=== PATIENT | male | born 1940 | race Caucasian/White ===

== ENCOUNTER → 2019-07-23 10:49 | Outpatient (CLI) | payer MEDICARE, SELFPAY ==
[2019-07-23 09:32] VITALS: BMI 29.2
[2019-07-23 11:53] LABS: AST(SGOT) 28 U/L (15-37); Alanine Aminotransfer ALT/SGPT 40 U/L (16-61); Albumin, Serum 3.5 g/dL (3.2-5.0); Alkaline Phosphatase 70 U/L (45-117); Bilirubin, Direct 0.16 mg/dL (0.00-0.30); Protein, Total 7.5 g/dL (6.4-8.2)
[2019-07-25 03:38] LABS: SAR-COV-2 IGG ANTIBODY Negative (Negative); SAR-COV-2 IGM ANTIBODY Negative (Negative)
== END ==
PROVIDERS: Referring Provider Internal Medicine Cardiovascular Disease; Visit Provider Internal Medicine Cardiovascular Disease
DX: I25.119 Atherosclerotic heart disease of native coronary artery with unspecified angina pectoris (principal); Z95.1 Presence of aortocoronary bypass graft; E78.5 Hyperlipidemia, unspecified; I44.0 Atrioventricular block, first degree; R50.9 Fever, unspecified
CPT/HCPCS: 36415; 80076; 86769; G2023

== ENCOUNTER → 2019-08-19 | Outpatient (CLI) | payer MEDICARE, SELFPAY ==
[2019-07-23 09:32] VITALS: BMI 29.2
--- NOTE | 2019-08-19 06:38 | ECHOD_ITS ---
Reason For Study: CAD/ASHD Procedure This was a 2D Doppler, Color Flow transthoracic echocardiogram. The exam was of adequate technical quality. Exam performed in department. Left Ventricle Normal LV size. Segmental dysfunction with preserved ejection fraction (see wall motion). The estimated ejection fraction is 55 %. No evidence for diastolic dysfunction. Mid-inferoseptal : Hypokinetic. Mid-anteroseptal : Hypokinetic. Septal [place] : Hypokinetic. Right Ventricle Normal RV size. Normal systolic function. Atria Normal left atrium. Normal right atrium. No doppler evidence for ASD. Mitral Valve There is mild mitral annular calcification. Extension of the mitral annular calcification onto the base of the posterior mitral valve leaflet. Mild (1+) mitral valve insufficiency. Tricuspid Valve Normal tricuspid valve. Trivial tricuspid valve insufficiency. Aortic Valve Trisinus/trileaflet aortic valve. Moderate focal aortic valve calcification. Pulmonic Valve The pulmonic valve is not well visualized. Mild (1+) pulmonic valve insufficiency. Great Vessels Mild to moderately dilated aortic root. Pericardium/Pleural No pericardial effusion. MMode/2D Measurements & Calculations LVIDd: 4.1 cm IVSd: 1.8 cm LVOT diam: 2.1 cm LVIDs: 3.0 cm LVPWd: 1.2 cm LVOT area: 3.5 cm2 FS: 27.0 % Ao root diam: 4.3 cm LAV(MOD-bp): 61.6 ml LA A4 area: 19.1 cm2 LA dimension: 4.2 cm LAV(MOD-bp) Indexed: 28.3 ml/m2 LAV(MOD-sp2): 62.2 ml LAV(MOD-sp4): 58.6 ml RA A4 area: 11.3 cm2 Time Measurements MV dec time: 0.29 sec Doppler Measurements & Calculations MV E max phani: 70.9 cm/sec Lat Peak E' Phani: 9.2 cm/sec Med Peak E' Phani: 6.1 cm/sec MV A max phani: 78.7 cm/sec E/E' lat: 7.7 E/E' med: 11.6 MV E/A: 0.90 MV V2 max: 83.8 cm/sec MV P1/2t max phani: 79.0 cm/sec Ao V2 max: 120.4 cm/sec MV max P.8 mmHg MV P1/2t: 120.9 msec Ao max P.8 mmHg MV V2 mean: 51.7 cm/sec MV dec slope: 191.3 cm/sec2 Ao V2 mean: 78.8 cm/sec MV mean P.2 mmHg Ao mean P.8 mmHg MV V2 VTI: 28.0 cm MVA(P1/2t): 1.8 cm2 Ao V2 VTI: 25.2 cm MVA(VTI): 2.7 cm2 ANDRADE(I,D): 3.0 cm2 ANDRADE(V,D): 2.4 cm2 LV V1 max: 82.3 cm/sec SV(LVOT): 76.0 ml PA V2 max: 109.8 cm/sec LV V1 max P.7 mmHg LV V1 mean P.5 mmHg LV V1 mean: 58.3 cm/sec LV V1 VTI: 21.5 cm PI end-d phani: 93.4 cm/sec Interpretation Summary Segmental dysfunction with preserved ejection fraction (see wall motion). The estimated ejection fraction is 55 %. There is mild mitral annular calcification. Extension of the mitral annular calcification onto the base of the posterior mitral valve leaflet. Mild (1+) mitral valve insufficiency. Trivial tricuspid valve insufficiency. Moderate focal aortic valve calcification. Mild (1+) pulmonic valve insufficiency. Mild to moderately dilated aortic root. No evidence for diastolic dysfunction. Ordering Physician: Rick Hart Referring Physician: Rick Hart Performed By: Jorge López RCS
--- NOTE | 2019-08-19 08:30 | STRESSREP_ITS ---
Stress Test Report Date: 08-19-2019 Procedure: Exercise tolerance test/imaging study Indications: Chest pain; CAD; PCI; CABG Consent: Per the patient Procedure: The patient exercised on a Madan protocol for 7 minutes completing Stage II and 1 minute of Stage III achieving a peak heart rate of 134 bpm (93 % predicted maximal heart rate) with a peak blood pressure 162/72 mmHg and a peak MET capacity of 9 METs. The baseline ECG demonstrated normal sinus rhythm. The peak exercise ECG demonstrated no obvious ECG changes. There were no cardiac dysrhythmias pretest, during exercise, or recovery. The functional capacity was considered good. There was no complaint of chest discomfort during exercise or recovery. The examination was discontinued secondary to dyspnea and leg fatigue. Impression: 1. Technically adequate (percent predicted maximal heart rate greater than 85%) exercise tolerance test 2. Peak exercise ECG with no obvious ECG changes 3. There were no cardiac dysrhythmias pretest, during exercise, or recovery 4. Nuclear images pending Myocardial perfusion imaging study: Technique: The patient was injected with 12.0 mCi of technetium 99m Cardiolite and subsequently rest SPECT Cardiolite nuclear imaging was obtained in the horizontal long, vertical long, and short axis views. The patient exercised on a Madan protocol for 7 minutes completing Stage II and 1 minute of Stage III achieving a peak heart rate of 134 bpm (93 % predicted maximal heart rate) with a peak blood pressure 162/72 mmHg and a peak MET capacity of 9 METs. The patient was injected with 36.0 mCi of technetium 99m Cardiolite and subsequently stress SPECT Cardiolite nuclear imaging was obtained in the horizontal long, vertical long, and short axis views. A gated Cardiolite study at peak stress was obtained. Interpretation: Rest and stress SPECT Cardiolite nuclear imaging status post realignment, normalization, and attenuation correction, demonstrates the appearance of relative uniform tracer uptake and myocardial perfusion appearing within normal limits. There is end systolic thickening and brightening. The gated Cardiolite study demonstrates myocardial thickening and inward wall motion. The reported LVEF is 61 %. Impression: 1. Rest and stress SPECT Cardiolite nuclear imaging demonstrate relative uniform tracer uptake and myocardial perfusion appearing within normal limits. 2. The gated Cardiolite study reports an LVEF of 61 %. This note was generated with [employer] software. It may contain incorrect words, spelling, and punctuation that were not noted in checking the note before signing.
== END | disposition home or self-care (01) ==
LOC: CVS 06:38
PROVIDERS: Referring Provider Internal Medicine Cardiovascular Disease; Visit Provider Internal Medicine Cardiovascular Disease
DX: I25.119 Atherosclerotic heart disease of native coronary artery with unspecified angina pectoris (principal); I44.0 Atrioventricular block, first degree; E78.5 Hyperlipidemia, unspecified; Z95.1 Presence of aortocoronary bypass graft; Z95.5 Presence of coronary angioplasty implant and graft
CPT/HCPCS: 78452; 93017; 93306; A9500; A4216

== ENCOUNTER 2021-06-03 09:55 | Outpatient (CLI) | payer MEDICARE, SELFPAY ==
[2021-06-03 10:46] LABS: Absolute Lymphocyte Count 1.43 X10^3/uL (0.83-4.51); Absolute Neutrophil Count 2.7 X10^3/uL (2.0-7.7); Basophil# 0.05 X10^3/uL; Eosinophil# 0.19 X10^3/uL; Eosinophils% 3.8 % (0-5); Hematocrit 43.4 % (40-54); Hemoglobin 14.6 g/dL (13.0-16.5); Lymphocyte # 1.43 X10^3/ul (0.83-4.51); Lymphocyte % 28.4 % (19-41); Mean Corp Hgb Conc 33.6 g/dL (32-36); Mean Corpuscular Volume 98.2 fL (80-94); Monocyte# 0.65 X10^3/uL; Monocyte% 12.9 % (0-10); NRBC Flagged by Analyzer 0 % (0-5); Neutrophil # 2.68 X10^3/uL (2.7-7.7); Neutrophil % 53.3 % (47-70); Platelet Count 110 K/mm3 (150-450); RBC Distribution Width CV 13.2 % (11.6-14.6); RBC Distribution Width SD 48.2 fl (35.1-43.9); Red Blood Count 4.42 M/mm3 (4.6-6.2)
[2021-06-03 11:27] LABS: Anion Gap 4 (5-15); BUN 25 mg/dL (7-18); BUN/Creat Ratio 18.2 RATIO (10-20); Calcium,Total 8.8 mg/dL (8.5-10.1); Chloride 108 mmol/L (98-107); Creatinine, Serum 1.37 mg/dL (0.70-1.30); EST Glomerular Filtration Rate 53 mL/min (>60); Est Glom Filt Rate - Afr Amer 64 mL/min (>60); Glucose 110 mg/dL (74-106); Potassium 4.9 mmol/L (3.5-5.1); Sodium Level 137 mmol/L (136-145); T4 Free Direct 0.84 ng/dL (0.76-1.46); Thyroid Stim Hormone (TSH) 1.03 uIU/mL (0.358-3.74)
[2021-06-03 12:57] LABS: BNP,B-Type NATRIURETIC PEPTIDE 22.9 pg/mL (0-100)
== END 2021-06-03 23:59 | disposition home or self-care (01) ==
LOC: LAB 09:59
PROVIDERS: Visit Provider Nurse Practitioner Gerontology
DX: R06.00 Dyspnea, unspecified (principal); R53.83 Other fatigue
CPT/HCPCS: 36415; 80048; 83880; 84439; 84443; 85025

== ENCOUNTER 2021-06-22 06:17 | Outpatient (CLI) | payer MEDICARE, SELFPAY ==
--- NOTE | 2021-06-22 06:19 | ECHOD_ITS ---
Reason For Study: Dyspnea/SOB Procedure This was a 2D Doppler, Color Flow transthoracic echocardiogram. The exam was of adequate technical quality. Exam performed in department. Left Ventricle Normal LV size. Segmental dysfunction with preserved ejection fraction (see wall motion). The estimated ejection fraction is 55 %. Post operative septal motion. Diastolic function is indeterminate. Mid-inferoseptal : Hypokinetic. Mid-anteroseptal : Hypokinetic. Right Ventricle Normal RV size. Normal systolic function. Atria The left atrium is mildly enlarged. Normal right atrium. No doppler evidence for ASD. Bubble contrast study negative for right to left interatrial shunt. Mitral Valve There is mild mitral annular calcification. Extension of the mitral annular calcification onto the base of the posterior mitral valve leaflet. Mild (1+) mitral valve insufficiency. Tricuspid Valve Normal tricuspid valve. Trivial tricuspid valve insufficiency. Unable to estimate RV systolic pressure due to insufficient tricuspid regurgitant envelope. Aortic Valve Trisinus/trileaflet aortic valve. Mild diffuse aortic valve thickening. Moderate focal aortic valve calcification. Pulmonic Valve The pulmonic valve is not well visualized. Mild (1+) eccentric pulmonic valve insufficiency. Great Vessels Mild to moderately dilated aortic root. Calcified aortic root. Pericardium/Pleural No pericardial effusion. Medication 22 gauge I.V. with prn adaptor inserted into right arm. Performed a rapid injection of agitated mix of 9 cc saline and 1cc air to assess for atrial septal defect. MMode/2D Measurements & Calculations LVIDd: 4.1 cm IVSd: 1.2 cm LVOT diam: 2.1 cm LVIDs: 2.5 cm LVPWd: 1.1 cm FS: 39.3 % LVOT area: 3.6 cm2 Ao root diam: 4.4 cm LAV(MOD-bp): 49.9 ml LA A4 area: 16.0 cm2 LA dimension: 4.3 cm LAV(MOD-bp) Indexed: 23.6 ml/m2 LAV(MOD-sp2): 50.5 ml LAV(MOD-sp4): 45.0 ml RA A4 area: 12.1 cm2 Time Measurements MV dec time: 0.24 sec Doppler Measurements & Calculations MV E max phani: 59.2 cm/sec Lat Peak E' Phani: 8.6 cm/sec Med Peak E' Phani: 7.2 cm/sec MV A max phani: 78.3 cm/sec E/E' lat: 6.8 E/E' med: 8.2 MV E/A: 0.76 MV V2 max: 73.8 cm/sec MV P1/2t max phani: 63.4 cm/sec Ao V2 max: 90.2 cm/sec MV max P.2 mmHg MV P1/2t: 102.7 msec Ao max P.3 mmHg MV V2 mean: 42.5 cm/sec MV dec slope: 180.8 cm/sec2 ANDRADE(V,D): 2.7 cm2 MV mean P.84 mmHg MV V2 VTI: 22.8 cm MVA(P1/2t): 2.1 cm2 LV V1 max: 67.9 cm/sec PA V2 max: 124.2 cm/sec PI end-d phani: 86.7 cm/sec LV V1 max P.8 mmHg ECHO/Echo Complete Interpretation Summary Segmental dysfunction with preserved ejection fraction (see wall motion). The estimated ejection fraction is 55 %. Post operative septal motion. The left atrium is mildly enlarged. There is mild mitral annular calcification. Extension of the mitral annular calcification onto the base of the posterior mi tral valve leaflet. Mild (1+) mitral valve insufficiency. Trivial tricuspid valve insufficiency. Mild diffuse aortic valve thickening. Moderate focal aortic valve calcification. Mild (1+) eccentric pulmonic valve insufficiency. Mild to moderately dilated aortic root. Calcified aortic root. Unable to estimate RV systolic pressure due to insufficient tricuspid regurgita nt envelope. Diastolic function is indeterminate. Bubble contrast study negative for right to left interatrial shunt. Ordering Physician: Selam Mills Referring Physician: [facility] Performed By: Jorge López RCS
--- NOTE | 2021-06-22 13:05 | STRESSREP_ITS ---
Stress Test Report Date: 06-22-2021 Procedure: Exercise tolerance test/imaging study Indications: Chest pain; CAD; PCI; CABG Consent: Per the patient Procedure: The patient exercised on a Madan protocol for 7 minutes completing Stage II and 1 minute of Stage III achieving a peak heart rate of 137 bpm (97% predicted maximal heart rate) with a peak blood pressure 162/72 mmHg and a peak MET capacity of 9 METs. The baseline ECG demonstrated normal sinus rhythm; poor R wave progression. The peak exercise ECG demonstrated no obvious ECG changes. There was a rare PVC during exercise and recovery. The functional capacity was considered good. There was no complaint of chest discomfort during exercise or recovery. The examination was discontinued secondary to dyspnea. Impression: 1. Technically adequate (percent predicted maximal heart rate greater than 85%) exercise tolerance test 2. Peak exercise ECG with no obvious ECG changes 3. There was a rare PVC during exercise and recovery 4. Nuclear images pending Myocardial perfusion imaging study: Technique: The patient was injected with 14.1 mCi of technetium 99m Cardiolite and subsequently rest SPECT Cardiolite nuclear imaging was obtained in the horizontal long, vertical long, and short axis views. The patient exercised on a Madan protocol for 7 minutes completing Stage II and 1 minute of Stage III achieving a peak heart rate of 137 bpm (97% predicted maximal heart rate) with a peak blood pressure 162/72 mmHg and a peak MET capacity of 9 METs. The patient was injected with 43.8 mCi of technetium 99m Cardiolite and subsequently stress SPECT Cardiolite nuclear imaging was obtained in the horizontal long, vertical long, and short axis views. A gated Cardiolite study at peak stress was obtained. Interpretation: Rest and stress SPECT Cardiolite nuclear imaging status post realignment, normalization, and attenuation correction, demonstrates the appearance of relative uniform tracer uptake and myocardial perfusion appearing within normal limits. There is end systolic thickening and brightening. The gated Cardiolite study demonstrates myocardial thickening and inward wall motion. The reported LVEF is 55%. Impression: 1. Rest and stress SPECT Cardiolite nuclear imaging demonstrate relative uniform tracer uptake and myocardial perfusion appearing within normal limits. 2. The gated Cardiolite study reports an LVEF of 55%. This note was generated with [employer] software. It may contain incorrect words, spelling, and punctuation that were not noted in checking the note before signing.
== END 2021-06-22 23:59 | disposition home or self-care (01) ==
LOC: CVS 06:17
PROVIDERS: Visit Provider Nurse Practitioner Gerontology
DX: R06.02 Shortness of breath (principal)
CPT/HCPCS: 78452; 93017; 93306; A9500; A4216

== ENCOUNTER → 2023-07-06 | Outpatient (CLI) | payer MEDICARE, SELFPAY ==
[2023-07-06 11:23] LABS: Absolute Neutrophil Count 3.7 X10^3/uL (2.0-7.7); Basophil# 0.08 X10^3/uL; Basophil% 1.2 % (0-1); Eosinophil# 0.23 X10^3/uL; Eosinophils% 3.5 % (0-5); Hematocrit 43.6 % (40-54); Hemoglobin 14.4 g/dL (13.0-16.5); Lymphocyte % 30.3 % (19-41); Mean Corpuscular Hgb 32.8 pg (27.0-32.0); Mean Corpuscular Volume 99.3 fL (80-94); Mean Platelet Vol. 11.1 fl (6.2-12.0); Monocyte# 0.58 X10^3/uL; Monocyte% 8.8 % (0-10); NRBC Flagged by Analyzer 0 % (0-5); Neutrophil # 3.67 X10^3/uL (2.7-7.7); Neutrophil % 55.7 % (47-70); Platelet Count 126 K/mm3 (150-450); RBC Distribution Width CV 12.8 % (11.6-14.6); Red Blood Count 4.39 M/mm3 (4.6-6.2); White Blood Count 6.6 K/mm3 (4.4-11.0)
[2023-07-06 11:44] LABS: BNP,B-Type NATRIURETIC PEPTIDE 38.5 pg/mL (0-100)
[2023-07-06 11:59] LABS: Anion Gap 5 (5-15); BUN 26 mg/dL (7-18); BUN/Creat Ratio 17.4 RATIO (10-20); Calcium,Total 9.2 mg/dL (8.5-10.1); Chloride 109 mmol/L (98-107); Creatinine, Serum 1.49 mg/dL (0.70-1.30); EST Glomerular Filtration Rate 48 mL/min (>60); Est Glom Filt Rate - Afr Amer 58 mL/min (>60); Glucose 102 mg/dL (74-106); Potassium 4.5 mmol/L (3.5-5.1); Sodium Level 138 mmol/L (136-145); Thyroid Stim Hormone (TSH) 1.07 uIU/mL (0.358-3.74)
== END | disposition home or self-care (01) ==
LOC: LAB 10:59
PROVIDERS: Referring Provider Nurse Practitioner Gerontology; Visit Provider Nurse Practitioner Gerontology
DX: R53.83 Other fatigue (principal); R06.00 Dyspnea, unspecified
CPT/HCPCS: 36415; 80048; 83880; 84443; 85025

== ENCOUNTER → 2023-08-15 | Outpatient (CLI) | payer MEDICARE, SELFPAY ==
--- NOTE | 2023-08-15 08:45 | ECHOD_ITS ---
Version 2 Reason For Study: SOB Procedure This was a 2D Doppler, Color Flow transthoracic echocardiogram. Exam performed in department. Left Ventricle Normal LV size. Left ventricular systolic function is normal. The left ventricular ejection fraction is 60 %. No regional wall motion abnormalities noted. Right Ventricle Normal RV size. Normal systolic function. Atria Normal left atrium. Normal right atrium. Mitral Valve Normal mitral valve. Tricuspid Valve Normal tricuspid valve. Aortic Valve Trisinus/trileaflet aortic valve. Pulmonic Valve Normal pulmonic valve. Great Vessels Mild to moderately dilated aortic root. The pulmonary artery is normal size. Normal inferior vena cava. Pericardium/Pleural No pericardial effusion. MMode/2D Measurements & Calculations LVIDd: 4.2 cm IVSd: 1.6 cm Ao root diam: 4.6 cm LVIDs: 3.2 cm LVPWd: 1.00 cm RVDd: 3.7 cm FS: 23.7 % LAV(MOD-bp): 61.6 ml LVAd ap4: 29.9 cm2 SV(MOD-sp4): 56.3 ml LAV(MOD-bp) Indexed: 28.5 ml/m2 LVLd ap4: 7.9 cm LAV(MOD-sp2): 59.4 ml EDV(MOD-sp4): 95.2 ml LAV(MOD-sp4): 62.3 ml EDV(sp4-el): 96.2 ml LVAs ap4: 18.1 cm2 LVLs ap4: 7.1 cm ESV(MOD-sp4): 39.0 ml ESV(sp4-el): 39.2 ml EF(MOD-sp4): 59.1 % EF(sp4-el): 59.2 % SV(sp4-el): 56.9 ml LA A4 area: 20.3 cm2 LA dimension(2D): 4.5 cm RA A4 area: 14.2 cm2 TAPSE: 1.8 cm Time Measurements MV dec time: 0.20 sec Doppler Measurements & Calculations MV E max phani: 70.4 cm/sec Lat Peak E' Phani: 9.7 cm/sec Med Peak E' Phani: 7.3 cm/sec MV A max phani: 80.4 cm/sec E/E' lat: 7.3 E/E' med: 9.7 MV E/A: 0.88 MV V2 max: 83.0 cm/sec MV P1/2t max phani: 65.8 cm/sec Ao V2 max: 128.0 cm/sec MV max P.8 mmHg MV P1/2t: 87.1 msec Ao max P.6 mmHg MV V2 mean: 50.1 cm/sec Ao V2 mean: 85.8 cm/sec MV mean P.1 mmHg MV dec slope: 221.3 cm/sec2 Ao mean P.4 mmHg MV V2 VTI: 23.7 cm MVA(P1/2t): 2.5 cm2 Ao V2 VTI: 29.5 cm AV (velocity ratio): 0.74 LV V1 max: 90.4 cm/sec PA V2 max: 121.2 cm/sec LV V1 max P.3 mmHg PA V2 mean: 85.7 cm/sec LV V1 mean P.9 mmHg PA V2 VTI: 23.4 cm LV V1 mean: 66.0 cm/sec LV V1 VTI: 21.9 cm ECHO/Echo Complete Interpretation Summary Normal LV size. Left ventricular systolic function is normal. No regional wall motion abnormalities noted. The left ventricular ejection fraction is 60 %. Mild to moderately dilated aortic root. Structurally normal valves. Ordering Physician: Selam Mills Referring Physician: [facility] Performed By: Bethanie Asher, [place], RVT
== END | disposition home or self-care (01) ==
LOC: CVS 08:43
PROVIDERS: Referring Provider Nurse Practitioner Gerontology; Visit Provider Nurse Practitioner Gerontology
DX: R06.02 Shortness of breath (principal); I77.810 Thoracic aortic ectasia
CPT/HCPCS: 93306

== ENCOUNTER → 2024-01-09 | Outpatient (CLI) | payer MEDICARE, SELFPAY ==
[2024-01-09 10:45] LABS: Absolute Neutrophil Count 3.5 X10^3/uL (2.0-7.7); Basophil# 0.05 X10^3/uL; Basophil% 0.8 % (0-1); Eosinophil# 0.15 X10^3/uL; Eosinophils% 2.5 % (0-5); Hematocrit 41.7 % (40-54); Hemoglobin 13.4 g/dL (13.0-16.5); Lymphocyte % 29.8 % (19-41); Mean Corp Hgb Conc 32.1 g/dL (32-36); Mean Corpuscular Hgb 32.3 pg (27.0-32.0); Mean Corpuscular Volume 100.5 fL (80-94); Mean Platelet Vol. 10.9 fl (6.2-12.0); Monocyte# 0.56 X10^3/uL; Monocyte% 9.3 % (0-10); NRBC Flagged by Analyzer 0 % (0-5); Neutrophil # 3.46 X10^3/uL (2.7-7.7); Neutrophil % 57.1 % (47-70); Platelet Count 133 K/mm3 (150-450); RBC Distribution Width SD 48.2 fl (35.1-43.9); Red Blood Count 4.15 M/mm3 (4.6-6.2); White Blood Count 6.1 K/mm3 (4.4-11.0)
[2024-01-09 11:06] LABS: BNP,B-Type NATRIURETIC PEPTIDE 59.7 pg/mL (0-100)
[2024-01-09 11:17] LABS: Anion Gap 5 (5-15); BUN 24 mg/dL (7-18); BUN/Creat Ratio 16.8 RATIO (10-20); Chloride 108 mmol/L (98-107); Creatinine, Serum 1.43 mg/dL (0.70-1.30); EST Glomerular Filtration Rate 50 mL/min (>60); Est Glom Filt Rate - Afr Amer 61 mL/min (>60); Glucose 88 mg/dL (74-106); Potassium 4.3 mmol/L (3.5-5.1); Sodium Level 138 mmol/L (136-145)
== END | disposition home or self-care (01) ==
LOC: LAB 09:57
PROVIDERS: Referring Provider Nurse Practitioner Gerontology; Visit Provider Nurse Practitioner Gerontology
DX: R06.09 Other forms of dyspnea (principal); R53.83 Other fatigue
CPT/HCPCS: 36415; 80048; 83880; 84443; 85025

== ENCOUNTER → 2024-02-01 | Outpatient (CLI) | payer MEDICARE, SELFPAY ==
--- NOTE | 2024-02-01 12:13 | STRESSREP_ITS ---
Stress Test Report Date: 02/01/2024 Procedure: Pharmacologic stress nuclear imaging study Indications: Coronary artery disease Consent: Per the patient Procedure: The patient underwent pharmacologic (Regadenoson 0.4mg ) evaluation with a peak heart rate of 84 beats per minute (60%predicted maximal heart rate) and a peak blood pressure of 122/70 mmHg. The baseline ECG demonstrated sinus rhythm. The peak pharmacologic ECG demonstrated no ischemic changes. There were no cardiac dysrhythmias pretest, during pharmacologic infusion, or recovery. There was no complaint of chest discomfort during pharmacologic infusion or recovery. The patient was injected with 14.2 millicuries of technetium 99m Cardiolite and subsequently rest SPECT Cardiolite nuclear imaging was obtained in the horizontal long, vertical long, and short axis views. The patient underwent pharmacologic (Regadenoson) evaluation. The patient was injected with 44.6 millicuries of technetium 99m Cardiolite and subsequently stress SPECT Cardiolite nuclear imaging was obtained in the horizontal long, vertical long, and short axis views. A gated Cardiolite study at peak stress was obtained. The examination was stopped secondary to completion of protocol. Rest and stress SPECT Cardiolite nuclear imaging status post realignment, normalization, and attenuation correction demonstrate a very small reversible perfusion defect of the apex of mild intensity. There is end systolic thickening and brightening. The gated Cardiolite study demonstrates myocardial thickening and inward wall motion. The reported LVEF is 61%. Impression: 1. Pharmacologic (Regadenoson) evaluation 2. Peak pharmacologic ECG with no ischemic changes. 3. There were no cardiac dysrhythmias pretest, during pharmacologic infusion, or recovery. 5. Small apical reversible perfusion defect of mild intensity suggestive of mild ischemia. Overall low risk with less than 5% of the myocardium involved. 6. The gated Cardiolite study reports an LVEF of 61%. This note was generated with [email or web address] software. It may contain incorrect words, spelling, and punctuation that were not noted in checking the note before signing.
== END | disposition home or self-care (01) ==
PROVIDERS: Referring Provider Nurse Practitioner Gerontology; Visit Provider Nurse Practitioner Gerontology
DX: R07.9 Chest pain, unspecified (principal); R06.00 Dyspnea, unspecified; R53.83 Other fatigue; I25.10 Atherosclerotic heart disease of native coronary artery without angina pectoris
CPT/HCPCS: 78452; 93017; A9500; A4216; J2785

== ENCOUNTER → 2024-08-26 | Outpatient (CLI) | payer MEDICARE, SELFPAY ==
--- OUTSIDE RECORDS SUMMARY | 2024-08-26 07:10 | XMS RPT_ITS | CCD ---
Author Organization [facility] Team Providers Care Manager Air Name Role Phone Jordan Rivas Unavailable Unavailable Batsheva Mata Unavailable Unavailable Roly Medrano Unavailable Unavailable Lizzy Austin Unavailable Unavailable Selam Bourgeois Unavailable Unavailable Unknown, Referring Provider Unavailable Unav ailable Unavailable Unavailable Unavailable Roly Medrano Unavailable Unavailable Unavailable Unavailable [facility] Primary Care Provider [facility] Referring Provider Unavailable Gene PASTEURIZING MACHINE OPERATOR, PASTEURIZING MACHINE OPERATOR-C Selam Attending Provider Free, Text Entry Unavailable Unavailable Duy Cabrera Unavailable Gene PASTEURIZING MACHINE OPERATOR, PASTEURIZING MACHINE OPERATOR-C Selam Other Provider Dr. Rick Hart Attending Provider [phone] Tres Esquivel MD Primary Care Provider [phone] Tres Esquivel MD Primary Care Provider TRES ESQUIVEL Primary Care Unavailable SHAWNA COPE Admitting Unavailable EMMA MUNOZ Attending Unavailable Hermilo Gutierrez PA-C Unavailable Analilia Scott Unavailable Michael Lehman DO Unavailable Tres Esquivel MD Primary Care Provider Tres Esquivel [place] Referring Provider Unavailable Gene ANTUNEZ, PASTEURIZING MACHINE OPERATOR-C Selam Attending Provider TRES ESQUIVEL Primary Care Unavailable [facility] Primary Care Unavailable TRES ESQUIVEL Primary Care Unavailable MOOSE PACK Admitting Unavailable MOOSE PACK Attending Unavailable TRES ESQUIVEL [facility] [place] [facility] [place] Referring Provider Unavailable Tavo GAUTAM, Dr. Torrez Attending Provider [facility] Referring Unavailable [facility] Primary Care Unavailable Jase Vo Attending Unavailable Gene ANTUNEZ, Selam Attending Unavailable Selam Mills NP Referring Unavailable [facility] Primary Care Unavailable Gene ANTUNEZ, Selam Referring Unavailable Gene ANTUNEZ, Selam Attending [facility] Primary Care Unavailable [facility] Primary Care Unavailable Gene ANTUNEZ, Selam Referring Unavailable Gene ANTUNEZ, Selam Attending Unavailable Lopez Hubbard Attending Unavailable [facility] Primary Care Unavailable Gene ANTUNEZ, Selam Attending Unavailable [facility] Un[place] [facility] Primary Care Unavailable Gene ANTUNEZ, Selam Referring Unavailable Gene ANTUNEZ, Selam Consulting Unavailable Sadi Craven Attending Unavailable Gene ANTUNEZ, Selam Attending Unavailable [facility] Referring [facility] Primary Care Unavailable Allergies Allergy Classification Reported Allergen(s) Allergy Type Date of Onset Reaction(s) Facility (2 sources) Aluminum aspirin Drug Allergy 08-06-2022 [facility] Medications Current Medications Medication Drug Class(es) Dates Sig (Normalized) Sig (Original) Acetaminophen (20 sources) Start: 02-16-2023 take 1 tablet by mouth every four hours as needed acetaminophen (Tylenol) tablet 650 mg Start: 08-06-2022 End: 08-08-2022 acetaminophen (Tylenol) tabl et 650 mg Start: 08-02-2021 take 1 capsule by mo uth once as needed Acetaminophen 325 mg capsule Active 325 mg PO ONCE as needed August 02, 2021 12:00am Start: 01-18-2017 End: 08-02-2021 take 1 tablet by mouth once daily as needed Acetaminophen 500 mg tablet Discontinued 500 mg PO DAILY as needed July 23, 2019 9:36am August 02, 2021 10:44am take 2 capsules by m outh every six hours as needed acetaminophen 325 mg cap Take 650 mg by mouth every 6 hours as needed. 0 Active take 1 tablet by clemencia th every six hours as needed acetaminophen (TYLENOL) 500 mg tablet Take 500 mg by mouth every 6 hours as needed. 0 Active Comment on above: Take 650 mg by mouth every 6 hours as needed. Take 500 mg by mouth every 6 hours as needed. [id number] 200 actuat albuterol 0.09 mg/actuat metered dose inhaler (1 source) beta2-Adrenergic Agonist Start: 07-17-19 Albuterol Sulfate 90 mcg/actuation HFA aerosol inhaler Active 2 NMA INHALATION EVERY 4-6 HOURS as needed July 16, 2024 12:00am 24 hr alfuzosin hydrochloride 10 mg extended release oral tablet (11 sources) alpha-Adrenergic Trice Start: 04-12-19 take 1 tablet by mouth once daily at mealtime Alfuzosin 10 mg tablet extended release 24 hr Active 10 mg PO DAILY April 12, 2020 1:00am administer after the same meal each day Comment on above: Take 1 tablet by clemencia th every afternoon. Take 10 mg by mouth. aspirin 81 mg chewable tablet (15 sources) Platelet Aggregation Inhibitor, Nonsteroidal Anti-inflammatory Drug Start: 11-17-19 15 take 1 tablet by mouth once daily Aspirin 81 MG tablet,chewable Active 81 mg PO DAILY@0800 November 16, 2014 12:00am Start: 03-15-2005 ADULT ASPIRIN EC LOW STRENGTH 81 MG TAB Take one(1) tablet daily. 0 03/15/2005 Active Aspirin 81 TBEC Refills: 0 DO Active Aspirin 81 TBEC Refills: 0 Active Comment on above: Take one(1) tablet d aily. atenolol 25 mg oral tablet (20 sources) beta-Adrenergic Trice Start: 2014 Atenolol 25 MG Oral Tablet Quantity: 90 Refills: 0 Ordered: 09-Aug-2015 DO Start : 12-Oct-2014 Active Start: 03-15-2005 End: 05-27-2024 take 1 tablet by mouth once daily Atenolol 25 mg table t Active 25 mg PO DAILY May 27, 2024 3:05pm Comment on above: Take one(1) tablet d aily. benzocaine 15 mg / menthol 3.6 mg oral lozenge (1 source) Standardized Chemical Allergen Start: 3 1 lozenge, Mouth/Throat, Every 2 hour PRN, sore throat, Starting on Sun02/16/23 at 1839 24 hr buPROPion hydrochloride 150 mg extended release oral tablet (20 sources) Aminoketone Start: 3 take 300 mg by mouth once daily 300 mg, oral, Daily RT, First dose on 02/17/23 at 1030 Do not crush, chew, or split. Start: 05-11-2022 buPROPion XL ( WELLBUTRIN XL) 300 mg 24 hr tablet 300 mg. 0 05/11/2022 Active Start: 11-16-2014 End: 08-08-2022 take 1 tablet by mouth once daily Bupropion Hcl 300 MG tablet extended release 24 hr Active 300 mg PO DAILY November 16, 2014 12:00am take 1 tablet by clemencia th every twenty-four hours buPROPion HCl ER (XL) 300 MG Oral Tablet Extended Release 24 Hour Quantity: 0 Refills: 0 Ordered: 16-Dec-2015 DO Active Comment on above: 300 mg. clopidogrel 75 mg oral tablet (20 sources) P2Y12 Platelet Inhibitor Start: 12-25-2014 Clopidogrel Bisulfate 75 MG Oral Tablet Quantity: 90 Refills: 0 Ordered: 24-Sep-2015 DO Start : 25-Dec-2014 Active Start: 03-15-2005 End: 05-27-2024 take 1 tablet by mouth once daily Clopidogrel 75 mg tablet Active 75 mg PO DAILY May 27, 2024 3:24pm Comment on above: Take one(1) tablet d aily. clotrimazole 10 mg/ml topical cream (1 source) Azole Antifungal Start: 07-08-19 clotrimazole 1% topical cream ; Apply topically to affected area 2 times a day Quantity: 1 Refills: 0 Ordered: 07-Jul-2014 Tomi Smart Start: 07-Jul-2014 Status: Discontinued Generic Substitution Allowed Comments: For external use only. Comment on above: For external use onl y. doxycycline hyclate 100 mg oral tablet (2 sources) Tetracycline-class Drug Start: 11-20-19 Doxycycline hyclate 100 mg oral tablet 0.4 ml enoxaparin sodium 100 mg/ml prefilled syringe (1 source) Low Molecular Weight Heparin Start: 02-17-20 inject 40 mg by subcutaneous injection every twenty-four hours 40 mg, subcutaneous, Every 24 hours, First dose on Sun02/16/23 at 1840 Indications: venous thrombosis 1 ml evolocumab 140 mg/ml auto-injector (2 sources) PCSK9 Inhibitor Start: 01-09-20 End: 01-10-20 Evolocumab (Repatha Sureclick) 140 mg/mL pen injector Active 140 mg SC every 2 weeks January 10, 2024 10:28am 12 hr guaiFENesin 1200 mg extended release oral tablet (4 sources) Start: 02-19-20 End: 03-20-19 take 1 tablet by mouth twice daily guaiFENesin (Mucinex) 1,200 mg tablet extended release 12hr Indications: Chest congestion Take 1 tablet (1,200 mg) by mouth 2 times a day. Do not crush, chew, or split. 60 tablet 0 02/18/2023 03/20/2023 Active Start: 02-17-2023 guaiFENesin (M ucinex) 12 hr tablet 1,200 mg Start: 11-19-2022 GuaiFENesin 60 0 mg oral tablet, extended release ibuprofen 200 mg oral tablet (2 sources) Nonsteroidal Anti-inflammatory Drug Start: 07-06-2023 take 1 tablet by mouth every six hours as needed Ibuprofen 200 mg tablet Active 200 mg PO EVERY 6 HOURS as needed July 06, 2023 12:00am ketoconazole 20 mg/ml medicated shampoo (1 source) Azole Antifungal ketoconazole 2% topical shampoo ; Apply topically to affected area 3 times a week Quantity: 0 Refills: 0 Ordered: 18-Jun-2021 Corrie Gagnon Generic Substitution Allowed losartan potassium 25 mg oral tablet (20 sources) Angiotensin 2 Receptor Trice Start: 08-06-2022 End: 08-08-2022 losartan (Cozaar) tablet 25 mg Start: 06-15-2015 Losartan Potas sium 25 MG Oral Tablet Quantity: 90 Refills: 0 Ordered: 18-Oct-2015 DO Start : 15-Jun-2015 Active Start: 10-25-2011 End: 05-28-2024 take 1 tablet by mouth once daily Losartan 25 mg tablet Active 25 mg PO DAILY May 28, 2024 12:00pm Comment on above: Take 1 tablet by clemencia th once daily. Take 1 tablet by clemencia th every afternoon. melatonin 3 mg oral tablet (3 sources) Start: 02-16-2023 take 3 mg by mouth once daily 3 mg, oral, Daily, First dose on 02/16/23 at 1900 Start: 08-06-2022 End: 08-08-2022 take 3 mg by mouth once daily as needed for sleep 3 mg, Oral, Nightly PRN, sleep, Starting on 08/06/22 at 0742 methylPREDNISolone 4 mg oral tablet (2 sources) Corticosteroid Start: 11-19-2022 MethylPREDNISolone 4 mg oral tablet Multivitamin tablet (1 source) Start: 07-16-2024 Multivitamin tablet Active 1 {tbl} PO daily July 16, 2024 12:00am nitroglycerin 0.4 mg sublingual tablet (20 sources) Nitrate Vasodilator Start: 11-16-2014 End: 09-05-2023 Nitroglycerin 0.4 mg tablet, sublingual Active 0.4 mg SL Q5M as needed for Chest Pain September 05, 2023 12:54pm Nitrostat 0.3 MG Sublingual Tablet Sublingual Quantity: 0 Refills: 0 Ordered: 16-Dec-2015 DO Active Comment on above: Dissolve 0.4 mg unde r the tongue. polyethylene glycol 3350 01948 mg powder for oral solution (3 sources) Osmotic Laxative Start: 02-16-2023 17 g, oral, Daily, First dose on Sun02/16/23 at 1840 Bowel Regimen - for prevention of constipation. Start: 08-06-2022 End: 08-08-2022 take 17 g by mouth every twenty-four hours as needed for constipation 17 g, Oral, Daily PRN, constipation, Starting on 08/06/22 at 0742 1st line for treatment of constipation - give scheduled if no bowel movement in past 24 hours. rosuvastatin calcium 10 mg oral tablet (20 sources) HMG-CoA Reductase Inhibitor Start: 02-17-2023 take 20 mg by mouth once daily 20 mg, oral, Daily RT, First dose on 02/17/23 at 1030 Start: 11-01-2022 take 1 tablet by clemencia th once daily at bedtime rosuvastatin (CRESTOR) 40 mg tablet Take 1 tablet by mouth daily at bedtime. 0 11/01/2022 Active Start: 06-03-2021 Rosuvastatin 4 0 mg tablet Active 20 mg PO DAILY June 03, 2021 8:55am Start: 06-03-2021 take 20 mg by mouth once daily Rosuvastatin Active 20 MG PO DAILY June 03, 2021 8:55am Start: 04-12-2020 End: 06-03-2021 take 1 tablet by mouth once daily Rosuvastatin 40 mg tablet Discontinued 40 mg PO DAILY April 12, 2020 1:00am June 03, 2021 8:56am Start: 01-09-2019 End: 04-12-2020 take 1 tablet by mouth once daily Rosuvastatin 20 mg tablet Discontinued 20 mg PO DAILY January 09, 2019 3:05pm April 12, 2020 12:35pm Start: 06-28-2018 End: 01-09-2019 take 2 tablets by mouth once daily Rosuvastatin 20 mg tablet Discontinued 40 mg PO DAILY June 28, 2018 9:53am January 09, 2019 3:07pm Start: 06-28-2018 End: 01-09-2019 take 40 mg by mouth once daily Rosuvastatin Discontinu ed 40 MG PO DAILY June 28, 2018 9:53am January 09, 2019 3:07pm Start: 11-16-2014 End: 06-28-2018 take 1 tablet by mouth once daily Rosuvastatin 20 MG tablet Discontinued 20 mg PO DAILY November 16, 2014 12:00am June 28, 2018 9:55am Crestor 20 MG Or al Tablet Quantity: 0 Refills: 0 Ordered: 16-Dec-2015 DO Active Comment on above: Take 20 mg by mouth. Take 1 tablet by clemencia th daily at bedtime. sildenafil 100 mg oral tablet (13 sources) Phosphodiesterase 5 Inhibitor Start: 08-02-2021 Sildenafil 100 mg tablet Active 100 mg PO DAILY as needed August 02, 2021 12:00am administer 30 minutes to 4 hours before activity Start: 11-16-2014 End: 08-02-2021 take 1 tablet by mouth once daily as needed Sildenafil 50 mg tablet Discontinued 50 mg PO DAILY as needed for sexual activity July 23, 2019 9:36am August 02, 2021 10:44am take 1 tablet by clemencia th once daily as needed sildenafil 100 mg oral tablet ; 1 tab(s) orally once a day, As Needed prior to sexual activity Quantity: 0 Refills: 0 Ordered: 18-Jun-2021 Corrie Gagnon Generic Substitution Allowed Comment on above: 100 mg. tamsulosin hydrochloride 0.4 mg oral capsule (8 sources) alpha-Adrenergic Trice Start: 08-08-2022 End: 08-08-2023 tamsulosin (FLOMAX) 0.4 mg Take 0.4 mg by mouth. 0 08/08/2022 08/08/2023 Active Start: 01-09-2019 End: 04-12-2020 take 1 capsule by mouth once daily Tamsulosin 0.4 mg capsule Discontinued 0.4 mg PO DAILY January 09, 2019 1:00am April 12, 2020 12:36pm Comment on above: Take 0.4 mg by mouth . vancomycin (Vancocin) in % 5 dextrose 500 mL IV 1,750 mg (1 source) Start: 02-18-2023 vancomycin (Vancocin) in % 5 dextrose 500 mL IV 1,750 mg zolpidem tartrate 5 mg oral tablet (20 sources) gamma-Aminobutyric Acid-ergic Agonist Start: 02-17-2023 take 1 tablet by mouth every twenty-four hours as needed 5 mg, oral, Daily PRN, sleep, Starting on 02/17/23 at 1028 Start: 06-04-2017 take 1 tablet by clemencia th at bedtime as needed Ambien 5 MG Oral Tablet TAKE 1 TABLET AT BEDTIME NEEDED FOR INSOMNIA. Quantity: 0 Refills: 0 Ordered: 04-Jun-2017 Batsheva Tesfaye Start : 04-Jun-2017 Active Start: 11-16-2014 take 1 tablet by clemencia th once daily as needed for sleep Zolpidem 10 MG tablet Active 10 mg PO DAILY NEEDED as needed for Sleep November 16, 2014 12:00am Comment on above: Take 10 mg by mouth at bedtime as needed. Completed/Discontinued Medications Medication Drug Class(es) Dates Sig (Normalized) Sig (Original) amoxicillin 875 mg / clavulanate 125 mg oral tablet (1 source) Penicillin-class Antibacterial Start: 04-29-2013 End: 05-09-2013 take 1 tablet by mouth every twelve hours amoxicillin-clavul anate 875 mg-125 mg oral tablet ; 1 tab(s) orally every 12 hours Quantity: 20 Refills: 0 Ordered: 29-Apr-2013 Tomi Smart Start: 29-Apr-2013 End: 09-May-2013 Status: Discontinued Generic Substitution Allowed Aspirin 81 TBEC (7 sources) Aspirin 81 TBEC Quantity: 0 Refills: 0 Ordered: 16-Dec-2015 DO Active azithromycin 500 mg oral tablet (8 sources) Macrolide Antimicrobial Start: 01-16-2020 take 2 tablets by mouth once at mealtime Azithromycin 500 MG Oral Tablet TAKE 2 TABLET Once with food Quantity: 2 Refills: 0 Ordered: 16-Jan-2020 Selam Bourgeois PA-C Start : 16-Jan-2020 Active benzonatate 100 mg oral capsule (20 sources) Non-narcotic Antitussive Start: 02-17-2023 benzonatate (TESSALON PERLE) 100 mg capsule Take 100 mg by mouth. 0 02/18/2023 Active Start: 11-19-2022 Benzonatate 20 0 mg oral capsule Start: 07-23-2019 End: 04-12-2020 Benzonatate 200 mg capsule Discontinued 200 mg PO 2 to 3 times per day as needed July 23, 2019 12:00am April 12, 2020 12:36pm Start: 02-20-2019 take 1 capsule by mo ut three times daily as needed Benzonatate 200 MG Oral Capsule TAKE 1 CAPSULE 3 TIMES DAILY NEEDED. Quantity: 30 Refills: 0 Ordered: 20-Feb-2019 Jordan Rivas PA-C Start : 20-Feb-2019 Active Comment on above: TAKE 1 CAPSULE (100 MG) BY MOUTH 3 TIMES A DAY NEEDED FOR COUGH. DO NOT CRUSH OR CHEW. Take 100 mg by mouth . bisacodyl 5 mg delayed release oral tablet (2 sources) Stimulant Laxative Start: End: bisacodyl (Dulcolax) EC tablet 5 mg ceFAZolin 2000 mg injection (2 sources) Cephalosporin Antibacterial Start: End: take 2000 mg intravenously every eight hours 2,000 mg, IntraVENous, Administer over 30 Minutes, Every 8 hours, First dose on 08/06/22 at 2300, For 24 hours, Recovery & On Unit premix bag Suspected Indication (Select all that apply): Surgical Prophylaxis cefTRIAXone 250 mg injection (1 source) Cephalosporin Antibacterial Start: CefTRIAXone Sodium 250 MG Injection Solution Reconstituted 250 mg IM injection Refills: 0 Selam Borugeois PA-C Start : 16-Jan-2020 Admin Requested docusate sodium 100 mg oral capsule (2 sources) Start: End: docusate sodium (Colace) capsule 100 mg ezetimibe 10 mg / simvastatin 20 mg oral tablet (2 sources) HMG-CoA Reductase Inhibitor, Dietary Cholesterol Absorption Inhibitor Start: VYTORIN 10/20 10 MG-20 MG TAB Take one(1) tablet daily. 0 03/15/2005 Active Comment on above: Take one(1) tablet d satish. FLUoxetine 10 mg oral tablet (8 sources) Serotonin Reuptake Inhibitor Start: End: take 1 tablet by mouth once daily as needed Fluoxetine 10 mg tablet Discontinued 10 mg PO DAILY as needed July 23, 2019 9:35am April 12, 2020 12:36pm gabapentin 300 mg oral capsule (20 sources) Anti-epileptic Agent Start: End: take 3 capsules by mouth three times daily Gabapentin 300 mg capsule Discontinued 900 mg PO THREE TIMES A DAY July 23, 2019 12:00am April 12, 2020 12:36pm Start: 07-23-2019 End: 04-12-2020 take 900 mg by mouth three times daily Gabapentin Discontinued 900 MG PO THREE TIMES A DAY July 23, 2019 9:34am April 12, 2020 12:36pm Start: 07-15-2019 End: 12-14-2020 take 1 tablet by mouth three times daily Gabapentin 600 MG Oral Tablet TAKE 1 TABLET 3 TIMES DAILY. Quantity: 60 Refills: 7 Ordered: 15-Jul-2019 Roly Medrano MD Start : 15-Jul-2019 End : 14-Dec-2020 Complete Start: 03-20-2019 Gabapentin 300 MG Oral Capsule titrate from 300mg to 600 mg tid titration schedule faxed to pharm. Quantity: 180 Refills: 0 Ordered: 20-Mar-2019 Roly Medrano MD Start : 20-Mar-2019 Active Start: 12-16-2015 End: 12-14-2020 Gabapentin 300 MG Oral Capsu le Per titration Quantity: 180 Refills: 0 Ordered: 16-Dec-2015 Roly Medrano MD Start : 16-Dec-2015 End : 14-Dec-2020 Complete faxing titration Start: 12-16-2015 Gabapentin 300 MG Oral Capsule Per titration Quantity: 180 Refills: 0 Roly Medrano MD Start : 16-Dec-2015 Active gadobutrol (Gadavist) injection 9 mL (2 sources) Start: 08-05-2022 End: 08-06-2022 gadobutrol (Gadavist) injection 9 mL 1 ml hydrALAZINE hydrochloride 20 mg/ml injection (2 sources) Arteriolar Vasodilator Start: 08-06-2022 End: 08-08-2022 take 10 mg intravenously every four hours as needed for hypertension 10 mg, IntraVENous, Every 4 hours PRN, high blood pressure, Administer for SBP >170 and/or DBP >100, Starting on 08/06/22 at 0742 1 ml HYDROmorphone hydrochloride 1 mg/ml cartridge (4 sources) Opioid Agonist Start: 08-06-2022 End: 08-06-2022 take 0.5 mg intravenously every four hours as needed for pain and pain HYDROmorphone (Dilaudid) injection 0.5 mg Start: 08-05-2022 End: 08-05-2022 HYDROmorphone (Dilaudid) inj ection 1 mg HYDROmorphone (Dilaudid) injection 0.5 mg (2 sources) Start: 08-06-2022 End: 08-08-2022 take 0.5 mg intravenously every four hours as needed for pain HYDROmorphone (Dilaudid) injection 0.5 mg icosapent ethyl 1000 mg oral capsule (4 sources) Start: 07-03-2018 End: 01-09-2019 Icosapent Ethyl (Vascepa) 1 gram capsule Discontinued 2 g PO TWICE A DAY 120 July 03, 2018 12:00am January 09, 2019 3:07pm linseed oil 1000 mg oral capsule (2 sources) Start: 03-15-2005 FLAXSEED OIL 1,000 MG CAP Take one(1) tablet daily. 0 03/15/2005 Active Comment on above: Take one(1) tablet d aily. loratadine 10 mg oral tablet (6 sources) Start: 03-15-2005 End: 09-24-2017 take 1 tablet by mouth once daily Loratadine 10 MG tablet Discontinued 10 mg PO DAILY November 16, 2014 12:00am September 24, 2017 10:53am Comment on above: PRN 1 ml LORazepam 2 mg/ml injection (4 sources) Benzodiazepine Start: 08-06-2022 End: 08-06-2022 LORazepam (Ativan) injection 1 mg Start: 08-05-2022 End: 08-05-2022 LORazepam (Ativan) injection 2 mg 1 ml naloxone hydrochloride 0.4 mg/ml injection (2 sources) Opioid Antagonist Start: 08-06-2022 End: 08-08-2022 naloxone (Narcan) injection 0.4 mg 2 ml ondansetron 2 mg/ml injection (11 sources) Serotonin-3 Receptor Antagonist Start: 02-15-2023 End: 02-15-2023 ondansetron (Zofran) injection 4 mg Start: 08-05-2022 End: 08-05-2022 ondansetron (Zofran) injecti on 4 mg Start: 07-19-2019 Ondansetron HC l - 4 MG Oral Tablet 1 po prn nausea Quantity: 20 Refills: 1 Ordered: 19-Jul-2019 Lizzy Rivas DO Start : 19-Jul-2019 Active ondansetron ODT (Zofran-ODT) disintegrating tablet 4 mg (2 sources) Start: 08-06-2022 End: 08-08-2022 take 1 tablet by mouth every eight hours as needed for nausea and vomiting ondansetron ODT (Zofran-ODT) disintegrating tablet 4 mg oseltamivir 75 mg oral capsule (15 sources) Neuraminidase Inhibitor Start: 02-20-2019 End: 04-12-2020 take 1 capsule by mouth twice daily Oseltamivir 75 mg capsule Discontinued 75 mg PO TWICE A DAY July 23, 2019 12:00am April 12, 2020 12:36pm oxyCODONE (6 sources) Opioid Agonist Start: 08-06-2022 End: 08-08-2022 take 1 tablet by mouth every six hours as needed for pain oxyCODONE (Roxicodone) immediate release tablet 5 mg take 2 capsules by m outh every six hours as needed oxyCODONE ir (OXYIR) 5 mg capsule Take 1 0 mg by mouth every 6 hours as needed. 0 Active Comment on above: Take 10 mg by mouth every 6 hours as needed. pantoprazole 40 mg delayed release oral tablet (6 sources) Proton Pump Inhibitor Start: 2 End: 3 take 1 tablet by mouth once daily Pantoprazole 40 mg tablet,delayed release (DR/EC) Discontinued 40 mg PO DAILY August 02, 2021 12:00am September 28, 2022 9:31am Start: 04-12-2020 End: 06-03-2021 take 1 tablet by mouth once daily Pantoprazole 40 mg tablet,delayed release (DR/EC) Discontinued 40 mg PO DAILY April 12, 2020 1:00am June 03, 2021 8:55am piperacillin 3000 mg / tazobactam 375 mg injection (1 source) Penicillin-class Antibacterial, beta Lactamase Inhibitor Start: 02-16-2023 End: 02-16-2023 [id number] naomi (Zosyn) IV 3.375 g polymyxin b [id number] unt/ml / trimethoprim 1 mg/ml ophthalmic solution (8 sources) Dihydrofolate Reductase Inhibitor Antibacterial, Polymyxin-class Antibacterial Start: 05-21-2020 take 2 drop(s) into the eye(s) four times daily Polymyxin B-Trimethoprim 07220-0.1 UNIT/ML-% Ophthalmic Solution INSTILL 2 DROPS INTO AFFECTED EYE(S) 4 TIMES DAILY. Quantity: 1 Refills: 0 Ordered: 21-May-2020 Selam Bourgeois PA-C Start : 21-May-2020 Active Start: 05-03-2017 End: 05-09-2017 take 1 drop(s) into the eye(s) every three hours polymyxin B-trimethoprim 10,000 units-1 mg/mL ophthalmic solution ; 1 drop(s) in each affected eye every 3 hours Quantity: 1 Refills: 0 Ordered: 03-May-2017 NERISSA FARIA Start: 03-May-2017 End: 09-May-2017 Status: Discontinued Generic Substitution Allowed Comments: For the eye. Comment on above: For the eye. prednisoLONE acetate 10 mg/ml ophthalmic suspension (2 sources) Corticosteroid Start: 02-22-2023 prednisoLONE acetate (PRED FORTE) 1 % ophthalmic suspension INSTILL 1 DROP IN THE RIGHT EYE THREE TIMES DAILY 0 02/22/2023 Active Comment on above: INSTILL 1 DROP IN TH E RIGHT EYE THREE TIMES DAILY 1000 ml sodium chloride 9 mg/ml injection (3 sources) Start: 02-16-2023 End: 02-17-2023 sodium chloride 0.9% infusion Start: 08-05-2022 End: 08-05-2022 sodium chloride 0.9 % bolus 1,000 mL vancomycin (Vancocin) in dextrose 5 % water (D5W) 500 mL IV 1,500 mg (2 sources) Start: 02-17-2023 End: 02-18-2023 vancomycin (Vancocin) in dextrose 5 % water (D5W) 500 mL IV 1,500 mg Start: 02-16-2023 End: 02-16-2023 vancomycin (Vancocin) in dex trose 5 % water (D5W) 500 mL IV 1,500 mg vardenafil 20 mg oral tablet (2 sources) Phosphodiesterase 5 Inhibitor Start: 03-15-2005 LEVITRA 20 MG TAB prn 0 03/15/2005 Active Comment on above: prn NEGATED: Highlighted row has not occurred! (1 source) Start: 11-29-2022 End: 11-29-2022 Problems Active Problems Problem Classification Problem Date Documented Da te Episodic/Chronic Abdominal pain (9 sources) Abdominal pain; Translations: [Abdominal pain, unspecified site] Onset: 3 02-16-2023 Episodic Aortic; peripheral; and visceral artery aneurysms (3 sources) Aortic root dilatation; Translations: [Thoracic aortic ectasia] 08-02-2021 Chronic Cardiac dysrhythmias (3 sources) Irregular heart beat; Translations: [Cardiac arrhythmia, unspecified] Onset: 5 05-18-2023 Chronic Complications of surgical procedures or medical care (8 sources) Postoperative hematoma formation; Translations: [Postprocedural hematoma of a nervous system organ or structure following a nervous system procedure] Onset: 3 08-06-2022 Episodic Conduction disorders (16 sources) First degree atrioventricular block; Translations: [First degree atrioventricular block] Onset: 3 Chronic Coronary atherosclerosis and other heart disease (14 sources) Coronary atherosclerosis; Translations: [Atherosclerotic heart disease of platinum coronary artery without angina pectoris] Onset: 4 Chronic Comment on above: CABG x3- DAVIDSON to LAD , SVG to DX branch of anterior descending, DAVIDSON to RCA 01/23/06; PTCA/stent of the LAD 02/04; PTCA/baloon angionplasty in the mid OM1 and PTCA/MING to prox OM1 11/17/14 Coronary atherosclerosis and other heart disease (9 sources) Stented coronary artery; Translations: [Presence of coronary angioplasty implant and graft] Onset: 6 Episodic Comment on above: PTCA/stent of the LA D 02/04; PTCA/baloon angionplasty in the mid OM1 and PTCA/MING to prox OM1 11/17/14 Disorders of lipid metabolism (8 sources) Hyperlipidemia; Translations: [Hyperlipidemia, unspecified] Onset: 4 Chronic Genitourinary symptoms and ill-defined conditions (8 sources) Discharge from penis; Translations: [Urethral discharge] Episodic Headache; including migraine (7 sources) Headache; Translations: [Headache] Episodic Inflammation; infection of eye (except that caused by tuberculosis or sexually transmitteddisease) (8 sources) Conjunctivitis; Translations: [Conjunctivitis, unspecified] Onset: 3 02-16-2023 Episodic Influenza (12 sources) Influenza due to Influenza A virus; Translations: [Influenza with other respiratory manifestations] Onset: 3 02-16-2023 Episodic Mycoses (1 source) Pain in toe; Translations: [Tinea unguium] 05-09-2023 Episodic Nausea and vomiting (11 sources) Nausea and vomiting; Translations: [Nausea with vomiting] Onset: 3 02-16-2023 Episodic Nonspecific chest pain (5 sources) Chest pain; Translations: [Chest pain, unspecified] Onset: 4 06-18-2021 Episodic Other and ill-defined heart disease (9 sources) Heart disease; 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] Onset: 3 02-16-2023 Chronic Other circulatory disease (2 sources) Nasal discharge; Translations: [Other symptoms involving head and neck] Episodic Other circulatory disease (4 sources) Pulmonary congestion ; Translations: [Other symptoms involving respiratory system and chest] Onset: 3 02-18-2023 Episodic Other circulatory disease (2 sources) H/O: heart disorder; Translations: [Personal history of other diseases of circulatory system] Episodic Other gastrointestinal disorders (2 sources) Diarrhea, unspecified; Translations: [Diarrhea, unspecified] Onset: 4 Episodic Other lower respiratory disease (9 sources) Hypoxia; Translations: [Hypoxemia] Onset: 3 02-16-2023 Episodic Other lower respiratory disease (2 sources) Cough; Translations: [Cough] Episodic Other lower respiratory disease (5 sources) Dyspnea on exertion; Translations: [Dyspnea, unspecified] 04-01-2022 Episodic Other lower respiratory disease (4 sources) Dyspnea, unspecified; Translations: [Other respiratory abnormalities] Onset: 4 Episodic Other lower respiratory disease (2 sources) Other forms of dyspnea; Translations: [Other respiratory abnormalities] Onset: 5 07-06-2023 Episodic Other nervous system disorders (7 sources) Has difficulty with speech; Translations: [Other speech disturbance] Episodic Other nervous system disorders (6 sources) Postoperative pain ; Translations: [Other acute postprocedural pain] Onset: 3 08-05-2022 Episodic Other nervous system disorders (2 sources) Other acute postprocedural pain; Translations: [Other acute postprocedural pain] Onset: 3 Episodic Other nutritional; endocrine; and metabolic disorders (2 sources) Hypomagnesemia; Translations: [Hypomagnesemia] Onset: 4 Chronic Other screening for suspected conditions (not mental disorders or infectious disease) (2 sources) Encounter for screening for malignant neoplasm of prostate; Translations: [Encounter for screening for malignant neoplasm of prostate] Onset: 5 Episodic Other skin disorders (1 source) Nail deformity; Translations: [Other nail disorders] 05-09-2023 Episodic Other upper respiratory infections (2 sources) Acute upper respiratory infection, unspecified; Translations: [Acute upper respiratory infection, unspecified] Onset: 3 Episodic Residual codes; unclassified (11 sources) Influenza-like symptoms; Translations: [Other general symptoms] Episodic Residual codes; unclassified (2 sources) Viral syndrome; Translations: [Other general symptoms and signs] Onset: 3 02-16-2023 Episodic Spondylosis; intervertebral disc disorders; other back problems (20 sources) Radiculopathy, lumbar region; Translations: [Low back pain] Onset: 3 02-16-2023 Episodic Unclassified (2 sources) CHEST PAINS 06-18-2021 Comment on above: CHEST PAINS Unclassified (1 source) High Cholesterol Viral infection (3 sources) Viral disease; Translations: [Unspecified viral infection] 02-15-2023 Episodic Viral infection (2 sources) COVID-19; Translations: [COVID-19] Onset: 3 Past or Other Problems Problem Classification Problem Date Documented Da te Episodic/Chronic Bacterial infection; unspecified site (5 sources) Bacteremia; Translations: [Bacteremia] Onset: 02-16-2023 Resolved: 02-18-2023 02-16-2023 Episodic Malaise and fatigue (13 sources) Fatigue; Translations: [Other fatigue] Onset: 08-05-2022 Episodic Other circulatory disease (2 sources) Other specified symptoms and signs involving the circulatory and respiratory systems; Translations: [Other specified symptoms and signs involving the circulatory and respiratory systems] Onset: 02-16-2023 Episodic Other lower respiratory disease (1 source) Shortness of breath; Translations: [Shortness of breath] Onset: 08-24-2023 Episodic Syncope (3 sources) Near syncope; Translations: [Syncope and collapse] Onset: 02-15-2023 02-15-2023 Episodic NEGATED: Highlighted row has not occurred!Residual codes; unclassified (15 sources) Disease Episodic Results Test Name Value Interpretation Reference Range Facility 12 Lead EKG performed by [facility] on 07-16-2024 12 Lead EKG performed by [place] [id number] Lead EKG performed by [facility] 07/16/24 0758 MR#: [id number] Acct: [id number] Name: JACKSON HURT GENE Rep #: [id number] : 1940 83 From: Jase Vo MD Attending Dr: Dr. Jase Vo MD Status: DE P AMB Ordering Dr: Jase Vo MD Date: 07/16/24 [place] [facility] Sex: M C Admitted: [facility]/12 Lead EKG performed by [facility] ECG Report Interpretation -Sinus Rhythm -First degree A-V block -With rate variation [place] = 240 cv = 11.Otherwise NORMALElectronically signed on 07/16/2024 at 15:[address] Jase Andino Software Version [id number] 07/16/24 1522 Date Jase Vo MD CC: [place] Hospital Date Dictated: 07/16/24757 Date Transcribed: 07/16/24757 Manager Of Community Relations: Signed Normal [facility] Cardiology Visit Reporton Cardiology Visit Report [facility] [address] [place] [address] OFFICE VISIT Date of Service: 07/16/24 MR#: [id number] Acct: [id number] Name: JACKSON HURT GENE Rep #: [id number] : 1940 Provider: Dr. Jase franco MD Age/Sex: 83/M Location: [facility] Status: Signed HPI HPI History of Present Illness Details: Patient is a very pleasant 83-year-old white male that comes today for monitoring of his cardiac status and preop clearance. The patient is due to have a surveillance colonoscopy in early August. The patient carries a history of known coronary disease status post PCI in 2002 of the LAD the circumflex was angioplastied in 2014 and the patient suddenly underwent bypass graft surgery in 2015 receiving a DAVIDSON to the LAD a CHARLA to an unknown vessel and a vein graft to the right coronary artery. The patient does not remember having any symptoms prior to his original intervention. This was picked up on surveillance stress test. The patient's last stress test was January 2024 which was a pharmacologic nuclear stress test which showed no evidence of any LV dysfunction there was a small apical reversible perfusion defect of mild intensity suggesting mild ischemia overall low risk less than 5% of the myocardium. Patient's last echo August 2023 showed normal LV size and function EF 60% mild to moderately dilated aortic root and was otherwise structurally normal. The patient now reports that he can walk 2 flights of stairs. However he has recumbent wheezing when he lays down at night that started in the last 10 months. He originally thought it might be related to allergies but he just started taking antihistamines. He has not noted any difference. He denies any PND or definitive orthopnea he denies any lower extremity edema. His exercise tolerance is significantly limited by his chronic back pain related to back surgery that occurred in 2022 which he tolerated without cardiovascular incident. Since that point time his activities have been curtailed sharply. ECG done in the office today shows normal sinus rhythm with a first-degree AV block and a nondescript interventricular conduction delay. 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 Worker Required: No Accompanied by: Self Is patient in pain?: No Allergies No Known Allergies Allergy (Verified 07/16/24 12:58) Medications ???Medication ???Instructions ???Recorded ???Confirmed ???Type aspirin 81 mg chewable tablet 81 mg PO DAILY@0800 11/16/1407/16 History bupropion HCl 300 mg 24 hr tablet, 300 mg PO DAILY 11/16/14 5 History extended release zolpidem 10 mg tablet 10 mg PO DAILY PRN PRN Sleep 11/1607/16/24 History alfuzosin 10 mg tablet,extended 10 mg PO DAILY 04/12/20 07/16/24 H istory release 24 hr rosuvastatin 40 mg tablet 20 mg PO DAILY 06/03/21 07/16/24 H istory acetaminophen 325 mg capsule 325 mg PO ONCE PRN 08/02/21 History sildenafil 100 mg tablet 100 mg PO DAILY PRN 08/02/2107/16 History ibuprofen 200 mg tablet 200 mg PO Q6H PRN 07/06/23 5 History nitroglycerin 0.4 mg sublingual 0.4 mg sublingual Q5M PRN Chest 07/16/24 Rx tablet Pain #90 tabs evolocumab 140 mg/mL subcutaneous 140 mg subcut Q2W #6 mL 01/10/24 07/16/24 Rx pen injector (Chepe Cabrera) atenolol 25 mg tablet 25 mg PO DAILY #90 tabs 05/27/24 0 07/16/24 Rx clopidogrel 75 mg tablet 75 mg PO DAILY #90 tabs 05/27/24 0 07/16/24 Rx losartan 25 mg tablet 25 mg PO DAILY #90 tabs 05/28/24 0 07/16/24 Rx albuterol sulfate 90 mcg/actuation 2 puff inhalation Q4-6H PRN 07/0307/16/24 History aerosol inhaler multivitamin 1 tab PO QDAY 07/16/24 07/16/24 Hi story Ejection fraction %: 60 Have you fallen in the past year?: No PFSH Medical History First degree AV block Depression BPH (benign prostatic hyperplasia) Hyperlipidemia Atherosclerotic heart disease of platinum coronary artery without angina pectoris Angina pectoris Surgical History History of bilateral cataract extraction Presence of stent in coronary artery ( 11/17/14) History of laparoscopic cholecystectomy Postsurgical percutaneous transluminal coronary angioplasty (PTCA) status 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 Normal [facility] Prostate specific Agon 03-25 Prostate specific Ag [Mass/Vol] 0.99 ng/mL Normal <=4.00 [facility] Comment on above: Order Comment: The DA requires that the method used for PSA assay be reported to the physician. Values obtained with different assay methods must not be used interchangeably. This test was performed at [facility] using [employer] PSA method, which is a sandwich immunoassay using chemiluminescence for quantitation. The assay is approved for measurement of prostate-specific antigen (PSA) in serum and may be used in conjunction with a digital rectal examination in men 50 years and older as an aid in the detection of prostate cancer. 5 Alpha-reductase inhibitors (e.g., Proscar, Finasteride, Avodart, Dutasteride, and Anna) for the treatment of BPH have been shown to lower PSA levels by an average of 50% after 6 months of treatment. Performed By: #### 2 857-1 #### DESIRAE Terry ([id number]) [facility] ([facility]) [address] [place] [address] Stress Reporton 02-01-2024 Stress Report [facility] [address] [place] [address] MR#: [id number] Acct: [id number] Name: JACKSON HURT Rep #: [id number] : 1940 83 From: Sadi Craven MD Primary Care: [facility] Status: REG CLI Referring Dr: Selam Mills NP PASTEURIZING MACHINE OPERATOR-C Sex: M C Stress Test Report Date: 02/01/2024 Procedure: Pharmacologic stress nuclear imaging study Indications: Coronary artery disease Consent: Per the patient Procedure: The patient underwent pharmacologic (Regadenoson 0.4mg ) evaluation with a peak heart rate of 84 beats per minute (60%predicted maximal heart rate) and a peak blood pressure of 122/70 mmHg. The baseline ECG demonstrated sinus rhythm. The peak pharmacologic ECG demonstrated no ischemic changes. There were no cardiac dysrhythmias pretest, during pharmacologic infusion, or recovery. There was no complaint of chest discomfort during pharmacologic infusion or recovery. The patient was injected with 14.2 millicuries of technetium 99m Cardiolite and subsequently rest SPECT Cardiolite nuclear imaging was obtained in the horizontal long, vertical long, and short axis views. The patient underwent pharmacologic (Regadenoson) evaluation. The patient was injected with 44.6 millicuries of technetium 99m Cardiolite and subsequently stress SPECT Cardiolite nuclear imaging was obtained in the horizontal long, vertical long, and short axis views. A gated Cardiolite study at peak stress was obtained. The examination was stopped secondary to completion of protocol. Rest and stress SPECT Cardiolite nuclear imaging status post realignment, normalization, and attenuation correction demonstrate a very small reversible perfusion defect of the apex of mild intensity. There is end systolic thickening and brightening. The gated Cardiolite study demonstrates myocardial thickening and inward wall motion. The reported LVEF is 61%. Impression: 1. Pharmacologic (Regadenoson) evaluation 2. Peak pharmacologic ECG with no ischemic changes. 3. There were no cardiac dysrhythmias pretest, during pharmacologic infusion, or recovery. 5. Small apical reversible perfusion defect of mild intensity suggestive of mild ischemia. Overall low risk with less than 5% of the myocardium involved. 6. The gated Cardiolite study reports an LVEF of 61%. This note was generated with [employer] software. It may contain incorrect words, spelling, and punctuation that were not noted in checking the note before signing. 02/01/241214 Date Sadi Craven MD CC: DIYA Mills; [facility] Date Dictated: 02/01/241212 Date Transcribed: 02/01/241212 Manager Of Community Relations: CATRACHITO Signed Normal [facility] BNP,B-Type NATRIURETIC PEPTI Declan 01-09-2024 Natriuretic peptide B (Bld) [Mass/Vol] 59.7 pg/mL Normal 0-100 [facility] Comment on above: Performed By: #### L 503.6620, L501.9520, L100.0100, L500.2500 #### [facility] [address] [place], [address] Basic Metabolic Profile (BMP )on 01-09-2024 BUN/CRE 16.8 RATIO Normal 10-20 [facility] Comment on above: Performed By: #### L 503.6620, L501.9520, L100.0100, L500.2500 #### [facility] [address] [place], [address] CA,Total 9.0 mg/dL Normal 8.5-10.1 [facility] Comment on above: Performed By: #### L 503.6620, L501.9520, L100.0100, L500.2500 #### [facility] [address] [place], [address] Chloride [Moles/Vol] 108 mmol/L High 98-107 [facility] Comment on above: Performed By: #### L 503.6620, L501.9520, L100.0100, L500.2500 #### [facility] [address] [place], [address] CO2 [Moles/Vol] 24.0 mmol/L Normal 21.0-32.0 [facility] Comment on above: Performed By: #### L 503.6620, L501.9520, L100.0100, L500.2500 #### [facility] [address] [place], [address] Creatinine [Mass/Vol] 1.43 mg/dL High 0.70-1.30 [facility] Comment on above: Result Comment: The validity of the calculated GFR GFRAA in patients over 70 years has not been determined. Clinical correlation is essential. Performed By: #### L 503.6620, L501.9520, L100.0100, L500.2500 #### [facility] [address] [place], [address] EST GFR - AA 61 mL/min Normal >60 [facility] Comment on above: Result Comment: Afri can Colombian GFR Calc Performed By: #### L 503.6620, L501.9520, L100.0100, L500.2500 #### [facility] [address] [place], [address] GAP 5 Normal 5-15 [facility] Comment on above: Performed By: #### L 503.6620, L501.9520, L100.0100, L500.2500 #### [facility] [address] [place], [address] GFR/1.73 sq M.predicted among non-blacks MDRD (S/P/Bld) [Vol rate/Area] 50 mL/min/{1.73_m2} Low >60 [facility] Comment on above: Result Comment: Non- GFR Calc Performed By: #### L 503.6620, L501.9520, L100.0100, L500.2500 #### [facility] [address] [place], [address] Glucose [Mass/Vol] 88 mg/dL Normal 74-106 [facility] Comment on above: Performed By: #### L 503.6620, L501.9520, L100.0100, L500.2500 #### [facility] [address] [place], [address] Potassium [Moles/Vol] 4.3 mmol/L Normal 3.5-5.1 [facility] Comment on above: Performed By: #### L 503.6620, L501.9520, L100.0100, L500.2500 #### [facility] [address] [place], [address] Sodium [Moles/Vol] 138 mmol/L Normal 136-145 [facility] Comment on above: Performed By: #### L 503.6620, L501.9520, L100.0100, L500.2500 #### [facility] [address] [place], [address] Urea nitrogen [Mass/Vol] 24 mg/dL High 7-18 [facility] Comment on above: Performed By: #### L 503.6620, L501.9520, L100.0100, L500.2500 #### [facility] [address] [place], [address] CBC W/Diff, Automatedon 11-0 6-2023 Absolute Lymph 1.80 X10 3/uL Normal 0.83-4.51 [facility] Comment on above: Performed By: #### L 503.6620, L501.9520, L100.0100, L500.2500 #### [facility] [address] [place], [address] Absolute Neut 3.5 X10 3/uL Normal 2.0-7.7 [facility] Comment on above: Performed By: #### L 503.6620, L501.9520, L100.0100, L500.2500 #### [facility] [address] [place], [address] Basophils/100 WBC (Bld) 0.8 % Normal 0-1 [facility] Comment on above: Performed By: #### L 503.6620, L501.9520, L100.0100, L500.2500 #### [facility] [address] [place], [address] Eosinophils/100 WBC (Bld) 2.5 % Normal 0-5 [facility] Comment on above: Performed By: #### L 503.6620, L501.9520, L100.0100, L500.2500 #### [facility] [address] [place], [address] Erythrocyte distribution width (RBC) [Ratio] 13.0 % Normal 11.6-14.6 [facility] Comment on above: Performed By: #### L 503.6620, L501.9520, L100.0100, L500.2500 #### [facility] [address] [place], [address] Hematocrit (Bld) [Volume fraction] 41.7 % Normal 40-54 [facility] Comment on above: Performed By: #### L 503.6620, L501.9520, L100.0100, L500.2500 #### [facility] [address] [place], [address] Hemoglobin (Bld) [Mass/Vol] 13.4 g/dL Normal 13.0-16.5 [facility] Comment on above: Performed By: #### L 503.6620, L501.9520, L100.0100, L500.2500 #### [facility] [address] [place], [address] IG% 0.500 Normal 0.0-0.9 [facility] Comment on above: Result Comment: IG% - Immature Granulocytes (promyelocytes, myelocytes and metamyelocytes) > 1% indicates that a LEFT SHIFT is Present. Performed By: #### L 503.6620, L501.9520, L100.0100, L500.2500 #### [facility] [address] [place], [address] Lymphocytes/100 WBC (Bld) 29.8 % Normal 19-41 [facility] Comment on above: Performed By: #### L 503.6620, L501.9520, L100.0100, L500.2500 #### [facility] [address] [place], [address] MCH (RBC) [Entitic mass] 32.3 pg High 27.0-32.0 [facility] Comment on above: Performed By: #### L 503.6620, L501.9520, L100.0100, L500.2500 #### [facility] [address] [place], [address] MCHC (RBC) [Mass/Vol] 32.1 g/dL Normal 32-36 [facility] Comment on above: Performed By: #### L 503.6620, L501.9520, L100.0100, L500.2500 #### [facility] [address] [place], [address] MCV (RBC) [Entitic vol] 100.5 fL High 80-94 [facility] Comment on above: Performed By: #### L 503.6620, L501.9520, L100.0100, L500.2500 #### [facility] [address] [place], [address] Monocytes/100 WBC (Bld) 9.3 % Normal 0-10 [facility] Comment on above: Performed By: #### L 503.6620, L501.9520, L100.0100, L500.2500 #### [facility] [address] [place], [address] Neutrophils/100 WBC (Bld) 57.1 % Normal 47-70 [facility] Comment on above: Performed By: #### L 503.6620, L501.9520, L100.0100, L500.2500 #### [facility] [address] [place], [address] Nucleated RBC (Bld) [#/Vol] 0 10*3/uL Normal 0-5 [facility] Comment on above: Performed By: #### L 503.6620, L501.9520, L100.0100, L500.2500 #### [facility] [address] [place], [address] Platelet mean volume (Bld) [Entitic vol] 10.9 fL Normal 6.2-12.0 [facility] Comment on above: Performed By: #### L 503.6620, L501.9520, L100.0100, L500.2500 #### [facility] [address] [place], [address] Platelets (Bld) [#/Vol] 133 10*3/uL Low 150-450 [facility] Comment on above: Performed By: #### L 503.6620, L501.9520, L100.0100, L500.2500 #### [facility] [facility] [address] [place], [address] RBC (Bld) [#/Vol] 4.15 10*6/uL Low 4.6-6.2 [facility] Comment on above: Performed By: #### L 503.6620, L501.9520, L100.0100, L500.2500 #### [facility] [address] [place], [address] RDW SD 48.2 fl High 35.1-43.9 [facility] Comment on above: Performed By: #### L 503.6620, L501.9520, L100.0100, L500.2500 #### [facility] [address] [place], [address] WBC (Bld) [#/Vol] 6.1 10*3/uL Normal 4.4-11.0 [facility] Comment on above: Performed By: #### L 503.6620, L501.9520, L100.0100, L500.2500 #### [facility] [address] [place], [place], [address] Cardiology Visit Reporton Cardiology Visit Report [facility] [address] [place] [address] OFFICE VISIT Date of Service: 01/09/24 MR#: [id number] Acct: [id number] Name: JACKSON HURT GENE Rep #: [id number] 23 : 1940 Provider: DIYA ibarra Age/Sex: 83/M Location: [facility] Status: Signed HPI HPI History of Present Illness Details: This is a 83 year old male who presents to the office today for a cardiovascular visit. He has a history of underlying CAD, PCI (LAD-2002), PTCA/MING to OM1 (2014), status post CABG (DAVIDSON to the LAD, CHARLA to the no branch, and SVG to the RCA-2005), superimposed upon hyperlipidemia. He had been having some irregular heart beats, and underwent a 14 day event monitor which demonstrated sinus rhythm with frequent supraventricular ectopy. His average heart rate was 69 bpm. VE less than 1%, SVE 10%, 0 atrial fibrillation. From a cardiac standpoint, the patient is doing well. He denies any palpitations. He states that he did have one episode of chest pain about 2 months ago, he took 1 nitroglycerin and the pain went away. He has not had a recurrence of this. He does have occasional SOB with climbing stairs- he states this may be slightly worse. He denies Orthopnea, and PND. He does not have bleeding issues; no blood in urine, stool or nosebleeds. He does acknowledge a decrease in energy level. He denies myalgias, or claudication. He denies edema, or sudden weight gain. He does not have dizziness, lightheadedness, syncopal or near syncopal episodes, and headaches.He does acknowledge back pain-he states he recently had an epidural injection last week. 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: No Is patient in pain?: No Allergies No Known Allergies Allergy (Verified 01/09/24 09:31) Medications ???Medication ???Instructions ???Recorded ???Confirmed ???Type aspirin 81 mg chewable tablet 81 mg PO DAILY@0800 11/16/14 01/09/24 History bupropion HCl 300 mg 24 hr tablet, 300 mg PO DAILY 11/16/14 01/09/24 History extended release zolpidem 10 mg tablet 10 mg PO DAILY PRN PRN Sleep 11/16/14 01/09/24 History alfuzosin 10 mg tablet,extended 10 mg PO DAILY 04/12/20 01/09/24 History release 24 hr rosuvastatin 40 mg tablet 20 mg PO DAILY 06/03/21 01/09/24 History acetaminophen 325 mg capsule 325 mg PO ONCE PRN 08/02/21 01/09/24 History sildenafil 100 mg tablet 100 mg PO DAILY PRN 08/02/21 01/09/24 History losartan 25 mg tablet 25 mg PO DAILY #90 tabs 03/12/23 01/09/24 Rx clopidogrel 75 mg tablet 75 mg PO DAILY #90 tabs 04/16/23 01/09/24 Rx atenolol 25 mg tablet 25 mg PO DAILY #90 tabs 04/19/23 01/09/24 Rx ibuprofen 200 mg tablet 200 mg PO Q6H PRN 07/06/23 01/09/24 History nitroglycerin 0.4 mg sublingual 0.4 mg sublingual Q5M PRN Chest 09/05/23 01/09/24 Rx tablet Pain #90 tabs evolocumab 140 mg/mL subcutaneous 140 mg subcut Q2W #2 mL 01/09/24 01/09/24 Rx pen injector (Chepe Cabrera) Have you fallen in the past year?: Yes PFSH Medical History (Reviewed 01/09/24 @ 15:54 by Selam Mills PASTEURIZING MACHINE OPERATOR, PASTEURIZING MACHINE OPERATOR-C) First degree AV block Depression BPH (benign prostatic hyperplasia) Hyperlipidemia Atherosclerotic heart disease of platinum coronary artery without angina pectoris Angina pectoris Surgical History History of bilateral cataract extraction Presence of stent in coronary artery ( 11/17/14) History of laparoscopic cholecystectomy Postsurgical percutaneous transluminal coronary angioplasty (PTCA) status 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) Family History Mother CAD (coronary artery disease) Father Cancer Prostate Cancer Social History Smoking Status: Former smoker how long ago did patient quit smokin years ago alcohol intake: current alcohol intake frequency: a few times a week Alcohol type: wine substance use type: does not use caffeine: Yes Type: coffee Number of servings: 1 ROS Const Const: Positive for fatigue; Negative for weakness, fever(s), headache(s), chills, frequent falls, weight gain or weight loss Eyes Eyes: Negative for blind spots, loss of peripheral vision, transient loss of vision, blurry vision, change in vision, double vision, floaters or tunnel vision ENT ENT: Negative for headache(s), dizziness, Nosebleed/epistaxis, balance problems or neck pain Cardio Chest Pain: Yes Frequency: other Location: left chest Relieving: other (more content not included)... Normal [facility] Thyroid Stim Hormone (TSH)on 01-09-2024 TSH 1.230 uIU/mL Normal 0.358-3.740 [facility] Comment on above: Performed By: #### L 503.6620, L501.9520, L100.0100, L500.2500 #### [facility] [address] [place], [address] CBC W Auto Differential pane l (Bld)on 09-27-2023 Basophils (Bld) [#/Vol] 0.04 x10*3/uL Normal 0.00-0.10 [facility] Comment on above: Performed By: #### 5 7021-8 ####YOUSUF CALDERON ([id number])[facility] ([facility])[address] [place] [address] Basophils/100 WBC (Bld) 0.4 % Normal 0.0-2.0 [facility] Comment on above: Performed By: #### 5 7021-8 ####YOUSUF CALDERON ([id number])[facility] ([facility])[address] [place] [address] Eosinophils (Bld) [#/Vol] 0.06 x10*3/uL Normal 0.00-0.40 [facility] Comment on above: Performed By: #### 5 7021-8 ####YOUSUF CALDERON ([id number])[facility] ([facility])[address] [place] [address] Eosinophils/100 WBC (Bld) 0.6 % Normal 0.0-6.0 [facility] Comment on above: Performed By: #### 7021-8 ####YOUSUF CALDERON ([id number])[facility] ([facility])[address] [place] [address] Erythrocyte distribution width (RBC) [Ratio] 12.9 % Normal 11.5-14.5 [facility] Comment on above: Performed By: #### 5 7021-8 ####YOUSUF CALDERON ([id number])[facility] ([facility])[address] [place] [address] Hematocrit (Bld) [Volume fraction] 41.4 % Normal 41.0-52.0 [facility] Comment on above: Performed By: #### 5 7021-8 ####YOUSUF CALDERON ([id number])[facility] ([facility])[address] [place] [address] Hemoglobin (Bld) [Mass/Vol] 14.1 g/dL Normal 13.5-17.5 [facility] Comment on above: Performed By: #### 5 7021-8 ####YOUSUF CALDERON ([id number])[facility] ([facility])[address] [place] [address] Immature granulocytes (Bld) [#/Vol] 0.05 x10*3/uL Normal 0.00-0.50 [facility] Comment on above: Performed By: #### 5 7021-8 ####YOUSUF CALDERON ([id number])[facility] ([facility])[address] [place] [address] Immature granulocytes/100 WBC (Bld) 0.5 % Normal 0.0-0.9 [facility] Comment on above: Result Comment: María ture Granulocyte Count (IG) includes promyelocytes, myelocytes and metamyelocytes but does not include bands. Percent differential counts (%) should be interpreted in the context of the absolute cell counts (cells/UL). Performed By: #### 5 7021-8 ####YOUSUF CALDERON ([id number])[facility] ([facility])[address] [place] [address] Lymphocytes (Bld) [#/Vol] 0.47 x10*3/uL Low 0.80-3.00 [facility] Comment on above: Performed By: #### 5 7021-8 ####YOUSUF CALDERON ([id number])[facility] ([facility])[address] [place] [address] Lymphocytes/100 WBC (Bld) 4.8 % Normal 13.0-44.0 [facility] Comment on above: Performed By: #### 5 7021-8 ####YOUSUF CALDERON ([id number])[facility] ([facility])[address] [place] [address] MCH (RBC) [Entitic mass] 34.1 pg High 26.0-34.0 [facility] Comment on above: Performed By: #### 5 7021-8 ####YOUSUF CALDERON ([id number])[facility] ([facility])[address] [place] [address] MCHC (RBC) [Mass/Vol] 34.1 g/dL Normal 32.0-36.0 [facility] Comment on above: Performed By: #### 5 7021-8 ####YOUSUF CALDERON ([id number])[facility] ([facility])[address] [place] [address] MCV (RBC) [Entitic vol] 100 fL Normal 80-100 [facility] Comment on above: Performed By: #### 5 7021-8 ####YOUSUF CALDERON ([id number])[facility] ([facility])[address] [place] [address] Monocytes (Bld) [#/Vol] 0.57 x10*3/uL Normal 0.05-0.80 [facility] Comment on above: Performed By: #### 5 7021-8 ####YOUSUF CALDERON ([id number])[facility] ([facility])[address] [place] [address] Monocytes/100 WBC (Bld) 5.8 % Normal 2.0-10.0 [facility] Comment on above: Performed By: #### 5 7021-8 ####YOUSUF CALDERON ([id number])[facility] ([facility])[address] [place] [address] Neutrophils (Bld) [#/Vol] 8.67 x10*3/uL High 1.60-5.50 [facility] Comment on above: Result Comment: Perc ent differential counts (%) should be interpreted in the context of the absolute cell counts (cells/uL). Performed By: #### 5 7021-8 ####YOUSUF CALDERON ([id number])[facility] ([facility])[address] [place] [address] Neutrophils/100 WBC (Bld) 87.9 % Normal 40.0-80.0 [facility] Comment on above: Performed By: #### 5 7021-8 ####YOUSUF CALDERON ([id number])[facility] ([facility])[address] [place] [address] Nucleated RBC/100 WBC (Bld) [Ratio] 0.0 /100 WBCs Normal 0.0-0.0 [facility] Comment on above: Performed By: #### 5 7021-8 ####YOUSUF CALDERON ([id number])[facility] ([facility])[address] [place] [address] Platelets (Bld) [#/Vol] 105 x10*3/uL Low 150-450 [facility] Comment on above: Performed By: #### 5 7021-8 ####YOUSUF CALDERON ([id number])[facility] ([facility])[address] [place] [address] RBC (Bld) [#/Vol] 4.13 x10*6/uL Low 4.50-5.90 [facility] Comment on above: Performed By: #### 5 7021-8 ####YOUSUF CALDERON ([id number])[facility] ([facility])[address] [place] [address] WBC (Bld) [#/Vol] 9.9 x10*3/uL Normal 4.4-11.3 [facility] Comment on above: Performed By: #### 5 7021-8 ####YOUSUF CALDERON ([id number])[facility] ([facility])[address] [place] [address] Comprehensive metabolic 2000 panelon 09-27-2023 Albumin BCP dye [Mass/Vol] 4.1 g/dL Normal 3.4-5.0 [facility] Comment on above: Performed By: #### 2 4323-8 ####YOUSUF CALDERON ([id number])[facility] ([facility])[address] [place] [address] ALP [Catalytic activity/Vol] 53 U/L Normal 33-136 [facility] Comment on above: Performed By: #### 2 4323-8 ####YOUSUF CALDERON ([id number])[facility] ([facility])[address] [place] [address] ALT With P-5'-P [Catalytic activity/Vol] 22 U/L Normal 10-52 [facility] Comment on above: Result Comment: [place] ents treated with Sulfasalazine may generate falsely decreased results for ALT. Performed By: #### 2 4323-8 ####YOUSUF CALDERON ([id number])[facility] ([facility])[address] [place] [address] Anion gap [Moles/Vol] 15 mmol/L Normal 10-20 [facility] Comment on above: Performed By: #### 2 4323-8 ####YOUSUF CALDERON ([id number])[facility] ([facility])[address] [place] [address] AST With P-5'-P [Catalytic activity/Vol] 22 U/L Normal 9-39 [facility] Comment on above: Performed By: #### 2 432-8 ####YOUSUF CALDERON ([id number])[facility] ([facility])[address] [place] [address] Bilirubin [Mass/Vol] 0.4 mg/dL Normal 0.0-1.2 [facility] Comment on above: Performed By: #### 2 432-8 ####YOUSUF CALDERON ([id number])[facility] ([facility])[address] [place] [address] Calcium [Mass/Vol] 9.1 mg/dL Normal 8.6-10.3 [facility] Comment on above: Performed By: #### 2 4323-8 ####YOUSUF CALDERON ([id number])[facility] ([facility])[address] [place] [address] Chloride [Moles/Vol] 105 mmol/L Normal 98-107 [facility] Comment on above: Performed By: #### 2 4323-8 ####YOUSUF CALDERON ([id number])[facility] ([facility])[address] [place] [address] CO2 [Moles/Vol] 21 mmol/L Normal 21-32 [facility] Comment on above: Performed By: #### 2 4323-8 ####YOUSUF CALDERON ([id number])[facility] ([facility])[address] [place] [address] Creatinine [Mass/Vol] 1.39 mg/dL High 0.50-1.30 [facility] Comment on above: Performed By: #### 2 4323-8 ####YOUSUF CALDERON ([id number])[facility] ([facility])[address] [place] [address] Glomerular filtration rate/1.73 sq M.predicted 51 mL/min/1.73m*2 Low >60 [facility] Comment on above: Result Comment: Calc ulations of estimated GFR are performed using the 2020 CKD-EPI Study Refit equation without the race variable for the IDMS-Traceable creatinine methods. https://jasn.asnjournals.org/content/early/ASN.3949935 988 Performed By: #### 2 432-8 ####YOUSUF CALDERON ([id number])[facility])[address] [place] [address] Glucose [Mass/Vol] 113 mg/dL High 74-99 [facility] Comment on above: Performed By: #### 2 432-8 ####YOUSUF CALDERON ([id number])[facility] ([facility])[address] [place] [address] Potassium [Moles/Vol] 4.6 mmol/L Normal 3.5-5.3 [facility] Comment on above: Performed By: #### 2 4323-8 ####YOUSUF CALDERON ([id number])[facility] ([facility])[address] [place] [address] Protein [Mass/Vol] 7.0 g/dL Normal 6.4-8.2 [facility] Comment on above: Performed By: #### 2 4323-8 ####YOUSUF CALDERON ([id number])[facility])[address] [place] [address] Sodium [Moles/Vol] 136 mmol/L Normal 136-145 [facility] Comment on above: Performed By: #### 2 4323-8 ####YOUSUF CALDERON ([id number])[facility] ([facility])[address] [place] [address] Urea nitrogen [Mass/Vol] 26 mg/dL High 6-23 [facility] Comment on above: Performed By: #### 2 4323-8 ####YOUSUF CALDERON ([id number])[facility] ([facility])[address] [place] [address] ECG 12-LEADon 09-27-2023 ECG 12-LEAD Ventricular Rate 87 Atrial Rate 88 P-R Interval 234 QRS Duration 117 Q-T Interval 374 QTC Calculation(Bazett) 450 P [place] -13 R [place] -48 T [place] 83 QRS Count 14 Q Onset 251 T Offset 438 QTC Fredericia 423 Diagnosis Sinus rhythm Prolonged NC interval LAD, consider left anterior fascicular block See ED provider note for full interpretation and clinical correlation Confirmed by Sangeetha Garcia ([id number]) on 09/29/2023 6:19:24 PM Normal [facility] FLUAV and FLUBV RNA ARTHUR+prob e Nom (Unsp spec)on 09-27-2023 FLUAV RNA ARTHUR+probe Ql (Resp) Not detected Normal Not Detected [facility] Comment on above: Order Comment: This assay is an in vitro diagnostic multiplex nucleic acid amplification test for the detection and discrimination of Influenza A & B from nasopharyngeal specimens, and has been validated for use at [facility]. Negative results do not preclude Influenza A/B infections, and should not be used as the sole basis for diagnosis, treatment, or other management decisions. If Influenza A/B and RSV PCR results are negative, testing for Parainfluenza virus, Adenovirus and Metapneumovirus is routinely performed for [facility] pediatric oncology and intensive care inpatients, and is available on other patients by placing an add-on request. Performed By: #### 4 8509-4 ####YOUSUF CALDERON ([id number])[facility] ([facility])[address] [place] [address] FLUBV RNA ARTHUR+probe Ql (Resp) Not detected Normal Not Detected [facility] Comment on above: Order Comment: This assay is an in vitro diagnostic multiplex nucleic acid amplification test for the detection and discrimination of Influenza A & B from nasopharyngeal specimens, and has been validated for use at [facility]. Negative results do not preclude Influenza A/B infections, and should not be used as the sole basis for diagnosis, treatment, or other management decisions. If Influenza A/B and RSV PCR results are negative, testing for Parainfluenza virus, Adenovirus and Metapneumovirus is routinely performed for [facility] pediatric oncology and intensive care inpatients, and is available on other patients by placing an add-on request. Performed By: #### 4 8509-4 ####YOUSUF CALDERON ([id number])[facility] ([facility])[address] [place] [address] Magnesiumon 09-27-2023 Magnesium [Mass/Vol] 1.57 mg/dL Low 1.60-2.40 [facility] Comment on above: Performed By: #### 1 9123-9 ####YOUSUF CALDERON ([id number])[facility] ([facility])[address] [place] [address] SARS coronavirus 2 RNAon SARS-CoV-2 (COVID-19) RNA ARTHUR+probe Ql (Resp) Not detected Normal Not Detected [facility] Comment on above: Order Comment: This assay has received FDA Emergency Use Authorization (EUA) and is only authorized for the duration of time that circumstances exist to justify the authorization of the emergency use of in vitro diagnostic tests for the detection of SARS-CoV-2 virus and/or diagnosis of COVID-19 infection under section 564(b)(1) of the Act, 21 U.S.C. 360bbb-3(b)(1). This assay is an in vitro diagnostic nucleic acid amplification test for the qualitative detection of SARS-CoV-2 from nasopharyngeal specimens and has been validated for use at [facility]. Negative results do not preclude COVID-19 infections and should not be used as the sole basis for diagnosis, treatment, or other management decisions. Performed By: #### 9 4500-6 ####YOUSUF CALDERON ([id number])[facility] ([facility])[address] [place] [address] Troponin I.cardiac panelon 0 09-27-2023 Tropinin I.cardiac panel High sensitivity method 6 ng/L Normal 0-20 [facility] Comment on above: Order Comment: Less than 99th percentile of normal range cutoff-Female and children under 18 years old <14 ng/L; Male <21 ng/L: NegativeRepeat testing should be performed if clinically indicated.Female and children under 18 years old 14-50 ng/L; Male 21-50 ng/L:Consistent with possible cardiac damage and possible increased clinicalrisk. Serial measurements may help to assess extent of myocardial damage.>50 ng/L: Consistent with cardiac damage, increased clinical risk andmyocardial infarction. Serial measurements may help assess extent ofmyocardial damage.NOTE: Children less than 1 year old may have higher baseline troponinlevels and results should be interpreted in conjunction with the overallclinical context.NOTE: Troponin I testing is performed using a differenttesting methodology at [facility] than at [facility]. Direct result comparisons should onlybe made within the same method. Performed By: #### 8 9577-1 ####YOUSUF CALDERON ([id number])[facility] ([facility])[address] [place] [address] Urinalysis complete W Reflex Culture panel (U)on 09-27-2023 Appearance (U) Clear Normal Clear [facility] Comment on above: Performed By: #### 5 8077-9 ####YOUSUF CALDERON ([id number])[facility] ([facility])[address] [place] [address] Bilirubin (U) [Mass/Vol] Negative Normal NEGATIVE [facility] Comment on above: Performed By: #### 5 8077-9 ####YOUSUF CALDERON ([id number])[facility] ([facility])[address] [place] [address] Color (U) Light-Yellow Normal Light-Yellow, Yellow, Dark-Yellow [facility] Comment on above: Performed By: #### 5 8077-9 ####YOUSUF CALDERON ([id number])[facility] ([facility])[address] [place] [address] Glucose Auto test strip (U) [Mass/Vol] Normal Normal Normal [facility] Comment on above: Performed By: #### 5 8077-9 ####YOUSUF CALDERON ([id number])[facility] ([facility])[address] [place] [address] Ketones (U) [Mass/Vol] Negative Normal NEGATIVE [facility] Comment on above: Performed By: #### 5 8077-9 ####YOUSUF CALDERON ([id number])[facility] ([facility])[address] [place] [address] Leukocyte esterase Auto test strip Ql (U) Negative Normal NEGATIVE [facility] Comment on above: Performed By: #### 5 8077-9 ####YOUSUF CALDERON ([id number])[facility] ([facility])[address] [place] [address] Nitrite Auto test strip Ql (U) Negative Normal NEGATIVE [facility] Comment on above: Performed By: #### 5 8077-9 ####YOUSUF CALDERON ([id number])[facility] ([facility])[address] [place] [address] pH (U) 5.0 [pH] Normal 5.0, 5.5, 6.0, 6.5, 7.0, 7.5, 8.0 [facility] Comment on above: Performed By: #### 5 8077-9 ####YOUSUF CALDERON ([id number])[facility] ([facility])[address] [place] [address] Protein (U) [Mass/Vol] Negative Normal NEGATIVE, 10 (TRACE), 20 (TRACE) [facility] Comment on above: Performed By: #### 5 8077-9 ####YOUSUF CALDERON ([id number])[facility] ([facility])[address] [place] [address] RBC (U) [#/Vol] 0.03 (TRACE) Abnormal NEGATIVE [facility] Comment on above: Performed By: #### 5 8077-9 ####YOUSUF CALDERON ([id number])[facility] ([facility])[address] [place] [address] RBC Auto (Urine sed) [#/Area] NONE Normal NONE, 1-2, 3-5 [facility] Comment on above: Performed By: #### 5 8077-9 ####YOUSUF CALDERON ([id number])[facility] ([facility])[address] [facility] [place] [address] Specific gravity (U) [Rel density] 1.019 Normal 1.005-1.035 [facility] Comment on above: Performed By: #### 5 8077-9 ####YOUSUF CALDERON ([id number])[facility] ([facility])[address] [place] [address] Urobilinogen (U) [Mass/Vol] Normal Normal Normal [facility] Comment on above: Performed By: #### 5 8077-9 ####YOUSUF CALDERON ([id number])[facility] ([facility])[address] [facility] [place] [address] WBC Auto (Urine sed) [#/Area] NONE Normal 1-5, NONE [facility] Comment on above: Performed By: #### 5 8077-9 ####YOUSUF CALDERON ([id number])[facility] ([facility])[address] [place] [address] Echo Completeon 08-15-2023 Echo Complete [facility] [address] [place] [address] Echo Complete 08/15/23 0905 MR#: [id number] Acct: [id number] Name: JACKSON HURT GENE Rep #: [id number] : 1940 82 From: Lopez Hubbard MD Attending Dr: DIYA Gustafson Status: [facility] Ordering Dr: Selam Mills NP PASTEURIZING MACHINE OPERATOR-C Date: 08/15/23 Location: CVS Sex: M C Admitted: Version 2 Reason For Study: SOB Procedure This was a 2D Doppler, Color Flow transthoracic echocardiogram. Exam performed in department. Left Ventricle Normal LV size. Left ventricular systolic function is normal. The left ventricular ejection fraction is 60 %. No regional wall motion abnormalities noted. Right Ventricle Normal RV size. Normal systolic function. Atria Normal left atrium. Normal right atrium. Mitral Valve Normal mitral valve. Tricuspid Valve Normal tricuspid valve. Aortic Valve Trisinus/trileaflet aortic valve. Pulmonic Valve Normal pulmonic valve. Great Vessels Mild to moderately dilated aortic root. The pulmonary artery is normal size. Normal inferior vena cava. Pericardium/Pleural No pericardial effusion. MMode/2D Measurements Calculations LVIDd: 4.2 cm IVSd: 1.6 cm Ao root diam: 4.6 cm LVIDs: 3.2 cm LVPWd: 1.00 cm RVDd: 3.7 cm FS: 23.7 % LAV(MOD-bp): 61.6 ml LVAd ap4: 29.9 cm2 SV(MOD-sp4): 56.3 ml LAV(MOD-bp) Indexed: 28.5 ml/m2 LVLd ap4: 7.9 cm LAV(MOD-sp2): 59.4 ml EDV(MOD-sp4): 95.2 ml LAV(MOD-sp4): 62.3 ml EDV(sp4-el): 96.2 ml LVAs ap4: 18.1 cm2 LVLs ap4: 7.1 cm ESV(MOD-sp4): 39.0 ml ESV(sp4-el): 39.2 ml EF(MOD-sp4): 59.1 % EF(sp4-el): 59.2 % SV(sp4-el): 56.9 ml LA A4 area: 20.3 cm2 LA dimension(2D): 4.5 cm RA A4 area: 14.2 cm2 TAPSE: 1.8 cm Time Measurements MV dec time: 0.20 sec Doppler Measurements Calculations MV E max krzysztof: 70.4 cm/sec Lat Peak E' Krzysztof: 9.7 cm/sec Med Peak E' Krzysztof: 7.3 cm/sec MV A max krzysztof: 80.4 cm/sec E/E' lat: 7.3 E/E' med: 9.7 MV E/A: 0.88 MV V2 max: 83.0 cm/sec MV P1/2t max krzysztof: 65.8 cm/sec Ao V2 max: 128.0 cm/sec MV max P.8 mmHg MV P1/2t: 87.1 msec Ao max P.6 mmHg MV V2 mean: 50.1 cm/sec Ao V2 mean: 85.8 cm/sec MV mean P.1 mmHg MV dec slope: 221.3 cm/sec2 Ao mean P.4 mmHg MV V2 VTI: 23.7 cm MVA(P1/2t): 2.5 cm2 Ao V2 VTI: 29.5 cm AV (velocity ratio): 0.74 LV V1 max: 90.4 cm/sec PA V2 max: 121.2 cm/sec LV V1 max P.3 mmHg PA V2 mean: 85.7 cm/sec LV V1 mean P.9 mmHg PA V2 VTI: 23.4 cm LV V1 mean: 66.0 cm/sec LV V1 VTI: 21.9 cm ECHO/Echo Complete Interpretation Summary Normal LV size. Left ventricular systolic function is normal. No regional wall motion abnormalities noted. The left ventricular ejection fraction is 60 %. Mild to moderately dilated aortic root. Structurally normal valves. ___ Ordering Physician: Selam Mills Referring Physician: [facility] Performed By: Bethanie Asher, RDCS, RVT 08/15/23 1416 Date Lopez Hubbard MD CC: DIYA Mills; [facility] Date Dictated: 08/15/23904 Date Transcribed: 08/15/235 Manager Of Community Relations: Signed Normal [facility] Absolute lymphocyte countOrd ered By: Selam Mills on 07-06-2023 Lymphocytes Auto (Unsp spec) [#/Vol] 2.00 10*3/uL 0.83-4.51 [facility] Automated lymphocyte count a s percentage of total leukocytesOrdered By: Selam Mills on 07-06-2023 Lymphocytes/100 WBC Auto (Unsp spec) 30.3 % 19-41 [facility] Basophil percentageOrdered B y: Selam Mills on 07-06-2023 Basophils/100 WBC (Bld) 1.2 % 0-1 [facility] Chloride [Moles/Vol] 109 mmol/L 98-107 [facility] Eosinophils/100 WBC (Bld) 3.5 % 0-5 [facility] Glucose [Mass/Vol] 102 mg/dL 74-106 [facility] Comment on above: Fasting Glucose resu lt from 100 to 125 mg/dL suggests IMPAIRED HOMEOSTASIS per A.D.A. criteria. Hemoglobin (Bld) [Mass/Vol] 14.4 g/dL 13.0-16.5 [facility] Monocytes/100 WBC (Bld) 8.8 % 0-10 [facility] Neutrophils (Bld) [#/Vol] 3.7 10*3/uL 2.0-7.7 [facility] Neutrophils/100 WBC (Bld) 55.7 % 47-70 [facility] Potassium [Moles/Vol] 4.5 mmol/L 3.5-5.1 [facility] Sodium [Moles/Vol] 138 mmol/L 136-145 [facility] WBC (Bld) [#/Vol] 6.6 10*3/uL 4.4-11.0 [facility] Determination of erythrocyte mean corpuscular volume (MCV)Ordered By: Selam Mills on 07-06-2023 MCV (RBC) [Entitic vol] 99.3 fL 80-94 [facility] Erythrocyte distribution wid th ratioOrdered By: Selam Mills on 07-06-2023 Erythrocyte distribution width (RBC) [Ratio] 12.8 % 11.6-14.6 [facility] Erythrocyte distribution wid th standard deviationOrdered By: Selam Mills on 07-06-2023 Erythrocyte distribution width (RBC) [Entitic vol] 47.0 fL 35.1-43.9 [facility] Hematocrit Auto (Bld) [Volum e fraction]Ordered By: Selam Mills on 07-06-2023 Hematocrit (Bld) [Volume fraction] 43.6 % 40-54 [facility] Immature granulocytes/100 WB C Auto (Bld)Ordered By: Selam Mills on 07-06-2023 Immature granulocytes/100 WBC (Bld) 0.500 % 0.0-0.9 [facility] Comment on above: IG% - Immature Granu locytes (promyelocytes, myelocytes and metamyelocytes) > 1% indicates that a LEFT SHIFT is Present. Laboratory - Chemistry and C hemistry - challengeOrdered By: Selam Mills on 07-06-2023 CO2 [Moles/Vol] 24.0 mmol/L 21.0-32.0 [facility] Natriuretic peptide B (Bld) [Mass/Vol] 38.5 pg/mL 0-100 [facility] Urea nitrogen/Creatinine [Mass ratio] 17.4 mg/mg 10-20 [facility] Laboratory - Hematology and Cell countsOrdered By: Selam Mills on 07-06-2023 MCH (RBC) [Entitic mass] 32.8 pg 27.0-32.0 [facility] MCHC (RBC) [Mass/Vol] 33.0 g/dL 32-36 [facility] Nucleated RBC/100 WBC (Bld) [Ratio] 0 % 0-5 [facility] Platelet mean volume (Bld) [Entitic vol] 11.1 fL 6.2-12.0 [facility] Platelets (Bld) [#/Vol] 126 10*3/uL 150-450 [facility] No Panel InformationOrdered By: Selam Mills on 07-06-2023 Estimated GFR (MDRD) Amer 58 mL/min >60 [facility] Comment on above: GFR Calc Estimated GFR (MDRD) Non-Af Amer 48 mL/min >60 [facility] Comment on above: Non- GFR Calc RBC Auto (Bld) [#/Vol]Ordere d By: Selam Mills on 07-06-2023 RBC (Bld) [#/Vol] 4.39 10*6/uL 4.6-6.2 [facility] Serum or plasma calcium ness urement (mass/volume)Ordered By: Selam Mills on 07-06-2023 Calcium [Mass/Vol] 9.2 mg/dL 8.5-10.1 [facility] Serum or plasma creatinine m easurement (mass/volume)Ordered By: Selam Mills on 07-06-2023 Creatinine [Mass/Vol] 1.49 mg/dL 0.70-1.30 [facility] Comment on above: The validity of the calculated GFR & GFRAA in patients over 70 years has not been determined. Clinical correlation is essential. Serum or plasma thyroid stim ulating hormone (TSH) measurement (units/volume)Ordered By: Selam Mills on 07-06-2023 TSH Qn 1.07 uIU/mL 0.358-3.74 [facility] Serum or plasma urea nitroge n measurement (mass/volume)Ordered By: Selam Mills on 07-06-2023 Urea nitrogen [Mass/Vol] 26 mg/dL 7-18 [facility] Thin prep Papanicolaou smear with manual screeningOrdered By: Selam Mills on 05-03-2024 Thin prep Papanicolaou smear with manual screening 5 5-15 [facility] Basic metabolic 2000 panelon 02-18-2023 Anion gap [Moles/Vol] 8 mmol/L Low 10 - 20 mmol/L [facility] Calcium [Mass/Vol] 8.9 mg/dL 8.6 - 10. 3 mg/dL [facility] Chloride [Moles/Vol] 102 mmol/L 98 - 10 7 mmol/L [facility] CO2 [Moles/Vol] 30 mmol/L 21 - 32 mmol/L [facility] Creatinine [Mass/Vol] 1.23 mg/dL 0.50 - 1.30 mg/dL [facility] GFR/1.73 sq M.predicted MDRD (S/P/Bld) [Vol rate/Area] 59 mL/min/{1.73_m2} Low - PINF [facility] Comment on above: Calculations of richmond mated GFR are performed using the 2020 CKD-EPI Study Refit equation without the race variable for the IDMS-Traceable creatinine methods. https://jasn.asnjournals.org/content/early/ASN.6450639 988 Glucose [Mass/Vol] 104 mg/dL High 74 - 99 mg/dL [facility] Interpretation and review of laboratory results Abnormal [facility] Potassium [Moles/Vol] 4.3 mmol/L 3.5 - 5.3 mmol/L [facility] Sodium [Moles/Vol] 136 mmol/L 136 - 145 mmol/L [facility] Urea nitrogen [Mass/Vol] 21 mg/dL 6 - 23 mg/dL [facility] Anion gap [Moles/Vol] 8 mmol/L Low 10-20 [facility] Comment on above: Performed By: #### 2 4321-2 ####YOUSUF CALDERON ([id number])[facility] ([facility])[address] [place] [address] Calcium [Mass/Vol] 8.9 mg/dL Normal 8.6-10.3 [facility] Comment on above: Performed By: #### 2 4321-2 ####YOUSUF CALDERON ([id number])[facility] ([facility])[address] [place] [address] Chloride [Moles/Vol] 102 mmol/L Normal 98-107 [facility] Comment on above: Performed By: #### 2 4321-2 ####YOUSUF MUNOZFRI ([id number])[facility] ([facility])[address] [place] [address] CO2 [Moles/Vol] 30 mmol/L Normal 21-32 [facility] Comment on above: Performed By: #### 2 4321-2 ####YOUSUF MUNOZFRI ([id number])[facility] ([facility])[address] [place] [address] Creatinine [Mass/Vol] 1.23 mg/dL Normal 0.50-1.30 [facility] Comment on above: Performed By: #### 2 4320-2 ####YOUSUF MUNOZFRI ([id number])[facility] ([facility])[address] [place] [address] GFR/1.73 sq M.predicted MDRD (S/P/Bld) [Vol rate/Area] 59 mL/min/1.73m*2 Low >60 [facility] Comment on above: Result Comment: Calc ulations of estimated GFR are performed using the 2020 CKD-EPI Study Refit equation without the race variable for the IDMS-Traceable creatinine methods. https://jasn.asnjournals.org/content//ASN.4524743 988 Performed By: #### 2 4320-2 ####YOUSUF MUNOZFRI ([id number])[facility] ([facility])[address] [place] [address] Glucose [Mass/Vol] 104 mg/dL High 74-99 [facility] Comment on above: Performed By: #### 2 4320-2 ####YOUSUF MUNOZFRI ([id number])[facility] ([facility])[address] [place] [address] Potassium [Moles/Vol] 4.3 mmol/L Normal 3.5-5.3 [facility] Comment on above: Performed By: #### 2 4321-2 ####YOUSUF CALDERON ([id number])[facility] ([facility])[address] [place] [address] Sodium [Moles/Vol] 136 mmol/L Normal 136-145 [facility] Comment on above: Performed By: #### 2 4321-2 ####YOUSUF CALDERON ([id number])[facility] ([facility])[address] [place] [address] Urea nitrogen [Mass/Vol] 21 mg/dL Normal 6-23 [facility] Comment on above: Performed By: #### 2 4321-2 ####YOUSUF CALDERON ([id number])[facility] ([facility])[address] [place] [address] CBC panel Auto (Bld)on 02-18 Erythrocyte distribution width (RBC) [Ratio] 13.5 % 11.5 - 14.5 % [facility] Hematocrit (Bld) [Volume fraction] 40.7 % Low 41.0 - 52.0 % [facility] Hemoglobin (Bld) [Mass/Vol] 12.8 g/dL Low 13.5 - 17.5 g/dL [facility] Interpretation and review of laboratory results Abnormal [facility] MCH (RBC) [Entitic mass] 31.7 pg 26.0 - 34.0 pg [facility] MCHC (RBC) [Mass/Vol] 31.4 g/dL Low 32.0 - 36.0 g/dL [facility] MCV (RBC) [Entitic vol] 101 fL High 80 - 100 fL [facility] Nucleated RBC/100 WBC (Bld) [Ratio] 0.0 % [facility] Platelets (Bld) [#/Vol] 138 10*3/uL Low [facility] RBC (Bld) [#/Vol] 4.04 10*6/uL Low [facility] WBC (Bld) [#/Vol] 6.0 10*3/uL [facility] Erythrocyte distribution width (RBC) [Ratio] 13.5 % Normal 11.5-14.5 [facility] Comment on above: Performed By: #### 5 8410-2 ####YOUSUF CALDERON ([id number])[facility] ([facility])[address] [place] [address] Hematocrit (Bld) [Volume fraction] 40.7 % Low 41.0-52.0 [facility] Comment on above: Performed By: #### 5 8410-2 ####YOUSUF CALDERON ([id number])[facility] ([facility])[address] [place] [address] Hemoglobin (Bld) [Mass/Vol] 12.8 g/dL Low 13.5-17.5 [facility] Comment on above: Performed By: #### 5 8410-2 ####YOUSUF CALDERON ([id number])[facility] ([facility])[address] [place] [address] MCH (RBC) [Entitic mass] 31.7 pg Normal 26.0-34.0 [facility] Comment on above: Performed By: #### 5 8410-2 ####YOUSUF CALDERON ([id number])[facility] ([facility])[address] [place] [address] MCHC (RBC) [Mass/Vol] 31.4 g/dL Low 32.0-36.0 [facility] Comment on above: Performed By: #### 5 8410-2 ####YOUSUF CALDERON ([id number])[facility] ([facility])[address] [place] [address] MCV (RBC) [Entitic vol] 101 fL High 80-100 [facility] Comment on above: Performed By: #### 5 8410-2 ####YOUSUF CALDERON ([id number])[facility] ([facility])[address] [place] [address] Nucleated RBC/100 WBC (Bld) [Ratio] 0.0 /100 WBCs Normal 0.0-0.0 [facility] Comment on above: Performed By: #### 5 8410-2 ####YOUSUF CALDERON ([id number])[facility] ([facility])[address] [place] [address] Platelets (Bld) [#/Vol] 138 x10*3/uL Low 150-450 [facility] Comment on above: Performed By: #### 5 8410-2 ####YOUSUF CALDERON ([id number])[facility] ([facility])[address] [place] [address] RBC (Bld) [#/Vol] 4.04 x10*6/uL Low 4.50-5.90 [facility] Comment on above: Performed By: #### 5 8410-2 ####YOUSUF CALDERON ([id number])[facility] ([facility])[address] [place] [address] WBC (Bld) [#/Vol] 6.0 x10*3/uL Normal 4.4-11.3 [facility] Comment on above: Performed By: #### 5 8410-2 ####YOUSUF CALDERON ([id number])[facility] ([facility])[address] [place] [address] No Panel Informationon 02-18 [facility] Vancomycinon 02-18-2023 Vancomycin [Mass/Vol] 10.8 ug/mL 5.0 - 20.0 ug/mL [facility] Vancomycin [Mass/Vol] 10.8 ug/mL Normal 5.0-20.0 [facility] Comment on above: Order Comment: Vanco mycin levels can be monitored according to area under the curve (AUC) or concentration (ug/mL). The preferred monitoring strategy is determined by the patient's renal function and indication for therapy.For AUC monitoring, a random vancomycin level should be interpreted in the context of AUC rather than the concentration at a single point in time.For concentration monitoring, a trough concentration drawn immediately prior to the next dose is preferred.Therapeutic ranges using concentration-guided results:Peak (all ages): 30.0-40.0 ug/mLTrough (all ages): 10.0-20.0 ug/mL Performed By: #### 2 0578-1 ####YOUSUF CALDERON ([id number])[facility] ([facility])[address] [place] [address] Vancomycin [Mass/Vol]on 02-02 Interpretation and review of laboratory results Normal [facility] Vancomycin levels can be monitored according to area under the curve (AUC) or concentration (ug/mL). The preferred monitoring strategy is determined by the patient's renal function and indication for therapy. For AUC monitoring, a random vancomycin level should be interpreted in the context of AUC rather than the concentration at a single point in time. For concentration monitoring, a trough concentration drawn immediately prior to the next dose is preferred. Therapeutic ranges using concentration-guided results: Peak (all ages): 30.0-40.0 ug/mL Trough (all ages): 10.0-20.0 ug/mL [facility] Basic metabolic 2000 panelon 02-17-2023 Anion gap [Moles/Vol] 11 mmol/L 10 - 20 mmol/L [facility] Calcium [Mass/Vol] 8.7 mg/dL 8.6 - 10. 3 mg/dL [facility] Chloride [Moles/Vol] 104 mmol/L 98 - 10 7 mmol/L [facility] CO2 [Moles/Vol] 29 mmol/L 21 - 32 mmol/L [facility] Creatinine [Mass/Vol] 1.30 mg/dL 0.50 - 1.30 mg/dL [facility] GFR/1.73 sq M.predicted MDRD (S/P/Bld) [Vol rate/Area] 55 mL/min/{1.73_m2} Low - PINF [facility] Comment on above: Calculations of richmond mated GFR are performed using the 2020 CKD-EPI Study Refit equation without the race variable for the IDMS-Traceable creatinine methods. https://jasn.asnjournals.org/content//ASN.5665380 988 Glucose [Mass/Vol] 98 mg/dL 74 - 99 mg/dL [facility] Interpretation and review of laboratory results Abnormal [facility] Potassium [Moles/Vol] 4.5 mmol/L 3.5 - 5.3 mmol/L [facility] Sodium [Moles/Vol] 139 mmol/L 136 - 145 mmol/L [facility] Urea nitrogen [Mass/Vol] 23 mg/dL 6 - 23 mg/dL [facility] Anion gap [Moles/Vol] 11 mmol/L Normal 10-20 [facility] Comment on above: Performed By: #### 5 7021-8 #### YOUSUF CALDERON ([id number]) [facility] ([facility]) [address] [place] [address] Calcium [Mass/Vol] 8.7 mg/dL Normal 8.6-10.3 [facility] Comment on above: Performed By: #### 5 7021-8 #### YOUSUF CALDERON ([id number]) [facility] ([facility]) [address] [place] [address] Chloride [Moles/Vol] 104 mmol/L Normal 98-107 [facility] Comment on above: Performed By: #### 5 7021-8 #### YOUSUF CALDERON ([id number]) [facility] ([facility]) [address] [place] [address] CO2 [Moles/Vol] 29 mmol/L Normal 21-32 [facility] Comment on above: Performed By: #### 5 7021-8 #### YOUSUF CALDERON ([id number]) [facility] ([facility]) [address] [place] [address] Creatinine [Mass/Vol] 1.30 mg/dL Normal 0.50-1.30 [facility] Comment on above: Performed By: #### 5 7021-8 #### YOUSUF CALDERON ([id number]) [facility] ([facility]) [address] [place] [address] GFR/1.73 sq M.predicted MDRD (S/P/Bld) [Vol rate/Area] 55 mL/min/1.73m*2 Low >60 [facility] Comment on above: Result Comment: Calc ulations of estimated GFR are performed using the 2020 CKD-EPI Study Refit equation without the race variable for the IDMS-Traceable creatinine methods. https://jasn.asnjournals.org/content//ASN.8143293 988 Performed By: #### 5 7021-8 #### YOUSUF CALDERON ([id number]) [facility] ([facility]) [address] [place] [address] Glucose [Mass/Vol] 98 mg/dL Normal 74-99 [facility] Comment on above: Performed By: #### 5 7021-8 #### YOUSUF CALDERON ([id number]) [facility] ([facility]) [address] [place] [address] Potassium [Moles/Vol] 4.5 mmol/L Normal 3.5-5.3 [facility] Comment on above: Performed By: #### 5 7021-8 #### YOUSUF CALDERON ([id number]) [facility] ([facility]) [address] [place] [address] Sodium [Moles/Vol] 139 mmol/L Normal 136-145 [facility] Comment on above: Performed By: #### 5 7021-8 #### YOUSUF CALDERON ([id number]) [facility] ([facility]) [address] [place] [address] Urea nitrogen [Mass/Vol] 23 mg/dL Normal 6-23 [facility] Comment on above: Performed By: #### 5 7021-8 #### YOUSUF ACLDERON ([id number]) [facility] ([facility]) [address] [place] [address] CBC panel Auto (Bld)on 02-17 Erythrocyte distribution width (RBC) [Ratio] 13.5 % 11.5 - 14.5 % [facility] Hematocrit (Bld) [Volume fraction] 41.9 % 41.0 - 52.0 % [facility] Hemoglobin (Bld) [Mass/Vol] 13.3 g/dL Low 13.5 - 17.5 g/dL [facility] Interpretation and review of laboratory results Abnormal [facility] MCH (RBC) [Entitic mass] 32.1 pg 26.0 - 34.0 pg [facility] MCHC (RBC) [Mass/Vol] 31.7 g/dL Low 32.0 - 36.0 g/dL [facility] MCV (RBC) [Entitic vol] 101 fL High 80 - 100 fL [facility] Nucleated RBC/100 WBC (Bld) [Ratio] 0.0 % [facility] Platelets (Bld) [#/Vol] 137 10*3/uL Low [facility] RBC (Bld) [#/Vol] 4.14 10*6/uL Low [facility] WBC (Bld) [#/Vol] 5.4 10*3/uL [facility] Erythrocyte distribution width (RBC) [Ratio] 13.5 % Normal 11.5-14.5 [facility] Comment on above: Performed By: #### 5 7021-8 #### YOUSUF CALDERON ([id number]) [facility] ([facility]) [address] [place] [address] Hematocrit (Bld) [Volume fraction] 41.9 % Normal 41.0-52.0 [facility] Comment on above: Performed By: #### 5 7021-8 #### YOUSUF CALDERON ([id number]) [facility] ([facility]) [address] [place] [address] Hemoglobin (Bld) [Mass/Vol] 13.3 g/dL Low 13.5-17.5 [facility] Comment on above: Performed By: #### 5 7021-8 #### YOUSUF CALDERON ([id number]) [facility] ([facility]) [address] [place] [address] MCH (RBC) [Entitic mass] 32.1 pg Normal 26.0-34.0 [facility] Comment on above: Performed By: #### 5 7021-8 #### YOUSUF CALDERON ([id number]) [facility] ([facility]) [address] [place] [address] MCHC (RBC) [Mass/Vol] 31.7 g/dL Low 32.0-36.0 [facility] Comment on above: Performed By: #### 5 7021-8 #### YOUSUF CALDERON ([id number]) [facility] ([facility]) [address] [place] [address] MCV (RBC) [Entitic vol] 101 fL High 80-100 [facility] Comment on above: Performed By: #### 5 7021-8 #### YOUSUF CALDERON ([id number]) [facility] ([facility]) [address] [place] [address] Nucleated RBC/100 WBC (Bld) [Ratio] 0.0 /100 WBCs Normal 0.0-0.0 [facility] Comment on above: Performed By: #### 5 7021-8 #### YOUSUF CALDERON ([id number]) [facility] ([facility]) [address] [place] [address] Platelets (Bld) [#/Vol] 137 x10*3/uL Low 150-450 [facility] Comment on above: Performed By: #### 5 7021-8 #### YOUSUF CALDERON ([id number]) [facility] ([facility]) [address] [place] [address] RBC (Bld) [#/Vol] 4.14 x10*6/uL Low 4.50-5.90 [facility] Comment on above: Performed By: #### 5 7021-8 #### YOUSUF CALDERON ([id number]) [facility] ([facility]) [address] [place] [address] WBC (Bld) [#/Vol] 5.4 x10*3/uL Normal 4.4-11.3 [facility] Comment on above: Performed By: #### 5 7021-8 #### YOUSUF CALDERON ([id number]) [facility] ([facility]) [address] [place] [address] Bacteria identifiedon 2022 Bacteria identified Cx Nom (Bld) Test: Blood Culture Specimen Source: Peripheral Venipuncture Specimen Type: Blood culture Specimen Date: 02/16/2023 6:38 PM Result Date: 02/21/2023 3:01 AM Result Status: Final result Abnormal: No Resulting Lab: [facility] [address] [facility] [address] CULTURE No growth at 4 days - FINAL REPORT Normal [facility] Comment on above: Performed By: #### 5 7021-8 #### YOUSUF CALDERON ([id number]) [facility] ([facility]) [address] [place] [address] CBC W Auto Differential pane l (Bld)on 02-16-2023 Basophils (Bld) [#/Vol] 0.04 10*3/uL [facility] Basophils/100 WBC (Bld) 0.7 % 0.0 - 2.0 % [facility] Eosinophils (Bld) [#/Vol] 0.10 10*3/uL [facility] Eosinophils/100 WBC (Bld) 1.8 % 0.0 - 6.0 % [facility] Erythrocyte distribution width (RBC) [Ratio] 13.8 % 11.5 - 14.5 % [facility] Hematocrit (Bld) [Volume fraction] 43.7 % 41.0 - 52.0 % [facility] Hemoglobin (Bld) [Mass/Vol] 14.0 g/dL 13.5 - 17.5 g/dL [facility] Immature granulocytes (Bld) [#/Vol] 0.02 10*3/uL [facility] Immature granulocytes/100 WBC (Bld) 0.4 % 0.0 - 0.9 % [facility] Comment on above: Immature Granulocyte Count (IG) includes promyelocytes, myelocytes and metamyelocytes but does not include bands. Percent differential counts (%) should be interpreted in the context of the absolute cell counts (cells/UL). Interpretation and review of laboratory results Abnormal [facility] Lymphocytes (Bld) [#/Vol] 1.53 10*3/uL [facility] Lymphocytes/100 WBC (Bld) 27.4 % 13.0 - 44.0 % [facility] MCH (RBC) [Entitic mass] 32.6 pg 26.0 - 34.0 pg [facility] MCHC (RBC) [Mass/Vol] 32.0 g/dL 32.0 - 36.0 g/dL [facility] MCV (RBC) [Entitic vol] 102 fL High 80 - 100 fL [facility] Monocytes (Bld) [#/Vol] 0.51 10*3/uL [facility] Monocytes/100 WBC (Bld) 9.1 % 2.0 - 10.0 % [facility] Neutrophils (Bld) [#/Vol] 3.38 10*3/uL [facility] Comment on above: Percent differential counts (%) should be interpreted in the context of the absolute cell counts (cells/uL). Neutrophils/100 WBC (Bld) 60.6 % 40.0 - 80.0 % [facility] Nucleated RBC/100 WBC (Bld) [Ratio] 0.0 % [facility] Platelets (Bld) [#/Vol] 141 10*3/uL Low [facility] RBC (Bld) [#/Vol] 4.30 10*6/uL [facility] WBC (Bld) [#/Vol] 5.6 10*3/uL [facility] Basophils (Bld) [#/Vol] 0.04 x10*3/uL Normal 0.00-0.10 [facility] Comment on above: Performed By: #### 5 7021-8 #### YOUSUF CALDERON ([id number]) [facility] ([facility]) [address] [place] [address] Basophils/100 WBC (Bld) 0.7 % Normal 0.0-2.0 [facility] Comment on above: Performed By: #### 5 7021-8 #### YOUSUF CALDEORN ([id number]) [facility] ([facility]) [address] [place] [address] Eosinophils (Bld) [#/Vol] 0.10 x10*3/uL Normal 0.00-0.40 [facility] Comment on above: Performed By: #### 5 7021-8 #### YOUSUF CALDERON ([id number]) [facility] ([facility]) [address] [place] [address] Eosinophils/100 WBC (Bld) 1.8 % Normal 0.0-6.0 [facility] Comment on above: Performed By: #### 5 7021-8 #### YOUSUF CALDERON ([id number]) [facility] ([facility]) [address] [place] [address] Erythrocyte distribution width (RBC) [Ratio] 13.8 % Normal 11.5-14.5 [facility] Comment on above: Performed By: #### 5 7021-8 #### YOUSUF CALDERON ([id number]) [facility] ([facility]) [address] [place] [address] Hematocrit (Bld) [Volume fraction] 43.7 % Normal 41.0-52.0 [facility] Comment on above: Performed By: #### 5 7021-8 #### YOUSUF CALDERON ([id number]) [facility] ([facility]) [address] [place] [address] Hemoglobin (Bld) [Mass/Vol] 14.0 g/dL Normal 13.5-17.5 [facility] Comment on above: Performed By: #### 5 7021-8 #### YOUSUF CALDERON ([id number]) [facility] ([facility]) [address] [place] [address] Immature granulocytes (Bld) [#/Vol] 0.02 x10*3/uL Normal 0.00-0.50 [facility] Comment on above: Performed By: #### 5 7021-8 #### YOUSUF CALDERON ([id number]) [facility] ([facility]) [address] [place] [address] Immature granulocytes/100 WBC (Bld) 0.4 % Normal 0.0-0.9 [facility] Comment on above: Result Comment: María ture Granulocyte Count (IG) includes promyelocytes, myelocytes and metamyelocytes but does not include bands. Percent differential counts (%) should be interpreted in the context of the absolute cell counts (cells/UL). Performed By: #### 5 7021-8 #### YOUSUF CALDERON ([id number]) [facility] ([facility]) [address] [place] [address] Lymphocytes (Bld) [#/Vol] 1.53 x10*3/uL Normal 0.80-3.00 [facility] Comment on above: Performed By: #### 5 7021-8 #### YOUSUF CALDERON ([id number]) [facility] ([facility]) [address] [place] [address] Lymphocytes/100 WBC (Bld) 27.4 % Normal 13.0-44.0 [facility] Comment on above: Performed By: #### 5 7021-8 #### YOUSUF CALDERON ([id number]) [facility] ([facility]) [address] [place] [address] MCH (RBC) [Entitic mass] 32.6 pg Normal 26.0-34.0 [facility] Comment on above: Performed By: #### 5 7021-8 #### YOUSUF CALDERON ([id number]) [facility] ([facility]) [address] [place] [address] MCHC (RBC) [Mass/Vol] 32.0 g/dL Normal 32.0-36.0 [facility] Comment on above: Performed By: #### 5 7021-8 #### YOUSUF CALDERON ([id number]) [facility] ([facility]) [address] [place] [address] MCV (RBC) [Entitic vol] 102 fL High 80-100 [facility] Comment on above: Performed By: #### 5 7021-8 #### YOUSUF CALDERON ([id number]) [facility] ([facility]) [address] [place] [address] Monocytes (Bld) [#/Vol] 0.51 x10*3/uL Normal 0.05-0.80 [facility] Comment on above: Performed By: #### 5 7021-8 #### YOUSUF CALDERON ([id number]) [facility] ([facility]) [address] [place] [address] Monocytes/100 WBC (Bld) 9.1 % Normal 2.0-10.0 [facility] Comment on above: Performed By: #### 5 7021-8 #### YOUSUF CALDERON ([id number]) [facility] ([facility]) [address] [place] [address] Neutrophils (Bld) [#/Vol] 3.38 x10*3/uL Normal 1.60-5.50 [facility] Comment on above: Result Comment: Perc ent differential counts (%) should be interpreted in the context of the absolute cell counts (cells/uL). Performed By: #### 5 7021-8 #### YOUSUF CALDERON ([id number]) [facility] ([facility]) [address] [place] [address] Neutrophils/100 WBC (Bld) 60.6 % Normal 40.0-80.0 [facility] Comment on above: Performed By: #### 5 7021-8 #### YOUSUF CALDERON ([id number]) [facility] ([facility]) [address] [place] [address] Nucleated RBC/100 WBC (Bld) [Ratio] 0.0 /100 WBCs Normal 0.0-0.0 [facility] Comment on above: Performed By: #### 5 7021-8 #### YOUSUF CALDERON ([id number]) [facility] ([facility]) [address] [place] [address] Platelets (Bld) [#/Vol] 141 x10*3/uL Low 150-450 [facility] Comment on above: Performed By: #### 5 7021-8 #### YOUSUF CALDERON ([id number]) [facility] ([facility]) [address] [place] [address] RBC (Bld) [#/Vol] 4.30 x10*6/uL Low 4.50-5.90 [facility] Comment on above: Performed By: #### 5 7021-8 #### YOUSUF CALDERON ([id number]) [facility] ([facility]) [address] [place] [address] WBC (Bld) [#/Vol] 5.6 x10*3/uL Normal 4.4-11.3 [facility] Comment on above: Performed By: #### 5 7021-8 #### YOUSUF CALDERON ([id number]) [facility] ([facility]) [address] [place] [address] Comprehensive metabolic 2000 panelon 02-16-2023 Albumin BCP dye [Mass/Vol] 4.3 g/dL 3.4 - 5.0 g/dL [facility] ALP [Catalytic activity/Vol] 62 U/L 33 - 136 U/L [facility] ALT With P-5'-P [Catalytic activity/Vol] 24 U/L 10 - 52 U/L [facility] Comment on above: Patients treated wit h Sulfasalazine may generate falsely decreased results for ALT. Anion gap [Moles/Vol] 9 mmol/L Low 10 - 20 mmol/L [facility] AST With P-5'-P [Catalytic activity/Vol] 25 U/L 9 - 39 U/L [facility] Bilirubin [Mass/Vol] 0.6 mg/dL 0.0 - 1 .2 mg/dL [facility] Calcium [Mass/Vol] 9.3 mg/dL 8.6 - 10. 3 mg/dL [facility] Chloride [Moles/Vol] 102 mmol/L 98 - 10 7 mmol/L [facility] CO2 [Moles/Vol] 29 mmol/L 21 - 32 mmol/L [facility] Creatinine [Mass/Vol] 1.30 mg/dL 0.50 - 1.30 mg/dL [facility] GFR/1.73 sq M.predicted MDRD (S/P/Bld) [Vol rate/Area] 55 mL/min/{1.73_m2} Low - PINF [facility] Comment on above: Calculations of richmond mated GFR are performed using the 2020 CKD-EPI Study Refit equation without the race variable for the IDMS-Traceable creatinine methods. https://jasn.asnjournals.org/content//ASN.8684745 988 Glucose [Mass/Vol] 94 mg/dL 74 - 99 mg/dL [facility] Interpretation and review of laboratory results Abnormal [facility] Potassium [Moles/Vol] 4.3 mmol/L 3.5 - 5.3 mmol/L [facility] Protein [Mass/Vol] 7.8 g/dL 6.4 - 8.2 g/dL [facility] Sodium [Moles/Vol] 136 mmol/L 136 - 145 mmol/L [facility] Urea nitrogen [Mass/Vol] 23 mg/dL 6 - 23 mg/dL [facility] Albumin BCP dye [Mass/Vol] 4.3 g/dL Normal 3.4-5.0 [facility] Comment on above: Performed By: #### 5 7021-8 #### YOUSUF CALDERON ([id number]) [facility] ([facility]) [address] [place] [address] ALP [Catalytic activity/Vol] 62 U/L Normal 33-136 [facility] Comment on above: Performed By: #### 5 7021-8 #### YOUSUF CALDERON ([id number]) [facility] ([facility]) [address] [place] [address] ALT With P-5'-P [Catalytic activity/Vol] 24 U/L Normal 10-52 [facility] Comment on above: Result Comment: [place] ents treated with Sulfasalazine may generate falsely decreased results for ALT. Performed By: #### 5 7021-8 #### YOUSUF CALDERON ([id number]) [facility] ([facility]) [address] [place] [address] Anion gap [Moles/Vol] 9 mmol/L Low 10-20 [facility] Comment on above: Performed By: #### 5 7021-8 #### YOUSUF CALDERON ([id number]) [facility] ([facility]) [address] [place] [address] AST With P-5'-P [Catalytic activity/Vol] 25 U/L Normal 9-39 [facility] Comment on above: Performed By: #### 5 7021-8 #### YOUSUF CALDERON ([id number]) [facility] ([facility]) [address] [place] [address] Bilirubin [Mass/Vol] 0.6 mg/dL Normal 0.0-1.2 [facility] Comment on above: Performed By: #### 5 7021-8 #### YOUSUF CALDERON ([id number]) [facility] ([facility]) [address] [place] [address] Calcium [Mass/Vol] 9.3 mg/dL Normal 8.6-10.3 [facility] Comment on above: Performed By: #### 5 7021-8 #### YOUSUF CALDERON ([id number]) [facility] ([facility]) [address] [place] [address] Chloride [Moles/Vol] 102 mmol/L Normal 98-107 [facility] Comment on above: Performed By: #### 5 7021-8 #### YOUSUF CALDERON ([id number]) [facility] ([facility]) [address] [place] [address] CO2 [Moles/Vol] 29 mmol/L Normal 21-32 [facility] Comment on above: Performed By: #### 5 7021-8 #### YOUSUF CALDERON ([id number]) [facility] ([facility]) [address] [place] [address] Creatinine [Mass/Vol] 1.30 mg/dL Normal 0.50-1.30 [facility] Comment on above: Performed By: #### 5 7021-8 #### YOUSUF CALDERON ([id number]) [facility] ([facility]) [address] [place] [address] GFR/1.73 sq M.predicted MDRD (S/P/Bld) [Vol rate/Area] 55 mL/min/1.73m*2 Low >60 [facility] Comment on above: Result Comment: Calc ulations of estimated GFR are performed using the 2020 CKD-EPI Study Refit equation without the race variable for the IDMS-Traceable creatinine methods. https://jasn.asnjournals.org/content//ASN.6806400 988 Performed By: #### 5 7021-8 #### YOUSUF CALDERON ([id number]) [facility] ([facility]) [address] [place] [address] Glucose [Mass/Vol] 94 mg/dL Normal 74-99 [facility] Comment on above: Performed By: #### 5 7021-8 #### YOUSUF CALDERON ([id number]) [facility] ([facility]) [address] [place] [address] Potassium [Moles/Vol] 4.3 mmol/L Normal 3.5-5.3 [facility] Comment on above: Performed By: #### 5 7021-8 #### YOUSUF CALDERON ([id number]) [facility] ([facility]) [address] [place] [address] Protein [Mass/Vol] 7.8 g/dL Normal 6.4-8.2 [facility] Comment on above: Performed By: #### 5 7021-8 #### YOUSUF CALDERON ([id number]) [facility] ([facility]) [address] [place] [address] Sodium [Moles/Vol] 136 mmol/L Normal 136-145 [facility] Comment on above: Performed By: #### 5 7021-8 #### YOUSUF CALDERON ([id number]) [facility] ([facility]) [address] [place] [address] Urea nitrogen [Mass/Vol] 23 mg/dL Normal 6-23 [facility] Comment on above: Performed By: #### 5 7021-8 #### YOUSUF CALDERON ([id number]) [facility] ([facility]) [address] [place] [address] Magnesiumon 02-16-2023 Magnesium [Mass/Vol] 2.00 mg/dL 1.60 - 2.40 mg/dL [facility] Magnesium [Mass/Vol] 2.00 mg/dL Normal 1.60-2.40 [facility] Comment on above: Performed By: #### 5 7021-8 #### YOUSUF CALDERON ([id number]) [facility] ([facility]) [address] [place] [address] Magnesium [Mass/Vol]on 02-16 Interpretation and review of laboratory results Normal [facility] No Panel Informationon 02-16 [facility] PT and aPTT panel Coag (PPP) on 02-16-2023 aPTT Coag (PPP) [Time] 32 s [facility] INR Coag (PPP) [Relative time] 1.1 {INR} 0.9 - 1.1 [facility] Interpretation and review of laboratory results Normal [facility] PT Coag (PPP) [Time] 12.0 s [facility] The APTT is no longe r used for monitoring Unfractionated Heparin Therapy. For monitoring Heparin Therapy, use the Heparin Assay. [facility] aPTT Coag (PPP) [Time] 32 s Normal 27-38 [facility] Comment on above: Order Comment: The A PTT is no longer used for monitoring Unfractionated Heparin Therapy. For monitoring Heparin Therapy, use the Heparin Assay. Performed By: #### 5 7021-8 #### YOUSUF CALDERON ([id number]) [facility] ([facility]) [address] [place] [address] INR Coag (PPP) [Relative time] 1.1 Normal 0.9-1.1 [facility] Comment on above: Order Comment: The A PTT is no longer used for monitoring Unfractionated Heparin Therapy. For monitoring Heparin Therapy, use the Heparin Assay. Performed By: #### 5 7021-8 #### YOUSUF CALDERON ([id number]) [facility]) [address] [place] [address] PT Coag (PPP) [Time] 12.0 s Normal 9.8-12.8 [facility] Comment on above: Order Comment: The A PTT is no longer used for monitoring Unfractionated Heparin Therapy. For monitoring Heparin Therapy, use the Heparin Assay. Performed By: #### 5 7021-8 #### YOUSUF CALDERON ([id number]) [facility]) [address] [place] [address] XR CHEST 2 VIEWSon 3 XR CHEST 2 VIEWS Interpreted By: Himanshu Berman, STUDY: XR CHEST 2 VIEWS; ; 02/16/2023 3:15 pm INDICATION: Signs/Symptoms:cough. COMPARISON: 02/15/2023 ACCESSION NUMBER(S): [id number] ORDERING CLINICIAN: YAHIR CHATAL FINDINGS: Post sternotomy. Redemonstration of right perihilar calcified lymph nodes. Lungs are otherwise clear. No infiltrates or pleural effusion. No congestive heart failure. IMPRESSION: No radiographic evidence of acute process. MACRO: None Signed by: Himanshu Becerra 02/16/2023 3:26 PM Dictation workstation: [employer] [facility] XR Chest 2 Viewson 3 No radiographic evid ence of acute process. MACRO: None Signed by: Himanshu Becerra 02/16/2023 3:26 PM Dictation workstation: [employer] MMODAL Interpreted By: Himanshu Berman, STUDY: XR CHEST 2 VIEWS; ; 02/16/2023 3:15 pm INDICATION: Signs/Symptoms:cough. COMPARISON: 02/15/2023 ACCESSION NUMBER(S): [id number] ORDERING CLINICIAN: YAHIR CHATAL FINDINGS: Post sternotomy. Redemonstration of right perihilar calcified lymph nodes. Lungs are otherwise clear. No infiltrates or pleural effusion. No congestive heart failure. [facility] MMODAL Himanshu Becerra MD - 02/16/2023 Interpreted By: Himanshu Becerra, STUDY: XR CHEST 2 VIEWS; ; 02/16/2023 3:15 pm INDICATION: Signs/Symptoms:cough. COMPARISON: 02/15/2023 ACCESSION NUMBER(S): [id number] ORDERING CLINICIAN: YAHIR CHATAL FINDINGS: Post sternotomy. Redemonstration of right perihilar calcified lymph nodes. Lungs are otherwise clear. No infiltrates or pleural effusion. No congestive heart failure. IMPRESSION: No radiographic evidence of acute process. MACRO: None Signed by: Himanshu Becerra 02/16/2023 3:26 PM Dictation workstation: [employer] [facility] Work Phone: Radiology Study observation (narrative) [facility] Work Phone: XR Chest 2 ViewsOrdered By: Himanshu Becerra on 02-16-2023 [facility] Work Phone: Bacteria identifiedon 2022 Bacteria identified Cx Nom (Bld) Test: Blood Culture Specimen Source: Peripheral Venipuncture Specimen Type: Blood culture Specimen Date: 02/15/2023 8:08 AM Result Date: 02/19/2023 12:01 PM Result Status: Final result Abnormal: No Resulting Lab: [facility] [address] [place] [address] CULTURE No growth at 4 days - FINAL REPORT [facility] Comment on above: Performed By: #### 6 00-7 #### DESIRAE Terry ([id number]) [facility] ([facility]) [address] [place] [address] Bacteria identified Cx Nom (Bld) Test: Blood Culture Specimen Source: Peripheral Venipuncture Specimen Type: Blood culture Specimen Date: 02/15/2023 7:44 AM Result Date: 02/19/2023 3:36 PM Result Status: Final result Abnormal: Yes Resulting Lab: [facility] [address] [place] [address] CULTURE Allyssa wilburn ([facility]) BLOOD CULTURE BOTTLE - Positive Anaerobic Bottle STAIN Gram negative cocci Anaerobic Bottle Positive Corrected result: Previously reported as Gram positive cocci on 02/17/2023 at 1039 EST. SUSCEPTIBILITY Allyssa wilburn METHOD GRADIENT DIFFUSION AMPICILLIN -- Susceptible AMPICILLIN/SULBACTAM -- Susceptible CEFTRIAXONE -- Susceptible CLINDAMYCIN -- Susceptible MEROPENEM -- Susceptible PIPERACILLIN/TAZOBACTAM -- Susceptible Abnormal [facility] Comment on above: Performed By: #### 5 7021-8 #### YOUSUF CALDERON ([id number]) [facility] ([facility]) [address] [place] [address] CBC W Auto Differential pane l (Bld)on 02-15-2023 Basophils (Bld) [#/Vol] 0.03 10*3/uL [facility] Basophils/100 WBC (Bld) 0.4 % 0.0 - 2.0 % [facility] Eosinophils (Bld) [#/Vol] 0.06 10*3/uL [facility] Eosinophils/100 WBC (Bld) 0.9 % 0.0 - 6.0 % [facility] Erythrocyte distribution width (RBC) [Ratio] 13.7 % 11.5 - 14.5 % [facility] Hematocrit (Bld) [Volume fraction] 40.0 % Low 41.0 - 52.0 % [facility] Hemoglobin (Bld) [Mass/Vol] 13.0 g/dL Low 13.5 - 17.5 g/dL [facility] Immature granulocytes (Bld) [#/Vol] 0.03 10*3/uL [facility] Immature granulocytes/100 WBC (Bld) 0.4 % 0.0 - 0.9 % [facility] Comment on above: Immature Granulocyte Count (IG) includes promyelocytes, myelocytes and metamyelocytes but does not include bands. Percent differential counts (%) should be interpreted in the context of the absolute cell counts (cells/UL). Interpretation and review of laboratory results Abnormal [facility] Lymphocytes (Bld) [#/Vol] 1.69 10*3/uL [facility] Lymphocytes/100 WBC (Bld) 24.6 % 13.0 - 44.0 % [facility] MCH (RBC) [Entitic mass] 32.8 pg 26.0 - 34.0 pg [facility] MCHC (RBC) [Mass/Vol] 32.5 g/dL 32.0 - 36.0 g/dL [facility] MCV (RBC) [Entitic vol] 101 fL High 80 - 100 fL [facility] Monocytes (Bld) [#/Vol] 0.86 10*3/uL High [facility] Monocytes/100 WBC (Bld) 12.5 % 2.0 - 10.0 % [facility] Neutrophils (Bld) [#/Vol] 4.20 10*3/uL [facility] Comment on above: Percent differential counts (%) should be interpreted in the context of the absolute cell counts (cells/uL). Neutrophils/100 WBC (Bld) 61.2 % 40.0 - 80.0 % [facility] Nucleated RBC/100 WBC (Bld) [Ratio] 0.0 % [facility] Platelets (Bld) [#/Vol] 103 10*3/uL Low [facility] RBC (Bld) [#/Vol] 3.96 10*6/uL [facility] WBC (Bld) [#/Vol] 6.9 10*3/uL [facility] Basophils (Bld) [#/Vol] 0.03 x10*3/uL Normal 0.00-0.10 [facility] Comment on above: Performed By: #### 5 7021-8 #### YOUSUF CALDERON ([id number]) [facility] ([facility]) [address] [place] [address] Basophils/100 WBC (Bld) 0.4 % Normal 0.0-2.0 [facility] Comment on above: Performed By: #### 5 7021-8 #### YOUSUF CALDERON ([id number]) [facility] ([facility]) [address] [place] [address] Eosinophils (Bld) [#/Vol] 0.06 x10*3/uL Normal 0.00-0.40 [facility] Comment on above: Performed By: #### 5 7021-8 #### YOUSUF CALDERON ([id number]) [facility] ([facility]) [address] [place] [address] Eosinophils/100 WBC (Bld) 0.9 % Normal 0.0-6.0 [facility] Comment on above: Performed By: #### 5 7021-8 #### YOUSUF CALDERON ([id number]) [facility] ([facility]) [address] [place] [address] Erythrocyte distribution width (RBC) [Ratio] 13.7 % Normal 11.5-14.5 [facility] Comment on above: Performed By: #### 5 7021-8 #### YOUSUF CALDERON ([id number]) [facility] ([facility]) [address] [place] [address] Hematocrit (Bld) [Volume fraction] 40.0 % Low 41.0-52.0 [facility] Comment on above: Performed By: #### 5 7021-8 #### YOUSUF CALDERON ([id number]) [facility] ([facility]) [address] [place] [address] Hemoglobin (Bld) [Mass/Vol] 13.0 g/dL Low 13.5-17.5 [facility] Comment on above: Performed By: #### 5 7021-8 #### YOUSUF CALDERON ([id number]) [facility] ([facility]) [address] [place] [address] Immature granulocytes (Bld) [#/Vol] 0.03 x10*3/uL Normal 0.00-0.50 [facility] Comment on above: Performed By: #### 5 7021-8 #### YOUSUF CALDERON ([id number]) [facility] ([facility]) [address] [place] [address] Immature granulocytes/100 WBC (Bld) 0.4 % Normal 0.0-0.9 [facility] Comment on above: Result Comment: María ture Granulocyte Count (IG) includes promyelocytes, myelocytes and metamyelocytes but does not include bands. Percent differential counts (%) should be interpreted in the context of the absolute cell counts (cells/UL). Performed By: #### 5 7021-8 #### YOUSUF CALDERON ([id number]) [facility] ([facility]) [address] [place] [address] Lymphocytes (Bld) [#/Vol] 1.69 x10*3/uL Normal 0.80-3.00 [facility] Comment on above: Performed By: #### 5 7021-8 #### YOUSUF CALDERON ([id number]) [facility] ([facility]) [address] [place] [address] Lymphocytes/100 WBC (Bld) 24.6 % Normal 13.0-44.0 [facility] Comment on above: Performed By: #### 5 7021-8 #### YOUSUF CALDERON ([id number]) [facility] ([facility]) [address] [place] [address] MCH (RBC) [Entitic mass] 32.8 pg Normal 26.0-34.0 [facility] Comment on above: Performed By: #### 5 7021-8 #### YOUSUF CALDERON ([id number]) [facility] ([facility]) [address] [place] [address] MCHC (RBC) [Mass/Vol] 32.5 g/dL Normal 32.0-36.0 [facility] Comment on above: Performed By: #### 5 7021-8 #### YOUSUF CALDERON ([id number]) [facility] ([facility]) [address] [place] [address] MCV (RBC) [Entitic vol] 101 fL High 80-100 [facility] Comment on above: Performed By: #### 5 7021-8 #### YOUSUF CALDERON ([id number]) [facility] ([facility]) [address] [place] [address] Monocytes (Bld) [#/Vol] 0.86 x10*3/uL High 0.05-0.80 [facility] Comment on above: Performed By: #### 5 7021-8 #### YOUSUF CALDERON ([id number]) [facility] ([facility]) [address] [place] [address] Monocytes/100 WBC (Bld) 12.5 % Normal 2.0-10.0 [facility] Comment on above: Performed By: #### 5 7021-8 #### YOUSUF CALDERON ([id number]) [facility] ([facility]) [address] [place] [address] Neutrophils (Bld) [#/Vol] 4.20 x10*3/uL Normal 1.60-5.50 [facility] Comment on above: Result Comment: Perc ent differential counts (%) should be interpreted in the context of the absolute cell counts (cells/uL). Performed By: #### 5 7021-8 #### YOUSUF CALDERON ([id number]) [facility] ([facility]) [address] [place] [address] Neutrophils/100 WBC (Bld) 61.2 % Normal 40.0-80.0 [facility] Comment on above: Performed By: #### 5 7021-8 #### YOUSUF CALDERON ([id number]) [facility] ([facility]) [address] [place] [address] Nucleated RBC/100 WBC (Bld) [Ratio] 0.0 /100 WBCs Normal 0.0-0.0 [facility] Comment on above: Performed By: #### 5 7021-8 #### YOUSUF CALDERON ([id number]) [facility] ([facility]) [address] [place] [address] Platelets (Bld) [#/Vol] 103 x10*3/uL Low 150-450 [facility] Comment on above: Performed By: #### 5 7021-8 #### YOUSUF CALDERON ([id number]) [facility] ([facility]) [address] [place] [address] RBC (Bld) [#/Vol] 3.96 x10*6/uL Low 4.50-5.90 [facility] Comment on above: Performed By: #### 5 7021-8 #### YOUSUF CALDERON ([id number]) [facility] ([facility]) [address] [place] [address] WBC (Bld) [#/Vol] 6.9 x10*3/uL Normal 4.4-11.3 [facility] Comment on above: Performed By: #### 5 7021-8 #### YOUSUF YUMIKO ([id number]) [facility] ([facility]) [address] [place] [address] CT CERVICAL SPINE WO IV CONT Salvador 02-15-2023 CT CERVICAL SPINE WO IV CONTRAST Interpreted By: Jase Ramirez, STUDY: CT CERVICAL SPINE WO IV CONTRAST; 02/15/2023 7:28 am INDICATION: Signs/Symptoms:trauma. COMPARISON: None. ACCESSION NUMBER(S): [id number] ORDERING CLINICIAN: JUSTIN STEWART TECHNIQUE: Contiguous axial CT sections are performed from the skullbase to the upper thoracic spine and supplemented with coronal and sagittal reformatted images. FINDINGS: There is dextro convexity of the cervical spine and some straightening of the cervical lordosis. The facet joints align normally. There is moderate to severe multilevel cervical spondylosis from C4 through C7 with disc space narrowing and marginal osteophytes. There is mild cervical spondylosis at C7-T1 and minimal anterior subluxation of C7 measuring 1-2 mm. The cervical vertebral body heights are maintained. There is no CT evidence of acute fracture. There is no bone destruction or aggressive periosteal reaction. No lytic or blastic lesion is identified. The surrounding visualized osseous structures are also intact. 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 The C1-2 relationship is otherwise within normal limits. The C2-3 disc space level demonstrates minimal facet arthrosis on the left. There is no central canal or neural foraminal stenosis. The C3-4 disc space level demonstrates mild facet arthrosis on the left. There is no significant central canal or neural foraminal stenosis. There is minimal bulging disc and effacement of the ventral subarachnoid space. The C4-5 disc space level demonstrates mild bilateral facet arthrosis. There is moderate bulging disc and marginal osteophyte with mass effect upon the ventral subarachnoid space and anterior surface of spinal cord and moderate central canal narrowing. There is moderate to severe narrowing of the left neural foramen and mild to moderate narrowing of the right neural foramen. The C5-6 disc space level demonstrates mild to moderate bilateral facet arthrosis. There is moderate circumferential bulging disc and marginal osteophyte with bilateral uncovertebral arthrosis. There is moderate to severe bilateral neural foraminal narrowing and at least moderate narrowing of the central canal. The C6-7 disc space level demonstrates mild bilateral facet arthrosis. There is severe bulging disc and marginal osteophyte with uncovertebral arthrosis bilaterally. There is severe narrowing of the left neural foramen and moderate narrowing of the right neural foramen. There is moderate to severe central canal narrowing with suspected mass effect upon the spinal cord. The C7-T1 disc space level demonstrates moderate facet arthrosis on the right with at least mild narrowing of the right neural foramen. There is no central canal narrowing. There is no prevertebral soft tissue swelling or retropharyngeal air. The surrounding soft tissues are unremarkable. IMPRESSION: No sign of acute fracture or subluxation. Moderate to severe multilevel cervical spondylosis from C4 through C7. Multilevel bulging disc and marginal osteophyte with central canal narrowing from C4 through C7. Central canal narrowing is greatest at C6-7 with suspected mass effect upon the spinal cord. Multilevel bilateral neural foraminal narrowing as detailed above. Signed by: Jase Ramirez 02/15/2023 7:49 AM Dictation workstation: [id number] [facility] CT Cervical spine WO contras ton 02-15-2023 No sign of acute fra cture or subluxation. Moderate to severe multilevel cervical spondylosis from C4 through C7. Multilevel bulging disc and marginal osteophyte with central canal narrowing from C4 through C7. Central canal narrowing is greatest at C6-7 with suspected mass effect upon the spinal cord. Multilevel bilateral neural foraminal narrowing as detailed above. Signed by: Jase Ramirez 02/15/2023 7:49 AM Dictation workstation: [id number] [facility] Interpreted By: Jase Ramirez, STUDY: CT CERVICAL SPINE WO IV CONTRAST; 02/15/2023 7:28 am INDICATION: Signs/Symptoms:trauma. COMPARISON: None. ACCESSION NUMBER(S): [id number] ORDERING CLINICIAN: JUSTIN STEWART TECHNIQUE: Contiguous axial CT sections are performed from the skullbase to the upper thoracic spine and supplemented with coronal and sagittal reformatted images. FINDINGS: There is dextro convexity of the cervical spine and some straightening of the cervical lordosis. The facet joints align normally. There is moderate to severe multilevel cervical spondylosis from C4 through C7 with disc space narrowing and marginal osteophytes. There is mild cervical spondylosis at C7-T1 and minimal anterior subluxation of C7 measuring 1-2 mm. The cervical vertebral body heights are maintained. There is no CT evidence of acute fracture. There is no bone destruction or aggressive periosteal reaction. No lytic or blastic lesion is identified. The surrounding visualized osseous structures are also intact. 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 The C1-2 relationship is otherwise within normal limits. The C2-3 disc space level demonstrates minimal facet arthrosis on the left. There is no central canal or neural foraminal stenosis. The C3-4 disc space level demonstrates mild facet arthrosis on the left. There is no significant central canal or neural foraminal stenosis. There is minimal bulging disc and effacement of the ventral subarachnoid space. The C4-5 disc space level demonstrates mild bilateral facet arthrosis. There is moderate bulging disc and marginal osteophyte with mass effect upon the ventral subarachnoid space and anterior surface of spinal cord and moderate central canal narrowing. There is moderate to severe narrowing of the left neural foramen and mild to moderate narrowing of the right neural foramen. The C5-6 disc space level demonstrates mild to moderate bilateral facet arthrosis. There is moderate circumferential bulging disc and marginal osteophyte with bilateral uncovertebral arthrosis. There is moderate to severe bilateral neural foraminal narrowing and at least moderate narrowing of the central canal. The C6-7 disc space level demonstrates mild bilateral facet arthrosis. There is severe bulging disc and marginal osteophyte with uncovertebral arthrosis bilaterally. There is severe narrowing of the left neural foramen and moderate narrowing of the right neural foramen. There is moderate to severe central canal narrowing with suspected mass effect upon the spinal cord. The C7-T1 disc space level demonstrates moderate facet arthrosis on the right with at least mild narrowing of the right neural foramen. There is no central canal narrowing. There is no prevertebral soft tissue swelling or retropharyngeal air. The surrounding soft tissues are unremarkable. [facility] Ronny Ramirez MD - 02/15/2023 Interpreted By: Jase Ramirez, STUDY: CT CERVICAL SPINE WO IV CONTRAST; 02/15/2023 7:28 am INDICATION: Signs/Symptoms:trauma. COMPARISON: None. ACCESSION NUMBER(S): [id number] ORDERING CLINICIAN: CHRISTOPHER DUSSEL TECHNIQUE: Contiguous axial CT sections are performed from the skullbase to the upper thoracic spine and supplemented with coronal and sagittal reformatted images. FINDINGS: There is dextro convexity of the cervical spine and some straightening of the cervical lordosis. The facet joints align normally. There is moderate to severe multilevel cervical spondylosis from C4 through C7 with disc space narrowing and marginal osteophytes. There is mild cervical spondylosis at C7-T1 and minimal anterior subluxation of C7 measuring 1-2 mm. The cervical vertebral body heights are maintained. There is no CT evidence of acute fracture. There is no bone destruction or aggressive periosteal reaction. No lytic or blastic lesion is identified. The surrounding visualized osseous structures are also intact. 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 The C1-2 relationship is otherwise within normal limits. The C2-3 disc space level demonstrates minimal facet arthrosis on the left. There is no central canal or neural foraminal stenosis. The C3-4 disc space level demonstrates mild facet arthrosis on the left. There is no significant central canal or neural foraminal stenosis. There is minimal bulging disc and effacement of the ventral subarachnoid space. The C4-5 disc space level demonstrates mild bilateral facet arthrosis. There is moderate bulging disc and marginal osteophyte with mass effect upon the ventral subarachnoid space and anterior surface of spinal cord and moderate central canal narrowing. There is moderate to severe narrowing of the left neural foramen and mild to moderate narrowing of the right neural foramen. The C5-6 disc space level demonstrates mild to moderate bilateral facet arthrosis. There is moderate circumferential bulging disc and marginal osteophyte with bilateral uncovertebral arthrosis. There is moderate to severe bilateral neural foraminal narrowing and at least moderate narrowing of the central canal. The C6-7 disc space level demonstrates mild bilateral facet arthrosis. There is severe bulging disc and marginal osteophyte with uncovertebral arthrosis bilaterally. There is severe narrowing of the left neural foramen and moderate narrowing of the right neural foramen. There is moderate to severe central canal narrowing with suspected mass effect upon the spinal cord. The C7-T1 disc space level demonstrates moderate facet arthrosis on the right with at least mild narrowing of the right neural foramen. There is no central canal narrowing. There is no prevertebral soft tissue swelling or retropharyngeal air. The surrounding soft tissues are unremarkable. IMPRESSION: No sign of acute fracture or subluxation. Moderate to severe multilevel cervical spondylosis from C4 through C7. Multilevel bulging disc and marginal osteophyte with central canal narrowing from C4 through C7. Central canal narrowing is greatest at C6-7 with suspected mass effect upon the spinal cord. Multilevel bilateral neural foraminal narrowing as detailed above. Signed by: Jase Ramirez 02/15/2023 7:49 AM Dictation workstation: [id number] [facility] Work Phone: [facility] Work Phone: CT HEAD WO IV CONTRASTon CT HEAD WO IV CONTRAST Interpreted By: Jase Ramirez, STUDY: CT HEAD WO IV CONTRAST; 02/15/2023 7:28 am INDICATION: Signs/Symptoms:trauma. COMPARISON: None. ACCESSION NUMBER(S): [id number] ORDERING CLINICIAN: JUSTIN STEWART TECHNIQUE: Contiguous unenhanced axial CT sections are performed from the skull base to the vertex. FINDINGS: The osseous structures are grossly intact. There is moderate lobular mucoperiosteal thickening of the maxillary and ethmoid sinuses. A small fluid level is identified on the right maxillary sinus. There is mild mucoperiosteal thickening of the sphenoid and frontal sinuses. The mastoid air cells are clear and symmetrically aerated. There is moderate generalized parenchymal volume loss with symmetric enlargement of the cortical sulci and CSF spaces. There is mild hypodensity in the deep cerebral white matter bilaterally. There is no sign of parenchymal hematoma or dense extra-axial fluid collection. There is no mass effect or midline shift. The camacho matter/white-matter differentiation is preserved. 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 Mild age-related small-vessel ischemic changes of the cerebral white matter. No CT evidence of acute intracranial hemorrhage or mass effect. Paranasal sinusitis as described above. The visualized osseous structures are grossly intact. Signed by: Jase Ramirez 02/15/2023 7:45 AM Dictation workstation: [id number] [facility] CT Head WO contraston 2022 Moderate age-related parenchymal atrophy. Mild age-related small-vessel ischemic changes of the cerebral white matter. No CT evidence of acute intracranial hemorrhage or mass effect. Paranasal sinusitis as described above. The visualized osseous structures are grossly intact. Signed by: Jase Ramirez 02/15/2023 7:45 AM Dictation workstation: [id number] [facility] Interpreted By: Jase Ramirez, STUDY: CT HEAD WO IV CONTRAST; 02/15/2023 7:28 am INDICATION: Signs/Symptoms:trauma. COMPARISON: None. ACCESSION NUMBER(S): [id number] ORDERING CLINICIAN: JUSTIN STEWART TECHNIQUE: Contiguous unenhanced axial CT sections are performed from the skull base to the vertex. FINDINGS: The osseous structures are grossly intact. There is moderate lobular mucoperiosteal thickening of the maxillary and ethmoid sinuses. A small fluid level is identified on the right maxillary sinus. There is mild mucoperiosteal thickening of the sphenoid and frontal sinuses. The mastoid air cells are clear and symmetrically aerated. There is moderate generalized parenchymal volume loss with symmetric enlargement of the cortical sulci and CSF spaces. There is mild hypodensity in the deep cerebral white matter bilaterally. There is no sign of parenchymal hematoma or dense extra-axial fluid collection. There is no mass effect or midline shift. The camacho matter/white-matter differentiation is preserved. [facility] Ronny Ramirez MD - 02/15/2023 Interpreted By: Jase Ramirez, STUDY: CT HEAD WO IV CONTRAST; 02/15/2023 7:28 am INDICATION: Signs/Symptoms:trauma. COMPARISON: None. ACCESSION NUMBER(S): [id number] ORDERING CLINICIAN: JUSTIN STEWART TECHNIQUE: Contiguous unenhanced axial CT sections are performed from the skull base to the vertex. FINDINGS: The osseous structures are grossly intact. There is moderate lobular mucoperiosteal thickening of the maxillary and ethmoid sinuses. A small fluid level is identified on the right maxillary sinus. There is mild mucoperiosteal thickening of the sphenoid and frontal sinuses. The mastoid air cells are clear and symmetrically aerated. There is moderate generalized parenchymal volume loss with symmetric enlargement of the cortical sulci and CSF spaces. There is mild hypodensity in the deep cerebral white matter bilaterally. There is no sign of parenchymal hematoma or dense extra-axial fluid collection. There is no mass effect or midline shift. The camacho matter/white-matter differentiation is preserved. 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 Mild age-related small-vessel ischemic changes of the cerebral white matter. No CT evidence of acute intracranial hemorrhage or mass effect. Paranasal sinusitis as described above. The visualized osseous structures are grossly intact. Signed by: Jase Ramirez 02/15/2023 7:45 AM Dictation workstation: [id number] [facility] Work Phone: [facility] Work Phone: Comprehensive metabolic 2000 panelon 02-15-2023 Albumin BCP dye [Mass/Vol] 3.6 g/dL 3.4 - 5.0 g/dL [facility] ALP [Catalytic activity/Vol] 46 U/L 33 - 136 U/L [facility] ALT With P-5'-P [Catalytic activity/Vol] 18 U/L 10 - 52 U/L [facility] Comment on above: Patients treated wit h Sulfasalazine may generate falsely decreased results for ALT. Anion gap [Moles/Vol] 10 mmol/L 10 - 20 mmol/L [facility] AST With P-5'-P [Catalytic activity/Vol] 20 U/L 9 - 39 U/L [facility] Bilirubin [Mass/Vol] 0.6 mg/dL 0.0 - 1 .2 mg/dL [facility] Calcium [Mass/Vol] 8.1 mg/dL Low 8.6 - 10. 3 mg/dL [facility] Chloride [Moles/Vol] 104 mmol/L 98 - 10 7 mmol/L [facility] CO2 [Moles/Vol] 23 mmol/L 21 - 32 mmol/L [facility] Creatinine [Mass/Vol] 1.27 mg/dL 0.50 - 1.30 mg/dL [facility] GFR/1.73 sq M.predicted MDRD (S/P/Bld) [Vol rate/Area] 57 mL/min/{1.73_m2} Low - PINF [facility] Comment on above: Calculations of richmond mated GFR are performed using the 2020 CKD-EPI Study Refit equation without the race variable for the IDMS-Traceable creatinine methods. https://jasn.asnjournals.org/content//ASN.4185042 988 Glucose [Mass/Vol] 145 mg/dL High 74 - 99 mg/dL [facility] Interpretation and review of laboratory results Abnormal [facility] Potassium [Moles/Vol] 4.4 mmol/L 3.5 - 5.3 mmol/L [facility] Protein [Mass/Vol] 6.2 g/dL Low 6.4 - 8.2 g/dL [facility] Sodium [Moles/Vol] 133 mmol/L Low 136 - 145 mmol/L [facility] Urea nitrogen [Mass/Vol] 21 mg/dL 6 - 23 mg/dL [facility] Albumin BCP dye [Mass/Vol] 3.6 g/dL Normal 3.4-5.0 [facility] Comment on above: Performed By: #### 2 4323-8 #### YOUSUF CALDERON ([id number]) [facility] [address] [place] [address] ALP [Catalytic activity/Vol] 46 U/L Normal 33-136 [facility] Comment on above: Performed By: #### 2 4323-8 #### YOUSUF CALDERON ([id number]) [facility] [address] [place] [address] ALT With P-5'-P [Catalytic activity/Vol] 18 U/L Normal 10-52 [facility] Comment on above: Result Comment: [place] ents treated with Sulfasalazine may generate falsely decreased results for ALT. Performed By: #### 2 4323-8 #### YOUSUF CALDERON ([id number]) [facility] ([facility]) [address] [place] [address] Anion gap [Moles/Vol] 10 mmol/L Normal 10-20 [facility] Comment on above: Performed By: #### 2 4323-8 #### YOUSUF CALDERON ([id number]) [facility] ([facility]) [address] [place] [address] AST With P-5'-P [Catalytic activity/Vol] 20 U/L Normal 9-39 [facility] Comment on above: Performed By: #### 2 4323-8 #### YOUSUF CALDERON ([id number]) [facility] ([facility]) [address] [place] [address] Bilirubin [Mass/Vol] 0.6 mg/dL Normal 0.0-1.2 [facility] Comment on above: Performed By: #### 2 4323-8 #### YOUSUF CALDERON ([id number]) [facility] ([facility]) [address] [place] [address] Calcium [Mass/Vol] 8.1 mg/dL Low 8.6-10.3 [facility] Comment on above: Performed By: #### 2 4323-8 #### YOUSUF CALDERON ([id number]) [facility] ([facility]) [address] [place] [address] Chloride [Moles/Vol] 104 mmol/L Normal 98-107 [facility] Comment on above: Performed By: #### 2 4323-8 #### YOUSUF CALDERON ([id number]) [facility] ([facility]) [address] [place] [address] CO2 [Moles/Vol] 23 mmol/L Normal 21-32 [facility] Comment on above: Performed By: #### 2 4323-8 #### YOUSUF CALDERON ([id number]) [facility] ([facility]) [address] [place] [address] Creatinine [Mass/Vol] 1.27 mg/dL Normal 0.50-1.30 [facility] Comment on above: Performed By: #### 2 4323-8 #### YOUSUF CALDERON ([id number]) [facility] ([facility]) [address] [place] [address] GFR/1.73 sq M.predicted MDRD (S/P/Bld) [Vol rate/Area] 57 mL/min/1.73m*2 Low >60 [facility] Comment on above: Result Comment: Calc ulations of estimated GFR are performed using the 2020 CKD-EPI Study Refit equation without the race variable for the IDMS-Traceable creatinine methods. https://jasn.asnjournals.org/content//ASN.7626028 988 Performed By: #### 2 4323-8 #### YOUSUF CALDERON ([id number]) [facility] ([facility]) [address] [place] [address] Glucose [Mass/Vol] 145 mg/dL High 74-99 [facility] Comment on above: Performed By: #### 2 4323-8 #### YOUSUF CALDERON ([id number]) [facility] ([facility]) [address] [place] [address] Potassium [Moles/Vol] 4.4 mmol/L Normal 3.5-5.3 [facility] Comment on above: Performed By: #### 2 4323-8 #### YOUSUF CALDERON ([id number]) [facility] ([facility]) [address] [place] [address] Protein [Mass/Vol] 6.2 g/dL Low 6.4-8.2 [facility] Comment on above: Performed By: #### 2 4323-8 #### YOUSUF CALDERON ([id number]) [facility] ([facility]) [address] [place] [address] Sodium [Moles/Vol] 133 mmol/L Low 136-145 [facility] Comment on above: Performed By: #### 2 4323-8 #### YOUSUF CALDERON ([id number]) [facility] ([facility]) [address] [place] [address] Urea nitrogen [Mass/Vol] 21 mg/dL Normal 6-23 [facility] Comment on above: Performed By: #### 2 4323-8 #### YOUSUF CALDERON ([id number]) [facility] ([facility]) [address] [place] [address] ECG 12-LEADon 02-15-2023 ECG 12-LEAD Ventricular Rate 65 Atrial Rate 65 P-R Interval 232 QRS Duration 126 Q-T Interval 434 QTC Calculation(Bazett) 451 P [place] 43 R [place] -35 T [place] 53 QRS Count 10 Q Onset 203 T Offset 420 QTC Fredericia 445 Diagnosis Sinus rhythm with marked sinus arrhythmia with 1st degree AV block Left axis deviation Nonspecific intraventricular block Minimal voltage criteria for LVH, may be normal variant ( John product ) Abnormal ECG No previous ECGs available See ED provider note for full interpretation and clinical correlation Confirmed by David Nichols ([id number]) on 02/15/2023 2:20:34 PM Normal [facility] FLUAV and FLUBV RNA ARTHUR+prob e Nom (Unsp spec)on 02-15-2023 FLUAV RNA ARTHUR+probe Ql (Resp) Not detected Not Detected [facility] FLUBV RNA ARTHUR+probe Ql (Resp) Not detected Not Detected [facility] Interpretation and review of laboratory results Normal [facility] This assay is an in vitro diagnostic multiplex nucleic acid amplification test for the detection and discrimination of Influenza A & B from nasopharyngeal specimens, and has been validated for use at [facility]. Negative results do not preclude Influenza A/B infections, and should not be used as the sole basis for diagnosis, treatment, or other management decisions. If Influenza A/B and RSV PCR results are negative, testing for Parainfluenza virus, Adenovirus and Metapneumovirus is routinely performed for [facility] pediatric oncology and intensive care inpatients, and is available on other patients by placing an add-on request. [facility] FLUAV RNA ARTHUR+probe Ql (Resp) Not detected Normal Not Detected [facility] Comment on above: Order Comment: This assay is an in vitro diagnostic multiplex nucleic acid amplification test for the detection and discrimination of Influenza A & B from nasopharyngeal specimens, and has been validated for use at [facility]. Negative results do not preclude Influenza A/B infections, and should not be used as the sole basis for diagnosis, treatment, or other management decisions. If Influenza A/B and RSV PCR results are negative, testing for Parainfluenza virus, Adenovirus and Metapneumovirus is routinely performed for [facility] pediatric oncology and intensive care inpatients, and is available on other patients by placing an add-on request. Performed By: #### 4 8509-4 #### YOUSUF CALDERON ([id number]) [facility] ([facility]) [address] [place] [address] FLUBV RNA ARTHUR+probe Ql (Resp) Not detected Normal Not Detected [facility] Comment on above: Order Comment: This assay is an in vitro diagnostic multiplex nucleic acid amplification test for the detection and discrimination of Influenza A & B from nasopharyngeal specimens, and has been validated for use at [facility]. Negative results do not preclude Influenza A/B infections, and should not be used as the sole basis for diagnosis, treatment, or other management decisions. If Influenza A/B and RSV PCR results are negative, testing for Parainfluenza virus, Adenovirus and Metapneumovirus is routinely performed for [facility] pediatric oncology and intensive care inpatients, and is available on other patients by placing an add-on request. Performed By: #### 4 8509-4 #### YOUSUF CALDERON ([id number]) [facility] ([facility]) [address] [place] [address] Lactateon 02-15-2023 Lactate [Moles/Vol] 1.1 mmol/L 0.4 - 2. 0 mmol/L [facility] Lactate [Moles/Vol] 1.1 mmol/L Normal 0.4-2.0 [facility] Comment on above: Order Comment: Venip uncture immediately after or during the administration of Metamizole may lead to falsely low results. Testing should be performed immediately prior to Metamizole dosing. Performed By: #### 2 524-7 #### YUOSUF CALDERON ([id number]) [facility] ([facility]) [address] [place] [address] Lactate [Moles/Vol]on 2022 Interpretation and review of laboratory results Normal [facility] Venipuncture immedia tely after or during the administration of Metamizole may lead to falsely low results. Testing should be performed immediately prior to Metamizole dosing. [facility] No Panel Informationon 02-15 [facility] Radiology Study observation (narrative) [facility] Work Phone: SARS coronavirus 2 RNAon SARS-CoV-2 (COVID-19) RNA ARTHUR+probe Ql (Resp) Detected Abnormal Not Detected [facility] Comment on above: Order Comment: This assay has received FDA Emergency Use Authorization (EUA) and is only authorized for the duration of time that circumstances exist to justify the authorization of the emergency use of in vitro diagnostic tests for the detection of SARS-CoV-2 virus and/or diagnosis of COVID-19 infection under section 564(b)(1) of the Act, 21 U.S.C. 360bbb-3(b)(1). This assay is an in vitro diagnostic nucleic acid amplification test for the qualitative detection of SARS-CoV-2 from nasopharyngeal specimens and has been validated for use at [facility]. Negative results do not preclude COVID-19 infections and should not be used as the sole basis for diagnosis, treatment, or other management decisions. Performed By: #### 9 4500-6 #### YOUSUF CALDERON ([id number]) [facility] ([facility]) [address] [place] [address] SARS-CoV-2 (COVID-19) RNA NA A+probe Ql (Resp)Ordered By: Sandi Brannon on 02-15-2023 Interpretation and review of laboratory results Abnormal [facility] This assay has recei clive FDA Emergency Use Authorization (EUA) and is only authorized for the duration of time that circumstances exist to justify the authorization of the emergency use of in vitro diagnostic tests for the detection of SARS-CoV-2 virus and/or diagnosis of COVID-19 infection under section 564(b)(1) of the Act, 21 U.S.C. 360bbb-3(b)(1). This assay is an in vitro diagnostic nucleic acid amplification test for the qualitative detection of SARS-CoV-2 from nasopharyngeal specimens and has been validated for use at [facility]. Negative results do not preclude COVID-19 infections and should not be used as the sole basis for diagnosis, treatment, or other management decisions. [facility] Sars-CoV-2 PCR, SymptomaticO rdered By: Sandi Brannon on 02-15-2023 SARS-CoV-2 (COVID-19) RNA ARTHUR+probe Ql (Resp) Detected Abnormal Not Detected [facility] Tropinin I.cardiac panel Hig h sensitivity methodon 02-15-2023 Interpretation and review of laboratory results Normal [facility] Less than 99th perce ntile of normal range cutoff- Female and children under 18 years old <14 ng/L; Male <21 ng/L: Negative Repeat testing should be performed if clinically indicated. Female and children under 18 years old 14-50 ng/L; Male 21-50 ng/L: Consistent with possible cardiac damage and possible increased clinical risk. Serial measurements may help to assess extent of myocardial damage. >50 ng/L: Consistent with cardiac damage, increased clinical risk and myocardial infarction. Serial measurements may help assess extent of myocardial damage. NOTE: Children less than 1 year old may have higher baseline troponin levels and results should be interpreted in conjunction with the overall clinical context. NOTE: Troponin I testing is performed using a different testing methodology at [facility] than at [facility]. Direct result comparisons should only be made within the same method. [facility] Troponin I, High Sensitivity on 02-15-2023 Tropinin I.cardiac panel High sensitivity method 7 ng/L 0 - 20 ng/L [facility] Troponin I.cardiac panelon 1 04-18-2022 Tropinin I.cardiac panel High sensitivity method 7 ng/L Normal 0-20 [facility] Comment on above: Order Comment: Less than 99th percentile of normal range cutoff- Female and children under 18 years old <14 ng/L; Male <21 ng/L: Negative Repeat testing should be performed if clinically indicated. Female and children under 18 years old 14-50 ng/L; Male 21-50 ng/L: Consistent with possible cardiac damage and possible increased clinical risk. Serial measurements may help to assess extent of myocardial damage. >50 ng/L: Consistent with cardiac damage, increased clinical risk and myocardial infarction. Serial measurements may help assess extent of myocardial damage. NOTE: Children less than 1 year old may have higher baseline troponin levels and results should be interpreted in conjunction with the overall clinical context. NOTE: Troponin I testing is performed using a different testing methodology at [facility] than at [facility]. Direct result comparisons should only be made within the same method. Performed By: #### 8 9577-1 #### YOUSUF CALDERON ([id number]) [facility] ([facility]) [address] [place] [address] XR CHEST 1 VIEWon 02-15-2023 XR CHEST 1 VIEW Interpreted By: Jase Ramirez, STUDY: XR CHEST 1 VIEW; 02/15/2023 7:19 am INDICATION: Signs/Symptoms:cough. COMPARISON: 06/18/2021 ACCESSION NUMBER(S): [id number] ORDERING CLINICIAN: JUSTIN STEWART TECHNIQUE: A portable radiograph of the chest is performed. FINDINGS: Postop changes are identified with midline sternotomy wires and vascular clips. The heart is mildly enlarged. There are low lung volumes with some crowding of the bronchovascular markings in the lung bases. There is no airspace consolidation, pleural effusion, or pneumothorax. Calcified lymph nodes are identified in the right hilum and possibly left hilum. IMPRESSION: Cardiomegaly. Low lung volumes. No airspace consolidation. Suspect old granulomatous disease of the chest. Signed by: Jase Ramirez 02/15/2023 7:27 AM Dictation workstation: [id number] [facility] XR Chest Single viewon 02-15 Cardiomegaly. Low lung volumes. No airspace consolidation. Suspect old granulomatous disease of the chest. Signed by: Jase Ramirez 02/15/2023 7:27 AM Dictation workstation: [id number] MMODAL Interpreted By: Jase Ramirez, STUDY: XR CHEST 1 VIEW; 02/15/2023 7:19 am INDICATION: Signs/Symptoms:cough. COMPARISON: 06/18/2021 ACCESSION NUMBER(S): [id number] ORDERING CLINICIAN: JUSTIN STEWART TECHNIQUE: A portable radiograph of the chest is performed. FINDINGS: Postop changes are identified with midline sternotomy wires and vascular clips. The heart is mildly enlarged. There are low lung volumes with some crowding of the bronchovascular markings in the lung bases. There is no airspace consolidation, pleural effusion, or pneumothorax. Calcified lymph nodes are identified in the right hilum and possibly left hilum. MMODAL Ronny Ramirez MD - 02/15/2023 Interpreted By: Jase Ramirez, STUDY: XR CHEST 1 VIEW; 02/15/2023 7:19 am INDICATION: Signs/Symptoms:cough. COMPARISON: 06/18/2021 ACCESSION NUMBER(S): [id number] ORDERING CLINICIAN: JUSTIN STEWART TECHNIQUE: A portable radiograph of the chest is performed. FINDINGS: Postop changes are identified with midline sternotomy wires and vascular clips. The heart is mildly enlarged. There are low lung volumes with some crowding of the bronchovascular markings in the lung bases. There is no airspace consolidation, pleural effusion, or pneumothorax. Calcified lymph nodes are identified in the right hilum and possibly left hilum. IMPRESSION: Cardiomegaly. Low lung volumes. No airspace consolidation. Suspect old granulomatous disease of the chest. Signed by: Jase Ramirez 02/15/2023 7:27 AM Dictation workstation: [id number] [facility] Work Phone: Radiology Study observation (narrative) [facility] Work Phone: XR Chest Single viewOrdered By: Janelle Ramirez on 02-15-2023 [facility] Work Phone: CARECOORDon 08-10-2022 [facility]3][employer] Patient Choice Patient Name: JACKSON HURT Date of : 1940 Normal [facility] Basic metabolic 1998 panelon 08-08-2022 Anion gap [Moles/Vol] 6 mmol/L 3 - 13 mmol/L [facility] [employer] Calcium [Mass/Vol] 8.5 mg/dL 8.4 - 10. 4 mg/dL [facility] Chloride [Moles/Vol] 104 mmol/L 98 - 10 7 mmol/L [facility] CO2 [Moles/Vol] 25 mmol/L 22 - 30 mmol/L [facility] Creatinine [Mass/Vol] 1.26 mg/dL High 0.66 - 1.25 mg/dL [facility] GFR/1.73 sq M.predicted MDRD (S/P/Bld) [Vol rate/Area] 57.7 mL/min/{1.73_m2} Low - PINF [facility] Comment on above: Calculation based on the Chronic Kidney Disease Epidemiology Collaboration (CKD-EPI) equation refit without adjustment for race Glucose [Mass/Vol] 105 mg/dL High 70 - 100 mg/dL [facility] Interpretation and review of laboratory results Abnormal [facility] Potassium [Moles/Vol] 4.0 mmol/L 3.5 - 5.1 mmol/L [facility] Sodium [Moles/Vol] 135 mmol/L 135 - 145 mmol/L [facility] Urea nitrogen [Mass/Vol] 31 mg/dL High 9 - 20 mg/dL [facility] CAREPLNon 08-08-2022 CAREPLN Problem: Knowledge Deficit Goal: Patient/family/caregiver demonstrates understanding of disease process, treatment plan, medications, and discharge instructions 08/08/2022430 by Mamadou Downs RN Outcome: Progressing 08/08/2022430 by Mamadou Downs RN Outcome: Progressing Problem: Potential for Compromised Skin Integrity Goal: Skin Integrity is Maintained or Improved 08/08/2022430 by Mamadou Downs RN Outcome: Progressing 08/08/2022430 by Mamadou Dowsn RN Outcome: Progressing Goal: Nutritional status is improving 08/08/2022430 by Mamadou Downs RN Outcome: Progressing 08/08/2022430 by Mamadou Downs RN Outcome: Progressing Problem: Urinary Incontinence Goal: Perineal skin integrity is maintained or improved 08/08/2022430 by Mamadou Downs RN Outcome: Progressing 08/08/2022430 by Mamadou Downs RN Outcome: Progressing Problem: Pain - Adult Goal: Verbalizes/displays adequate comfort level or baseline comfort level 08/08/2022430 by Mamadou Downs RN Outcome: Progressing 08/08/2022430 by Mamadou Downs RN Outcome: Progressing Problem: Safety - Adult Goal: Free from fall injury 08/08/2022430 by Mamadou Downs RN Outcome: Progressing 08/08/2022430 by Mamadou Downs RN Outcome: Progressing Problem: Discharge Planning Goal: Discharge to home or other facility with appropriate resources 08/08/2022430 by Mamadou Downs RN Outcome: Progressing 08/08/2022430 by Mamadou Downs RN Outcome: Progressing Problem: Chronic Conditions and Co-morbidities Goal: Patient's chronic conditions and co-morbidity symptoms are monitored and maintained or improved 08/08/2022430 by Mamadou Downs RN Outcome: Progressing 08/08/2022430 by Mamadou Downs RN Outcome: Progressing The patient is The patient's goals for the shift include Pain Management The clinical goals for the shift include Patient will remain safe and free from injury Over the shift, the patient did not make progress toward the following goals. Barriers to progression include . Recommendations to address these barriers include . Normal [facility] CAREPLN The patient is The patient's goals for the shift include Pain Management The clinical goals for the shift include Patient will remain safe and free from injury Over the shift, the patient did not make progress toward the following goals. Barriers to progression include . Recommendations to address these barriers include . Normal [facility] CBC panel Auto (Bld)Ordered By: Aidee Ceballos on 08-08-2022 Erythrocyte distribution width (RBC) [Ratio] 13.6 % 11.5 - 14.5 % [facility] Hematocrit (Bld) [Volume fraction] 31.6 % Low 40.0 - 52.0 % [facility] Hemoglobin (Bld) [Mass/Vol] 10.7 g/dL Low 13.0 - 18.0 g/dL [facility] Interpretation and review of laboratory results Abnormal [facility] MCH (RBC) [Entitic mass] 33.3 pg 26.0 - 34.0 pg [facility] MCHC (RBC) [Mass/Vol] 33.9 % 32.0 - 36.0 % [facility] MCV (RBC) [Entitic vol] 98.1 fL High 80.0 - 98.0 fL [facility] Platelet mean volume (Bld) [Entitic vol] 8.4 fL 7.4 - 12.4 fL [facility] Platelets (Bld) [#/Vol] 183 10*3/uL 140 - 440 10*3/uL [facility] RBC (Bld) [#/Vol] 3.22 10*6/uL Low 4.40 - 5.9 0 10*6/uL [facility] WBC (Bld) [#/Vol] 8.9 10*3/uL 3.6 - 10.7 10*3/uL [facility] Progress Noteon 08-08-2022 Progress Note Occupational Therapy Facility/Department: Occupational Therapy Treatment NAME: Jackson Hurt : 1940 Date of Service: 08/08/2022 Discharge Recommendations: Home with Home health OT, Home with assist PRN Assessment Assessment: Fatigued today but progressing toward goals. Appears with good safety awareness. Per Secure Chat message, [facility] will order FWW for delivery to room. Suggest home with PRN assist and [facility] OT. Subjective Subjective Subjective: Pt in chair, awaiting discharge home today and eager for same. c/o incisional pain not too bad at this point. Patient Stated Goal: none stated Objective Grooming/Oral Hygiene Assistance Level: Supervision Skilled Clinical Factors: wash hands at sink LE Dressing Skilled Clinical Factors: don pants and slip on shoes with supv., pt declines donning socks, states likely will not wear at home and friend would be able to help with socks if needed, Toileting Assistance Level: Supervision Balance Standing Balance: Supervision (during dynamic tasks) Functional Mobility Functional Mobility Comments: Funct amb a few steps with CGA, no device. Then with FWW, CGA. To/from bathroom. Toilet Transfers Equipment Used: Grab bars Toilet Transfer: Supervision Shower Transfers Shower Transfers Comments: Reviewed shower transfer technique; pt has walk in shower with bench which he has never used. Suggest seated shower initially for purposes of energy conservation, as well as have someone present for initial shower transfers. Pt verbalizes understanding. Transfers Sit to stand: Modified independent (good technique and reports has been getting up on his own) Stand to sit: Supervision Plan Plan Comment: Cont OT per POC Safety Type of devices: Left in chair, Call light within reach AM-PAC Score AM-PAC Inpatient Daily Activity Raw Score: 23 ADL Inpatient [facility] G-Code Modifier: CI Goals Encounter Problems Encounter Problems (Active) Balance Patient will maintain dynamic standing balance for 5-10 minutes with modified independence in order to demonstrate decreased risk of falling. (Progressing) Start: 08/07/22 Expected End: 09/04/22 Bathing Patient will utilize adaptive techniques to bathe body NH. (Not Addressed) Start: 08/07/22 Expected End: 09/04/22 Dressing Upper Extremities Patient will complete upper body dressing NH. (Not Addressed) Start: 08/07/22 Expected End: 09/04/22 Dressings Lower Extremities Patient will dress lower body NH. (Progressing) Start: 08/07/22 Expected End: 09/04/22 Toileting Patient will complete toileting tasks at standard toilet with modified independence. (Progressing) Start: 08/07/22 Expected End: 09/04/22 Education Therapy Time Individual Co-treatment Time In 1315 Time Out 1340 Minutes 25 Timed Code Treatment Minutes: (Funct--1; Self--1) KATE Orourke Normal [facility] [facility] Basic metabolic 1998 panelon 08-07-2022 Anion gap [Moles/Vol] 3 mmol/L 3 - 13 mmol/L [facility] Calcium [Mass/Vol] 8.7 mg/dL 8.4 - 10. 4 mg/dL [facility] Chloride [Moles/Vol] 103 mmol/L 98 - 10 7 mmol/L [facility] CO2 [Moles/Vol] 29 mmol/L 22 - 30 mmol/L [facility] Creatinine [Mass/Vol] 1.18 mg/dL 0.66 - 1.25 mg/dL [facility] GFR/1.73 sq M.predicted MDRD (S/P/Bld) [Vol rate/Area] 62.4 mL/min/{1.73_m2} - PINF [facility] Comment on above: Calculation based on the Chronic Kidney Disease Epidemiology Collaboration (CKD-EPI) equation refit without adjustment for race Glucose [Mass/Vol] 152 mg/dL High 70 - 100 mg/dL [facility] Interpretation and review of laboratory results Abnormal [facility] Potassium [Moles/Vol] 4.7 mmol/L 3.5 - 5.1 mmol/L [facility] Sodium [Moles/Vol] 135 mmol/L 135 - 145 mmol/L [facility] Urea nitrogen [Mass/Vol] 24 mg/dL High 9 - 20 mg/dL [facility] CARECOORDon 08-07-2022 [facility] Managment Initi al Assessment Date: 08/07/2022 Patient Name: Jackson Hurt : 1940 Patient Information Source of Information: Patient Cognition/Language: WFL - Within Functional Limits Permission given to speak with patient patient admitting representative/caregiver as indicated: No Confirmation of Payer with patient/family: Yes Payer Name: [facility]/OR : Yes Confirmation of Primary Care Physician: Confirmed PCP Name: DR ESQUIVEL Seen in last 2 years?: Yes Primary Caregiver: Self If assistance needed, confirmed caregiver ready, willing and able to care for patient at discharge: Confirmed with: Living Arrangements Current Residence: [facility] Number of Floors 1 Number of Entry Steps: 4 Bed/Bath Levels: Facility: Facility Name: Plan to Return: Lives with: Friends Support Systems: Friends/neighbors Activities of Daily Living Ambulation: Independent Bathing/Dressing: Independent Elimination/Continence/To ileting: Independent Feeding: Independent Who Assists with Activities of Daily Living: Instrumental Activities of Daily Living Prescription Coverage: Yes Pharmacy Used: Medication Management: Independent Transportation/Shopping: Independent Transportation Mode: Car Needs Assistance with Transportation at Discharge: No Meal Preparation: Independent Laundry/Cleaning: Independent Finances/Bill Paying: Independent Communication: Independent Types of Care Services/Equipment Utilized Care Services: (NA) Dialysis Type: NA Durable Medical Equipment: (NA) Patient's Goal/Discharge Plan Patient expects to be discharged to: HOME Discharge Planning Actions: Continue to follow Patient's Choice Rights and [employer] and Collaborative Relationships Disclosed as Indicated for Post-Acute Care: Interdisciplinary Team Engagement: Social Work Referral for: Additional Information: SPOKE WITH PT, INTRODUCED SELF AND EXPLAINED ROLE. PT HERE WITH WEAKNESS, S/P BACK SURGERY LAST MONTH. CURRENTLY ON IV ANCEF Q 8 HR, HAS 2 DRAINS TO BULB SUCTION. PT/OT EVAL PENDING. ANTICIPATE DISCHARGE TO HOME. Greta Uriarte RN [facility] CAREPLNon 08-07-2022 CAREPLN Problem: Knowledge Deficit Goal: Patient/family/caregiver demonstrates understanding of disease process, treatment plan, medications, and discharge instructions Outcome: Progressing Problem: Potential for Compromised Skin Integrity Goal: Skin Integrity is Maintained or Improved Outcome: Progressing Goal: Nutritional status is improving Outcome: Progressing Problem: Urinary Incontinence Goal: Perineal skin integrity is maintained or improved Outcome: Progressing Problem: Pain - Adult Goal: Verbalizes/displays adequate comfort level or baseline comfort level Outcome: Progressing Problem: Safety - Adult Goal: Free from fall injury Outcome: Progressing Problem: Discharge Planning Goal: Discharge to home or other facility with appropriate resources Outcome: Progressing Problem: Chronic Conditions and Co-morbidities Goal: Patient's chronic conditions and co-morbidity symptoms are monitored and maintained or improved Outcome: Progressing The patient is The patient's goals for the shift include Pain control The clinical goals for the shift include Pain decrease Over the shift, the patient did not make progress toward the following goals. Barriers to progression include . Recommendations to address these barriers include . Normal [facility] CBC W Auto Differential pane l (Bld)Ordered By: Kenny Arndt on 08-07-2022 Basophils (Bld) [#/Vol] 0.0 10*3/uL 0.0 - 0.2 10*3/uL [facility] Basophils/100 WBC (Bld) 0.3 % 0.0 - 2.0 % [facility] Eosinophils (Bld) [#/Vol] 0.0 10*3/uL 0.0 - 0.5 10*3/uL [facility] Eosinophils/100 WBC (Bld) 0.2 % Low 1.0 - 6.0 % [facility] Erythrocyte distribution width (RBC) [Ratio] 13.5 % 11.5 - 14.5 % [facility] Hematocrit (Bld) [Volume fraction] 33.4 % Low 40.0 - 52.0 % [facility] Hemoglobin (Bld) [Mass/Vol] 11.2 g/dL Low 13.0 - 18.0 g/dL [facility] Interpretation and review of laboratory results Abnormal [facility] Lymphocytes (Bld) [#/Vol] 0.7 10*3/uL Low 1.0 - 4.3 10*3/uL [facility] Lymphocytes/100 WBC (Bld) 12.5 % Low 20.0 - 40.0 % [facility] MCH (RBC) [Entitic mass] 33.8 pg 26.0 - 34.0 pg [facility] MCHC (RBC) [Mass/Vol] 33.6 % 32.0 - 36.0 % [facility] MCV (RBC) [Entitic vol] 100.7 fL High 80.0 - 98.0 fL [facility] Monocytes (Bld) [#/Vol] 0.3 10*3/uL 0.0 - 0.8 10*3/uL [facility] Monocytes/100 WBC (Bld) 4.4 % 2.0 - 10.0 % [facility] Neutrophils (Bld) [#/Vol] 4.8 10*3/uL 1.8 - 7.0 10*3/uL [facility] Neutrophils/100 WBC (Bld) 82.6 % High 40.0 - 80.0 % [facility] Nucleated RBC/100 WBC (Bld) [Ratio] 0.0 % [facility] Platelet mean volume (Bld) [Entitic vol] 8.5 fL 7.4 - 12.[address] [facility] Platelets (Bld) [#/Vol] 191 10*3/uL 140 - 440 10*3/uL [facility] RBC (Bld) [#/Vol] 3.32 10*6/uL Low 4.40 - 5.9 0 10*6/uL [facility] WBC (Bld) [#/Vol] 5.7 10*3/uL 3.6 - 10.7 10*3/uL [facility] ECG 12-LEADon 08-07-2022 ECG 12-LEAD IMPRESSION: Sinus rhythm Prolonged NC interval Nonspecific IVCD with LAD Electronically Signed On 08-07-2022 11:11:38 EDT by Fausto Wellington [facility] No Panel InformationOrdered By: Fausto Wellington on 08-07-2022 P [place] 43 degrees [employer] Work Phone: NC Interval 234 ms [employer] Work Phone: QRS [place] -43 degrees [employer] Work Phone: QRSD Interval 122 ms [employer] Work Phone: QT Interval 386 ms [employer] Work Phone: QTC Interval 450 ms [employer] Work Phone: T Wave [place] 88 degrees [employer] Work Phone: [employer] Work Phone: No Panel Informationon 08-07 Sinus rhythm Prolonged NC interval Nonspecific IVCD with LAD Electronically Signed On 08-07-2022 11:11:38 EDT by Fausto Wellington CV Fausto Jones MD - 08/07/2022 IMPRESSION: Sinus rhythm Prolonged NC interval Nonspecific IVCD with LAD Electronically Signed On 08-07-2022 11:11:38 EDT by Fausto Wellington [facility] Nursing Noteon 08-07-2022 Nursing Note During rounds pt was found in bed in a high fowlers position with friend at bedside. Pt has clear speech and facial symmetry and denies pin 0/10. Pt has no other concerns at this time. Call light and essentials wnr of pt. Pt had on c/o ordering his dinner at 1800 and it had not came. [facility] Progress Noteon 08-07-2022 Progress Note Physical Therapy Facility/Department: Physical Therapy Initial Evaluation NAME: Jackson Hurt : 1940 Date of Service: 08/07/2022 Discharge Recommendations: Home with assist PRN, Outpatient PT PT Equipment Recommendations Equipment Needed: Yes Mobility Devices: Walker Walker: Rolling Assessment Requires PT Follow-Up: Yes Assessment: PT eval completed and the pt presents with generalized weakness and limited endurance. POD #1 L4-L5 laminectomy revision. SBA with bed mobility, transfers, and ambulation using FWW. Overall good mobility and likely close to functional baseline. Anticipated home with outpt therapy upon disch Performance Deficits/Impairments: Decreased functional mobility , Decreased body mechanics, Decreased strength, Decreased endurance, Decreased balance, Increased pain Decision Making: Medium Complexity Activity Tolerance Activity Tolerance: Patient limited by fatigue, Patient limited by endurance Patient Diagnosis(es): The primary encounter diagnosis was Post-op pain. Diagnoses of Debility and Postoperative hematoma involving nervous system following nervous system procedure were also pertinent to this visit. has a past medical history of CAD (coronary artery disease) and Heart disease. has a past surgical history that includes Cardiac surgery; Coronary artery bypass graft; Appendectomy; Coronary angioplasty with stent; Cholecystectomy; and Tonsillectomy. Restrictions Restrictions/Precautions Restrictions/Precautions: Weight Bearing, Up as Tolerated (general diet) Required Braces or Orthoses?: Yes (LS corset when OOB) Lower Extremity Weight Bearing Restrictions Right Lower Extremity Weight Bearing: Weight Bearing As Tolerated Left Lower Extremity Weight Bearing: Weight Bearing As Tolerated Required Braces or Orthoses Spinal: Lumbar Corset Position Activity Restriction Other position/activity restrictions: per notes, no spine precautions. Vision/Hearing Vision: Impaired Vision Exceptions: Wears glasses for reading Hearing: Functional/adequate for paticipation in therapy Cognition/Orientation Overall Orientation Status: Within Normal Limits Subjective General Chart Reviewed: Yes Patient Assessed for Rehabilitation Services: Yes Family / Caregiver Present: No Diagnosis: debility, pain, s/p L4-L5 laminectomy 07/21 at [facility]. POD #1 revison sx due to excessive bleeding. Follows Commands: Within Functional Limits Subjective Subjective: Pt lying upright in bed. Pleasant and agreeable to therapy. Stated he feels his SWATHI drains were pulled too soon after first surgery, causing high level of bleeding at home Patient Stated Goal: go home Pain Assessment Pain Assessment: (mild LBP with mobility. No number provided) Social/Functional History Social/Functional History Lives With: Other (comment) (partner) Type of Home: House Home Layout: One level, Able to Live on Main level with bedroom/bathroom Home Access: Stairs to enter with rails Entrance Stairs - Number of Steps: 4 Entrance Stairs - Rails: Right Bathroom Accessibility: Accessible Home Equipment: (standard walker, shower seat) Receives Help From: Family ADL Assistance: Independent Homemaking Assistance: Independent Homemaking Responsibilities: Yes Ambulation Assistance: Independent Transfer Assistance: Independent Active Design Draftsman: Yes Mode of Transportation: Car Occupation: Retired Additional Comments: per pt, still mostly independent with ADLs. Has standard walker at home, but typically does not use. Recent spine surgery with persistent bleeding post op, causing revison /. Did fall in ER due to high level of pain medication and attempting to get up to bathroom alone. Objective Observation/Palpation Posture: Fair Observation: 1L O2 via NC, well healing surgical incision sight, +SWATHI drains x2, +IV, +telesitter AROM RLE (degrees) RLE AROM: WFL AROM LLE (degrees) LLE AROM : WFL Strength RLE Strength RLE: (grossly 4-/5 throughout) Strength LLE Strength LLE: (grossly 4-/5 throughout) Sensation Overall Sensation Status: Intact Bed mobility Supine to Sit: Stand by assistance Scooting: Stand by assistance Comment: use of bedrail to help scoot to EOB. Transfers Sit to Stand: Stand by assistance Stand to sit: Stand by assistance Comment: x2 trials. Once from EOB, second off toilet in bathroom. Ambulation Ambulation: Yes Ambulation 1 Surface 1: Level tile Device 1: Rolling walker Assistance 1: Close supervision Quality of Gait 1: step to pattern, slow sandor Distance (ft) 1: 65' Comments 1: able to walk and hold conversation without issues. Brief cues for FWW use vs previous standard walker use Balance Posture: Fair Sitting - Static: Good Sitting - Dynamic: Good Standing - Static: Fair, + Standing - Dynamic: Fair Comments: static standing to wash hands at sink with no LOB noted. RN also re-adj (more content not included)... Normal [facility] Progress Note Nutrition rescreen completed. Chart reviewed. Patient to be monitored and followed by the diet restorative care technician. Normal [facility] Progress Note Occupational Therapy Facility/Department: Occupational Therapy Initial Evaluation NAME: Jackson Hurt : 1940 Date of Service: 08/07/2022 Discharge Recommendations: Home with Home health OT, Home with assist PRN OT Equipment Recommendations Equipment Needed: No Assessment REQUIRES OT FOLLOW-UP: Yes Performance deficits / Impairments: Decreased functional mobility , Decreased safe awareness, Decreased balance, Decreased posture, Decreased ADL status, Decreased endurance, Decreased strength Assessment: Patient is an 81-year-old s/p L4-5 lami/PSF on 07/21 with I&D and revision lami on 08/06. Patient is functionally independent at baseline with self-care tasks and functional mobility. Patient is limited by the above noted deficits. Patient is SBA for UB ADLs, min A for LB ADLs and CGA for toileting. Patient is SBA for ambulation. Recommending home with assist PRN and [facility] OT. Prognosis: Good Decision Making: Medium Complexity Activity Tolerance Activity Tolerance: Patient Tolerated treatment well Patient Diagnosis(es): The primary encounter diagnosis was Post-op pain. Diagnoses of Debility and Postoperative hematoma involving nervous system following nervous system procedure were also pertinent to this visit. has a past medical history of CAD (coronary artery disease) and Heart disease. has a past surgical history that includes Cardiac surgery; Coronary artery bypass graft; Appendectomy; Coronary angioplasty with stent; Cholecystectomy; and Tonsillectomy. Restrictions Restrictions/Precautions Restrictions/Precautions: Weight Bearing, Up as Tolerated, Fall Risk, General Precautions Required Braces or Orthoses?: Yes Lower Extremity Weight Bearing Restrictions Right Lower Extremity Weight Bearing: Weight Bearing As Tolerated Left Lower Extremity Weight Bearing: Weight Bearing As Tolerated Required Braces or Orthoses Spinal: Lumbar Corset Position Activity Restriction Other position/activity restrictions: PIV, SWATHI drains x 2, no spinal precautions per chart Vision/Hearing Vision: Impaired Vision Exceptions: Wears glasses for reading Hearing: Functional/adequate for paticipation in therapy Cognition/Orientation Overall Cognitive Status: WFL Overall Orientation Status: Within Functional Limits Subjective General Chart Reviewed: Yes Patient Assessed for Rehabilitation Services: Yes Family / Caregiver Present: No Diagnosis: post-op pain Subjective Subjective: Patient is supine in bed; patient agreeable to therapy evaluation. RN ok'd for participation. Patient Stated Goal: to get stronger Social/Functional History Social/Functional History Lives With: (partner) Type of Home: House Home Layout: One level, Able to Live on Main level with bedroom/bathroom Home Access: Stairs to enter with rails Entrance Stairs - Number of Steps: 4 Entrance Stairs - Rails: Right Bathroom Accessibility: Accessible Home Equipment: (standard walker, shower seat) Receives Help From: Family ADL Assistance: Independent Homemaking Assistance: Independent Homemaking Responsibilities: Yes Ambulation Assistance: Independent Transfer Assistance: Independent Active Design Draftsman: Yes Mode of Transportation: Car Occupation: Retired Additional Comments: Patient is independent with ADLs mostly s/p recent spine surgery. Has a felting machine operator helper at home. Patient also has a standard walker that he doesn't regularly use. Objective Gross Assessment: Yes AROM: Within functional limits Strength: Generally decreased, functional (BUE strength: 3+/5) Coordination: Within functional limits Tone: Normal Sensation: Intact Observation/Palpation Posture: Fair Balance Sitting Balance: Supervision Standing Balance: Stand by assistance Functional Mobility Functional - Mobility Device: Rolling Walker Activity: To/from bathroom Assist Level: Stand by assistance Toilet Transfers Toilet - Technique: Ambulating Toilet Transfer: Stand by assistance ADL Feeding: Independent Grooming: Supervision (washing hands standing at sink) UE Bathing: Stand by assistance LE Bathing: Minimal assistance UE Dressing: Stand by assistance LE Dressing: Minimal assistance Toileting: Contact guard assistance Tone RUE RUE Tone: Normotonic Tone LUE LUE Tone: Normotonic Coordination Movements Are Fluid And Coordinated: Yes Bed mobility Supine to Sit: Stand by assistance Scooting: Stand by assistance Comment: HOB elevated; use of bed rail. Increased time for completion. Patient with FAIR+ sitting balance. Transfers Sit to stand: Stand by assistance Stand to sit: Stand by assistance Transfer Comments: Patient is SBA for transfers from EOB with FWW; cueing for safety at times. Patient with FAIR standing balance. Perception Overall Perceptual Status: WFL Sensation Overall Sensation Status: Intact LUE AROM (degrees) LUE AROM : WFL LUE General RJ (more content not included)... Normal [facility] Vital signsOrdered By: Fausto Wellington on 08-07-2022 Heart rate 82 /min bpm [facility] Work Phone: Blood type and Crossmatch pa shannon (Bld)on 08-06-2022 ABO group Nom (Bld) O [facility] Blood group antibody screen GEL Ql Negative [facility] D Ag Ql (RBC) Positive [facility] CAREPLNon 08-06-2022 CAREPLN Problem: Pain - Adul t Goal: Verbalizes/displays adequate comfort level or baseline comfort level Outcome: Progressing Flowsheets (Taken 08/06/2022 1054) Verbalizes/displays adequate comfort level or baseline comfort level: Encourage patient to monitor pain and request assistance Assess pain using appropriate pain scale Administer analgesics based on type and severity of pain and evaluate response Implement non-pharmacological measures as appropriate and evaluate response Problem: Safety - Adult Goal: Free from fall injury Outcome: Progressing Flowsheets (Taken 08/06/2022 1054) Free from fall injury: Instruct family/caregiver on patient safety Note: Side rails upx2, bed low, brakes on, call light in reach. The patient is Moderately Unstable - Medium risk of patient condition declining or worsening The patient's goals for the shift include pain control The clinical goals for the shift include pain control Normal [facility] CT HEAD WO IV CONTRASTon CT HEAD WO IV CONTRAST [facility] 1940 [id number] Exam Date/Time: 08/06/2022 03:24 Procedure: CT HEAD WO IV CONTRAST Ordering Provider: COPE THOMAS Reason For Exam: S/P mech fall w/ headstrike on floor. (+) Plavix CT HEAD WITHOUT CONTRAST: CLINICAL INDICATION: Fall. Struck head on floor. COMPARISON: 07/30/2015 TECHNIQUE: [address] images through the brain. Sagittal and coronal reformatted images provided. Dose reduction was employed with automated exposure control. FINDINGS: Ventricles and extra-axial spaces: Mild prominence of cerebral ventricles, cisterns and sulci for age, compatible with mild cerebral atrophy. No extra-axial fluid collection. Cerebral and cerebellar parenchyma: No abnormal areas of decreased or increased parenchymal density. No mass, mass effect or acute cortical infarct. Hemorrhage: None. Brainstem: Normal. Visualized paranasal sinuses: Normal. Mastoid air cells: Normal. Visualized orbits: Normal. Calvarium and skull base: Congenital unfused posterior ring of C1 is noted.. Other: None. IMPRESSION: No acute intracranial process. Mild global cerebral atrophy. Report Dictated on Electronically Signed By: Ernie Hurley Electronically Signed Date/Time: 08/06/2022 4:26 AM EDT [facility] CT Head WO contraston 2022 No acute intracranial process. Mild global cerebral atrophy. Report Dictated on Electronically Signed By: Ernie Hurley Electronically Signed Date/Time: 08/06/2022 4:26 AM EDT [facility] [employer] Patient Name[facility]ACKSON [facility]ASQUEZ [facility] 1940 [id number] Exam Date/Time: 08/06/2022 03:24 Procedure: CT HEAD WO IV CONTRAST Ordering Provider: COPE THOMAS Reason For Exam: S/P mech fall w/ headstrike on floor. (+) Plavix CT HEAD WITHOUT CONTRAST: CLINICAL INDICATION: Fall. Struck head on floor. COMPARISON: 07/30/2015 TECHNIQUE: [address] images through the brain. Sagittal and coronal reformatted images provided. Dose reduction was employed with automated exposure control. FINDINGS: Ventricles and extra-axial spaces: Mild prominence of cerebral ventricles, cisterns and sulci for age, compatible with mild cerebral atrophy. No extra-axial fluid collection. Cerebral and cerebellar parenchyma: No abnormal areas of decreased or increased parenchymal density. No mass, mass effect or acute cortical infarct. Hemorrhage: None. Brainstem: Normal. Visualized paranasal sinuses: Normal. Mastoid air cells: Normal. Visualized orbits: Normal. Calvarium and skull base: Congenital unfused posterior ring of C1 is noted.. Other: None. [facility] [employer] Ernie Hurley DO - 08/06/2022 Patient Name: JACKSON HURT : 1940 Exam Date/Time: 08/06/2022 03:24 Procedure: CT HEAD WO IV CONTRAST Ordering Provider: COPE THOMAS Reason For Exam: S/P mech fall w/ headstrike on floor. (+) Plavix CT HEAD WITHOUT CONTRAST: CLINICAL INDICATION: Fall. Struck head on floor. COMPARISON: 07/30/2015 TECHNIQUE: [address] images through the brain. Sagittal and coronal reformatted images provided. Dose reduction was employed with automated exposure control. FINDINGS: Ventricles and extra-axial spaces: Mild prominence of cerebral ventricles, cisterns and sulci for age, compatible with mild cerebral atrophy. No extra-axial fluid collection. Cerebral and cerebellar parenchyma: No abnormal areas of decreased or increased parenchymal density. No mass, mass effect or acute cortical infarct. Hemorrhage: None. Brainstem: Normal. Visualized paranasal sinuses: Normal. Mastoid air cells: Normal. Visualized orbits: Normal. Calvarium and skull base: Congenital unfused posterior ring of C1 is noted.. Other: None. IMPRESSION: No acute intracranial process. Mild global cerebral atrophy. Report Dictated on Electronically Signed By: Ernie Hurley Electronically Signed Date/Time: 08/06/2022 4:26 AM EDT [facility] Radiology Study observation (narrative) [facility] CT Head WO contrastOrdered B y: Ernie Hurley on 08-06-2022 [facility] Work Phone: Consulton 08-06-2022 Consult Ortho Spine Consult Patient: Jackson Hurt Date of : 1940 Acct: [id number] PCP: Tres Esquivel MD Date of Admission: 08/05/2022 Date of Service: Pt seen/examined on 08/05/2022 Chief Complaint: B/L Lumbar radicular pain s/p L3-S1 decompression and L4-5 PSF History Of Present Illness: 81 y.o. male who presents with B/L lumbar radicular pain s/p L4-5 PSF + L3-S1 decompression on 07/[address] Angus Garcia at [facility]. States he has had progressive pain since surgery that has really prevented him from walking and taking care of himself. Pain in his posterior thighs and buttock got so severe that he presented to [facility] for eval. Denies any specific inciting falls/trauma, but does remember twisting his back approximately 1 week after surgery. Denies Saddle anesthesia, endorses some constipation but otherwise no episodes of incontinence of bowel or bladder. Spoke with his son over the phone who states Jackson was walking fine before surgery and had different radicular pain before surgery on the anterior thigh, but now Jackson' pain seems to be posterior leg. Patient former smoker, occasional drinking, denies illicit drugs. Hx from chart and/or Pt. Patient ambulation status: mild difficulty. Antiplatelets/Anticoagula tion includes: Plavix. Past Medical History: Past Medical History: Diagnosis Date CAD (coronary artery disease) Heart disease Past Surgical History: Recent Surgeries in Orthopedic Surgery No cases to display Home Medications: Prior to Admission medications Not on File Current Hospital Medications: Current Facility-Administered Medications: gadobutrol (Gadavist) injection 9 mL, 9 mL, IntraVENous, Once PRN, Gretchen Ling PA-C No current outpatient medications on file. Allergies: Patient has no known allergies. Social History: Social History Socioeconomic History Marital status: Spouse name: Not on file Number of children: Not on file Years of education: Not on file Highest education level: Not on file Occupational History Not on file Tobacco Use Smoking status: Former Smokeless tobacco: Not on file Substance and Sexual Activity Alcohol use: Yes Alcohol/week: 1.0 standard drink Drug use: No Sexual activity: Not on file Other Topics Concern Not on file Social History Narrative Not on file Social Determinants of Health Financial Resource Strain: Not on file Food Insecurity: Not on file Transportation Needs: Not on file Physical Activity: Not on file Stress: Not on file Social Connections: Not on file Intimate Partner Violence: Not on file Housing Stability: Not on file Family History: No family history on file. Further Family History is noncontributory to this injury. REVIEW OF SYSTEMS: Review of Systems - General ROS: negative for - chills, fatigue, fever, malaise or night sweats Psychological ROS: negative Ophthalmic ROS: negative ENT ROS: negative for - headaches or sore throat Hematological and Lymphatic ROS: negative for - bleeding problems or blood clots Respiratory ROS: no cough, shortness of breath, or wheezing Cardiovascular ROS: no chest pain or dyspnea on exertion Gastrointestinal ROS: negative Musculoskeletal ROS: See HPI Neurological ROS: See HPI All other systems reviewed and are negative PHYSICAL EXAM: BP 117/69 Pulse 73 Temp 36.8 ?C (98.2 ?F) (Temporal) Resp 16 Ht 1.803 m (5' 11) Wt 93 kg (205 lb) SpO2 97% BMI 28.59 kg/m? GENERAL APPEARANCE: Awake and oriented x3. No acute distress, except appropriate to injury. MOOD AND AFFECT: Appropriate to situation GAIT AND STATION: Patient is in bed and unable to ambulate secondary to known injury. COORDINATION and BALANCE: Patient is grossly coordinated unable to ambulate secondary to known injury. Spine Exam: * Exam was limited due to pain: No Direct Spine Inspection: TTP was present in the area of the incision/dressing. The incision/dressing appeared c/d/I without signs of infection SA EF WE EE WF GS HI RUE 5 5 5 5 5 5 5 Sensation: Intact C3-T1 with normal sensation in all distributions Radial pulse: Palpable TTP in the following areas: nontender throughout extremity. Nontender throughout remainder of extremity SA EF WE EE WF GS HI LUE 5 5 5 5 5 5 5 Sensation: Intact C3-T1 with normal sensation in all distributions Radial pulse: Palpable TTP in the following areas: nontender throughout extremity. Nontender throughout remainder of extremity HF KE DF EHL PF RLE 5 5 4+ 5 5 Sensation: Intact L2-S1 with normal sensation Pulses: DP Palpable TTP in the following areas: Nontender throughout remainder of extremity Pain w Straight leg raise: No HF KE DF EHL PF LLE 5 5 4+ 5 5 Sensation: Intact L2-S1 with normal sensation Pulses: DP Palpable TTP in the following areas: Nontender throughout extremity Pain w Straight leg raise: No Deep Tendon Reflexes: Right Bicep: 2+ Left Bic (more content not included)... Normal [facility] ED Nursing Noteon 08-06-2022 ED Nursing Note Pt to floor with transport at this time. Belongings with patient. Pt clean and dry, respirations even and unlabored. Jacklyn Smith RN 08/06/22 0450 Normal [facility] ED Nursing Note Pt back from CT, res ting in bed. Bed alarm on, safety measures maintained. Jacklyn Smith RN 08/06/22 0356 [facility] ED Nursing Note Pt to CT Jacklyn Smith RN 08/06/22 0315 [facility] ED Nursing Note Called to check on c t again , other patient still on the table. Stated about 5-10 more min Anita Baltazar RN 08/06/22 0254 [facility] ED Nursing Note I call to notify ct that patient had a fall on thinners and needs his scan venu. They currently have another urgent patient on the table and said he will go next. Patient still alert and oriented X3 Anita Baltazar RN 08/06/22 0230 Anita Baltazar RN 08/06/22 0231 [facility] ED Nursing Note Bed alarm in place Anita Baltazar RN 08/06/22 0158 [facility] ED Nursing Note Dr. Cope at bedside Anita Baltazar RN 08/06/22 0158 [facility] ED Nursing Note Patient remains aler t and oriented, back in bed resting with curtains open and call light in reach. I spoke with dr. Cope on the phone about the incident and he will be down to see the patient Anita Baltazar RN 08/06/22 0142 [facility] ED Nursing Note Patient woke up conf used and climbed out of bed, he fell hitting his lower lip and right cheek. He is on blood thinner. I am notifying dr. Cope. Anita Baltazar RN 08/06/22 0132 [facility] ED Nursing Note Patient is sleeping in bed resting comfortably, respirations even and unlabored. No sx of distress noted. Call light within reach and safety measures maintained. Lilly Saravia RN 08/05/22 8966 [facility] ED Nursing Note Dr. Menjivar at bedside. Lilly Saravia RN 08/05/22 3962 [facility] ED Nursing Note The patients son Juan Diego Dominguez, , left his phone number for any updates. Lilly Saravia RN 08/05/22 3053 [facility] Laboratory - Coagulationon 0 - aPTT Coag (PPP) [Time] 27.8 s 20.0 - 30.5 s [facility] INR Coag (PPP) [Relative time] 1.1 {INR} 0.9 - 1.1 [facility] Comment on above: Recommended Anticoag ulant Therapy: SEE BELOW ----- INR of 2.0 - 3.0 : - Prophylaxis of Venous Thrombosis (high-risk surgery) - Treatment of Venous Thrombosis - Treatment of Pulmonary Embolism (Includes tissue heart valves, Acute Myocardial Infarction to prevent systemic embolism, Valvular Heart Disease, and Atrial Fibrillation) ----- INR of 2.5 - 3.5 : - Mechanical Prosthetic Valves (high risk) - If oral anticoagulant therapy is used to prevent Myocardial Infarction PT Coag (Bld) [Time] 11.2 s 9.0 - 12.0 s [facility] MR Lumbar spine WO and W con trast Elen 08-06-2022 Impression: 1. Recent postsurgical changes, posterior decompression and posterior hardware fusion L4-L5. There is a fluid collection posterior to the thecal sac in the region of surgery with intracanalicular extension on the right at the L3-L4 level and causing significant mass effect on the spinal canal when combined with facet hypertrophy and disc bulge. A small left-sided lateral recess herniated disc fragment may also be present on the left at this level. Finding cause a moderate to severe L3-L4 spinal canal stenosis. Moderate to severe neuroforaminal narrowing at this level. The fluid collection likely represents postoperative hematoma or seroma. Dural leak is felt a less likely consideration. Additional nonspecific fluid collection superficial to the thoracolumbar fascia. The sterility of these collections cannot be confirmed by MRI however there is no significant surrounding osseous or soft tissue inflammation to suggest abscess. If there is concern for abscess, recommend aspiration and culture or I&D. No MRI evidence of discitis osteomyelitis or gross evidence of pedicle screw infection. 2. Mild discogenic and mild to moderate facet degenerative changes, spondylosis with multilevel disc bulge. Moderate spinal canal stenosis also at L2-L3, L4-L5. Significant moderate to severe neuroforaminal narrowing also on the left at L4-L5. Other moderate [id number] foraminal stenoses as above level by level. Report Dictated on Electronically Signed By: Hermilo Muñoz Electronically Signed Date/Time: 08/06/2022 12:38 PM [facility] [employer] [facility] Patient Name: JACKSON VELASQUEZ : 1940 [facility]#: [id number] Exam Date/Time: 08/06/2022 12:08 Procedure: MR LUMBAR SPINE W AND WO CONTRAST Ordering Provider: COPE THOMAS Reason For Exam: low back pain worsening and radiating down the bilateral legs , hx of surgery 2 weeks ago sent in by [id number] [facility] for MRI Examination: MRI lumbar spine Clinical Indication: low back pain worsening and radiating down the bilateral legs , hx of surgery 2 weeks ago sent in by [id number] [facility] for MRI Comparison: X-ray 08/05/2022 Findings: Multiplanar multisequence high field MRI images were obtained through the lumbar spine prior to and after 9 mL Gadavist intravenous gadolinium contrast. Five lumbar type vertebra are assumed for purposes of numbering on this examination. Transpedical screws and posterior fusion rods L4-L5 with laminectomy/laminotomy defect. There is some paraspinal muscular edema related to recent surgery. There is a small right-sided intracanalicular fluid collection at the L3-L4 level. This measures 1.2 cm anterior to posterior, 0.6 cm medial lateral and up to 1.7 cm cranial caudal. Finding could represent postoperative seroma or hematoma. A larger fluid collection is seen posterior to the thecal sac and measures up to 1.9 cm medial lateral, 4.0 cm anterior to posterior and 4.8 cm cranial caudal and is best seen on the postcontrast images series 18 image 10. This does cause some mass effect on the posterior thecal sac L4-L5. A third fluid collection seen superficial to the thoracolumbar fascia measures 4.0 cm cranial caudal, 1.0 cm anterior to posterior and 1.4 cm medial lateral. The sterility of these collections cannot be confirmed by MRI although there are no osseous changes to suggest this represents infection. The thoracolumbar spine demonstrates minimal scoliosis apex leftward at T12-L1. The lumbar spine demonstrates otherwise grossly normal signal intensity. No paraspinal inflammation at the vertebral bodies or evidence of discitis osteomyelitis. No inflammation seen along the transpedical screws. The conus terminates at a normal L1 level. Cord demonstrates no abnormal signal intensity. T12-L1: Tiny right paracentral disc bulge. Minimal facet degenerative hypertrophy. Minimal right-sided spinal canal stenosis. No significant foraminal narrowing. Minimal amount of annular gadolinium contrast enhancement. L1-L2: Small broad-based posterior disc bulge with endplate osteophytes. Mild spinal canal stenosis. Moderate bilateral neuroforaminal narrowing. Minimal amount of annular gadolinium contrast enhancement. L2-L3: Small broad-based posterior disc bulge with endplate osteophytes. Moderate facet and ligamentum flavum hypertrophy. Moderate spinal canal stenosis with lateral recess narrowing. Moderate neuroforaminal narrowing on the right, [id number] on the left. L3-L4: Moderate-sized broad-based posterior disc bulge. Minimal amount of annular gadolinium contrast enhancement. There is moderate to severe spinal canal stenosis with some hypertrophic facet and some prominent soft tissue at the left lateral recess and the small fluid collection on the right causing displacement of nerve roots leftward. A small 0.3 cm herniated disc fragment, nonenhancing at the left lateral recess is also suspected series 17 image 31. There is moderate to severe bilateral neuroforaminal narrowing from foraminal disc osteophytes. L4-L5: Small broad-based posterior disc bulge. Posterior osseous decompression however the fluid collection causes mass effect on the thecal sac and there is moderate spinal canal narrowing with some lateral recess narrowing appreciated. There is moderate right and moderate to severe left neuroforaminal narrowing with foraminal disc osteophytes. L5-S1: Small broad-based posterior disc bulge. Mild facet degenerative hypertrophy. Minimal spinal canal stenosis, trace lateral recess narrowing. Moderate neuroforaminal narrowing. [facility] Hermilo Muñoz MD - 08/06/2022 [facility] Name: [facility] 1940 [id number] Exam Date/Time: 08/06/2022 12:08 Procedure: MR LUMBAR SPINE W AND WO CONTRAST Ordering Provider: COPE THOMAS Reason For Exam: low back pain worsening and radiating down the bilateral legs , hx of surgery 2 weeks ago sent in by [id number] [facility] for MRI Examination: MRI lumbar spine Clinical Indication: low back pain worsening and radiating down the bilateral legs , hx of surgery 2 weeks ago sent in by [id number] [facility] for MRI Comparison: X-ray 08/05/2022 Findings: Multiplanar multisequence high field MRI images were obtained through the lumbar spine prior to and after 9 mL Gadavist intravenous gadolinium contrast. Five lumbar type vertebra are assumed for purposes of numbering on this examination. Transpedical screws and posterior fusion rods L4-L5 with laminectomy/laminotomy defect. There is some paraspinal muscular edema related to recent surgery. There is a small right-sided intracanalicular fluid collection at the L3-L4 level. This measures 1.2 cm anterior to posterior, 0.6 cm medial lateral and up to 1.7 cm cranial caudal. Finding could represent postoperative seroma or hematoma. A larger fluid collection is seen posterior to the thecal sac and measures up to 1.9 cm medial lateral, 4.0 cm anterior to posterior and 4.8 cm cranial caudal and is best seen on the postcontrast images series 18 image 10. This does cause some mass effect on the posterior thecal sac L4-L5. A third fluid collection seen superficial to the thoracolumbar fascia measures 4.0 cm cranial caudal, 1.0 cm anterior to posterior and 1.4 cm medial lateral. The sterility of these collections cannot be confirmed by MRI although there are no osseous changes to suggest this represents infection. The thoracolumbar spine demonstrates minimal scoliosis apex leftward at T12-L1. The lumbar spine demonstrates otherwise grossly normal signal intensity. No paraspinal inflammation at the vertebral bodies or evidence of discitis osteomyelitis. No inflammation seen along the transpedical screws. The conus terminates at a normal L1 level. Cord demonstrates no abnormal signal intensity. T12-L1: Tiny right paracentral disc bulge. Minimal facet degenerative hypertrophy. Minimal right-sided spinal canal stenosis. No significant foraminal narrowing. Minimal amount of annular gadolinium contrast enhancement. L1-L2: Small broad-based posterior disc bulge with endplate osteophytes. Mild spinal canal stenosis. Moderate bilateral neuroforaminal narrowing. Minimal amount of annular gadolinium contrast enhancement. L2-L3: Small broad-based posterior disc bulge with endplate osteophytes. Moderate facet and ligamentum flavum hypertrophy. Moderate spinal canal stenosis with lateral recess narrowing. Moderate neuroforaminal narrowing on the right, [id number] on the left. L3-L4: Moderate-sized broad-based posterior disc bulge. Minimal amount of annular gadolinium contrast enhancement. There is moderate to severe spinal canal stenosis with some hypertrophic facet and some prominent soft tissue at the left lateral recess and the small fluid collection on the right causing displacement of nerve roots leftward. A small 0.3 cm herniated disc fragment, nonenhancing at the left lateral recess is also suspected series 17 image 31. There is moderate to severe bilateral neuroforaminal narrowing from foraminal disc osteophytes. L4-L5: Small broad-based posterior disc bulge. Posterior osseous decompression however the fluid collection causes mass effect on the thecal sac and there is moderate spinal canal narrowing with some lateral recess narrowing appreciated. There is moderate right and moderate to severe left neuroforaminal narrowing with foraminal disc osteophytes. L5-S1: Small broad-based posterior disc bulge. Mild facet degenerative hypertrophy. Minimal spinal canal stenosis, trace lateral recess narrowing. Moderate neuroforaminal narrowing. IMPRESSION: Impression: 1. Recent postsurgical changes, posterior decompression and posterior hardware fusion L4-L5. There is a fluid collection posterior to the thecal sac in the region of surgery with intracanalicular extension on the right at the L3-L4 level and causing significant mass effect on the spinal canal when combined with facet hypertrophy and disc bulge. A small left-sided lateral recess herniated disc fragment may also be present on the left at this level. Finding cause a moderate to severe L3-L4 spinal canal stenosis. Moderate to severe neuroforaminal narrowing at this level. The fluid collection likely represents postoperative hematoma or seroma. Dural leak is felt a less likely consideration. Additional nonspecific fluid collection superficial to the thoracolumbar fascia. The sterility of these collections cannot be confirmed by MRI however t (more content not included)... [facility] Radiology Study observation (narrative) [facility] MR Lumbar spine WO and W con trast IVOrdered By: Hermilo Muñoz on 08-06-2022 [facility] Work Phone: No Panel Informationon 08-06 Interpretation and review of laboratory results Normal [facility] Nursing Noteon 08-06-2022 Nursing Note Placed watch back on wrist from OR. Normal [facility] Nursing Note Pt restful in pacu, wakes up and answers questions appropriately, pain tolerable, VSS, no apparent distress. Report called and in for transport. Normal [facility] Nursing Note Pt refuses straight cath at this time. Pt is voiding. Bladder scan and PVR normal. . [facility] Op Noteon 08-06-2022 Op Note OPERATIVE NOTE Patient Name: Jackson Hurt : 1940 DATE OF PROCEDURE: 08-06-22 SURGEON: Lee Garcia DO PREOPERATIVE DIAGNOSES: status post lumbar decompression L3-5, fusion with instrumentation L4-5 07-21-22. Postoperative seroma vs hematoma with neural compression. POSTOPERATIVE DIAGNOSES: same PROCEDURE: exploration lumbar fusion, revision laminectomies L3, L4, L5, removal epidural hematoma and seroma, itrrigation and debridement lumbar spine wound, lumbar medium hemovac drain placement x2. INDICATION FOR PROCEDURE: postoperative pain, weakness, MRI positive epidural hematoma. DESCRIPTION OF PROCEDURE:: see detailed op note. This patient is an 81-year-old gentleman seen and evaluated at [facility] by the ER physicians and orthopedic resident staff. This patient describes postoperative relief of symptoms from surgical treatment for stenosis and spondylolisthesis 07/21/2022. However, over the last 48 hours she noted progressive pain and lower extremity sciatica with weakness of both lower extremities below the knees. His symptoms were progressive. MRI scanning demonstrated postoperative seroma versus hematoma with neural compression primarily L3-4 L4-5 at the levels of decompression. Operative plans were then undertaken based on symptoms and findings. Patient was informed of his condition as well as options for treatment. Surgical treatment was urged at this time. The patient's MRI scan was completed approximately 12:30 PM 08/06/2022. The patient was prepared for surgical treatment 2:30 PM 08/06/2022. Risk benefits alternatives potential complications of both operative and nonoperative treatment were discussed. The patient wishes to proceed accordingly. The patient was taken the operating room room 19 in [facility]. A satisfactory general anesthesia was established and oral endotracheal tube was placed by the anesthesia team. Bilateral lower extremity meta compression stockings were applied. A Hilliard catheter was inserted. The patient was then carefully turned into the prone position on standard Steve frame making sure to pad and protect the upper and lower extremities abdomen face cervical spine and axilla bilaterally. The patient was satisfactorily positioned and IV antibiotics were instituted. The patient then had his nava removed. The wound was completely healed approximated without any signs of infection irritation and inflammation or swelling. The lumbar wound was then prepped and draped in the normal sterile fashion utilizing Betadine prep. Verbal timeout was performed per [facility] protocol and all of which was agreed upon. The lumbar wound was then incised and the sutures removed. Subcutaneous and deeper fascial seroma was noted and evacuated. There is no sign of infection. Congealed hematoma was noted over the exposed lumbar epidural spaces and removed. The remaining lamina of L4 was completely excised with revision laminectomy. Revision laminectomies of L3 and L5 were subsequently performed therefore L3-L4-L5 revision laminectomies were performed. Revision partial facetectomy and direct nerve decompression L3-L4-L5 bilaterally were performed. The common dural sac and nerve roots were expanded and, dural sac was pulsatile. Minimal bleeding was noted. We then irrigated and debridement of the lumbar wound from subcutaneous tissue to deeper fascial layers muscular muscle and down to bone. The lumbar wound and fusion was then explored. The instrumentation at L4-5 was totally intact. Bone graft was noted laterally and intact. No sign of loosening hardware issues or inflammation was noted. The wound was then copiously irrigated with 6000 cc of antibiotic solution delivered through the pulse lavage. The wound was again inspected complete hemostasis was achieved. We placed a light covering of Surgiflo around the margins of the decompression. The wound was then inspected thoroughly. Valsalva maneuver was performed and there was no evidence of CSF drainage or leakage. The wound was then closed over a medium epidural Hemovac drain placed in the epidural space. Deeper Vicryl sutures #1 Vicryl were utilized to reapproximate the fascial tissues. A second medium Hemovac drain was placed in the subcutaneous region above the fascia. Oh and then 2-0 Vicryl sutures were utilized to reapproximate the more superficial tissues over 1 g of vancomycin powder placed into the wound in this region. Anchorage were then placed in the skin for closure following reapproximation with 2-0 Vicryl in the subcutaneous region. Xeroform and sterile dressings were then applied followed by Tegaderm dressing. 1 small suture was placed to anchor the drains in place. The patient was then returned back into the supine position having tolerated procedure well. Final diagnosis was epidural seroma versus hematoma. No complications were noted. The final needle sponge and (more content not included)... [facility] Op Note Date: 08/06/2022 Locat ion: [facility] OR Name: Jackson Hurt, : 1940, Diagnosis Pre-op Diagnosis * Postoperative hematoma involving nervous system following nervous system procedure [G97.61] Post-op Diagnosis * Postoperative hematoma involving nervous system following nervous system procedure [G97.61] Procedures INCISION AND DRAINAGE DEEP ABSCESS POSTERIOR SPINE LUMBAR, SACRAL, OR LUMBOSACRAL [id number] - NC I&D DEEP ABSCESS PST SPINE LUMBAR SAC/LUMBOSAC Surgeons * Lee Garcia - Primary Procedure Summary Anesthesia: General ASA: III Estimated Blood Loss: 50 mL Drains: Closed/Suction Drain Inferior;Midline Back 10 Fr. (Active) Closed/Suction Drain Inferior;Right Back 10 Fr. (Active) Staff: Operations Systems Specialist: Susie Dale RN; Ernie Joyce RN Scrub Person: Melinda Alonzo Findings: hematoma in the deep epidural space, no evidence of infection. Complications: None; patient tolerated the procedure well. Specimens Collected: No specimens collected during this procedure. Wound Class: Class I: Clean Blood Products: None Prophylactic Antibiotics: Procedure appropriate prophylactic antibiotic(s) given within 1 hour of surgical incision (two hours if receiving Vancomycin or flouroquinolone) Postop plan: -No plan for return to OR at this time -Deep and superficial Hemovac drains. Pull when each less than 10 cc per shift -Hold Plavix and any other anticoagulant until drains out -Weight-bear as tolerated, no spine precautions -PT/OT -Ancef x24 hours -Pain control, medical management per primary -Okay for regular diet from orthopedic standpoint -Follow-up with Dr. Garcia in 2 weeks -Ortho to follow [facility] XR CHEST 1 VIEWon 08-06-2022 XR CHEST 1 VIEW [facility]ACK[facility] 1940 [id number] Exam Date/Time: 08/06/2022 13:56 Procedure: XR CHEST 1 VIEW Ordering Provider: MILLER STEVEN Reason For Exam: preprocedure Clinical History: preprocedure Comparison: None Technique: Single AP radiograph of the chest. Findings: Cardiomediastinal silhouette and pulmonary vasculature are within normal limits given limited inspiration. Calcified right mediastinal and hilar lymph nodes seen. Mild patchy opacity in the left costophrenic angle. The lungs and pleural spaces are otherwise clear. No sizable pneumothorax. IMPRESSION: Impression: Left basilar atelectasis or possible mild infiltrates. Report Dictated on Electronically Signed By: Philip Carvalho Electronically Signed Date/Time: 08/06/2022 1:44 PM EDT [facility] XR Chest Single viewon 08-06 Impression: Left basilar atelectasis or possible mild infiltrates. Report Dictated on Electronically Signed By: Philip Carvalho Electronically Signed Date/Time: 08/06/2022 1:44 PM EDT [facility] Patient Name: JACKSON VELASQUEZ : 1940 Exam Date/Time: 08/06/2022 13:56 Procedure: XR CHEST 1 VIEW Ordering Provider: MILLER STEVEN Reason For Exam: preprocedure Clinical History: preprocedure Comparison: None Technique: Single AP radiograph of the chest. Findings: Cardiomediastinal silhouette and pulmonary vasculature are within normal limits given limited inspiration. Calcified right mediastinal and hilar lymph nodes seen. Mild patchy opacity in the left costophrenic angle. The lungs and pleural spaces are otherwise clear. No sizable pneumothorax. [facility] Philip Carvalho MD - 08/06/2022 Patient Name: JACKSON HURT : 1940 Exam Date/Time: 08/06/2022 13:56 Procedure: XR CHEST 1 VIEW Ordering Provider: MILLER STEVEN Reason For Exam: preprocedure Clinical History: preprocedure Comparison: None Technique: Single AP radiograph of the chest. Findings: Cardiomediastinal silhouette and pulmonary vasculature are within normal limits given limited inspiration. Calcified right mediastinal and hilar lymph nodes seen. Mild patchy opacity in the left costophrenic angle. The lungs and pleural spaces are otherwise clear. No sizable pneumothorax. IMPRESSION: Impression: Left basilar atelectasis or possible mild infiltrates. Report Dictated on Electronically Signed By: Philip Carvalho Electronically Signed Date/Time: 08/06/2022 1:44 PM EDT [facility] Radiology Study observation (narrative) [employer] [facility] XR Chest Single viewOrdered By: Philip Carvalho on 08-06-2022 [employer] Work Phone: [phone] 08-05-2022 36 S-Pt c/o severe back pain and had back surgery at [facility] B-See Previous Encounter A-states he cannot get out of bed and wants to know if he could go to [facility]. R-Advised to call senior information security analyst surgeon for [facility] for instructions, but if pain is that bad needs to go to ED. [place] [id number] Reason for Dispositi on ? [1] SEVERE post-op pain (e.g., excruciating, pain scale 8-10) AND [2] not controlled with pain medications Answer Assessment - Initial Assessment Questions . Protocols used: Post-Op Symptoms and [facility] CARECOORDon 08-05-2022 CARECOPRICEDALE Next Site of Care Admission Date: 08/05/2022 05:58 PM Patient Name: JACKSON HURT Location: [address]/[facility] [id number] Date of : 1940 ----- Placement Information ----- Referral Type:Home Health Care Services - New Referral ID:[id number] Provider Name:[employer] [facility] Address 1:[facility] Address 2: City:[place] Selection Factors:Patient/Family Choice State:[place] [facility] CBC W Auto Differential pane l (Bld)Ordered By: Paula Daily on 08-05-2022 Basophils (Bld) [#/Vol] 0.1 10*3/uL 0.0 - 0.2 10*3/uL [employer] [facility] Basophils/100 WBC (Bld) 1.1 % 0.0 - 2.0 % [employer] [facility] [facility] Eosinophils (Bld) [#/Vol] 0.1 10*3/uL 0.0 - 0.5 10*3/uL [employer] [facility] Eosinophils/100 WBC (Bld) 1.7 % 1.0 - 6.0 % [employer] [facility] [facility] Erythrocyte distribution width (RBC) [Ratio] 13.6 % 11.5 - 14.5 % [employer] [facility] Hematocrit (Bld) [Volume fraction] 39.1 % Low 40.0 - 52.0 % [employer] [facility] [facility] Hemoglobin (Bld) [Mass/Vol] 12.9 g/dL Low 13.0 - 18.0 g/dL [employer] [facility] [facility] Interpretation and review of laboratory results Abnormal [employer] [facility] [facility] Lymphocytes (Bld) [#/Vol] 1.6 10*3/uL 1.0 - 4.3 10*3/uL [employer] [facility] [facility] Lymphocytes/100 WBC (Bld) 22.3 % 20.0 - 40.0 % [employer] [facility] [facility] MCH (RBC) [Entitic mass] 33.0 pg 26.0 - 34.0 pg [facility] MCHC (RBC) [Mass/Vol] 32.8 % 32.0 - 36.0 % [facility] MCV (RBC) [Entitic vol] 100.6 fL High 80.0 - 98.0 fL [facility] Monocytes (Bld) [#/Vol] 0.4 10*3/uL 0.0 - 0.8 10*3/uL [facility] Monocytes/100 WBC (Bld) 6.4 % 2.0 - 10.0 % [facility] Neutrophils (Bld) [#/Vol] 4.8 10*3/uL 1.8 - 7.0 10*3/uL [facility] Neutrophils/100 WBC (Bld) 68.5 % 40.0 - 80.0 % [facility] Nucleated RBC/100 WBC (Bld) [Ratio] 0.0 % [facility] Platelet mean volume (Bld) [Entitic vol] 8.1 fL 7.4 - 12.4 fL [facility] Platelets (Bld) [#/Vol] 204 10*3/uL 140 - 440 10*3/uL [facility] RBC (Bld) [#/Vol] 3.89 10*6/uL Low 4.40 - 5.9 0 10*6/uL [facility] WBC (Bld) [#/Vol] 7.0 10*3/uL 3.6 - 10.7 10*3/uL [facility] CRP [Mass/Vol]on 08-05-2022 Interpretation and review of laboratory results Normal [facility] Comprehensive metabolic 1998 panelon 08-05-2022 Albumin [Mass/Vol] 4.4 g/dL 3.5 - 5.0 g/dL [facility] ALP [Catalytic activity/Vol] 118 U/L 38 - 126 U/L [facility] ALT [Catalytic activity/Vol] 119 U/L High 0 - 49 U/L [facility] Anion gap [Moles/Vol] 5 mmol/L 3 - 13 mmol/L [facility] AST [Catalytic activity/Vol] 111 U/L High 15 - 46 U/L [facility] Bilirubin [Mass/Vol] 0.7 mg/dL 0.2 - 1 .3 mg/dL [facility] Calcium [Mass/Vol] 9.3 mg/dL 8.4 - 10. 4 mg/dL [facility] Chloride [Moles/Vol] 103 mmol/L 98 - 10 7 mmol/L [facility] CO2 [Moles/Vol] 29 mmol/L 22 - 30 mmol/L [facility] Creatinine [Mass/Vol] 1.05 mg/dL 0.66 - 1.25 mg/dL [facility] GFR/1.73 sq M.predicted MDRD (S/P/Bld) [Vol rate/Area] 71.8 mL/min/{1.73_m2} - PINF [facility] Comment on above: Calculation based on the Chronic Kidney Disease Epidemiology Collaboration (CKD-EPI) equation refit without adjustment for race Glucose [Mass/Vol] 93 mg/dL 70 - 100 mg/dL [facility] Interpretation and review of laboratory results Abnormal [facility] Potassium [Moles/Vol] 4.8 mmol/L 3.5 - 5.1 mmol/L [facility] Protein [Mass/Vol] 8.0 g/dL 6.3 - 8.2 g/dL [facility] Sodium [Moles/Vol] 137 mmol/L 135 - 145 mmol/L [facility] Urea nitrogen [Mass/Vol] 25 mg/dL High 9 - 20 mg/dL [facility] Slightly Hemolyzed. Interpret with caution for the following analytes: Potassium, Alkaline Phosphatase, and AST [facility] ED Nursing Noteon 08-05-2022 ED Nursing Note Ortho at bedside. Lilly Saravia RN 08/05/222099 Normal [facility] ED Nursing Note Patient is sleeping in bed resting comfortably, respirations even and unlabored. No sx of distress noted. Call light within reach and safety measures maintained. Lilly Saravia RN 08/05/222039 Normal [facility] ED Nursing Note Patient asleep in be d, respirations easy and non-labored, call light within reach, will continue to monitor. Benito Rincon RN 08/05/221958 Normal [facility] ED Nursing Note Pt came back from MR I and was NOT able to tolerate MRI. Dr. Menjivar aware. No further orders given. Pt is drowsy, but a/o x 3 upon verbal stimuli. Pt assisted back into bed and seems comfortable. Report given to Hair Oliver. Tin Jaimes RN 08/05/221924 [facility] ED Nursing Note MRI called and state d that pt cannot tolerate laying flat due to pain. Dr. Menjivar aware and new orders placed. This Rn and Ihsan Trauma RN at MRI and pt is medicated. See EMAR. [place] given to pt's visitor for when pt gets back to room. Tin Jaimes RN 08/05/22 1858 [facility] ED Nursing Note Pt to MRI in MRI saf e wheelchair. Tin Jaimes RN 08/05/22 1832 [facility] ED Nursing Note Dr. Menjivar at bedside. Tin Jaimes RN 08/05/22 1821 [facility] ED Nursing Note Dr. Menjivar aware that pt cannot lay flat due to pain and will place new orders. Tin Jaimes RN 08/05/22 1817 [facility] ED Nursing Note MRI screening comple te and MRI aware and sending for pt now. Tin Jaimes RN 08/05/22 1815 [facility] ED Nursing Note Call light answered upon pt entering room 23. Pt unable to lay in bed due to pain and wants to sit in wheelchair. Pt assisted back into wheelchair by this RN and Hair Oliver. Rounding completed. Pt is updated on plan of care. All comfort needs attended to at this time. Call light within reach. Safety maintained. Will continue to monitor. Tin Jaimes RN 08/05/22 1813 [facility] ED Nursing Note Assumed care of pt a t this time. Tin Jaimes RN 08/05/22 1759 [facility] ED Provider Noteon ED Provider Note EMERGENCY DEPARTMENT ENCOUNTER Pt Name: Jackson Hurt Birthdate 1940 Date of evaluation: 08/05/2022 ED Provider: Sophie Menjivar MD CHIEF COMPLAINT Chief Complaint Patient presents with Leg Pain Patient c/o bilateral leg pain that radiates with movement. States pain starts in upper legs and radiates down lower legs. States had back operation 2 weeks ago and has had pain since then. States he does not have pain in the incision site. Was seen at [facility] and was told to come to the ED for evaluation. HISTORY OF PRESENT ILLNESS (Location/Symptom, Timing/Onset, Context/Setting, Quality, Duration, Modifying Factors, Severity) Note limiting factors. I wore appropriate PPE for the entirety of this encounter. HPI Jackson Hurt is a 81 y.o. male with a past medical history significant for coronary artery disease s/p stents and bypass surgery who presents to the emergency department for evaluation for back pain. Patient states has been having back pain for the last few days. He states he had lumbar spine surgery 2 weeks ago at the [facility]. He states since then his symptoms are progressively gotten worse. He states that he is having pain in the backs of his legs bilaterally. He states he cannot lay flat due to pain. Patient notes that he is also having weak urinary stream and has not had a bowel movement in 3 days. He notes that he is unable to ambulate because of pain but not due to weakness. He denies numbness and tingling to his groin area. He also denies any bowel or bladder incontinence. Patient denies fevers, chills Nursing Notes were reviewed. Limitations to history: None Outside historians: None REVIEW OF SYSTEMS Review of Systems Constitutional: Negative for chills and fever. HENT: Negative for ear pain and sore throat. Eyes: Negative for pain and visual disturbance. Respiratory: Negative for cough and shortness of breath. Cardiovascular: Negative for chest pain and palpitations. Gastrointestinal: Negative for abdominal pain and vomiting. Genitourinary: Negative for dysuria and hematuria. Musculoskeletal: Positive for arthralgias (Bilateral lower extremities) and back pain. Skin: Positive for wound. Negative for color change and rash. Neurological: Negative for seizures and syncope. All other systems reviewed and are negative. PAST MEDICAL HISTORY Past Medical History: Diagnosis Date CAD (coronary artery disease) Heart disease SURGICAL HISTORY Past Surgical History: Procedure Laterality Date APPENDECTOMY CARDIAC SURGERY CHOLECYSTECTOMY CORONARY ANGIOPLASTY WITH STENT PLACEMENT CORONARY ARTERY BYPASS GRAFT TONSILLECTOMY (HISTORICAL) CURRENT MEDICATIONS Previous Medications No medications on file ALLERGIES Patient has no known allergies. FAMILY HISTORY No family history on file. SOCIAL HISTORY Social History Socioeconomic History Marital status: Tobacco Use Smoking status: Former Substance and Sexual Activity Alcohol use: Yes Alcohol/week: 1.0 standard drink Drug use: No SCREENINGS Ildefonso Coma Scale Best Eye Response: Spontaneous Best Verbal Response: Oriented Best Motor Response: Follows commands [place] Coma Scale Score: 15 PHYSICAL EXAM ED Triage Vitals [08/05/22 1406] Temp Heart Rate Resp BP 36.8 ?C (98.2 ?F) 67 16 (!) 143/80 SpO2 Temp Source Heart Rate Source Patient Position 94 % Temporal -- -- BP Location FiO2 (%) -- -- Physical Exam Vitals and nursing note reviewed. Constitutional: General: He is not in acute distress. Appearance: He is well-developed. HENT: Head: Normocephalic and atraumatic. Nose: No congestion or rhinorrhea. Mouth/Throat: Pharynx: No oropharyngeal exudate or posterior oropharyngeal erythema. Eyes: Conjunctiva/sclera: Conjunctivae normal. Cardiovascular: Rate and Rhythm: Normal rate and regular rhythm. Heart sounds: No murmur heard. Pulmonary: Effort: Pulmonary effort is normal. No respiratory distress. Breath sounds: Normal breath sounds. Abdominal: Palpations: Abdomen is soft. Tenderness: There is no abdominal tenderness. Musculoskeletal: General: Tenderness (Tenderness palpation along the incision line. Incision line in the lower back with nava in place. Redness appreciated bilaterally besides the intake that warmth to touch at the incision site. Sensation intact. Strength present.) present. No swelling. Cervical back: Neck supple. Skin: General: Skin is warm and dry. Capillary Refill: Capillary refill takes less than 2 seconds. Neurological: Mental Status: He is alert. Psychiatric: Mood and Affect: Mood normal. DIAGNOSTIC RESULTS RADIOLOGY (Per Emergency Physician): Interpretation per the Radiologist below, if available at the time of this note: XR lumbar spine 2 or 3 views Final Result 1. Postoperative changes of recent L4-L5 posterolateral fusion. Report Dictated on Workstation: (more content not included)... Normal [facility] ED Provider Note Emergency Department Encounter [facility] EMERGENCY DEPT Patient: Jackson Hurt : 1940 Date of Evaluation: 08/05/2022 ED Provider: Gretchen Ling PA-C I saw the patient as the Clinician in Triage and performed a brief history and physical exam, established acuity, and ordered appropriate tests to develop basic plan of care. I wore appropriate PPE for the entirety of this encounter. Brief HPI: In brief, Jackson Hurt is a 81 y.o. male that presents for for evaluation of lumbar back pain with pain radiating down the posterior aspect of the bilateral legs. Patient states that he has no pain over the incision site, but over the past 1 week he has been having ambulation is radiating all the way down into the calves. He states that they had to increase his oxycodone dose secondary to this pain increasing and it still not controlling his pain. Rates the pain a 9 out of 10. No fevers no body aches no chills no significant swelling or redness overlying the incision site at this time. He states that he had surgery with Dr. Garcia over at the [facility] 2 weeks ago. States that he went to the urgent care today, they told him he needed to come in for further evaluation. Called [facility] with a blue slip, recommending MRI and possible admissions and patient states that he is not able to ambulate. Denies any saddle anesthesias. There is no significant bowel or bladder incontinence. DVTscans negative today per triage note. Focused Physical exam: Uncomfortable appearing 81-year-old male. He is able to fully extend at the knee, can plantarflex, dorsiflex the ankle, can wiggle of his toes. Extremities feel warm, no significant skin discoloration. DP pulses are intact. Difficult to truly assess strength secondary to patient being in wheelchair here in triage, this will be further assessed in the back by provider and orthopedics. No saddle anesthesias. He states that when I touch the posterior aspect of his legs it feels different than when we touch the anterior aspect. The incision site does not appear to be acutely infected, no fluctuance around it, no redness or warmth. GENERAL: The patient appears well developed and well nourished, in no apparent distress. Vital signs as documented. EYES: PERRLA. EOMI. Conjunctiva clear bilaterally. No scleral icterus noted. HEENT: Head exam is unremarkable. Mucous membranes moist. Tolerates saliva. Neck supple and with normal range of motion. LUNGS: Lungs are clear to auscultation, without any respiratory distress. No hypoxia. No wheezing, rales or rhonchi. Non labored breathing. CARDIAC: Regular rate and rhythm. No obvious perfusion deficits. Radial pulses 2+ and symmetric bilaterally. ABDOMEN: Soft, non distended, nontender with no obvious masses, and no peritoneal signs. No CVA tenderness bilaterally. No surgical abdomen. EXTREMITIES: Non edematous, with no obvious deformities. Moves all 4 extremities without difficulty. There is no tenderness to popliteal or calf in bilateral LE. There is no pitting edema in bilateral LE. SKIN: Good color, with no significant rashes. No pallor. NEURO: Alert and oriented x 3. No obvious neurological deficits, normal sensation and strength bilaterally. Patient able to ambulate with steady gait. PSYCH: Normal mood and behavior. Plan/MDM: Patient is afebrile, has no saddle anesthesias, or no bowel or bladder incontinence. We will evaluate with MRI, CBC CMP sed rate C-reactive protein we will consult orthopedics for further evaluation as needed. If patient is unable to ambulate may require admission. We will treat patient's pain. Please see subsequent provider note for further details and disposition (Comment: Please note this report has been produced using speech recognition software and may contain errors related to that system including errors in grammar, punctuation, and spelling as well as words and phrases that may be inappropriate. If there are any questions or concerns please feel free to contact the dictating provider for clarification) Gretchen Ling PA-C [employer] Gretchen Ling PA-C 08/05/22 1426 Normal [facility] ESR (Bld) [Velocity]on 08-05 Interpretation and review of laboratory results Abnormal [facility] Laboratory - Chemistry and C hemistry - challengeon 08-05-2022 CRP [Mass/Vol] 7.3 mg/L NINF - 10.0 mg/L [facility] Laboratory - Hematology and Cell countson 08-05-2022 ESR (Bld) [Velocity] 72 mm/h High [facility] No Panel Informationon 08-05 [facility] Progress Noteon 08-05-2022 Progress Note Please screen this patient for MRI ty Normal [facility] XR Lumbar spine 2 or 3 Views on 08-05-2022 1. Postoperative changes of recent L4-L5 posterolateral fusion. Report Dictated on Electronically Signed By: Rajesh Torres Electronically Signed Date/Time: 08/05/2022 9:39 PM [facility] [employer] Patient Name: JACKSON VELASQUEZ : 1940 Exam Date/Time: 08/05/2022 21:41 Procedure: XR LUMBAR SPINE 2-3 VIEWS Ordering Provider: MENJIVAR PRISCA Reason For Exam: eval for post op changes LUMBAR SPINE 3 VIEWS CLINICAL INDICATION: eval for post op changes TECHNIQUE: Three views of the lumbar spine. COMPARISON: None FINDINGS: Posterolateral fusion L4-L5. Right upper quadrant surgical clips noted. Posterior skin clips from recent lumbar surgery. Mild degenerative changes involving the SI joints. Mild disc space narrowing no three four. No acute fracture seen. [facility] Rajesh Torres MD - 08/05/2022 [facility] Name[facility] 1940 [id number] Exam Date/Time: 08/05/2022 21:41 Procedure: XR LUMBAR SPINE 2-3 VIEWS Ordering Provider: MENJIVAR PRISCA Reason For Exam: eval for post op changes LUMBAR SPINE 3 VIEWS CLINICAL INDICATION: eval for post op changes TECHNIQUE: Three views of the lumbar spine. COMPARISON: None FINDINGS: Posterolateral fusion L4-L5. Right upper quadrant surgical clips noted. Posterior skin clips from recent lumbar surgery. Mild degenerative changes involving the SI joints. Mild disc space narrowing no three four. No acute fracture seen. IMPRESSION: 1. Postoperative changes of recent L4-L5 posterolateral fusion. Report Dictated on Electronically Signed By: Rajesh Torres Electronically Signed Date/Time: 08/05/2022 9:39 PM [address] [facility] Radiology Study observation (narrative) [employer] [facility] XR Lumbar spine 2 or 3 Views Ordered By: Rajesh Torres on 08-05-2022 [employer] Work Phone: [phone] 08-04-2022 36 Reason for Dispositi on [1] SEVERE post-op pain (e.g., excruciating, pain scale 8-10) AND [2] not controlled with pain medications Answer Assessment - Initial Assessment Questions . Protocols used: Post-Op Symptoms and [id number] S: Patient spoke with [facility] nurse regarding he had back surgery 2 weeks ago at [facility] and is having horrible back pain, just took Oxycodone B: Onset of symptoms/concern yesterday A: states he doesn't know if he should go to ED or where he should go. R: Advised that he needs to call his surgeon who should have answering service with [facility]. States he will do so.Patient understands care advice. No further needs at this time. Patient instructed to call back with new or worsening symptoms. Normal [facility] TROPONIN Ion 06-19-2021 TROPONIN I Canceled Normal [facility] Comment on above: Order Comment: TEST TROPONIN I WAS CANCELLED, 06/18/2021 22:21 PATIENT DISCHARGED. Result Comment: LESS THAN 0.04 NG/ML: NEGATIVE REPEAT TESTING IN THREE TO SIX HOURS IF CLINICALLY INDICATED. 0.04 - 0.5 NG/ML: CONSISTENT WITH POSSIBLE CARDIAC DAMAGE AND POSSIBLE INCREASED CLINICAL RISK. SERIAL MEASUREMENTS MAY HELP ASSESS EXTENT OF MYOCARDIAL DAMAGE. >0.5 NG/ML: CONSISTENT WITH CARDIAC DAMAGE, INCREASED CLINICAL RISK AND MYOCARDIAL INFARCTION. SERIAL MEASUREMENTS MAY HELP ASSESS EXTENT OF MYOCARDIAL DAMAGE. . Note: Troponin I testing is performed using different testing methodology at [facility] than at [facility]. Direct result comparisons should only be made within the same method. Performed By: #### T ROP2 #### [address] [address] Order Comment: TEST TROPONIN I WAS CANCELLED, 06/18/2021 22:20 PATIENT DISCHARGED. BASIC METABOLIC PANELon 06-03 Anion gap [Moles/Vol] 11 mmol/L Normal 10 - 20 [facility] Comment on above: Performed By: #### B MP #### [address] [address] Calcium [Mass/Vol] 8.8 mg/dL Normal 8.6 - 10.3 [facility] Comment on above: Performed By: #### B MP #### [address] [address] Chloride [Moles/Vol] 104 mmol/L Normal 98 - 107 [facility] Comment on above: Performed By: #### B MP #### [address] [address] Creatinine [Mass/Vol] 1.26 mg/dL Normal 0.50 - 1.30 [facility] Comment on above: Performed By: #### B MP #### [address] [address] GFR/1.73 sq M.predicted among non-blacks MDRD (S/P/Bld) [Vol rate/Area] 58 mL/min/{1.73_m2} Abnormal >90 [facility] Comment on above: Result Comment: CALC ULATIONS OF ESTIMATED GFR ARE PERFORMED USING THE 2020 CKD-EPI STUDY REFIT EQUATION WITHOUT THE RACE VARIABLE FOR THE IDMS-TRACEABLE CREATININE METHODS. https://jasn.asnjournals.org/content//ASN.1053883 988 Performed By: #### B MP #### [address] [address] Glucose [Mass/Vol] 100 mg/dL High 74 - 99 [facility] Comment on above: Performed By: #### B MP #### [address] [address] HCO3 (Bld) [Moles/Vol] 25 mmol/L Normal 21 - 32 [facility] Comment on above: Performed By: #### B MP #### [address] [address] Potassium [Moles/Vol] 4.4 mmol/L Normal 3.5 - 5.3 [facility] Comment on above: Performed By: #### B MP #### [address] [address] Sodium [Moles/Vol] 136 mmol/L Normal 136 - 145 [facility] Comment on above: Performed By: #### B MP #### [address] [address] Urea nitrogen [Mass/Vol] 23 mg/dL Normal 6 - 23 [facility] Comment on above: Performed By: #### B MP #### [address] [address] CBC AND DIFFERENTIALon 06-18 % AUTOMATED IMMATURE GRAN 0.4 % Normal 0.0 - 0.9 [facility] Comment on above: Result Comment: María ture Granulocyte Count (IG) includes promyelocytes, myelocytes and metamyelocytes but does not include bands. Percent differential counts (%) should be interpreted in the context of the absolute cell counts (cells/L). Performed By: #### C BCDF #### [address] [address] Basophils (Bld) [#/Vol] 0.05 10*3/uL Normal 0.00 - 0.10 [facility] Comment on above: Performed By: #### C BCDF #### [address] [address] Basophils/100 WBC (Bld) 0.7 % Normal 0.0 - 2.0 [facility] Comment on above: Performed By: #### C BCDF #### [address] [address] Eosinophils (Bld) [#/Vol] 0.21 10*3/uL Normal 0.00 - 0.40 [facility] Comment on above: Performed By: #### C BCDF #### [address] [address] Eosinophils/100 WBC (Bld) 3.1 % Normal 0.0 - 6.0 [facility] Comment on above: Performed By: #### C BCDF #### [address] [address] Erythrocyte distribution width (RBC) [Ratio] 13.2 % Normal 11.5 - 14.5 [facility] Comment on above: Performed By: #### C BCDF #### [address] [address] Hematocrit (Bld) [Volume fraction] 43.6 % Normal 41.0 - 52.0 [facility] Comment on above: Performed By: #### C BCDF #### [address] [address] Hemoglobin (Bld) [Mass/Vol] 14.2 g/dL Normal 13.5 - 17.5 [facility] Comment on above: Performed By: #### C BCDF #### [address] [address] Lymphocytes (Bld) [#/Vol] 1.59 10*3/uL Normal 0.80 - 3.00 [facility] Comment on above: Performed By: #### C BCDF #### [address] [address] Lymphocytes/100 WBC (Bld) 23.5 % Normal 13.0 - 44.0 [facility] Comment on above: Performed By: #### C BCDF #### [address] [address] MCHC (RBC) [Mass/Vol] 32.6 g/dL Normal 32.0 - 36.0 [facility] Comment on above: Performed By: #### C BCDF #### [address] [address] MCV (RBC) [Entitic vol] 102 fL High 80 - 100 [facility] Comment on above: Performed By: #### C BCDF #### [address] [address] Monocytes (Bld) [#/Vol] 0.49 10*3/uL Normal 0.05 - 0.80 [facility] Comment on above: Performed By: #### C BCDF #### [address] [address] Monocytes/100 WBC (Bld) 7.2 % Normal 2.0 - 10.0 [facility] Comment on above: Performed By: #### C BCDF #### [address] [address] Neutrophils (Bld) [#/Vol] 4.40 10*3/uL Normal 1.60 - 5.50 [facility] Comment on above: Performed By: #### C BCDF #### [address] [address] Neutrophils/100 WBC (Bld) 65.1 % Normal 40.0 - 80.0 [facility] Comment on above: Performed By: #### C BCDF #### [address] [address] NUCLEATED RBC 0.0 /100 WBC Normal 0.0 - 0.0 [facility] Comment on above: Performed By: #### C BCDF #### [facility] [address] [place] [address] Platelets (Bld) [#/Vol] 124 10*3/uL Low 150 - 450 [facility] Comment on above: Performed By: #### C BCDF #### [facility] [address] [place] [address] RBC 4.26 x10E12/L Low 4.50 - 5.90 [facility] Comment on above: Performed By: #### C BCDF #### [facility] [address] [place] [address] WBC (Bld) [#/Vol] 6.8 10*3/uL Normal 4.4 - 11.3 [facility] Comment on above: Performed By: #### C BCDF #### [facility] [address] [place] [address] Clinical Intervention - Coco quintanilla 06-18-2021 Clinical Intervention - Pharmacy Pharmacist's Clinical Intervention: Is this intervention medication reconciliation related: yes, HISTORY Time Required: 10-30 minutes Electronic Signatures: Corrie Gagnon ([place]) (Signed 18-Jun-2021 14:24) Authored: Pharmacist's Clinical Intervention Last Updated: 18-Jun-2021 14:24 by Corrie Gagnon ([place]quel[place]) [facility] Provider Note - ED v3on - Provider Note - ED v3 Provider Note: Chart Review: ED NOTES ED NOTES: HPI: 80-year-old male past medical history of hypertension, coronary disease status post CABG who presents emergency department for chest pain. Currently patient has no chest pain however reports earlier today he awoke from sleep and had centralized chest pressure took a nitroglycerin and subsequently felt lightheaded so he laid down on the ground. He is him sure if he passed out after he was on the ground however he is sure that he had no head trauma as he was already laying on the ground with his head rested. He denies any headache, chest pain, shortness of breath, nausea, vomiting, fever, chills, palpitations at the moment. He has had no nausea or vomiting. When he had the chest pain he had no shortness of breath or palpitations. 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 Patient currently is asymptomatic PMHx: Medical hx: Reviewed Surgical hx: Reviewed Allergies: Reviewed Social Drugs: Denies any substance abuse Alcohol: Denies use of alcohol Tobacco: Denies use of tobacco Family hx: Denies any pertinent family history ROS: Constitutional: Denies fever/chills. Eyes: Denies vision changes, eye redness. ENT/Mouth: Denies nasal congestion, sore throat, difficulty with swallowing Cardiovascular: Denies chest pain, palpitations Respiratory: Denies shortness of breath, cough Gastrointestinal: Denies abdominal pain, nausea/vomiting, bowel habit changes, dark/bloody stools Genitourinary: Denies dysuria, urinary frequency Musculoskeletal: Denies joint pain/swelling Skin: Denies new rash/lesions Neurological: Denies numbness, weakness, paresthesias Psych: Denies suicidal/homicidal ideations. Denies auditory or visual hallucinations. Exam: Gen: Awake, alert, and cooperative. Appears to be in no acute distress Head: Normocephalic, Atraumatic Eyes: Pupils are equal round, no scleral icterus. Extraocular movements grossly intact. ENT: No drainage from ears, no drainage from nose, moist mucous membranes Neck: Trachea midline Respiratory: No respiratory distress, unlabored breathing. Lungs are clear to auscultation, breath sounds equal. Cardiovascular: Regular rate and rhythm, S1/S2 with no murmurs appreciated. No lower extremity peripheral pitting edema. 2+ peripheral pulses. GI: Abdomen is soft, nondistended, nontender to palpation Neuro: Normal speech, no obvious facial droop. Moves all extremities equally without apparent difficulty. Musculoskeletal: No obvious significant deformity or joint abnormality. Skin: No visibly exposed rash, exposed skin is intact MDM: 80-year-old past medical history of hypertension, coronary artery disease status post CABG, hyperlipidemia presented to the emergency department for chest pain. On examination patient is afebrile nontachycardic hemodynamically stable. Normal cardiopulmonary, abdominal, neuro examination. EKG showed first-degree heart block with ventricular rate 54, NC 1-30, QRS 120, QTc [address] elevation depressions or significant axis deviations. Patient will have cardiac work-up performed however due to the elevated heart score patient will likely get admitted to the hospital. 2:17 PM Vital signs are stable. Chest x-ray shows no acute cardiopulmonary process initial troponin is negative BMP shows no acute pathology and CBC shows no remarkable pathology. Patient's had no recurrence of pain. He will be admitted at this time. Elevated heart score. 3:46 PM Vital signs are stable. Patient was initially admitted however then reconsidered and states that he wants to leave AGAINST MEDICAL ADVICE. Educated on the risks and benefits of admission and the potential risks of leaving AGAINST MEDICAL ADVICE. He stated clearly understood and verbalized the risk back to me. He does have capacity make this decision. I educated him to return to the emergency department as soon as possible so he can be admitted for definitive treatment/diagnostic testing. Patient will be leaving AGAINST MEDICAL ADVICE at this time. He has no suicidal or homicidal ideations. Patient denies any auditory visual loose Nations. Disposition:AMA HISTORY OF PRESENTING ILLNESS JACKSON is a 80 year old Male and was seen by me at 18-Jun-2021 13:12 for a chief complaint of chest pain (STARTED AT 1130 TODAY, NOT HAVING ANY NOW, HAS HAD BYPASS SURGERY, NO SOB, TOOK 1 NITRO AND GOT LIGHTHEADED AFTER, DOES KNOW IF HE PAST OUT BUT HE ENDED UP ON THE FOR AND WAS SWEAT AND PALE)(1). Triage Information: Most recent Vital Sign Value Date Temp (F): 96.8 06-18-2021 12:43 Temp (C): 36 06-18-2021 12:43 Heart Rate (beats/min): 56 06-18-2021 12:43 Respirations (breaths/min): 18 06-18-2021 12:43 SpO2 (%): 97 06-18-2021 12:43 BP Systolic (mm Hg): 122 06-18-2021 12:43 BP Diastolic (mm Hg): 68 06-18-2021 12:43 PAST M (more content not included)... Normal [facility] TROPONIN Ion 06-18-2021 Troponin I.cardiac [Mass/Vol] ng/mL Normal 0.00 - 0.03 [facility] Comment on above: Result Comment: LESS THAN 0.04 NG/ML: NEGATIVE REPEAT TESTING IN THREE TO SIX HOURS IF CLINICALLY INDICATED. 0.04 - 0.5 NG/ML: CONSISTENT WITH POSSIBLE CARDIAC DAMAGE AND POSSIBLE INCREASED CLINICAL RISK. SERIAL MEASUREMENTS MAY HELP ASSESS EXTENT OF MYOCARDIAL DAMAGE. >0.5 NG/ML: CONSISTENT WITH CARDIAC DAMAGE, INCREASED CLINICAL RISK AND MYOCARDIAL INFARCTION. SERIAL MEASUREMENTS MAY HELP ASSESS EXTENT OF MYOCARDIAL DAMAGE. . Note: Troponin I testing is performed using different testing methodology at [facility] than at other [facility]. Direct result comparisons should only be made within the same method. Performed By: #### T ROP2 #### [facility] [address] [place] [address] Triage - EDon 06-18-2021 Triage - ED Chart Review: ARRIVAL INFORMATION Mode of Arrival: private vehicle CHIEF COMPLAINT JACKSON HURT is a Male patient with a chief complaint of chest pain (STARTED AT 1130 TODAY, NOT HAVING ANY NOW, HAS HAD BYPASS SURGERY, NO SOB, TOOK 1 NITRO AND GOT LIGHTHEADED AFTER, DOES KNOW IF HE PAST OUT BUT HE ENDED UP ON THE FOR AND WAS SWEAT AND PALE). Triage Date/Time: 18-Jun-2021 12:43 ALL: 2 Pain Rating (0-10): 0 = None Vital Signs: Temperature: 96.8F ( 36.0C) Blood Pressure: 122/68 Mean: Heart Rate: 56 Respiratory Rate: 18 Pulse Oximetry: 97% on room air, no respiratory support. Height: 5 feet 11.00 inches. 180.3 CM Weight: 198.4 pounds. Calculated 90.0 kg. (stated) Calculated BMI (kg/m2): 27.685 Calculated BSA (m2) 2.12 [place] Coma Scale: Best Eye Response: (E4) spontaneous Best Motor Response: (M6) obeys commands Best Verbal Response: (V5) oriented Ildefonso Score: 15 Cough lasting greater than 3 weeks: yes Allergies: no Patient has homicidal thoughts: no Risk Screens Suicide Risk Screen In the Past Month: Have you wished you were or wished you could go to sleep and not wake up no In the Past Month: Have you had any actual thoughts of killing yourself no In Your Lifetime: Have you ever done anything, started to do anything, or prepared to do anything to end your life no Ling Fall Scale Screening Has the patient fallen before (or is the patient in the ED as a result of a fall) has not had a fall Does the patient have an impaired gait does not have impaired gait Is the patient cognitively impaired not cognitively impaired Interventions: Ling Fall Interventions: LOW INTERVENTIONS: *patient oriented to surroundings and call system, * patient/family falls education completed and documented, *patients fall status communicated during bedside handoff, *whiteboard updated, *mode of toileting discussed with patient, *bed in low position with brakes locked, *call light in reach, * non-skid footwear TRAVEL HISTORY Travel History Coronavirus Screening: no exposure or symptoms Travel Exposure History: NO travel to International locations in the past 30 days PAIN Pain Scale Used: GORDO Pain Rating (0-10): 0 = None Past Medical History: Past Medical History Reviewedyes Electronic Signatures: Sravani Ku (RN) (Signed 18-Jun-2021 14:42) Authored: Quick Triage, Chart Review Sanjuana Brandt (EMT) (Signed 18-Jun-2021 12:46) Authored: Quick Triage, Risk Screens, Pain, Travel History, Chart Review, Scores, Past Medical History Last Updated: 18-Jun-2021 14:42 by Sravani Ku (RN) Normal [facility] Absolute lymphocyte counton 06-03-2021 Lymphocytes Auto (Unsp spec) [#/Vol] 1.43 10*3/uL 0.83-4.51 [facility] Work Phone: Basophil percentageon 2021 Basophils/100 WBC (Bld) 1.0 % 0-1 [facility] Work Phone: Chloride [Moles/Vol] 108 mmol/L 98-107 [facility] Work Phone: Eosinophils/100 WBC (Bld) 3.8 % 0-5 [facility] Work Phone: Glucose [Mass/Vol] 110 mg/dL 74-106 [facility] Work Phone: Comment on above: Fasting Glucose resu lt from 100 to 125 mg/dL suggests IMPAIRED HOMEOSTASIS per A.D.A. criteria. Neutrophils (Bld) [#/Vol] 2.7 10*3/uL 2.0-7.7 [facility] Work Phone: Neutrophils/100 WBC (Bld) 53.3 % 47-70 [facility] Work Phone: Potassium [Moles/Vol] 4.9 mmol/L 3.5-5.1 [facility] Work Phone: Sodium [Moles/Vol] 137 mmol/L 136-145 [facility] Work Phone: WBC (Bld) [#/Vol] 5.0 10*3/uL 4.4-11.0 [facility] Work Phone: Blood erythrocytes count (nu mber/volume)on 06-03-2021 RBC (Bld) [#/Vol] 4.42 10*6/uL 4.6-6.2 [facility] Work Phone: Blood hemoglobin measurement (mass/volume)on 06-03-2021 Hemoglobin (Bld) [Mass/Vol] 14.6 g/dL 13.0-16.5 [facility] Work Phone: Blood lymphocytes/100 leukoc yteson 06-03-2021 Lymphocytes/100 WBC (Bld) 28.4 % 19-41 [facility] Work Phone: Blood monocytes/100 leukocyt eson 06-03-2021 Monocytes/100 WBC (Bld) 12.9 % 0-10 [facility] Work Phone: Blood platelet mean volumeon 06-03-2021 Platelet mean volume (Bld) [Entitic vol] 11.0 fL 6.2-12.0 [facility] Work Phone: Determination of erythrocyte mean corpuscular volume (MCV)on 06-03-2021 MCV (RBC) [Entitic vol] 98.2 fL 80-94 [facility] Work Phone: Hematocrit Auto (Bld) [Volum e fraction]on 06-03-2021 Hematocrit (Bld) [Volume fraction] 43.4 % 40-54 [facility] Work Phone: Laboratory - Chemistry and C hemistry - challengeon 06-03-2021 CO2 [Moles/Vol] 25.0 mmol/L 21.0-32.0 [facility] Work Phone: Free T4 [Mass/Vol] 0.84 ng/dL 0.76-1.46 [facility] Work Phone: Natriuretic peptide B (Bld) [Mass/Vol] 22.9 pg/mL 0-100 [facility] Work Phone: Urea nitrogen/Creatinine [Mass ratio] 18.2 mg/mg 10-20 [facility] Work Phone: Laboratory - Hematology and Cell countson 06-03-2021 Erythrocyte distribution width (RBC) [Entitic vol] 48.2 fL 35.1-43.9 [facility] Work Phone: Erythrocyte distribution width (RBC) [Ratio] 13.2 % 11.6-14.6 [facility] Work Phone: Immature granulocytes/100 WBC (Bld) 0.600 % 0.0-0.9 [facility] Work Phone: Comment on above: IG% - Immature Granu locytes (promyelocytes, myelocytes and metamyelocytes) > 1% indicates that a LEFT SHIFT is Present. MCH (RBC) [Entitic mass] 33.0 pg 27.0-32.0 [facility] Work Phone: Nucleated RBC/100 WBC (Bld) [Ratio] 0 % 0-5 [facility] Work Phone: MCHC Auto (RBC) [Mass/Vol]on 06-03-2021 MCHC (RBC) [Mass/Vol] 33.6 g/dL 32-36 [facility] Work Phone: No Panel Informationon 06-03 Estimated GFR (MDRD) Amer 64 mL/min >60 [facility] Work Phone: Comment on above: GFR Calc Estimated GFR (MDRD) Non-Af Amer 53 mL/min >60 [facility] Work Phone: Comment on above: Non- GFR Calc Thyroid Stimulating Hormone (TSH) 1.03 uIU/mL 0.358-3.74 [facility] Work Phone: Platelets bldon 06-03-2021 Platelets (Bld) [#/Vol] 110 10*3/uL 150-450 [facility] Work Phone: Serum or plasma calcium ness urement (mass/volume)on 06-03-2021 Calcium [Mass/Vol] 8.8 mg/dL 8.5-10.1 [facility] Work Phone: Serum or plasma creatinine m easurement (mass/volume)on 06-03-2021 Creatinine [Mass/Vol] 1.37 mg/dL 0.70-1.30 [facility] Work Phone: Comment on above: The validity of the calculated GFR & GFRAA in patients over 70 years has not been determined. Clinical correlation is essential. Serum or plasma urea nitroge n measurement (mass/volume)on 06-03-2021 Urea nitrogen [Mass/Vol] 25 mg/dL 7-18 [facility] Work Phone: Thin prep Papanicolaou smear with manual screeningon 06-03-2021 Thin prep Papanicolaou smear with manual screening 4 5-15 [facility] Work Phone: INFLUENZA A/B, COVID 2019 PC R,SYMPTOMATICon 05-05-2021 Date and time of symptom onset [id number] [facility] Work Phone: INFLUENZA A/B, COVID 2019 PCR,SYMPTOMATIC Not detected See Below [facility] Work Phone: Comment on above: Reference Range: Not Detected.This assay is designed to detect the N, ORF1ab and/or S genes of SARS-CoV-2 via nucleic acid amplification. A Negative (NOT DETECTED) result does not preclude 2019-nCoV infection since the adequacy of sample collection and/or low viral burden may result in presence of viral nucleic acids below the clinical sensitivity of this test method. Negative (NOT DETECTED) result should not be used as the sole basis for treatment or other patient management decisions. Rather negative results should be combined with clinical observations, patient history, and epidemiological information to make patient management decisions.Fact sheet for providers: https://www.fda.gov/media/306714/downloadFact sheet for patients: https://www.fda.gov/media/620082/downloadThis test has received FDA Emergency Use Authorization (EUA) and has been verified by [facility] ([facility]). This test is only authorized for the duration of time that circumstances exist to justify the authorization of the emergency use of in vitro diagnostic tests for the detection of SARS-CoV-2 virus and/or diagnosis of COVID-19 infection under section 564(b)(1) of the Act, 21 U.S.C. 360bbb-3(b)(1), unless the authorization is terminated or revoked sooner. [facility] is certified under CLIA-88 as qualified to perform high complexity testing. Testing is performed in the [facility] laboratories located at [address] [place] [address]. Reference Range: Not Detected Respiratory virus testing is performed routinely by PCR for Influenza A/B and RSV. If Influenza and RSV PCR are negative, testing for parainfluenza 1,2,3 viruses and adenovirus is routinely performed for oncology inpatients and intensive care unit patients at [facility] and is available on request on other patients by calling Laboratory Client Services at [phone] Not Detected results do not preclude Influenza A/B or RSV infections since the adequacy of sample collection or low viral burden may impact the clinical sensitivity of this test method..The TaqManTM SARS-CoV-2, Flu A, Flu B Multiplex Assay is a multiplex, real-time RT-PCR assay for the detection of RNA from the SARS-CoV-2, Influenza A, and Influenza B viruses. A negative result does not preclude the possibility of SARS-CoV-2, Influenza A, or Influenza B infections, and should not be used as the sole basis for patient management decision as a negative result may be caused by very low levels of infection, collection errors, or testing errors. .This test was developed and its performance characteristics were determined by the Microbiology Laboratory, Department of Pathology, [place], [place]. It has not been cleared or approved by the US Food and Drug Administration; however, FDA clearance or approval is not currently required for clinical use. This test should not be regarded as investigational or for research purposes. SOURCE: Nasal, Nasop haryngealReference Range: Not Detected Respiratory virus testing is performed routinely by PCR for Influenza A/B and RSV. If Influenza and RSV PCR are negative, testing for parainfluenza 1,2,3 viruses and adenovirus is routinely performed for oncology inpatients and intensive care unit patients at [facility] and is available on request on other patients by calling Laboratory Client Services at [phone]. Not Detected results do not preclude Influenza A/B or RSV infections since the adequacy of sample collection or low viral burden may impact the clinical sensitivity of this test method. Office Visit (Urgent Care)on 05-05-2021 Follow-up visit Diagnoses/Problems Assessed Cough in adult (786.2) (R05.9) Runny nose (784.99) (R09.89) Chest congestion (786.9) (R09.89) Viral illness (079.99) (B34.9) Orders Chest congestion, Cough in adult Xray Chest 2 View PA + Lateral; Status:Complete; Done: 05May2021 09:29AM Performed:[facility] [place]; Due:04Sep2021;Ordered; Stat; For:Chest congestion, Cough in adult; Ordered By:Philip Scott; Radiologist to Determine Optimal Study : Y What are the patient's signs and symptoms? : Persistent cough Chest congestion, Cough in adult, Runny nose INFLUENZA A/B, COVID 2019 PCR,SYMPTOMATIC; Status:In Progress - Specimen/Data Collected; Done: 05May2021 Perform:Lab Services - Lab To Draw (Non-Blood Test); Due:03Aug2021;Ordered; For:Chest congestion, Cough in adult, Runny nose; Ordered By:Philip Scott; RESIDENT IN CONGREGATE CARE SETTING? : No ICU? : No HOSPITALIZED (OR PLANNED TO BE ADMITTED)? : No EMPLOYED IN HEALTHCARE? : No FIRST COVID NASAL SWAB TEST? : Unknown Symptom 2 : Runny nose/Congestion Symptom 1 : Cough DATE OF SYMPTOM ONSET? : 03May2021 IS THE PATIENT SYMPTOMATIC DEFINED BY THE CDC (FEVER>100, NEW WORSENING COUGH OR SHORTNESS OF BREATH, NEW LOSS OF TASTE OR SMELL, SORE THROAT, DIARRHEA, BODY ACHES/MALAISE, HEADACHE, NAUSEA/VOMITING, OR RUNNY NOSE/CONGESTION)? : Yes Patient Discussion/Summary Thank you for choosing [facility] Please make sure we can reach you by phone, if needed. *To view your results and health information online* Visit [email or web address] to login or sign up. Visit [employer] [facility] to log and or sign up. For assistance, call , Sunday-Sunday, 8 AM to 8 PM or email [email or web address] Chest x-ray: Pending I will notify you with the results. You or your loved one is suspected to have COVID-19 or the risk factors for nathaniel COVID-19. WHAT IS COVID-19? COVID-19 is caused by a virus called a coronavirus, SARS-CoV-2. People can get COVID-19 through contact with another person who has the virus. COVID-19 illnesses have ranged from very mild (including some with no reported symptoms) to severe, including illness resulting in . While information so far suggests that most COVID-19 illness is mild, serious illness can happen and may cause some of your other medical conditions to become worse. People of all ages with severe, long-lasting (chronic) medical conditions like heart disease, lung disease, and diabetes, for example, and other conditions including obesity, seem to be at higher risk of being hospitalized for COVID-19. Older age, with or without other conditions, also places people at higher risk of being hospitalized for COVID-19. WHAT ARE THE SYMPTOMS OF COVID-19? The symptoms of COVID-19 include fever, cough, and shortness of breath, which may appear 2 to 14 days after exposure. Serious illness including breathing problems can occur and may cause your other medical conditions to become worse. PLAN: -If you or your loved one has been tested, treated, or suspected of nathaniel COVID-19 they should remain in self-isolation and quarantine until results are verified negative or for 5 days from symptom onset. These recommendations are consistently changing and being updated. For the most up-to-date and current guidelines visit: https://www.cdc.gov/ -If you have any additional concerns about COVID-19 please refer to [facility] or the CDC web-site. -For general questions you can also call the Public Health Hotline at If you received a test today: -You will be notified ONLY if your test results are POSITIVE for COVID-19. -If tested you can expect RESULTSwithin 24 to 72 hours -If prescribed medication take as directed -The main treatment for respiratory/flulike/illne ss is to rest adequately, drink plenty of fluids, and avoid exertion. -If not contraindicated; you may treat fever and aches with acetaminophen or ibuprofen.. -Because of the risk of Cecilio syndrome, children and adolescents (aged 18 years and under) should NOT be given aspirin. Acetaminophen and ibuprofen can be used in children if needed. -For children with viral illness you can alternate children's acetaminophen (Tylenol) and children's ibuprofen (Motrin) every three hours. -For example; if you take Tylenol at noon, you can take Motrin at 3 p.m. and then Tylenol again at 6 p.m. and Motrin again at 9 p.m. -Children under the age of 6 months old should not be given ibuprofen unless directed by a healthcare professional. Tylenol is okay. -If not contraindicated you can take nasal decongestants/Sudafed/Muc inex and steam inhalation for symptomatic relief. Use as directed. -Be careful when using different types and classes of medications together. Always check with a pharmacist or healthcare professional if you have any questions. -Be sure to stay well-hydrated and drink plenty of liquids. -If you have questions regarding monoclonal antibody therapy or other treatment opti (more content not included)... [facility]-2021 XR Chest 2 Views FINAL REPORT Interpreted by: YAZMIN CORCORAN MCMAHON, MD 05/05/21 09:38 Patient Name: JACKSON HURT STUDY: TH CHEST 2 VIEW PA AND LAT; 05/05/2021 9:29 am INDICATION: Persistent cough R05.9: Cough in adult R09.89: Chest congestion. CO Normal [facility] Phone: Established Visit (Pain Medi cine)on 12-14-2020 Established Visit (Pain Medicine) Diagnoses/Problems Spinal stenosis of lumbar region with neurogenic claudication (724.03) (M48.062) Provider Impressions 80-year-old male who we have followed since 2015. He has known spinal stenosis. He had a transforaminal injection bilaterally at L4 which took away his leg pain but he has persistent back pain. He has symptoms consistent with spinal stenosis. I advised him to attend physical therapy and work on core strengthening. I also gave information about the mild procedure and possible Vertiflex. Alternatively, the patient could be referred for surgical evaluation with a spine surgeon. Patient will think about the options and let us know. Chief Complaint low back and leg pain History of Present Illness 80 year old male presents with low back pain and leg pain rated 7/10 Mr. Hurt is a 80-year-old male with a history of low back and leg symptoms. The patient says that the transforaminal injection we did took away his leg pain. He specifically underwent a bilateral L4 transforaminal on November 22, 2020. The patient says that the pain is typically worse with standing, swimming can make it worse, walking to get the mail can aggravate the pain. He says that the pain is also worse in the morning and sometimes he cannot sleep at night due to the pain. He will get up in the night to take Tylenol and he also takes Ambien. He has done physical therapy prior to the shot but he only went to 1 session. Review of Systems All 13 systems were reviewed and are within normal levels except as noted below or per HPI. Positive and pertinent negative responses are noted below or in the HPI. Musculoskeletal: back pain and limb pain. 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 Aspirin 81 TBEC Atenolol 25 MG Oral Tablet Azithromycin 500 MG Oral TabletTAKE 2 TABLET Once with food Benzonatate 200 MG Oral CapsuleTAKE 1 CAPSULE 3 TIMES DAILY NEEDED. buPROPion HCl ER (XL) 300 MG Oral Tablet Extended Release 24 Hour CefTRIAXone Sodium 250 MG Injection Solution Ntoncqliaxske325 mg IM injection Clopidogrel Bisulfate 75 MG Oral Tablet Crestor 20 MG Oral Tablet Gabapentin 300 MG Oral Capsuletitrate from 300mg to 600 mg tid titration schedule faxed to pharm. Losartan Potassium 25 MG Oral Tablet Nitrostat 0.3 MG Sublingual Tablet Sublingual Ondansetron HCl - 4 MG Oral Tablet1 po prn nausea Oseltamivir Phosphate 75 MG Oral CapsuleTAKE 1 CAPSULE TWICE DAILY WITH MEALS. Polymyxin B-Trimethoprim 10337-6.1 UNIT/ML-% Ophthalmic SolutionINSTILL 2 DROPS INTO AFFECTED EYE(S) 4 TIMES DAILY. Vitals Vital Signs Recorded: 14Dec2020 02:04PM Tobacco Useb) No Fall Screeninga) No falls within the last year Pain Scale7 Results/Data Radiology were obtained and reviewed. Pertinent positive and negative findings were considered in medical decision making. MRI L Spine without [id number] 09:13AMRoly Medrano [Mar 20, 2019 1:35PM Roly Medrano] Reason: Unspecified for MRI L Spine without Contrast Test NameResultFlagReference MRI L Spine without Contrast(Report) Interpreted by: JASE TAYLOR 04/01/19 10:26 Patient Name: JACKSON HURT STUDY: MRI L-SPINE WO; 04/01/2019 9:13 am INDICATION: BACK PAIN. COMPARISON: None. ACCESSION NUMBER(S): [id number] ORDERING CLINICIAN: ROLY MEDRANO TECHNIQUE: Sagittal T2, sagittal STIR, sagittal T1, axial T2, axial T1 weighted MRI images of the lumbar spine were obtained without intravenous contrast administration. FINDINGS: The coronal punch machine operator images demonstrate a levocurvature of the lumbar spine. There is 3 mm of anterolisthesis of L4 on L5. There are mild degenerative signal changes noted along the endplates within the lumbar region. There is a Schmorl's node noted along the inferior endplate of L2. The visualized spinal cord demonstrates no signal abnormality within it. The conus me (more content not included)... 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 Self Care Skills: Independent with HEP, by week 2 Frequency and duration:. Patient to follow up in 2 weeks after injection. Potential to achieve rehab goals is excellent Plan of care was developed with input and agreement by the patient. Assessment Patient presents with signs consistent with left sided lumbar radiculitis, scheduled for injection on 11/22, will benefit from exercises to address deficits and improve function. Clinical Presentation: Stable and/or uncomplicated characteristics. Level of Complexity: low Reason For Visit Initial Evaluation . Left sided lumbar radiculopathy. Referred by: Dr. Medrano Adult Risk Screening There are no spiritual/cultural practices/values/needs that are important to know Initial Fall Risk Screening: JACKSON has not fallen in the last 6 months. His fall did not result in injury. JACKSON does not have a fear of falling. He does not need assistance with sitting, standing or walking. Does not need assistance walking in his home. He does not need assistance in an unfamiliar setting. The patient is not using an assistive device. Please identify location of pain: -10/12 left sided low back and anterior thigh/groin. Pain Quality: aching. The pain makes it hard for the patient to do these things: walking, exercise, sleep and house work. Domestic Violence Screen: Does not feel threatened or abused physically, emotionally or sexually. Do you feel UNSAFE? The patient feels safe in the home. Depression/Suicide Screening: During the past 2 weeks, the patient has not felt down, depressed or hopeless. During the past 2 weeks, the patient has not felt little interest or pleasure in doing things. Insurance Insurance reviewed Visit number: 1 Approved number of visits: [place] Certification Period: Beginnin2020 Endin2020 Subjective Current Episode of Functional Impairment and/or Pain Date of onset: 10/28/20 Mechanism of Injury:. Patient with long history of LBP and LE symptoms, has been getting yearly injections which have helped control symptoms, recent episode started earlier in the year and presents as intermittent pain in left sided low back that radiates into the groin and anterior thigh. MRI from 2019 showed central canal and foraminal stenosis, patient's goal is to learn exercises for home to help with symptom management. Pain Exacerbating Factors: time of day: AM, lifting, standing and walking. Pain Relieving Factors: over the counter medication and sitting. Medical Screening: Reviewed medical history form with patient and medical screening assessed. Current Medical Management: diagnostic tests: MRI, medications for current condition: and planned procedures: injection on 11/22/20. Precautions: none. Functional Assessment Prior level of function: Independent with all activities. Functional limitations: standing , walking , lifting and sleep . Patient stated goal(s) for treatment include: relieving pain , increasing strength , reducing symptoms and improved posture . Work Status: retired. Current Status: unchanged. Patient Awareness: Patient is aware of his diagnosis and prognosis. Living Environment: reviewed and no concern. Personal Factors That May Impact Care: language Iraqi. Objective Ortho Observation Palpation: - tenderness to low back or hip. Observed Posture Impairment: decreased lumbar lordosis ROM / Joint Mobility (Range of Motion in degrees) Lumbar: (Mae = P! Denotes Pain with Movement) Extension: Active to neutral. Flexion: Active WNL. Hip: (Mae = P! Denotes Pain with Movement) Hip motion within normal limits passive on the left. Flexibility Right: hip flexors tight, quadriceps tight, hamstrings tight. Left: hip flexors tight, quadriceps tight, hamstrings tight. Gait / Mobility Gait: Normal. Strength Hip: (Mae: P! Denotes Pain with Movement) Extension: 4/5 on right and 4/5 on left. Flexion: 5/5 on right and 4/5 on left. Abduction: 4+/5 on right and 4/5 on left. Knee: (Mae: P! Denotes Pain with Movement) Knee extension was 4+/5 on left. Knee flexion was 5/5 on left. Foot and Ankle: (Mae: P! Denotes Pain with Movement) Foot and ankle strength was normal on the left side. Neurological Left Dermatomal Testing: L2 anterior to medial thigh impaired , L3 medial kneeimpaired Balance and Coordination Static Standing Balance: right single leg stance: 5-10 seconds with eyes open and left single leg stance: 5-10 seconds with eyes open. Treatment Time in clinic started at 9:15 Time in clinic ended at 10:00 Total time in clinic is 45 minutes. Total timed code time is 10 minutes. Treatment Performed Today:. Initial evaluation performed followed by discussion of findings and instruc (more content not included)... 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 Hurt is a 80-year-old male with a history of coronary disease on Plavix who was last seen for an L4 transforaminal on the left side August 2019 with 7 months of relief. Presents today with similar though geographically different pain in his anterior lateral thigh and groin on the left. MRI from March 2019 did note left-sided foraminal stenosis at L4 and 5 as well as severe central stenosis of L3 and 4 with approximately 5 mm ligamentum flavum hypertrophy on the left and some epidural lipomatosis. Plan: -We will schedule for a left-sided transforaminal epidural steroid injection at L3 and 4. Risks, benefits, and general procedure were explained to the patient in detail. -Patient is on Plavix and will need to hold prior to the procedure, he states this has not been an issue in the past and we will need permission from prescribing provider to hold -We will prescribe physical therapy that will focus on back and core strengthening. Patient counseled on the importance of continued therapy to help increase the strength the surrounding structures of his back. Chief Complaint leg pain History of Present IllnessMr. Hurt is a 80-year-old male with a known history of coronary disease status post CABG maintained on clopidogrel who is known to our clinic and last received a left L4 transforaminal epidural injection in August 2019 for a left lower leg calf and lateral leg pain. He states that he received nearly 7 months of complete pain relief. Today he presents with pain that he reports is being in a slightly different position in his left groin anterior and lateral thigh with occasional radiation into his calf. He describes it as a dull burning with intermittent shooting pains. It has occurred off and on since the spring and he has good days and bad days. He feels that it is worse with walking though some days he can go long distances while others he cannot. He feels relief once he sits down, and also thinks that it might feel better when he leans on something. He does not seem to notice a significant difference when he lies down. Current pain level is 6/10. He has had 4 prior caudal injections and transition to the transforaminal when those were working less effectively. He takes Tylenol and NSAIDs occasionally and reports relief. He has not had formal physical therapy, acupuncture, chiropractic adjustments. He denies any falls, tripping, loss of balance, bowel or bladder dysfunction. Review of Systems All 13 systems were reviewed and are within normal levels except as noted below or per HPI. Positive and pertinent negative responses are noted below or in the HPI. Musculoskeletal: limb pain. 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) Abdominal pain, unspecified abdominal location (789.00) (R10.9) Cardiac abnormality (746.9) (Q24.9) Conjunctivitis (372.30) (H10.9) Difficulty with speech (784.59) (R47.9) Flu-like symptoms (780.99) (R68.89) Head pain cephalgia (784.0) (R51.9) Hypoxia (799.02) (R09.02) Influenza A (487.1) (J10.1) Low back pain (724.2) (M54.5) Lumbar radiculitis (724.4) (M54.16) Non-intractable vomiting with nausea (787.01) (R11.2) Penile discharge (788.7) (R36.9) Family History Family history of cardiac disorder (V17.49) (Z82.49) Family history of dementia (V17.2) (Z81.8) Family history of malignant neoplasm of prostate (V16.42) (Z80.42) Family history of malignant neoplasm of prostate (V16.42) (Z80.42) Social History Non-smoker (V49.89) (Z78.9) Allergies No Known Allergies Recorded By: Teresa Garcia; 12/16/2015 12:04:03 PM Current Meds Medication NameInstruction Ambien 5 MG Oral TabletTAKE 1 TABLET AT BEDTIME NEEDED FOR INSOMNIA. Aspirin 81 TBEC Atenolol 25 MG Oral Tablet Azithromycin 500 MG Oral TabletTAKE 2 TABLET Once with food Benzonatate 200 MG Oral CapsuleTAKE 1 CAPSULE 3 TIMES DAILY NEEDED. buPROPion HCl ER (XL) 300 MG Oral Tablet Extended Release 24 Hour CefTRIAXone Sodium 250 MG Injection Solution Dfrzbvikoyejb149 mg IM injection Clopidogrel Bisulfate 75 MG Oral Tablet Crestor 20 MG Oral Tablet Gabapentin 300 MG Oral CapsulePer titration Gabapentin 300 MG Oral Capsuletitrate from 300mg to 600 mg tid titration schedule faxed to pharm. Gabapentin 600 MG Oral TabletTAKE 1 TABLET 3 TIMES DAILY. Losartan Potassium 25 MG Oral Tablet Nitrostat 0.3 MG Sublingual Tablet Sublingual Ondansetron HCl - 4 MG Oral Tablet1 po prn nausea Oseltamivir Phosphate 75 MG Oral CapsuleTAKE 1 CAPSULE TWICE DAILY WITH MEALS. Polymyxin B-Trimethoprim 83980-5.1 UNIT/ML-% Ophthalmic SolutionINSTILL 2 DROPS INTO AFFE (more content not included)... Normal [employer] Office Visit (Urgent Care)on 05-21-2020 Follow-up visit Diagnoses/Problems Assessed Conjunctivitis (372.30) (H10.9) Difficulty with speech (784.59) (R47.9) Head pain cephalgia (784.0) (R51.9) Orders Conjunctivitis Start: Polymyxin B-Trimethoprim 20915-4.1 UNIT/ML-% Ophthalmic Solution; INSTILL 2 DROPS INTO AFFECTED EYE(S) 4 TIMES DAILY Rx By: Selam Bourgeois; Dispense: 0 Days ; #:1 X 10 ML Bottle; Refill: 0;For: Conjunctivitis; ANA = N; Verified Transmission to [facility] [address]; Last Updated By: Ian [employer]; 05/21/2020 9:54:37 AM Difficulty with speech Neurology - General Referral Evaluation and Treatment Evaluate AND Treat Status: Active Requested for: 30Jun2020 Ordered;For: Difficulty with speech; Ordered By: Selam Bourgeois Performed: Due: 19Aug2020; Last Updated By: Thiago GAY; 05/21/2020 10:10:35 AM AMA Intake Activity Log Entry by [facility] on 2020-05-21 10:06 Status Change : Confirmed - [facility] Module AMA Intake updated by [facility] on 2020-05-21 10:06 New Recipient: Jose R Posada New Appointment Date: 2020-06-30 09:45 Patient Discussion/Summary Home Care: 1. Gently clean eye with warm compress. 2. Everyone in the house should frequently wash their hands often with soap and water or hand checkroom attendant and avoid sharing towels. 3. Do not use contact lenses unless the eye doctor has approved this. 4. Apply antibiotic eyedrops as instructed. 5. Follow-up with Neurology regarding speech difficulties and right posterior head pain, your appointment was scheduled while you were in the office today. Call your doctor or go to the emergency department if worse or: 1. Eye pain is not better or getting worse. 2. Vision is blurry or if you have changes in vision. 3. Infection is not improved in 2 days. 4. Eyelid or face becomes red or swollen. 5. Fever occurs. Anticipatory guidance given. Patient/caregiver demonstrates understanding. Provider Impressions Patient is a 79-year-old male with multiple complaints, right sided head pain only present w physical pressure, at night or when rubbing the area. Pt has no head pain at this time, no recent head injuries, hx of bleeds, strokes, migraines, falls, physical exam negative for any acute neuro deficits. No noticeable speech difficulties, or difficulty with comprehension during office visit. Pt was scheduled with neurology follow-up, for further evaluation of speech changes, cognition, balance and posterior head pain. patient drove himself to the urgent care, lives alone but stays with a friend often. Declines vision check [place] Coma Scale Adult Eye opening Spontaneous 4 Verbal response Oriented 5 Motor response Obeys commands 6 SCORE 15 Chief Complaint head pain History of Present IllnessJACKSON HURT is a 79 year old M who presents to the urgent care for 1-2 week history of right sided posterior head pain and right eye itching. Patient states for 1 month prior his entire head itched when he went to bed. Patient states the itching stopped, but now he has pain on the right side of his posterior head when he lays down at night on a pillow. Patient states the pain is only present with physical pressure denies any pain today. Patient states he woke up at 2 AM and took Tylenol. Pt states he gets the pain during the day only if he rubs the area on his head. Patient states he now has pain in his eye w occasional blurry vision, denies discharge, eye injuries or foreign bodies. History of cataracts, removed b/l. Patient reports talking difficulties that have been going on for awhile or maybe I'm just noticing it more. Patient states he has difficulty thinking of words and he has been mixing up words. Pt reports almost losing his balance while walking at home a few times in the last few months. Pt states he was able to catch himself on the wall, denies any falls. Denies changes in medication. Past medical history GERD, hypertension, hyperlipidemia, BPH, cataracts, GI ulcer. Pt is retired, lives alone but stays w a friend often. No allergies to medications, daily medications atenolol, aspirin, clopidogrel, losartan, Pantoprazole, alfuzosin. Patient received both doses of the Covid vaccine. Patient denies head injury, hx of migraines, current muscle/extremity weakness, difficulty understanding language, numbness or tingling, paralysis of face, or extremities including toes, or feet, confusion, photophobia, nausea, vomiting, clear sinus drainage, sore throat, fever, rash, dizziness, shortness of breath, increased urinary frequency, chills, peripheral edema, abdominal pain, chest pain and myalgias. Review of Systems Constitutional: as noted in HPI. ENT: as noted in HPI. Cardiovascular: as noted in HPI. Respiratory: as noted in HPI. Gastrointestinal: as noted in HPI. Genitourinary: as noted in HPI. Musculoskeletal: as noted in HPI. Integumentary: as noted in HPI. Neurological: as noted in HPI. 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 Normal [employer]works IO Rapid Influenzaon 019 IO Rapid Influenza Positive Abnormal [facility] Work Phone: IO Rapid Influenza Negative [facility] Work Phone: Complete Blood Count + Diffe rentialon 02-12-2019 Basophils (Bld) [#/Vol] 0.06 {x10E9/L} See Below -[facility] Work Phone: Comment on above: Reference Range: 0.0 0 - 0.10 Ordering Provider: Eriberto HART 11223 Basophils/100 WBC (Bld) 1.1 % 0.0 - 2.0 -[facility] Work Phone: Comment on above: Ordering Provider: Eriberto HART 67328 Eosinophils (Bld) [#/Vol] 0.25 {x10E9/L} See Below [facility] Work Phone: Comment on above: Reference Range: 0.0 0 - 0.40 Ordering Provider: Eriberto Davis Eosinophils/100 WBC (Bld) 4.5 % 0.0 - 6.0 [facility] Work Phone: Comment on above: Ordering Provider: Eriberto Davis Erythrocyte distribution width (RBC) [Ratio] 12.9 % See Below [facility] Work Phone: Comment on above: Reference Range: 11. 5 - 14.5 Ordering Provider: Eriberto Davis Hematocrit (Bld) [Volume fraction] 45.3 % See Below [facility] Work Phone: Comment on above: Reference Range: 41. 0 - 52.0 Ordering Provider: Eriberto Davis Hemoglobin (Bld) [Mass/Vol] 14.8 g/dL See Below [facility] Work Phone: Comment on above: Reference Range: 13. 5 - 17.5 Ordering Provider: Eriberto Davis Lymphocytes (Bld) [#/Vol] 1.97 {x10E9/L} See Below [facility] Work Phone: Comment on above: Reference Range: 0.8 0 - 3.00 Ordering Provider: Eriberto Davis Lymphocytes/100 WBC (Bld) 35.2 % See Below [facility] Work Phone: Comment on above: Reference Range: 13. 0 - 44.0 Ordering Provider: Eriberto Davis MCHC (RBC) [Mass/Vol] 32.7 g/dL See Below [facility] Work Phone: Comment on above: Reference Range: 32. 0 - 36.0 Ordering Provider: Eriberto Davis MCV (RBC) [Entitic vol] 102 fL above high threshold 80 - 100 [facility] Work Phone: Comment on above: Ordering Provider: Eriberto HART 87071 Monocytes (Bld) [#/Vol] 0.52 {x10E9/L} See Below [facility] Work Phone: Comment on above: Reference Range: 0.0 5 - 0.80 Ordering Provider: Eriberto HART 51357 Monocytes/100 WBC (Bld) 9.3 % 2.0 - 10.0 -[facility] Work Phone: Comment on above: Ordering Provider: Eriberto HART 72069 Neutrophils (Bld) [#/Vol] 2.78 {x10E9/L} See Below [facility] Work Phone: Comment on above: Reference Range: 1.6 0 - 5.50 Ordering Provider: Eriberto HART 58463 Neutrophils/100 WBC (Bld) 49.7 % See Below [facility] Work Phone: Comment on above: Reference Range: 40. 0 - 80.0 Ordering Provider: Eriberto HART 12154 Platelets (Bld) [#/Vol] 134 {x10E9/L} below low threshold 150 - 450 [facility] Work Phone: Comment on above: Ordering Provider: Eriberto HART 18035 RBC (Bld) [#/Vol] 4.44 {x10E12/L} below low threshold See Below [facility] Work Phone: Comment on above: Reference Range: 4.5 0 - 5.90 Ordering Provider: Eriberto TAYLORPADiallo 84277 WBC (Bld) [#/Vol] 0.0 {/100_WBC} 0.0-0.0 [facility] Work Phone: Comment on above: Ordering Provider: Eriberto HART 55629 WBC (Bld) [#/Vol] 5.6 {x10E9/L} 4.4 - 11.3 [facility] Work Phone: Comment on above: Ordering Provider: Eriberto HART 61582 Complete Blood Count + Differential 0.2 % 0.0 - 0.9 -[facility] Work Phone: Comment on above: Percent differential counts (%) should be interpreted in the context of the absolute cell counts (cells/L). Ordering Provider: Eriberto Davis Magnesium, Serumon 9 Magnesium [Mass/Vol] 2.03 mg/dL See Below -[facility] Work Phone: Comment on above: Reference Range: 1.6 0 - 2.40 Ordering Provider: Eriberto Davis Metabolic Panelon 02-12-2019 Anion gap [Moles/Vol] 14 mmol/L 10 - 20 [facility] Work Phone: Comment on above: Ordering Provider: Eriberto HART 30902 Calcium [Mass/Vol] 9.6 mg/dL 8.6 - 10.6 [facility] Work Phone: Comment on above: Ordering Provider: Eriberto HART 44216 Chloride [Moles/Vol] 106 mmol/L 98 - 107 [facility] Work Phone: Comment on above: Ordering Provider: Eriberto HART 00105 CO2 [Moles/Vol] 24 mmol/L 21 - 32 -[facility] Work Phone: Comment on above: Ordering Provider: Eriberto HART 99242 Creatinine [Mass/Vol] 1.25 mg/dL See Below -[facility] Work Phone: Comment on above: Reference Range: 0.5 0 - 1.30 Ordering Provider: Eriberto HART 78280 Glucose [Mass/Vol] 105 mg/dL above high threshold 74 - 99 [facility] Work Phone: Comment on above: Ordering Provider: Eriberto MARGOTHarrison CLAUDIACONSUELO 83189 Potassium [Moles/Vol] 4.6 mmol/L 3.5 - 5.3 [facility] Work Phone: Comment on above: Ordering Provider: Eriberto MARGOTHarrison CLAUDIACONSUELO 60378 Sodium [Moles/Vol] 139 mmol/L 136 - 145 [facility] Work Phone: Comment on above: Ordering Provider: Eriberto MARGOTHarrison CLAUDIACONSUELO 49618 Urea nitrogen [Mass/Vol] 21 mg/dL 6 - 23 [facility] Work Phone: Comment on above: Ordering Provider: Eriberto HART 50436 Otheron 02-12-2019 56 {mL/min/1.73m2} Abnormal >60 [facility] Work Phone: Comment on above: Ordering Provider: Eriberto TAYLORCONSUELO 60549 68 {mL/min/1.73m2} >60 [facility] Work Phone: Comment on above: CALCULATIONS OF R[place] MATED GFR ARE PERFORMED USING THE MDRD STUDY EQUATION FOR THE IDMS-TRACEABLE CREATININE METHODS. CLIN CHEM 2007;53:766-72 Ordering Provider: Eriberto HART 82302 TSH - Thyroid Stimulating Ho Rajan joneson 02-12-2019 TSH Qn 1.00 {mIU/L} See Below -[facility] Work Phone: Comment on above: Reference Range: 0.4 4 - 3.98 TSH testing is performed using different testing methodology at [facility] than at other [facility] hospitals. Direct result comparisons should only be made within the same method.. Patients receiving more than 5 mg/day of biotin may have interference in test results. A sample should be taken no sooner than eight hours after previous dose. Contact [phone] for additional information. Ordering Provider: Eriberto MARGOTHarrison CLAUDIACONSUELO 91226 Thyroxine, Serum (T4)on 02-02 T4 [Mass/Vol] 6.0 ug/dL 4.5 - 11.1 -[facility] Work Phone: Comment on above: Ordering Provider: Eriberto HART 06436 RPR Quant Titeron 07-26-2017 RPR Quant Titer D4 Normal [facility] Comment on above: Performed By: #### R PRQNT ####[facility] [address] [place], [place] [phone] RPRon 07-19-2017 Reagin antibody presence REAC Abnormal Non Reactive [facility] Comment on above: Performed By: #### R NC ####[facility] [place], [place] [phone] Syphilis IgG with Confon Reagin antibody presence NOTI Abnormal Non Reactive [facility] Comment on above: Performed By: #### S YPHGX ####[facility] [address], [place] [phone] RPR Quant Titer NOTI Normal [facility] Comment on above: Performed By: #### S YPHGX ####[facility] [address] [place], [place] [phone] Syphilis IgG 0.5 AI Normal [facility] Comment on above: Performed By: #### S YPHGX ####[facility] [address] [place], [place] [phone] Syphilis IgG, Qual Nonreactive Normal Nonreactive [facility] Comment on above: Performed By: #### S YPHGX ####[facility] [address] [place], [place] [phone] Syphilis Interpretation NOTI Normal [facility] Comment on above: Performed By: #### S YPHGX ####[facility] [address] [place], [place] [phone] T. pallidum IgG Qual NOTI Abnormal Negative [facility] Comment on above: Performed By: #### S YPHGX ####[facility] [address] [place], [place] [phone] T. pallidum, IgG NOTI Normal [facility] Comment on above: Performed By: #### S YPHGX ####[facility] LaboratoriesA[facility] Hospital[facility] [address] [place], [place] [phone] Vital Signs Date Time Vital Sign Value Performing Clinician Facility 07-16-2024 12:57-0400 Body height 180.34 cm [facility] 07-16-2024 12:57-0400 Body mass index (BMI) [Ratio] 30.1 kg/m2 [facility] 07-16-2024 12:57-0400 Body weight 97.97 kg [facility] 07-16-2024 12:57-0400 Diastolic blood pressure 74 mm[Hg] [facility] 07-16-2024 12:57-0400 Heart rate 63 /min [facility] 07-16-2024 12:57-0400 Respiratory rate 18 /min [facility] 07-16-2024 12:57-0400 SaO2% (BldA) [Mass fraction] 95 % [facility] 07-16-2024 12:57-0400 Systolic blood pressure 138 mm[Hg] [facility] 07-06-2023 10:23-0400 Body height 180.34 cm [facility] 07-06-2023 10:23-0400 Body mass index (BMI) [Ratio] 29.4 kg/m2 [facility] 07-06-2023 10:23-0400 Body weight 95.7 kg [facility] 07-06-2023 10:23-0400 Diastolic blood pressure 75 mm[Hg] [facility] 05-03-2024 10:23-0400 Heart rate 61 /min [facility] 07-06-2023 10:23-0400 Respiratory rate 16 /min [facility] 07-06-2023 10:23-0400 SaO2% (BldA) [Mass fraction] 92 % [facility] 07-06-2023 10:23-0400 Systolic blood pressure 125 mm[Hg] [facility] 02-18-2023 05:16-0500 Body temperature 98.1 [degF] Kim Lashaun DO Work Phone: [facility] 02-18-2023 05:16-0500 Diastolic blood pressure 68 mm[Hg] Kim Lashaun DO Work Phone: [facility] 02-18-2023 05:16-0500 Heart rate 62 /min Kim Lashaun DO Work Phone: [facility] 02-18-2023 05:16-0500 Respiratory rate 20 /min Kim Lashaun DO Work Phone: [facility] 02-18-2023 05:16-0500 SaO2% (BldA) [Mass fraction] 93 % Kim Lashaun DO Work Phone: [facility] 02-18-2023 05:16-0500 Systolic blood pressure 135 mm[Hg] Kim Lashaun DO Work Phone: [facility] 02-16-2023 12:54-0500 Body height 180.3 cm Kim Lashaun DO Work Phone: [facility] 02-16-2023 12:54-0500 Body mass index (BMI) [Ratio] 28.59 kg/m2 Kim Lashaun DO Work Phone: [facility] 02-16-2023 12:54-0500 Body weight 92.99 kg Kim Lashaun DO Work Phone: [facility] 02-15-2023 11:00-0500 Diastolic blood pressure 71 mm[Hg] Justin Stewart MD Work Phone: [facility] 02-15-2023 11:00-0500 Heart rate 66 /min Justin Stewart MD Work Phone: [facility] 02-15-2023 11:00-0500 Respiratory rate 19 /min Justin Stewart MD Work Phone: [facility] 02-15-2023 11:00-0500 SaO2% (BldA) [Mass fraction] 94 % Justin Stewart MD Work Phone: [facility] 02-15-2023 11:00-0500 Systolic blood pressure 125 mm[Hg] Justin Stewart MD Work Phone: [facility] 02-15-2023 07:03-0500 Body height 182 cm Justin Stewart MD Work Phone: [facility] 02-15-2023 07:03-0500 Body mass index (BMI) [Ratio] 27.77 kg/m2 Justin Stewart MD Work Phone: [facility] 02-15-2023 07:03-0500 Body temperature 96.8 [degF] Justin Stewart MD Work Phone: [facility] 02-15-2023 07:03-0500 Body weight 92 kg Justin Stewart MD Work Phone: [facility] 11-19-2022 09:27-0400 Body height 180 cm Hermilo Gutierrez PA-C [facility] 11-19-2022 09:27-0400 Body mass index (BMI) [Ratio] 28.6 kg/m2 Hermilo Gutierrez PA-C [facility] 11-19-2022 09:27-0400 Body temperature 97.52 [degF] Hermilo Foxetro PA-C [facility] 11-19-2022 09:27-0400 Body weight 93 kg Hermilo Braxtonetro PA-C [facility] 11-19-2022 09:27-0400 Diastolic blood pressure 77 mm[Hg] Hermilo Braxtonetro PA-C [facility] 11-19-2022 09:27-0400 Heart rate 58 /min Hermilo DeMetro PA-C [facility] 11-19-2022 09:27-0400 Respiratory rate 16 /min Hermilo DeMetro PA-C [facility] 11-19-2022 09:27-0400 SaO2% (BldA) [Mass fraction] 94 % Hermilo DeMetro PA-C [facility] 11-19-2022 09:27-0400 Systolic blood pressure 125 mm[Hg] Hermilo Braxtonetro PA-C [facility] 08-08-2022 05:24-0400 Body temperature 98.8 [degF] Sophie Menjivar MD Work Phone: [facility] 08-08-2022 05:24-0400 Diastolic blood pressure 66 mm[Hg] Sophie Menjivar MD Work Phone: [facility] 08-08-2022 05:24-0400 Heart rate 67 /min Sophie Menjivar MD Work Phone: [facility] 08-08-2022 05:24-0400 Respiratory rate 18 /min Sophie Menjivar MD Work Phone: [facility] 08-08-2022 05:24-0400 SaO2% (BldA) [Mass fraction] 96 % Sophie Menjivar MD Work Phone: [facility] 08-08-2022 05:24-0400 Systolic blood pressure 125 mm[Hg] Sophie Menjivar MD Work Phone: [facility] 08-06-2022 05:56-0400 Body height 180.3 cm Sophie Menjivar MD Work Phone: [facility] 08-06-2022 05:56-0400 Body mass index (BMI) [Ratio] 28.61 kg/m2 Sophie Menjivar MD Work Phone: [facility] 08-06-2022 05:56-0400 Body weight 93 kg Sophie Menjivar MD Work Phone: [facility] 06-18-2021 14:43-0400 Body height 180.3 cm Text Entry Free [facility] Other Phone (unformatted): [phone] 06-18-2021 14:43-0400 Body temperature 96.8 [degF] Text Entry Free [facility] Other Phone (unformatted): [phone] 06-18-2021 14:43-0400 Body weight 90 kg Text Entry Free [facility] Other Phone (unformatted): 06-18-2021 14:43-0400 Diastolic blood pressure 68 mm[Hg] Text Entry Free [facility] Other Phone (unformatted): 06-18-2021 14:43-0400 Heart rate 56 /min Text Entry Free [facility] Other Phone (unformatted): 06-18-2021 14:43-0400 Respiratory rate 18 /min Text Entry Free [facility] Other Phone (unformatted): 06-18-2021 14:43-0400 SaO2% (BldA) [Mass fraction] 97 % Text Entry Free [facility] Other Phone (unformatted): [phone] 06-18-2021 14:43-0400 Systolic blood pressure 122 mm[Hg] Text Entry Free [facility] Other Phone (unformatted): [phone] 06-03-2021 08:51-0400 Body height 180.34 cm [facility] Work Phone: 06-03-2021 08:51-0400 Body mass index (BMI) [Ratio] 29.1 kg/m2 [facility] Work Phone: 06-03-2021 08:51-0400 Body weight 94.8 kg [facility] Work Phone: 06-03-2021 08:51-0400 Diastolic blood pressure 83 mm[Hg] [facility] Work Phone: 06-03-2021 08:51-0400 Heart rate 60 /min [facility] Work Phone: 06-03-2021 08:51-0400 Respiratory rate 18 /min [facility] Work Phone: 06-03-2021 08:51-0400 SaO2% (BldA) [Mass fraction] 95 % [facility] Work Phone: 06-03-2021 08:51-0400 Systolic blood pressure 120 mm[Hg] [facility] Work Phone: 05-05-2021 09:05-0500 Body temperature 98 [degF] Philip Scott PA-C Work Phone: [employer] Work Phone: 05-05-2021 09:05-0500 Diastolic blood pressure 77 mm[Hg] Philip Scott PA-C Work Phone: [facility] Work Phone: 05-05-2021 09:05-0500 Heart rate 87 /min Philip Scott PA-C Work Phone: [facility] Work Phone: 05-05-2021 09:05-0500 Respiratory rate 18 /min Philip MENENDEZ-Oleksandr Work Phone: -[facility] Work Phone: 05-05-2021 09:05-0500 SaO2% (BldA) [Mass fraction] 96 % Philip MENENDEZ-Oleksandr Work Phone: -[facility] Work Phone: 05-05-2021 09:05-0500 Systolic blood pressure 163 mm[Hg] Philip MENENDEZ-C Work Phone: [facility] Work Phone: 12-14-2020 14:04-0400 7 1 Roly Medrano MD Work Phone: [facility] [address] Work Phone: Comment on above: [employer] 10-28-2020 12:41-0400 Diastolic blood pressure 75 mm[Hg] Roly Medrano MD Work Phone: [facility] [address] Work Phone: 10-28-2020 12:41-0400 Heart rate 80 /min Roly Medrano MD Work Phone: [facility] [address] Work Phone: 10-28-2020 12:41-0400 Respiratory rate 16 /min Roly Medrano MD Work Phone: [facility] [address] Work Phone: 10-28-2020 12:41-0400 Systolic blood pressure 126 mm[Hg] Roly Medrano MD Work Phone: [facility] [address] Work Phone: 01-16-2020 11:17-0500 Body Temperature 97.2 [degF] Jordan Monroean [facility] Work Phone: Comment on above: Method: Temporal 01-16-2020 11:17-0500 BP Diastolic 74 mm[Hg] Jordan Rivas [facility] Work Phone: Comment on above: Position: Sitting 01-16-2020 11:17-0500 BP Systolic 152 mm[Hg] Jordan Rivas [facility] Work Phone: Comment on above: Position: Sitting 01-16-2020 11:17-0500 Pulse (Heart Rate) 66 /min Jordan Monroean [facility] Work Phone: 01-16-2020 11:17-0500 Respiratory Rate 20 /min Jordan Rivas [facility] Work Phone: 01-16-2020 11:17-0500 0 1 Jordan Monroean [facility] Work Phone: Comment on above: Pain Scale 03-20-2019 13:27-0500 BMI (Body Mass Index) 29.15 kg/m2 Ortega Rivas [facility] [address] Work Phone: 03-20-2019 13:27-0500 Body weight 94.8 kg Ortega Rivas [facility] [address] Work Phone: 03-20-2019 13:27-0500 BP Diastolic 88 mm[Hg] Orteag Rivas [facility] [address] Work Phone: 03-20-2019 13:27-0500 BP Systolic 143 mm[Hg] Ortega Rivas [facility] [address] Work Phone: 03-20-2019 13:27-0500 BSA (Body Surface Area) 2.15 m2 Ortega Rivas [facility] [address] Work Phone: 03-20-2019 13:27-0500 Height 180.34 cm Jordan Rivas [facility] [address] Work Phone: 03-20-2019 13:27-0500 Pulse (Heart Rate) 62 /min Jordan Rivas [facility] [address] Work Phone: 03-20-2019 13:27-0500 2 1 Jordan Rivas [facility] [address] Work Phone: Comment on above: Pain Scale 02-20-2019 13:40-0500 Body Temperature 98.8 [degF] Jordan Rivas [facility] Work Phone: Comment on above: Method: Oral 02-20-2019 13:40-0500 BP Diastolic 86 mm[Hg] Jordan Rivas [facility] Work Phone: 02-20-2019 13:40-0500 BP Systolic 137 mm[Hg] Jordan Rivas [facility] Work Phone: 02-20-2019 13:40-0500 Pulse (Heart Rate) 95 /min Jordan Rivas [facility] Work Phone: 02-20-2019 13:40-0500 Pulse Oximetry 93 % Jordan Rivas [facility] Work Phone: 02-20-2019 13:40-0500 Respiratory Rate 18 /min Jordan Rivas [facility] Work Phone: Encounters Encounter Date Encounter Type Care Provider Facility Start: 07-16-2024 End: 07-16-[address] 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 Facility:[facility] Start: 09-27-2023 End: 09-27-2023 Emergency department patient visit TRES [facility] Start: 08-15-2023 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 Facili ty:[facility] Start: 08-15-2023 ambulatory Lopez Stevie Facility:[facility] Start: 08-15-2023 End: 08-15-2023 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 Facility:[facility] Start: 07-06-2023 End: 07-06-2023 ambulatory [facility] Work Phone: Start: 07-06-2023 End: 07-06-2023 Patient encounter procedure [facility] Work Phone: Start: 05-26-2023 Registered Referred [facility] Work Phone: Start: 05-22-2023 Telephone encounter Asa Shirley DPM Work Phone: Blake Chin DPM, JAQUELIN Comment on above: Results Start: 05-09-2023 End: 05-09-2023 Office outpatient new 30 minutes Asa Shirley DPM Work Phone: [facility] Comment on above: 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); Toenail deformity Start: 02-16-2023 End: 02-18-2023 Evaluation and management of inpatient Kim Wilks DO Work Phone: [facility] 6 Comment on above: Bacteremia (Primary Dx); Chest congestion Start: 02-15-2023 End: 02-15-2023 Emergency department patient visit Justin Stewart MD Work Phone: [facility] Comment on above: Near syncope (Primar y Dx); COVID Start: 11-19-2022 Hermilo de la vega PA-C [facility] Start: 08-05-2022 End: 08-08-2022 Evaluation and management of inpatient [facility] Start: 08-05-2022 End: 08-08-2022 Evaluation and management of inpatient Sophie Menjivar MD Work Phone: [facility] Comment on above: Post-op pain (Primar y Dx); Debility; Postoperative hematoma involving nervous system following nervous system procedure Start: 08-05-2022 ambulatory Viky Conklin RN [facility] Start: 08-05-2022 Patient encounter procedure Viky Conklin RN [facility] Start: 08-04-2022 ambulatory Viky Conklin RN [facility] Start: 08-04-2022 Patient encounter procedure Viky Conklin RN [facility] Start: 06-22-2021 Non-patient / Non-visit [facility] Start: 06-22-2021 End: 06-22-2021 Patient encounter procedure [facility] Start: 06-18-2021 End: 06-18-2021 Emergency department patient visit Duy Cabrera [facility] Other Phone (unformatted): [phone] Start: 06-03-2021 End: 06-03-2021 Patient encounter procedure [facility] Start: 06-03-2021 End: 06-03-2021 Patient encounter procedure [facility] Start: 05-06-2021 Chart Update Selam zamorano PA-C Work Phone: [facility] Work Phone: Start: 05-05-2021 Office outpatient vi sit 15 minutes Philip Scott PA-C Work Phone: [facility] Work Phone: Start: 01-21-2021 Other Brayanroxanne Mari Villar PT, MS Work Phone: [facility] Work Phone: Start: 12-14-2020 Patient encounter procedure Roly Medrano MD Work Phone: [facility] [id number] Work Phone: Start: 11-16-2020 Patient encounter procedure Justin Hamm PT, MS Work Phone[facility] Work Phone: Start: 10-28-2020 Office outpatient vi sit 15 minutes Roly Medrano MD Work Phone: [facility] [place] [facility] Work Phone: Start: 10-28-2020 Patient encounter procedure Roly Medrano MD Work Phone: [facility] [id number] Work Phone: Start: 01-16-2020 Patient encounter procedure Ortegajayme Rivas [facility] Work Phone: Start: 07-19-2019 Patient encounter procedure Ortegajayme Rivas [facility] Work Phone: Start: 03-20-2019 Patient encounter procedure Jordan Rivas [facility] [id number] Work Phone: Start: 02-20-2019 Patient encounter procedure Ortegajayme Rivas [facility] Work Phone: Start: 11-05-2018 Patient encounter procedure Ortegajayme Rivas [facility] Work Phone: Start: 06-01-2017 Patient encounter procedure Jordan Rivas [facility] Work Phone: Procedures Date Procedure Procedure Detail Performing Clinician Start: 12-17-2023 DISCHARGE PATIENT TRES ESQUIVEL Start: 02-18-2023 Basic metabolic 2000 panel - Serum or Plasma TRES SIERRA Start: 02-18-2023 VANCOMYCIN TRES CALV IN Start: 02-18-2023 CBC panel - Blood by Automated count TRES SIERRA Start: 02-18-2023 End: 02-18-2023 Basic metabolic panel calcium total Moose Pack MD Work Phone: Start: 02-18-2023 Drug screen quantitative vancomycin Moose Pack MD Work Phone: Start: 02-17-2023 Basic metabolic 2000 panel - Serum or Plasma TRES SIERRA Start: 02-17-2023 CBC panel - Blood by Automated count TRES SIERRA Start: 02-17-2023 Basic metabolic pane l calcium total Moose Pack MD Work Phone: Start: 02-17-2023 INITIATE DROPLET PLU S ISOLATION TRES SIERRA Start: 02-16-2023 FULL CODE TRES CALV IN Start: 02-16-2023 Bacteria identified in Blood by Culture TRES SIERRA Start: 02-16-2023 ADMIT TO INPATIENT BRYC E SIERRA Start: 02-16-2023 ED TO FLOOR BED REQUEST TRES SIERRA Start: 02-16-2023 Culture bacterial bl ood aerobic w/id isolates Kim Wilks DO Work Phone: Start: 02-16-2023 XR CHEST 2 VIEWS TRES SIERRA Start: 02-16-2023 CBC W Auto Different ial panel - Blood TRES SIERRA Start: 02-16-2023 COAGULATION SCREEN BRYC E SIERRA Start: 02-16-2023 Comprehensive metabo lic 2000 panel - Serum or Plasma TRES SIERRA Start: 02-16-2023 Magnesium [Mass/volu me] in Serum or Plasma TRES SIERRA Start: 02-16-2023 Radiologic exam ches t 2 views Yahir Milian [employer] Work Phone: Start: 02-16-2023 Comprehensive metabo lic panel Yahir Milian [employer] Work Phone: Start: 02-15-2023 ECG 12-LEAD TRES CALV IN Start: 02-15-2023 Bacteria identified in Blood by Culture TRES ESQUIVEL Start: 02-15-2023 CT CERVICAL SPINE WO IV CONTRAST TRES AHNIN Start: 02-15-2023 CT HEAD WO IV CONTRAST TRES AHNIN Start: 02-15-2023 INFLUENZA A AND B PCR B ROSE MARY ESQUIVEL Start: 02-15-2023 SARS-COV-2 PCR, SYMPTOMATIC TRES ESQUIVEL Start: 02-15-2023 XR CHEST 1 VIEW TRES SMITH Start: 02-15-2023 CBC W Auto Different ial panel - Blood TRES ESQUIVEL Start: 02-15-2023 Comprehensive metabo lic 2000 panel - Serum or Plasma TRES ESQUIVEL Start: 02-15-2023 Lactate [Moles/volum e] in Serum or Plasma TRES AHNIN Start: 02-15-2023 TROPONIN I, HIGH SENSITIVITY TRES ESQUIVEL Start: 02-15-2023 Bacteria identified in Urine by Culture TRES ESQUIVEL Start: 02-15-2023 Ct cervical spine w/ o contrast material Justin Stewart MD Work Phone: Start: 02-15-2023 Ct head/brain w/o contrast material Justin Stewart MD Work Phone: Start: 02-15-2023 Influenza virus A an d B RNA [Identifier] in Unspecified specimen by ARTHUR with probe detection Justin Stewart MD Work Phone: Start: 02-15-2023 SARS-CoV-2 (COVID-19 ) RNA [Presence] in Respiratory specimen by ARTHUR with probe detection Justin Stewart MD Work Phone: Start: 02-15-2023 Radiologic exam ches t single view Justin Stewart MD Work Phone: Start: 02-15-2023 Comprehensive metabo lic panel Jutsin Stewart MD Work Phone: Start: 08-08-2022 Basic metabolic pane l calcium total Emma Munoz DO Work Phone: Start: 08-07-2022 Basic metabolic pane l calcium total Jase Stanley MD Work Phone: Start: 08-06-2022 End: 08-06-2022 I&d deep abscess pst spine lumbar sac/lumbosac Scot D Garcia DO Work Phone: Start: 08-06-2022 Radiologic exam ches t single view Aimee Botello MD Work Phone: Start: 08-06-2022 Blood typing serolog ic abo Aimee Botello MD Work Phone: Start: 08-06-2022 Prothrombin time Aimee Botello MD Work Phone: Start: 08-06-2022 Ecg routine ecg w/le ast 12 lds i&r only Aimee Botello MD Work Phone: Start: 08-06-2022 Mri spinal canal lum bar w/o & w/contr matrl Shawna Cope MD Work Phone: Start: 08-06-2022 Ct head/brain w/o contrast material Shawna Cope MD Work Phone: Start: 08-05-2022 Radex spine lumbosac ral 2/3 views Dusty Waite MD Work Phone: Start: 08-05-2022 C-reactive protein Suyapa Ling PA-C Work Phone: Start: 08-05-2022 Comprehensive metabo lic panel Gretchen Ling PA-C Work Phone: Start: 06-22-2021 Radionuclide imaging of perfusion of myocardium under exercise stress [facility] Start: 01-16-2020 Iadna chlamydia trachomatis amplified probe tq Jordan Rivas Start: 01-16-2020 Trichomonas vaginali s [Presence] in Cervix by Wet preparation Jordan Rivas Start: 07-30-2019 Lipid 1996 panel - Serum or Plasma Justin Stewart MD Work Phone: Start: 03-20-2019 MRI L Spine without Contrast Jordan Rivas Start: 11-03-2014 History of coronary artery bypass grafting History of coronary artery bypass surgery Sophie Menjivar MD Work Phone: Start: 01-03-2006 History of coronary artery bypass grafting Aortocoronary bypass status Dr. Jase Vo MD Comment on above: CABG x3- DAVIDSON to LAD , SVG to DX branch of anterior descending, DAVIDSON to RCA 01/23/06 History of coronary artery bypass grafting History of coronary artery bypass surgery Sophie Menjivar MD Work Phone: Plan of Treatment Date Care Activity Detail Author Start: 04-12-2032 Urine microalbumin profile DTaP,Tdap,Td Vaccine (3 - Td or Tdap) [facility] Start: 12-13-2027 DTaP/Tdap/Td Vaccine s (3 - Td or Tdap) DTaP/Tdap/Td Vaccines (3 - Td or Tdap) [facility] Start: 02-18-2026 Diabetes Screening Diabetes Screenin g [facility] Start: 07-29-2024 Lipid panel Lipid Panel [facility] Start: 07-16-2024 Evaluation of diagnostic study results 12 Lead EKG performed by [facility] Start: 03-05-2023 Advance Directive Discussion Advance Directive Discussion [facility] Start: 03-05-2023 Depression Assessment Depression Ass essment [facility] Start: 02-14-2023 COVID-19 Vaccine (2 - Pfizer series) COVID-19 Vaccine (2 - Pfizer series) [facility] Start: 11-03-2022 Influenza vaccination Influenz a Vaccine (Season Ended) [employer] [facility] Start: 08-15-2022 End: 08-09-2023 Basic metabolic 1998 panel - Serum or Plasma Basic metabolic panel Lab Routine Postoperative hematoma involving nervous system following nervous system procedure Expected: 08/15/2022 (Approximate), Expires: 08/09/2023 [facility] Work Phone: Comment on above: Expected: 08/15/2022 (Approximate), Expires: 08/09/2023 Start: 08-15-2022 End: 08-09-2023 CBC panel - Blood by Automated count CBC Lab Routine Postoperative hematoma involving nervous system following nervous system procedure Expected: 08/15/2022 (Approximate), Expires: 08/09/2023 [facility] Comment on above: Expected: 08/15/2022 (Approximate), Expires: 08/09/2023 Start: 06-18-2021 End: 06-19-2022 Sodium Chloride 0.9% Injectable Flush Peripheral Line ; via Peripheral LineVolume = 1.5 mL IntraVenous Flush Every 8 Hours and as Needed Start: 18-Jun-2021 End: 18-Jun-2022 Ordered: 18-Jun-2021 Darron Garland [facility] Other Phone (unformatted): [phone] Start: 11-22-2020 [facility], Provider: Roly Medrano, Status: Pen, Time: 10:00 AM [facility], Provider: Roly Medrano, Status: Pen, Time: 10:00 AM [facility] [place] [id number] Work Phone: Start: 11-16-2020 [id number], Provider : Justin Hamm, Status: Pen, Time: 9:15 AM [id number], Provider: Justin Hamm, Status: Pen, Time: 9:15 AM [facility] [id number] Work Phone: Start: 01-16-2020 Iadna chlamydia trachomatis amplified probe tq GC + Chlamydia By Amplified Detection [facility] Work Phone: Start: 01-16-2020 T. vaginalis Wet pre p Ql (Cvx) Trichomonas Vaginalis, Amplified [facility] Work Phone: Start: 01-09-2018 DTaP/Tdap/Td Vaccine s (2 - Td or Tdap) DTaP/Tdap/Td Vaccines (2 - Td or Tdap) [facility] Start: 2006 Pneumococcal Vaccine : 65+ Years (1 - PCV) Pneumococcal Vaccine: 65+ Years (1 - PCV) [facility] Start: 10-13-1991 Zoster Vaccines (1 o f 2) Zoster Vaccines (1 of 2) [facility] Start: 1960 DTaP/Tdap/Td Vaccine s (1 - Tdap) DTaP/Tdap/Td Vaccines (1 - Tdap) [facility] Start: 1953 Depression Screening Depression Scre ening [facility] Start: 04-14-1942 COVID-19 Vaccine (#1) COVID-19 Vacci ne (#1) [facility] Start: 1941 Hepatitis B Vaccines (1 of 3 - 3-dose series) Hepatitis B Vaccines (1 of 3 - 3-dose series) [facility] Start: 1941 Lipid panel Lipid Panel [facility] Start: 1941 Medicare Annual Wellness Visit Medicare Annual Wellness Visit (AWV) [facility] End: 02-15-2023 Bacteria identified in Blood by Culture [facility] Work Phone: Comment on above: STAT (Lab) for 1 Occ urrences starting 02/15/2023 until 02/15/2023, 1 completed Bacteria identified in Blood by Culture Blood Culture Microbiology STAT 02/16/2023 6:38 PM EST [facility] Work Phone: End: 02-15-2023 Bacteria identified in Urine by Culture Urine Culture Microbiology STAT Once (Lab) for 1 Occurrences starting 02/15/2023 until 02/15/2023 [facility] Work Phone: Comment on above: Once (Lab) for 1 Occ urrences starting 02/15/2023 until 02/15/2023 End: 02-23-2023 Basic metabolic 2000 panel - Serum or Plasma Basic metabolic panel Lab Routine Morning draw (Lab) for 7 Days starting 02/17/2023 until 02/23/2023, 2 completed [facility] Work Phone: Comment on above: Morning draw (Lab) f or 7 Days starting 02/17/2023 until 02/23/2023, 2 completed End: 02-23-2023 CBC panel - Blood by Automated count CBC Lab Routine Morning draw (Lab) for 7 Days starting 02/17/2023 until 02/23/2023, 2 completed [facility] Work Phone: Comment on above: Morning draw (Lab) f or 7 Days starting 02/17/2023 until 02/23/2023, 2 completed End: 02-15-2023 ECG 12 Lead [facility] Work Phone: Comment on above: Once for 1 Occurrenc es starting 02/15/2023 until 02/15/2023 Electrocardiogram, 12-lead PRN ACS symptoms Electrocardiogram, 12-lead PRN ACS symptoms ECG Routine As needed until discontinued starting 02/16/2023 [facility] Work Phone: Comment on above: As needed until disc ontinued starting 02/16/2023 Hepatic function panel [facility] Lipid 1996 panel - Serum or Plasma [facility] [place] Heart Views W stress and W radionuclide IV [facility] End: 02-15-2023 Urinalysis complete panel - Urine Urinalysis with Reflex Microscopic Lab STAT Once (Lab) for 1 Occurrences starting 02/15/2023 until 02/15/2023 [facility] Service Area Work Phone: Comment on above: Once (Lab) for 1 Occ urrences starting 02/15/2023 until 02/15/2023 [facility] End: 02-20-2023 Vancomycin [Mass/volume] in Serum or Plasma Vancomycin Lab Routine Morning draw (Lab) for 1 Occurrences starting 02/20/2023 until 02/20/2023 [facility] Work Phone: Comment on above: Morning draw (Lab) f or 1 Occurrences starting 02/20/2023 until 02/20/2023 CefTRIAXone Sodi um 250 MG Injection Solution Reconstituted Ordered: 16-Jan-2020 Held [facility] Work Phone: NEGATED: Highlighted row has been ruled out! Planned Goals not documented [facility] Work Phone: Payers Date Payer Category Payer Self-pay [id number] 2022 Medicare [id number] 2020 Unknown 2016 Medicare [id number] 1941 Unknown [id number] 2.16.84 [id number] 1941 Unknown [id number] 2.16.8 [id number] 1941 Unknown [id number] 2.16.8 [id number] 1941 Unknown [id number] 2.16. [id number] Unknown [id number] 2.16.8 [id number] Unknown [id number] 2.16.8 [id number] Unknown [id number] 2.16.8 [id number] Unknown [id number] 2.16.8 [id number] Unknown [id number] 2.16.8 [id number] Unknown [id number] 2.16.8 [id number] Unknown [id number] 2.16.8 [id number] Unknown [id number] 2.16.8 [id number] Social History Date Type Detail Facility Assertion Tobacco smoking consumption unknown (finding) [facility] Work Phone: Start: 02-21-2022 End: 05-09-2023 Non-smoker Non-smoker [facility] Start: 06-03-2021 End: 09-28-2022 Tobacco smoking status HIIS Unknown if ever smoked [facility] Start: 1940 Sex Assigned At Male [facility] Start: 09-28-2022 End: 05-09-2023 Tobacco smoking status NHIS Ex-smoker [facility] End: 02-21-2004 History of tobacco use Current smoker [facility] Start: 02-21-2022 End: 05-09-2023 Alcohol intake Current drinker of alcohol (finding) [facility] Start: 1940 Sex Assigned At Not on file [facility] Start: 08-05-2022 History SDOH Alcohol Frequency 1 [facility] Start: 08-05-2022 History SDOH Alcohol Std Drinks 0 [facility] Start: 08-06-2022 End: 05-09-2023 Humiliation, Afraid, Rape, and Kick questionnaire [HARK] [facility] Within the last year , have you been afraid of your partner or ex-partner? No [facility] How often to you hav e a drink containing alcohol? Never [facility] How many standard drinks containing alcohol do you have on a typical day? Patient does not drink [facility] Start: 07-26-2022 End: 02-17-2023 Exposure to SARS-CoV-2 (event) Not sure [facility] Start: 02-15-2023 Gender identity Identifies as male gender (finding) [facility] Work Phone: Start: 02-17-2023 Tobacco smoking stat us NHIS Never smoked tobacco [facility] Start: 02-17-2023 End: 05-09-2023 Tobacco use and exposure Smokeless tobacco non-user [facility] Work Phone: Start: 02-17-2023 Alcohol intake Lifetime non-d fabiola (finding) [facility] Work Phone: End: 02-21-2004 History of tobacco use Cigarette Smoker [facility] Start: 05-09-2023 Tobacco Comment Occ cigar [facility] NEGATED: Highlighted rowStart: NINF History of tobacco use Passive smoker [facility] Work Phone: Functional Status Date Assessment Result Facility NEGATED: Highlighted row Functional performance Functional status health issues are not documented [facility] Work Phone: Mental Status Date Assessment Result Facility NEGATED: Highlighted row Cognitive function [Interpretation] Cognitive status health issues are not documented [facility] Work Phone: Clinical Notes 01-03-2006 to 05-22-2023 Telephone Encounter - Asa Shirley DPM - 05/22/2023 8:47 AM EDJacquelyn Arambula MA - 05/09/2023 1:58 PM ESTCrAsa solorzano DPM - 05/09/2023 1:53 PM ESTDischarge Instructions Note Date & Type Note Facility 05-22-2023 Miscellaneous Notes Please call patient to let him know the toenail biopsy was negative for fungus but positive for microtrauma. Recommend patient purchase clear nail with urea at the office or urea nail gel on Docker and use in combination with emery board to help thin the affected toenail. The pathology report also noted bacterial colonization (not infection) under the nail. Recommend soaking in dilute vinegar solution versus Epson salt solution. If the nail becomes significantly loosened or painful, patient may schedule for nail removal at the office. documented in this encounter [facility] 05-09-2023 Nurse Note Patient presents with: New Patient: Pcp: Tres Esquivel Lv: 04/30/23 Ref:[employer] Ins :FAST FELTlaurence Ss: 11 Nail Fungus: Nirav hallux nails Dur: couple years Pl: 0 Tx: none Jacquelyn Amaral MA documented in this encounter [facility] 05-09-2023 History of Present illness Narrative Images from the original note were not included. Podiatric Medicine & Surgery Note Jackson Hurt is a 82 year old male who presents with complaint of increased thickness and discoloration to the toenails on both feet. Noticed issue several years ago. Denies history of injury. Denies new shoes or activities. Denies history of psoriasis. Reports toenail pain during ambulation and close shoes. Denies self treatment. Denies previous history of foot or ankle surgery. Primary care physician: Tres Esquivel Last visit: 2/26/24 Social History Tobacco Use Smoking status: Former Packs/day: 1.00 Years: 20.00 Additional pack years: 0.00 Total pack years: 20.00 Types: Cigarettes Quit date: 02/21/2004 Years since quittin.2 Smokeless tobacco: Never Tobacco comments: Occ cigar Substance Use Topics Alcohol use: Yes Comment: once or twice per month Drug use: Never PAST MEDICAL HISTORY Diagnosis Date Anxiety state Other and unspecified hyperlipidemia PAST SURGICAL HISTORY Procedure Laterality Date ANESTH,ANGIOPLASTY 02/2003 stent Current Outpatient Medications Medication Sig acetaminophen 325 mg cap Take 650 mg by mouth every 6 hours as needed. acetaminophen (TYLENOL) 500 mg tablet Take 500 mg by mouth every 6 hours as needed. alfuzosin SR (UROXATRAL) 10 mg 24 hr tablet Take 1 tablet by mouth every afternoon. alfuzosin SR (UROXATRAL) 10 mg 24 hr tablet Take 10 mg by mouth. benzonatate (TESSALON PERLE) 100 mg capsule TAKE 1 CAPSULE (100 MG) BY MOUTH 3 TIMES A DAY NEEDED FOR COUGH. DO NOT CRUSH OR CHEW. benzonatate (TESSALON PERLE) 100 mg capsule Take 100 mg by mouth. buPROPion XL (WELLBUTRIN XL) 300 mg 24 hr tablet 300 mg. losartan (COZAAR) 25 mg tablet Take 1 tablet by mouth once daily. losartan (COZAAR) 25 mg tablet Take 1 tablet by mouth every afternoon. nitroglycerin sublingual (NITROQUICK) 0.4 mg SL tablet Dissolve 0.4 mg under the tongue. oxyCODONE ir (OXYIR) 5 mg capsule Take 10 mg by mouth every 6 hours as needed. prednisoLONE acetate (PRED FORTE) 1 % ophthalmic suspension INSTILL 1 DROP IN THE RIGHT EYE THREE TIMES DAILY rosuvastatin (CRESTOR) 20 mg tablet Take 20 mg by mouth. rosuvastatin (CRESTOR) 40 mg tablet Take 1 tablet by mouth daily at bedtime. sildenafil (VIAGRA) 100 mg tablet 100 mg. tamsulosin (FLOMAX) 0.4 mg Take 0.4 mg by mouth. zolpidem (AMBIEN) 10 mg Take 10 mg by mouth at bedtime as needed. PLAVIX 75 MG TAB Take one(1) tablet daily. ATENOLOL 25 MG TAB Take one(1) tablet daily. ADULT ASPIRIN EC LOW STRENGTH 81 MG TAB Take one(1) tablet daily. CLARITIN 10 MG TAB PRN LEVITRA 20 MG TAB prn FLAXSEED OIL 1,000 MG CAP Take one(1) tablet daily. VYTORIN 10/20 10 MG-20 MG TAB Take one(1) tablet daily. No current facility-administered medications for this visit. Allergies: ALLERGIES No Known Allergies Review of Systems: All systems reviewed, pertinent positives noted in the history of present illness. Patient is alert and oriented x3 and in no acute distress. Vascular Pedal Pulse DP: R: +2/4, L: +2/4 PT: R: +1/4, L: +2/4 SPVFT: R: 3 seconds, L: 3 seconds Pallor: R: Negative, L: Negative Rubor: R: Negative, L: Negative Edema: R: none, L: none Varicosities: R: Yes, L: Yes Distal Hair Growth: R: Negative, L: Negative Temperature: R: Normal, L: Normal Neurological Sharp/dull discrimination intact, bilateral. Proprioception intact to 1st MPJ, bilateral. Vibratory sensorium was grossly intact at MPTJ level, b/l. No Tinel's sign, bilateral. Dermatological Skin appearance: Atrophied. Webspaces 1-4 b/l are clean, dry, and intact. No open lesions to foot and ankle b/l. Nails: 1st b/l are thickened, incurvated, and discolored with subungual debris. Slight loosening noted to distal margin on bilateral hallux.No erythema, malodor, drainage, fluctuance, calor, or crepitus. Musculoskeletal Gait Analysis: Bilateral: Ambulating without Aid Adequate muscle strength with dorsiflexion, plantarflexion, inversion and eversion. Adequate ROM pedal and ankle joints. Assessment: (B35.1, M79.675, M79.674) Pain due to onychomycosis of toenails of both feet (primary encounter diagnosis) (L60.8) Toenail deformity Treatment: Total Time Spent on Encounter: Evaluation and management code 10754 was selected for this encounter. A total of 30-44 minutes of [id number] and vab-kula-hq-face time was personally spent by me on the day of this encounter. This may include: preparations to see the patient, obtaining history, performing an examination, counseling and educating, ordering medications, tests, or procedures, referring and communicating with other health professionals, documenting in the health record, and care coordination. Treatment today consisted of complete patient examination and evaluation Discussed findings and treatment plan with patient Discussed treatment options for onychomycosis. Based on patient's goals and medical history recommend topical antifungal. Patient not ideal candidate for oral antifungal as he takes Plavix long-term. Ordered PAS of right first nail. If positive for fungus, will prescribe topical antifungal. If negative for fungus, recommend using combination of emery board and topical urea gel to help thin the nail. Patient declined complete nail matrixectomy. Educated patient on proper daily foot care and hygiene. Cleanse shoes with disinfectant as needed. Change socks more frequently if there is excessive moisture. Contact office for any questions or concerns. Will contact patient to follow-up on PAS results. Electronically signed Asa Shirley DPM Physician and Surgeon of the Foot & Ankle This note was generated with voice recognition software and may contain errors, including spelling, grammar, syntax and misrecognition of what was dictated, that are not fully corrected. documented in this encounter [facility] 02-18-2023 Hospital course Narrative Discharge Diagnosis Bacteremia Issues Requiring Follow-Up Follow up with PCP. Follow up remaining blood cultures to confirm contaminant. Discharge Meds Your medication list START taking these medications Instructions Last Dose Given Next Dose Due benzonatate 100 mg capsule Commonly known as: Tessalon Take 1 capsule (100 mg) by mouth 3 times a day as needed for cough. Do not crush or chew. guaiFENesin 1,200 mg tablet extended release 12hr Commonly known as: Mucinex Take 1 tablet (1,200 mg) by mouth 2 times a day. Do not crush, chew, or split. CONTINUE taking these medications Instructions Last Dose Given Next Dose Due acetaminophen 500 mg tablet Commonly known as: Tylenol alfuzosin 10 mg 24 hr tablet Commonly known as: Uroxatral aspirin 81 mg EC tablet atenolol 25 mg tablet Commonly known as: Tenormin buPROPion XL 300 mg 24 hr tablet Commonly known as: Wellbutrin XL clopidogrel 75 mg tablet Commonly known as: Plavix losartan 25 mg tablet Commonly known as: Cozaar rosuvastatin 20 mg tablet Commonly known as: Crestor zolpidem 10 mg tablet Commonly known as: Ambien Where to Get Your Medications These medications were sent to [facility]/pharmacy #[id number] - [place], [place] - [address] [facility] [address] [facility], [place] [id number] benzonatate 100 mg capsule guaiFENesin 1,200 mg tablet extended release 12hr Test Results Pending At Discharge Pending Labs Order Current Status Blood Culture Preliminary result Blood Culture Preliminary result Hospital Course Patient admitted to [facility] for bacteremia. Patient initially presented to ED the day prior with covid, but was stable and discharged home. Blood culture results were positive and he was brought in for admission. However, only 1 of 2 cultures were positive, and repeat cultures drawn before antibiotics were started were also negative. Therefore only 1/4 cultures were positive, and felt to be contaminant. Antibiotics were stopped and patient discharged with supportive care for covid. Patient and partner updated on plan and agree with dc. Pertinent Physical Exam At Time of Discharge Physical Exam Vitals reviewed. Constitutional: Appearance: Normal appearance. HENT: Head: Normocephalic and atraumatic. Mouth/Throat: Mouth: Mucous membranes are moist. Eyes: Conjunctiva/sclera: Conjunctivae normal. Cardiovascular: Rate and Rhythm: Normal rate. Pulses: Normal pulses. Pulmonary: Effort: Pulmonary effort is normal. Breath sounds: Normal breath sounds. No wheezing. Abdominal: General: Abdomen is flat. There is no distension. Palpations: Abdomen is soft. Tenderness: There is no guarding. Musculoskeletal: General: No swelling. Normal range of motion. Skin: General: Skin is warm and dry. Neurological: General: No focal deficit present. Mental Status: He is alert. Mental status is at baseline. Psychiatric: Mood and Affect: Mood normal. Behavior: Behavior normal. Outpatient Follow-Up No future appointments. PCP 1 week Moose Pack MD documented in this encounter [facility] Work Phone: 02-18-2023 Hospital Discharge instructions Moose Pack MD - 02/18/2023 2:04 PM EST Continue cough medicines as needed for covid symptoms. If you have persistent fevers and chills, follow up with PCP. documented in this encounter [facility] Work Phone: 02-18-2023 History of Present illness Narrative Vancomycin Dosing by Pharmacy- FOLLOW UP Jackson Hurt is a 82 y.o. year old male who Pharmacy has been consulted for vancomycin dosing for endocarditis/endovascular infection. Based on the patient's indication and renal status this patient is being dosed based on a goal AUC of 500-600. Renal function is currently stable. Current vancomycin dose: 1,500 mg given every 24 hours Estimated vancomycin AUC on current dose: 507 mg/L.hr Visit Vitals BP 135/68 (BP Location: Left arm, Patient Position: Lying) Pulse 62 Temp 36.7 C (98.1 F) (Temporal) Resp 20 Lab Results Component Value Date CREATININE 1.23 02/18/2023 CREATININE 1.30 02/17/2023 CREATININE 1.30 02/16/2023 CREATININE 1.27 02/15/2023 Patient weight is 93 kg Assessment/Plan Within goal AUC range. Will increase the dose slightly to improve the probability of achieving goal range. This dosing regimen is predicted by [employer] to result in the following pharmacokinetic parameters: AUC24,ss: 589 mg/L.hr Probability of AUC24 > 400: 94 % Ctrough,ss: 19.2 mg/L Probability of Ctrough,ss > 20: 46 % Probability of nephrotoxicity (Lodise GIANNA 2008): 16 % The next level will be obtained on 02/20/23 with am labs. May be obtained sooner if clinically indicated. Will continue to monitor renal function daily while on vancomycin and order serum creatinine at least every 48 hours if not already ordered. Follow for continued vancomycin needs, clinical response, and signs/symptoms of toxicity. Herbert Camarena PharmD Vancomycin Dosing by Pharmacy- INITIAL Jackson Hurt is a 82 y.o. year old male who Pharmacy has been consulted for vancomycin dosing for endocarditis/endovascular infection. Based on the patient's indication and renal status this patient will be dosed based on a goal AUC of 500-600. Renal function is currently stable. Visit Vitals BP 140/76 Pulse 78 Temp 36.1 C (97 F) Resp 20 Lab Results Component Value Date CREATININE 1.30 02/17/2023 CREATININE 1.30 02/16/2023 CREATININE 1.27 02/15/2023 CREATININE 1.26 06/18/2021 CREATININE 1.42 (H) 08/05/2019 CREATININE 1.25 02/12/2019 Patient weight is 93 kg Assessment/Plan Patient will not be given a loading dose. Will initiate vancomycin maintenance, 1,500 mg every 24 hours. This dosing regimen is predicted by [employer] to result in the following pharmacokinetic parameters: AUC24,ss: 567 mg/L.hr Probability of AUC24 > 400: 85 % Ctrough,ss: 17.6 mg/L Probability of Ctrough,ss > 20: 38 % Probability of nephrotoxicity (Lodise GIANNA 2008): 13 % Follow-up level will be ordered on 02/18/23 with am labs unless clinically indicated sooner. Will continue to monitor renal function daily while on vancomycin and order serum creatinine at least every 48 hours if not already ordered. Follow for continued vancomycin needs, clinical response, and signs/symptoms of toxicity. Herbert Camarena PharmD Jackson Hurt is a 82 y.o. male on day 1 of admission presenting with Bacteremia. Subjective No fevers or chills. Does have little cough. Objective Last Recorded Vitals BP 131/71 (BP Location: Right arm, Patient Position: Sitting) Pulse 72 Temp 36.4 C (97.5 F) (Temporal) Resp 20 Wt 93 kg (205 lb) SpO2 94% Intake/Output last 3 Shifts: Intake/Output Summary (Last 24 hours) at 02/17/2023 1214 Last data filed at 02/17/2023 1105 Gross per 24 hour Intake 300 ml Output -- Net 300 ml Admission Weight Weight: 93 kg (205 lb) (02/16/23 1254) Daily Weight 02/16/23 : 93 kg (205 lb) Image Results XR chest 2 views Narrative: Interpreted By: Himanshu Becerra, STUDY: XR CHEST 2 VIEWS; ; 02/16/2023 3:15 pm INDICATION: Signs/Symptoms:cough. COMPARISON: 02/15/2023 ACCESSION NUMBER(S): [id number] ORDERING CLINICIAN: YAHIR MILIAN FINDINGS: Post sternotomy. Redemonstration of right perihilar calcified lymph nodes. Lungs are otherwise clear. No infiltrates or pleural effusion. No congestive heart failure. Impression: No radiographic evidence of acute process. MACRO: None Signed by: Himanshu Becerra 02/16/2023 3:26 PM Dictation workstation: [id number] Physical Exam Vitals reviewed. Constitutional: Appearance: Normal appearance. HENT: Head: Normocephalic and atraumatic. Mouth/Throat: Mouth: Mucous membranes are moist. Eyes: Conjunctiva/sclera: Conjunctivae normal. Cardiovascular: Rate and Rhythm: Normal rate. Pulses: Normal pulses. Pulmonary: Effort: Pulmonary effort is normal. Breath sounds: Normal breath sounds. No wheezing. Abdominal: General: Abdomen is flat. There is no distension. Palpations: Abdomen is soft. Tenderness: There is no guarding. Musculoskeletal: General: No swelling. Normal range of motion. Skin: General: Skin is warm and dry. Neurological: General: No focal deficit present. Mental Status: He is alert. Mental status is at baseline. Psychiatric: Mood and Affect: Mood normal. Behavior: Behavior normal. Relevant Results Assessment/Plan Bacteremia Syncope Covid Called micro lab - 03/12 growing gram + Continue with vancomycin for now, and follow up cultures. Does not appear to be coag neg based on conversation If appears to be true bacteremia - will consult ID and consider echo as needed Mucinex/ tessalon for URI symptoms from covid Eating and drinking well - will stop IV fluids Discussed with patient and partner on phone and all updated DVT prophy with lovenox Full code Moose Pack MD documented in this encounter [facility] Work Phone: 02-16-2023 History and physical note History Of Present Illness Jackson Hurt is a 82 y.o. male with PMH CAD presented initially to ED yesterday with syncope. He was in bathroom and when he stood up he passed out completely. Partner got him and when squad got him up he passed out again. In ED yesterday, work up was benign other than Covid and patient was safely discharged home. However, today, lab called and his blood cultures from ED from 02/15/23 were positive from gram +. He was subsequently called back to ED for admisssion. Denies fevers chills, chest pains, sob, dysuria. Admits to some jock itch and taking OTC ointment for it recently, and it was very red before. Fam hx: Father prostate cancer Social hx: former smoker Past Medical History Past Medical History: Diagnosis Date Personal history of other diseases of the circulatory system History of coronary artery disease Surgical History History reviewed. No pertinent surgical history. Social History He has no history on file for tobacco use, alcohol use, and drug use. Family History No family history on file. Allergies Patient has no known allergies. Review of Systems Constitutional: Negative for chills and fever. HENT: Negative for rhinorrhea and sore throat. Respiratory: Negative for cough and shortness of breath. Cardiovascular: Negative for chest pain and palpitations. Gastrointestinal: Negative for constipation, diarrhea, nausea and vomiting. Genitourinary: Negative for dysuria and hematuria. Musculoskeletal: Negative for arthralgias and myalgias. Skin: Negative for rash and wound. Neurological: Negative for dizziness and syncope. Psychiatric/Behavioral: Negative for confusion and hallucinations. Physical Exam Vitals reviewed. Constitutional: Appearance: Normal appearance. HENT: Head: Normocephalic and atraumatic. Mouth/Throat: Mouth: Mucous membranes are moist. Eyes: Conjunctiva/sclera: Conjunctivae normal. Cardiovascular: Rate and Rhythm: Normal rate. Pulses: Normal pulses. Pulmonary: Effort: Pulmonary effort is normal. Breath sounds: Normal breath sounds. No wheezing. Abdominal: General: Abdomen is flat. There is no distension. Palpations: Abdomen is soft. Tenderness: There is no guarding. Genitourinary: Penis: Normal. Comments: Small erythema under testicles Musculoskeletal: General: No swelling. Normal range of motion. Skin: General: Skin is warm and dry. Neurological: General: No focal deficit present. Mental Status: He is alert. Mental status is at baseline. Psychiatric: Mood and Affect: Mood normal. Behavior: Behavior normal. Last Recorded Vitals Blood pressure 145/68, pulse 66, temperature 36.7 C (98.1 F), temperature source Tympanic, height 1.803 m (5' 11), weight 93 kg (205 lb), SpO2 94 %. Relevant Results Assessment/Plan Principal Problem: Bacteremia Active Problems: Flu-like symptoms Bacteremia Syncope Admit with broad spectrum abx. Cultures currently in EMR are not showing growth, but lab did call stating they were positive. Repeat cultures drawn and abx started. Skin as possible source? No significant erythema noted now, but will monitor for possible Earline's Symptom mgmt for covid Orthostatic hypotension likely source of syncope IV fluids and continue if poor oral intake Trend renal function and CBC DVT prophy with lovenox Full code Moose Pack MD [facility] Work Phone: 02-16-2023 History and physical note History Of Present Illness Jackson Hurt is a 82 y.o. male with PMH CAD presented initially to ED yesterday with syncope. He was in bathroom and when he stood up he passed out completely. Partner got him and when squad got him up he passed out again. In ED yesterday, work up was benign other than Covid and patient was safely discharged home. However, today, lab called and his blood cultures from ED from 02/15/23 were positive from gram +. He was subsequently called back to ED for admisssion. Denies fevers chills, chest pains, sob, dysuria. Admits to some jock itch and taking OTC ointment for it recently, and it was very red before. Fam hx: Father prostate cancer Social hx: former smoker Past Medical History Past Medical History: Diagnosis Date Personal history of other diseases of the circulatory system History of coronary artery disease Surgical History History reviewed. No pertinent surgical history. Social History He has no history on file for tobacco use, alcohol use, and drug use. Family History No family history on file. Allergies Patient has no known allergies. Review of Systems Constitutional: Negative for chills and fever. HENT: Negative for rhinorrhea and sore throat. Respiratory: Negative for cough and shortness of breath. Cardiovascular: Negative for chest pain and palpitations. Gastrointestinal: Negative for constipation, diarrhea, nausea and vomiting. Genitourinary: Negative for dysuria and hematuria. Musculoskeletal: Negative for arthralgias and myalgias. Skin: Negative for rash and wound. Neurological: Negative for dizziness and syncope. Psychiatric/Behavioral: Negative for confusion and hallucinations. Physical Exam Vitals reviewed. Constitutional: Appearance: Normal appearance. HENT: Head: Normocephalic and atraumatic. Mouth/Throat: Mouth: Mucous membranes are moist. Eyes: Conjunctiva/sclera: Conjunctivae normal. Cardiovascular: Rate and Rhythm: Normal rate. Pulses: Normal pulses. Pulmonary: Effort: Pulmonary effort is normal. Breath sounds: Normal breath sounds. No wheezing. Abdominal: General: Abdomen is flat. There is no distension. Palpations: Abdomen is soft. Tenderness: There is no guarding. Genitourinary: Penis: Normal. Comments: Small erythema under testicles Musculoskeletal: General: No swelling. Normal range of motion. Skin: General: Skin is warm and dry. Neurological: General: No focal deficit present. Mental Status: He is alert. Mental status is at baseline. Psychiatric: Mood and Affect: Mood normal. Behavior: Behavior normal. Last Recorded Vitals Blood pressure 145/68, pulse 66, temperature 36.7 C (98.1 F), temperature source Tympanic, height 1.803 m (5' 11), weight 93 kg (205 lb), SpO2 94 %. Relevant Results Assessment/Plan Principal Problem: Bacteremia Active Problems: Flu-like symptoms Bacteremia Syncope Admit with broad spectrum abx. Cultures currently in EMR are not showing growth, but lab did call stating they were positive. Repeat cultures drawn and abx started. Skin as possible source? No significant erythema noted now, but will monitor for possible Earline's Symptom mgmt for covid Orthostatic hypotension likely source of syncope IV fluids and continue if poor oral intake Trend renal function and CBC DVT prophy with lovenox Full code Moose Pack MD documented in this encounter [facility] Work Phone: 02-16-2023 Emergency department Note HPI Chief Complaint Patient presents with Blood Infection 82-year-old male who presents with positive blood cultures. Patient was seen here yesterday for syncope vomiting and diarrhea was diagnosed with COVID. Blood cultures were obtained yesterday and we got a call today that both cultures were positive for gram-positive cocci. Patient was called and instructed to come back to the emergency room. Patient states he has been feeling okay at home but still having some nausea and diarrhea. Denies any chest pain or shortness of breath. Denies any fevers. [place] Coma Scale Score: 15 Patient History Past Medical History: Diagnosis Date Personal history of other diseases of the circulatory system History of coronary artery disease No past surgical history on file. No family history on file. Social History Tobacco Use Smoking status: Not on file Smokeless tobacco: Not on file Substance Use Topics Alcohol use: Not on file Drug use: Not on file Physical Exam ED Triage Vitals [02/16/23 1254] Temp Heart Rate Resp BP 36.7 C (98.1 F) 66 -- 145/68 SpO2 Temp Source Heart Rate Source Patient Position 94 % Tympanic -- Sitting BP Location FiO2 (%) Right arm -- Physical Exam Constitutional: Appearance: Normal appearance. He is normal weight. HENT: Head: Normocephalic and atraumatic. Nose: Nose normal. Mouth/Throat: Mouth: Mucous membranes are moist. Pharynx: Oropharynx is clear. Eyes: Extraocular Movements: Extraocular movements intact. Conjunctiva/sclera: Conjunctivae normal. Pupils: Pupils are equal, round, and reactive to light. Cardiovascular: Rate and Rhythm: Normal rate and regular rhythm. Pulmonary: Effort: Pulmonary effort is normal. Breath sounds: Normal breath sounds. Abdominal: General: Abdomen is flat. Bowel sounds are normal. Palpations: Abdomen is soft. Musculoskeletal: General: Normal range of motion. Cervical back: Normal range of motion and neck supple. Skin: General: Skin is warm and dry. Capillary Refill: Capillary refill takes less than 2 seconds. Neurological: General: No focal deficit present. Mental Status: He is alert. Psychiatric: Mood and Affect: Mood normal. Behavior: Behavior normal. Thought Content: Thought content normal. Judgment: Judgment normal. Labs Reviewed CBC WITH AUTO DIFFERENTIAL - Abnormal Result Value WBC 5.6 nRBC 0.0 RBC 4.30 (*) Hemoglobin 14.0 Hematocrit 43.7 MCV 102 (*) MCH 32.6 MCHC 32.0 RDW 13.8 Platelets 141 (*) Neutrophils % 60.6 Immature Granulocytes %, Automated 0.4 Lymphocytes % 27.4 Monocytes % 9.1 Eosinophils % 1.8 Basophils % 0.7 Neutrophils Absolute 3.38 Immature Granulocytes Absolute, Automated 0.02 Lymphocytes Absolute 1.53 Monocytes Absolute 0.51 Eosinophils Absolute 0.10 Basophils Absolute 0.04 COMPREHENSIVE METABOLIC PANEL - Abnormal Glucose 94 Sodium 136 Potassium 4.3 Chloride 102 Bicarbonate 29 Anion Gap 9 (*) Urea Nitrogen 23 Creatinine 1.30 eGFR 55 (*) Calcium 9.3 Albumin 4.3 Alkaline Phosphatase 62 Total Protein 7.8 AST 25 Bilirubin, Total 0.6 ALT 24 MAGNESIUM - Normal Magnesium 2.00 COAGULATION SCREEN - Normal Protime 12.0 INR 1.1 aPTT 32 Narrative: The APTT is no longer used for monitoring Unfractionated Heparin Therapy. For monitoring Heparin Therapy, use the Heparin Assay. BLOOD CULTURE BLOOD CULTURE XR chest 2 views Final Result No radiographic evidence of acute process. MACRO: None Signed by: Himanshu Becerra 02/16/2023 3:26 PM Dictation workstation: [id number] ED Course & MDM Diagnoses as of 02/16/231827 Bacteremia Medical Decision Making Emergency department course, IV was established laboratory studies were obtained and reviewed which were unremarkable. Repeat blood blood cultures will be obtained. Chest x-ray shows no acute infiltrate or effusion. Patient will be covered with Zosyn and vancomycin. I did talk to the hospitalist Dr. Pack who is agreeable with admission. Procedure Procedures Kim Wilks DO 02/16/231827 Pt came into ed c/o of blood infection. Pt stated that doctors called him and notified him that there was an infection in his blood and to come right away. Pt states he has covid. This patient was seen and examined in triage HPI: Patient is a healthy nontoxic-appearing 82-year-old male with past medical history of first-degree AV block, abdominal pain, cardiac abnormality, chest congestion, conjunctivitis, flulike illness, influenza A, lumbar radiculitis, CABG, presents to the emergency room today for complaint of abnormal lab work. Patient states he received a phone call from primary care provider today informing him of abnormal bacterial growth and blood cultures and to go to the emergency room for possible admission. Patient states he was recently diagnosed with COVID-19 has been having some cough and shortness of breath however denies any headache pain, visual disturbances, numbness or tingling, chest pain, abdominal pain or nausea, vomiting, diarrhea or constipation. Patient states he has been feeling more fatigued and generalized weak Focused PE: Gen: Well-appearing, not in acute distress Cardiovascular: Regular rate, normal rhythm, no murmur, no gallop Respiratory: No adventitious lung sounds auscultated. Abdomen: No reproducible abdominal tenderness upon palpation, physical exam may be limited by patient positioning sitting up in a chair Neuro: Alert and Oriented, speech clear and coherent Plan: Previous evaluation was reviewed, lab work ordered from triage For the remainder the patient's work-up and ED course, please see the main ED provider note. We discussed need for diagnostic testing including lab studies and imaging. We also discussed that they may be asked to wait in the waiting room while these test are pending. They understand that if they choose to leave without having the testing completed or resulted that we cannot rule out acute life-threatening illnesses and the risks involved to lead to worsening condition, permanent disability or even . documented in this encounter [facility] Work Phone: 02-16-2023 Emergency department Triage note Pt came into ed c/o of blood infection. Pt stated that doctors called him and notified him that there was an infection in his blood and to come right away. Pt states he has covid. [facility] 02-16-2023 Emergency department Triage note This patient was seen and examined in triage HPI: Patient is a healthy nontoxic-appearing 82-year-old male with past medical history of first-degree AV block, abdominal pain, cardiac abnormality, chest congestion, conjunctivitis, flulike illness, influenza A, lumbar radiculitis, CABG, presents to the emergency room today for complaint of abnormal lab work. Patient states he received a phone call from primary care provider today informing him of abnormal bacterial growth and blood cultures and to go to the emergency room for possible admission. Patient states he was recently diagnosed with COVID-19 has been having some cough and shortness of breath however denies any headache pain, visual disturbances, numbness or tingling, chest pain, abdominal pain or nausea, vomiting, diarrhea or constipation. Patient states he has been feeling more fatigued and generalized weak Focused PE: Gen: Well-appearing, not in acute distress Cardiovascular: Regular rate, normal rhythm, no murmur, no gallop Respiratory: No adventitious lung sounds auscultated. Abdomen: No reproducible abdominal tenderness upon palpation, physical exam may be limited by patient positioning sitting up in a chair Neuro: Alert and Oriented, speech clear and coherent Plan: Previous evaluation was reviewed, lab work ordered from triage For the remainder the patient's work-up and ED course, please see the main ED provider note. We discussed need for diagnostic testing including lab studies and imaging. We also discussed that they may be asked to wait in the waiting room while these test are pending. They understand that if they choose to leave without having the testing completed or resulted that we cannot rule out acute life-threatening illnesses and the risks involved to lead to worsening condition, permanent disability or even . [facility] Work Phone: 02-16-2023 Physician Emergency department Note HPI Chief Complaint Patient presents with Blood Infection 82-year-old male who presents with positive blood cultures. Patient was seen here yesterday for syncope vomiting and diarrhea was diagnosed with COVID. Blood cultures were obtained yesterday and we got a call today that both cultures were positive for gram-positive cocci. Patient was called and instructed to come back to the emergency room. Patient states he has been feeling okay at home but still having some nausea and diarrhea. Denies any chest pain or shortness of breath. Denies any fevers. [place] Coma Scale Score: 15 Patient History Past Medical History: Diagnosis Date Personal history of other diseases of the circulatory system History of coronary artery disease No past surgical history on file. No family history on file. Social History Tobacco Use Smoking status: Not on file Smokeless tobacco: Not on file Substance Use Topics Alcohol use: Not on file Drug use: Not on file Physical Exam ED Triage Vitals [02/16/23 1254] Temp Heart Rate Resp BP 36.7 C (98.1 F) 66 -- 145/68 SpO2 Temp Source Heart Rate Source Patient Position 94 % Tympanic -- Sitting BP Location FiO2 (%) Right arm -- Physical Exam Constitutional: Appearance: Normal appearance. He is normal weight. HENT: Head: Normocephalic and atraumatic. Nose: Nose normal. Mouth/Throat: Mouth: Mucous membranes are moist. Pharynx: Oropharynx is clear. Eyes: Extraocular Movements: Extraocular movements intact. Conjunctiva/sclera: Conjunctivae normal. Pupils: Pupils are equal, round, and reactive to light. Cardiovascular: Rate and Rhythm: Normal rate and regular rhythm. Pulmonary: Effort: Pulmonary effort is normal. Breath sounds: Normal breath sounds. Abdominal: General: Abdomen is flat. Bowel sounds are normal. Palpations: Abdomen is soft. Musculoskeletal: General: Normal range of motion. Cervical back: Normal range of motion and neck supple. Skin: General: Skin is warm and dry. Capillary Refill: Capillary refill takes less than 2 seconds. Neurological: General: No focal deficit present. Mental Status: He is alert. Psychiatric: Mood and Affect: Mood normal. Behavior: Behavior normal. Thought Content: Thought content normal. Judgment: Judgment normal. Labs Reviewed CBC WITH AUTO DIFFERENTIAL - Abnormal Result Value WBC 5.6 nRBC 0.0 RBC 4.30 (*) Hemoglobin 14.0 Hematocrit 43.7 MCV 102 (*) MCH 32.6 MCHC 32.0 RDW 13.8 Platelets 141 (*) Neutrophils % 60.6 Immature Granulocytes %, Automated 0.4 Lymphocytes % 27.4 Monocytes % 9.1 Eosinophils % 1.8 Basophils % 0.7 Neutrophils Absolute 3.38 Immature Granulocytes Absolute, Automated 0.02 Lymphocytes Absolute 1.53 Monocytes Absolute 0.51 Eosinophils Absolute 0.10 Basophils Absolute 0.04 COMPREHENSIVE METABOLIC PANEL - Abnormal Glucose 94 Sodium 136 Potassium 4.3 Chloride 102 Bicarbonate 29 Anion Gap 9 (*) Urea Nitrogen 23 Creatinine 1.30 eGFR 55 (*) Calcium 9.3 Albumin 4.3 Alkaline Phosphatase 62 Total Protein 7.8 AST 25 Bilirubin, Total 0.6 ALT 24 MAGNESIUM - Normal Magnesium 2.00 COAGULATION SCREEN - Normal Protime 12.0 INR 1.1 aPTT 32 Narrative: The APTT is no longer used for monitoring Unfractionated Heparin Therapy. For monitoring Heparin Therapy, use the Heparin Assay. BLOOD CULTURE BLOOD CULTURE XR chest 2 views Final Result No radiographic evidence of acute process. MACRO: None Signed by: Himanshu Becerra 02/16/2023 3:26 PM Dictation workstation: [id number] ED Course & MDM Diagnoses as of 02/16/231827 Bacteremia Medical Decision Making Emergency department course, IV was established laboratory studies were obtained and reviewed which were unremarkable. Repeat blood blood cultures will be obtained. Chest x-ray shows no acute infiltrate or effusion. Patient will be covered with Zosyn and vancomycin. I did talk to the hospitalist Dr. Pack who is agreeable with admission. Procedure Procedures Kim Wilks DO 02/16/231827 [facility] Work Phone: 02-15-2023 Emergency department Note HPI Chief Complaint Patient presents with Syncope Pt sick for several days. [place] like throwing up. Pt was going to the restroom and became dizzy. Pt states next thing he knows he was on the floor. Pt denies any injury. While being helped to the EMS cot Pt had another syncopal episode lasting a few seconds. Pt is on blood thinner. 82-year-old male presents from home after a fall. He states that for the past 2 to 3 days he has been feeling ill. He has had generalized weakness, cough, and chest congestion. This morning upon standing, he felt lightheaded. As he made his way to the restroom, he began feeling dizzy, more lightheaded, and somewhat diaphoretic. The next thing he knew, he woke up on the floor on his back. He denies any specific injury at this time but he is on Eliquis and is possible that he struck his head during the fall. He believes that he may have had a brief syncopal event. His partner began feeling ill this morning as well. [place] Coma Scale Score: 15 Patient History Past Medical History: Diagnosis Date Personal history of other diseases of the circulatory system History of coronary artery disease No past surgical history on file. No family history on file. Social History Tobacco Use Smoking status: Not on file Smokeless tobacco: Not on file Substance Use Topics Alcohol use: Not on file Drug use: Not on file Physical Exam ED Triage Vitals [02/15/23 0703] Temp Heart Rate Resp BP 36 C (96.8 F) 63 16 111/58 SpO2 Temp Source Heart Rate Source Patient Position 94 % Temporal -- Sitting BP Location FiO2 (%) Left arm -- Physical Exam Vitals and nursing note reviewed. Constitutional: General: He is in acute distress. Appearance: He is well-developed. He is ill-appearing and toxic-appearing. HENT: Head: Normocephalic and atraumatic. Eyes: Conjunctiva/sclera: Conjunctivae normal. Cardiovascular: Rate and Rhythm: Normal rate and regular rhythm. Heart sounds: No murmur heard. Pulmonary: Effort: Pulmonary effort is normal. No respiratory distress. Breath sounds: Normal breath sounds. Abdominal: Palpations: Abdomen is soft. Tenderness: There is no abdominal tenderness. Musculoskeletal: General: No swelling. Cervical back: Neck supple. Skin: General: Skin is warm and dry. Capillary Refill: Capillary refill takes less than 2 seconds. Neurological: Mental Status: He is alert. Psychiatric: Mood and Affect: Mood normal. ED Course & MDM ED Course as of 02/15/23 1047 Jacqui Feb 15, 2023 0743 EKG interpreted by me. Sinus rhythm. Rate 65. No acute ischemic changes. No ST elevation. Normal QRS duration. [CD] 1045 He is positive for COVID. He is feeling much better now though. Chest x-ray clear. CT brain negative. CT neck reveals extensive DJD but he has no neck pain or weakness. His neurologic exam is normal. We discussed his overall risk profile. We considered admitting him to the hospital because he did have a syncopal event. He is not sure if he actually had a complete syncopal event and believes that he was just lightheaded with near syncope. He would much prefer to go home and has a strong support system. I explained return precautions at length and at this point he would prefer to be discharged home. He will come back if he is any worse. [CD] ED Course User Index [CD] Justin Stewart MD Diagnoses as of 02/15/23 1047 Near syncope COVID Medical Decision Making Procedure Procedures Justin Stewart MD 02/15/23 1048 Pt sick for several days. [place] like throwing up. Pt was going to the restroom and became dizzy. Pt states next thing he knows he was on the floor. Pt denies any injury. While being helped to the EMS cot Pt had another syncopal episode lasting a few seconds. Pt is on blood thinner. documented in this encounter [facility] Work Phone: 02-15-2023 Emergency department Triage note Pt sick for several days. [place] like throwing up. Pt was going to the restroom and became dizzy. Pt states next thing he knows he was on the floor. Pt denies any injury. While being helped to the EMS cot Pt had another syncopal episode lasting a few seconds. Pt is on blood thinner. [facility] Work Phone: 02-15-2023 Physician Emergency department Note HPI Chief Complaint Patient presents with Syncope Pt sick for several days. [place] like throwing up. Pt was going to the restroom and became dizzy. Pt states next thing he knows he was on the floor. Pt denies any injury. While being helped to the EMS cot Pt had another syncopal episode lasting a few seconds. Pt is on blood thinner. 82-year-old male presents from home after a fall. He states that for the past 2 to 3 days he has been feeling ill. He has had generalized weakness, cough, and chest congestion. This morning upon standing, he felt lightheaded. As he made his way to the restroom, he began feeling dizzy, more lightheaded, and somewhat diaphoretic. The next thing he knew, he woke up on the floor on his back. He denies any specific injury at this time but he is on Eliquis and is possible that he struck his head during the fall. He believes that he may have had a brief syncopal event. His partner began feeling ill this morning as well. [place] Coma Scale Score: 15 Patient History Past Medical History: Diagnosis Date Personal history of other diseases of the circulatory system History of coronary artery disease No past surgical history on file. No family history on file. Social History Tobacco Use Smoking status: Not on file Smokeless tobacco: Not on file Substance Use Topics Alcohol use: Not on file Drug use: Not on file Physical Exam ED Triage Vitals [02/15/23 0703] Temp Heart Rate Resp BP 36 C (96.8 F) 63 16 111/58 SpO2 Temp Source Heart Rate Source Patient Position 94 % Temporal -- Sitting BP Location FiO2 (%) Left arm -- Physical Exam Vitals and nursing note reviewed. Constitutional: General: He is in acute distress. Appearance: He is well-developed. He is ill-appearing and toxic-appearing. HENT: Head: Normocephalic and atraumatic. Eyes: Conjunctiva/sclera: Conjunctivae normal. Cardiovascular: Rate and Rhythm: Normal rate and regular rhythm. Heart sounds: No murmur heard. Pulmonary: Effort: Pulmonary effort is normal. No respiratory distress. Breath sounds: Normal breath sounds. Abdominal: Palpations: Abdomen is soft. Tenderness: There is no abdominal tenderness. Musculoskeletal: General: No swelling. Cervical back: Neck supple. Skin: General: Skin is warm and dry. Capillary Refill: Capillary refill takes less than 2 seconds. Neurological: Mental Status: He is alert. Psychiatric: Mood and Affect: Mood normal. ED Course & MDM ED Course as of 02/15/23 1047 Jacqui Feb 15, 2023 0743 EKG interpreted by me. Sinus rhythm. Rate 65. No acute ischemic changes. No ST elevation. Normal QRS duration. [CD] 1045 He is positive for COVID. He is feeling much better now though. Chest x-ray clear. CT brain negative. CT neck reveals extensive DJD but he has no neck pain or weakness. His neurologic exam is normal. We discussed his overall risk profile. We considered admitting him to the hospital because he did have a syncopal event. He is not sure if he actually had a complete syncopal event and believes that he was just lightheaded with near syncope. He would much prefer to go home and has a strong support system. I explained return precautions at length and at this point he would prefer to be discharged home. He will come back if he is any worse. [CD] ED Course User Index [CD] Justin Stewart MD Diagnoses as of 02/15/23 1047 Near syncope COVID Medical Decision Making Procedure Procedures Justin Stewart MD 02/15/23 1048 [facility] Work Phone: 08-08-2022 Miscellaneous Notes Patient Choice Patient Name: JACKSON HURT Date of : 1940 All Providers Sent Referral Name: [facility] Phone: [phone] Address: [address] [place] [address] Images from the original note were not included. Care Management Progress Note SPOKE WITH PT THIS MORNING, TIRED, DID NOT SLEEP MUCH LAST NIGHT. ORTHO REMOVED DRAINS THIS MORNING, HAVE SIGNED OFF. DISCUSSED PT RECOMMENDATIONS WITH HIM, HE IS AGREEABLE [facility]. WILL DW WITH [facility], ALSO NEEDS FWW. Discharge Milestones and Delays Expected Date/Time: 08/08/[address] discharge order Complete med reconciliation Case mgmt discharge readiness Clinical Stability Diagnsotic Workup Expected Discharge History Expected Date/Time Set By Reviewed At 08/08/2022 Greta Uriarte RN 08/08/2022 7:57 AM 08/08/2022 Greta Uriarte RN 08/07/2022 8:02 AM 08/07/2022 Sophie Menjivar MD 08/06/2022 5:00 AM 08/07/2022 Sophie Menjivar MD 08/05/2022 11:48 PM Length of Stay (Days): 3 GMLOS: 2.3 Problem: Knowledge Deficit Goal: Patient/family/caregiver demonstrates understanding of disease process, treatment plan, medications, and discharge instructions 08/08/2022430 by Mamadou Downs RN Outcome: Progressing 08/08/2022430 by Mamadou Downs RN Outcome: Progressing Problem: Potential for Compromised Skin Integrity Goal: Skin Integrity is Maintained or Improved 08/08/2022430 by Mamadou Downs RN Outcome: Progressing 08/08/2022430 by Mamadou Downs RN Outcome: Progressing Goal: Nutritional status is improving 08/08/2022430 by Mamadou Downs RN Outcome: Progressing 08/08/2022430 by Mamadou Downs RN Outcome: Progressing Problem: Urinary Incontinence Goal: Perineal skin integrity is maintained or improved 08/08/2022430 by Mamadou Downs RN Outcome: Progressing 08/08/2022430 by Mamadou Downs RN Outcome: Progressing Problem: Pain - Adult Goal: Verbalizes/displays adequate comfort level or baseline comfort level 08/08/2022430 by Mamadou Downs RN Outcome: Progressing 08/08/2022430 by Mamadou Downs RN Outcome: Progressing Problem: Safety - Adult Goal: Free from fall injury 08/08/2022430 by Mamadou Downs RN Outcome: Progressing 08/08/2022430 by Mamadou Downs RN Outcome: Progressing Problem: Discharge Planning Goal: Discharge to home or other facility with appropriate resources 08/08/2022430 by Mamadou Downs RN Outcome: Progressing 08/08/2022430 by Mamadou Downs RN Outcome: Progressing Problem: Chronic Conditions and Co-morbidities Goal: Patient's chronic conditions and co-morbidity symptoms are monitored and maintained or improved 08/08/2022430 by Mamadou Downs RN Outcome: Progressing 08/08/2022430 by Mamadou Downs RN Outcome: Progressing The patient is The patient's goals for the shift include Pain Management The clinical goals for the shift include Patient will remain safe and free from injury Over the shift, the patient did not make progress toward the following goals. Barriers to progression include . Recommendations to address these barriers include . The patient is The patient's goals for the shift include Pain Management The clinical goals for the shift include Patient will remain safe and free from injury Over the shift, the patient did not make progress toward the following goals. Barriers to progression include . Recommendations to address these barriers include . Care Managment Initial Assessment Date: 08/07/2022 Patient Name: Jackson Hurt : 1940 Patient Information Source of Information: Patient Cognition/Language: WFL - Within Functional Limits Permission given to speak with patient patient admitting representative/caregiver as indicated: No Confirmation of Payer with patient/family: Yes Payer Name: [facility]/OR : Yes Confirmation of Primary Care Physician: Confirmed PCP Name: DR ESQUIVEL Seen in last 2 years?: Yes Primary Caregiver: Self If assistance needed, confirmed caregiver ready, willing and able to care for patient at discharge: Confirmed with: Living Arrangements Current Residence: Condo Number of Floors 1 Number of Entry Steps: 4 Bed/Bath Levels: Facility: Facility Name: Plan to Return: Lives with: Friends Support Systems: Friends/neighbors Activities of Daily Living Ambulation: Independent Bathing/Dressing: Independent Elimination/Continence/Toileting : Independent Feeding: Independent Who Assists with Activities of Daily Living: Instrumental Activities of Daily Living Prescription Coverage: Yes Pharmacy Used: Medication Management: Independent Transportation/Shopping: Independent Transportation Mode: Car Needs Assistance with Transportation at Discharge: No Meal Preparation: Independent Laundry/Cleaning: Independent Finances/Bill Paying: Independent Communication: Independent Types of Care Services/Equipment Utilized Care Services: (NA) Dialysis Type: NA Durable Medical Equipment: (NA) Patient's Goal/Discharge Plan Patient expects to be discharged to: HOME Discharge Planning Actions: Continue to follow Patient's Choice Rights and [employer] and Collaborative Relationships Disclosed as Indicated for Post-Acute Care: Interdisciplinary Team Engagement: Social Work Referral for: Additional Information: SPOKE WITH PT, INTRODUCED SELF AND EXPLAINED ROLE. PT HERE WITH WEAKNESS, S/P BACK SURGERY LAST MONTH. CURRENTLY ON IV ANCEF Q 8 HR, HAS 2 DRAINS TO BULB SUCTION. PT/OT EVAL PENDING. ANTICIPATE DISCHARGE TO HOME. Greta Uriarte RN Problem: Knowledge Deficit Goal: Patient/family/caregiver demonstrates understanding of disease process, treatment plan, medications, and discharge instructions Outcome: Progressing Problem: Potential for Compromised Skin Integrity Goal: Skin Integrity is Maintained or Improved Outcome: Progressing Goal: Nutritional status is improving Outcome: Progressing Problem: Urinary Incontinence Goal: Perineal skin integrity is maintained or improved Outcome: Progressing Problem: Pain - Adult Goal: Verbalizes/displays adequate comfort level or baseline comfort level Outcome: Progressing Problem: Safety - Adult Goal: Free from fall injury Outcome: Progressing Problem: Discharge Planning Goal: Discharge to home or other facility with appropriate resources Outcome: Progressing Problem: Chronic Conditions and Co-morbidities Goal: Patient's chronic conditions and co-morbidity symptoms are monitored and maintained or improved Outcome: Progressing The patient is The patient's goals for the shift include Pain control The clinical goals for the shift include Pain decrease Over the shift, the patient did not make progress toward the following goals. Barriers to progression include . Recommendations to address these barriers include . Placed watch back on wrist from OR. Pt restful in pacu, wakes up and answers questions appropriately, pain tolerable, VSS, no apparent distress. Report called and in for transport. OPERATIVE NOTE Patient Name: Jackson Hurt : 1940 DATE OF PROCEDURE: 08-06-22 SURGEON: Lee Garcia DO PREOPERATIVE DIAGNOSES: status post lumbar decompression L3-5, fusion with instrumentation L4-5 07-21-22. Postoperative seroma vs hematoma with neural compression. POSTOPERATIVE DIAGNOSES: same PROCEDURE: exploration lumbar fusion, revision laminectomies L3, L4, L5, removal epidural hematoma and seroma, itrrigation and debridement lumbar spine wound, lumbar medium hemovac drain placement x2. INDICATION FOR PROCEDURE: postoperative pain, weakness, MRI positive epidural hematoma. DESCRIPTION OF PROCEDURE:: see detailed op note. This patient is an 81-year-old gentleman seen and evaluated at [facility] by the ER physicians and orthopedic resident staff. This patient describes postoperative relief of symptoms from surgical treatment for stenosis and spondylolisthesis 07/21/2022. However, over the last 48 hours she noted progressive pain and lower extremity sciatica with weakness of both lower extremities below the knees. His symptoms were progressive. MRI scanning demonstrated postoperative seroma versus hematoma with neural compression primarily L3-4 L4-5 at the levels of decompression. Operative plans were then undertaken based on symptoms and findings. Patient was informed of his condition as well as options for treatment. Surgical treatment was urged at this time. The patient's MRI scan was completed approximately 12:30 PM 08/06/2022. The patient was prepared for surgical treatment 2:30 PM 08/06/2022. Risk benefits alternatives potential complications of both operative and nonoperative treatment were discussed. The patient wishes to proceed accordingly. The patient was taken the operating room room 19 in [facility]. A satisfactory general anesthesia was established and oral endotracheal tube was placed by the anesthesia team. Bilateral lower extremity meta compression stockings were applied. A Hilliard catheter was inserted. The patient was then carefully turned into the prone position on standard Steve frame making sure to pad and protect the upper and lower extremities abdomen face cervical spine and axilla bilaterally. The patient was satisfactorily positioned and IV antibiotics were instituted. The patient then had his nava removed. The wound was completely healed approximated without any signs of infection irritation and inflammation or swelling. The lumbar wound was then prepped and draped in the normal sterile fashion utilizing Betadine prep. Verbal timeout was performed per [facility] protocol and all of which was agreed upon. The lumbar wound was then incised and the sutures removed. Subcutaneous and deeper fascial seroma was noted and evacuated. There is no sign of infection. Congealed hematoma was noted over the exposed lumbar epidural spaces and removed. The remaining lamina of L4 was completely excised with revision laminectomy. Revision laminectomies of L3 and L5 were subsequently performed therefore L3-L4-L5 revision laminectomies were performed. Revision partial facetectomy and direct nerve decompression L3-L4-L5 bilaterally were performed. The common dural sac and nerve roots were expanded and, dural sac was pulsatile. Minimal bleeding was noted. We then irrigated and debridement of the lumbar wound from subcutaneous tissue to deeper fascial layers muscular muscle and down to bone. The lumbar wound and fusion was then explored. The instrumentation at L4-5 was totally intact. Bone graft was noted laterally and intact. No sign of loosening hardware issues or inflammation was noted. The wound was then copiously irrigated with 6000 cc of antibiotic solution delivered through the pulse lavage. The wound was again inspected complete hemostasis was achieved. We placed a light covering of Surgiflo around the margins of the decompression. The wound was then inspected thoroughly. Valsalva maneuver was performed and there was no evidence of CSF drainage or leakage. The wound was then closed over a medium epidural Hemovac drain placed in the epidural space. Deeper Vicryl sutures #1 Vicryl were utilized to reapproximate the fascial tissues. A second medium Hemovac drain was placed in the subcutaneous region above the fascia. Oh and then 2-0 Vicryl sutures were utilized to reapproximate the more superficial tissues over 1 g of vancomycin powder placed into the wound in this region. [place] were then placed in the skin for closure following reapproximation with 2-0 Vicryl in the subcutaneous region. Xeroform and sterile dressings were then applied followed by Tegaderm dressing. 1 small suture was placed to anchor the drains in place. The patient was then returned back into the supine position having tolerated procedure well. Final diagnosis was epidural seroma versus hematoma. No complications were noted. The final needle sponge and instrument count was correct and verified by the nursing personnel at time of closure and at the conclusion of the procedures. The patient tolerated the procedure very well was transported to recovery room in stable condition without incident. The final estimate blood loss was less than 50 cc total. The patient was examined awake and alert in the recovery room found to be neurologically intact in upper and lower extremities. Date: 08/06/2022 Location: [facility] OR Name: Jackson Hurt DOB: 1940, Diagnosis Pre-op Diagnosis * Postoperative hematoma involving nervous system following nervous system procedure [G97.61] Post-op Diagnosis * Postoperative hematoma involving nervous system following nervous system procedure [G97.61] Procedures INCISION AND DRAINAGE DEEP ABSCESS POSTERIOR SPINE LUMBAR, SACRAL, OR LUMBOSACRAL [id number] - NC I&D DEEP ABSCESS PST SPINE LUMBAR SAC/LUMBOSAC Surgeons * Lee Garcia - Primary Procedure Summary Anesthesia: General ASA: III Estimated Blood Loss: 50 mL Drains: Closed/Suction Drain Inferior;Midline Back 10 Fr. (Active) Closed/Suction Drain Inferior;Right Back 10 Fr. (Active) Staff: Operations Systems Specialist: Susie Dale RN; Ernie Joyce RN Scrub Person: Melinda Alonzo Findings: hematoma in the deep epidural space, no evidence of infection. Complications: None; patient tolerated the procedure well. Specimens Collected: No specimens collected during this procedure. Wound Class: Class I: Clean Blood Products: None Prophylactic Antibiotics: Procedure appropriate prophylactic antibiotic(s) given within 1 hour of surgical incision (two hours if receiving Vancomycin or flouroquinolone) Postop plan: -No plan for return to OR at this time -Deep and superficial Hemovac drains. Pull when each less than 10 cc per shift -Hold Plavix and any other anticoagulant until drains out -Weight-bear as tolerated, no spine precautions -PT/OT -Ancef x24 hours -Pain control, medical management per primary -Okay for regular diet from orthopedic standpoint -Follow-up with Dr. Garcia in 2 weeks -Ortho to follow Problem: Pain - Adult Goal: Verbalizes/displays adequate comfort level or baseline comfort level Outcome: Progressing Flowsheets (Taken 08/06/2022 1054) Verbalizes/displays adequate comfort level or baseline comfort level: Encourage patient to monitor pain and request assistance Assess pain using appropriate pain scale Administer analgesics based on type and severity of pain and evaluate response Implement non-pharmacological measures as appropriate and evaluate response Problem: Safety - Adult Goal: Free from fall injury Outcome: Progressing Flowsheets (Taken 08/06/2022 1054) Free from fall injury: Instruct family/caregiver on patient safety Note: Side rails upx2, bed low, brakes on, call light in reach. The patient is Moderately Unstable - Medium risk of patient condition declining or worsening The patient's goals for the shift include pain control The clinical goals for the shift include pain control documented in this encounter [facility] 08-08-2022 Note Formatting of this n ote might be different from the original. Patient Choice Patient Name: JACKSON HURT Date of : 1940 All Providers Sent Referral Name: [facility] Phone: [phone] Address: [address] [place] [id number] [facility] 08-08-2022 Note Formatting of this n ote might be different from the original. Patient Choice Patient Name: JACKSON HURT Date of : 1940 All Providers Sent Referral Name: [facility] Phone: [phone] Address: [address] [place] [id number] [facility] 08-08-2022 Note Hospitalist Discharg e Summary - [facility] [employer] ([facility]) Jackson Hurt : 1940 Admit date: 08/05/2022 Discharge date: 08/08/2022 Admitting Physician: Shawna Cope MD Primary Care Physician: Tres Esquivel MD Hospital Course: Improved. Jackson is an 81 year old male with PMH of CAD s/p CABG 2005, CKD3A, HTN, and HLD who presented with post-op radicular pain. Pt Hx significant for recent L4-5 PSF + L3-S1 decompression on July 21. Lumbar MRI showed a compressive hematoma versus seroma with mass effect on the cauda equina at L3-L5. He was evaluated by Ortho and taken to the OR on 08/06/2022 for I&D. Drains removed 08/08/2022 and medically stable for discharge. Upon day of DC, his Cr was noted to be 1.26, however his baseline is 1.2-1.3. Stated he has had increasing nocturia and weak stream. Nursing bladder scanned him showing 200 ml. Will trial Flomax and he is to follow up with his PCP for further workup/refills. Ordered repeat BMP in 1 week Continue all home medications. Ortho stated he can re-start all anticoagulants when drain is removed. Discussed benefits vs. Risks with patient about re-starting and he accepts and agrees to start them. Discussed symptoms that he should return to ED for. All questions answered Discharge Diagnoses: #Post-op radicular pain #Hematoma likely related to recent surgery #Hematoma likely worsened by Plavix use -Ortho following, removed drains for dc #CKD 3A -Baseline Cr ~ 1.3 -Trend -Outpatient follow up #[facility] has been seen by Dr. Roper in past -Continue home Atenolol, Losartan #DVT Prophylaxis -SCDs Adult diet Regular Vitals: BP 125/66 (BP Location: Left arm, Patient Position: Lying) Pulse 67 Temp 37.1 ?C (98.8 ?F) (Temporal) Resp 18 Ht 5' 10.98 (1.803 m) Wt 205 lb 0.4 oz (93 kg) SpO2 96% BMI 28.61 kg/m? Pulse Ox: SpO2 Av % Min: 96 % Max: 96 % Supplemental O2: O2 Flow Rate (L/min): 2 L/min GENERAL: calm, no complaints CARDIOVASCULAR: no palpitations, regular RESPIRATORY: no rhonchi or crackles ABDOMEN: non-distended EXTREMITIES: moving spontaneously Recent Labs 08/05/22 1450 08/07/22 0037 08/08/22 0013 WBC 7.0 5.7 8.9 HGB 12.9* 11.2* 10.7* PLT 204 191 183 Recent Labs 08/05/22 1450 08/07/22 0037 08/08/22 0013 NA 137 135 135 K 4.8 4.7 4.0 CL 103 103 104 CO2 29 29 25 BUN 25* 24* 31* CREATININE 1.05 1.18 1.26* GLUCOSE 93 152* 105* Recent Labs 08/05/22 1450 AST 111* ALT 119* BILITOT 0.7 ALKPHOS 118 No results found for: TRIG, HDL, LDLCALC, CHOL No results found for: PHART, PO2ART, [id number] Recent Labs 08/06/22 1345 INR 1.1 No results for input(s): DDIMER in the last 72 hours. No results found for: HGBA1C No results found for: TSH Urine Culture: No results found for this or any previous visit. Imaging: ECG 12 lead Result Date: 08/07/2022 Sinus rhythm Prolonged NC interval Nonspecific IVCD with LAD Electronically Signed On 08-07-2022 11:11:38 EDT by Fausto Wellington XR chest 1 view Result Date: 08/06/2022 [facility] 1940 [id number] Exam Date/Time: 08/06/2022 13:56 Procedure: XR CHEST 1 VIEW Ordering Provider: MILLER STEVEN Reason For Exam: preprocedure Clinical History: preprocedure Comparison: None Technique: Single AP radiograph of the chest. Findings: Cardiomediastinal silhouette and pulmonary vasculature are within normal limits given limited inspiration. Calcified right mediastinal and hilar lymph nodes seen. Mild patchy opacity in the left costophrenic angle. The lungs and pleural spaces are otherwise clear. No sizable pneumothorax. Impression: Left basilar atelectasis or possible mild infiltrates. Report Dictated on Electronically Signed By: Philip Carvalho Electronically Signed Date/Time: 08/06/2022 1:44 PM EDT MR lumbar spine w and wo contrast Result Date: 08/06/2022 [facility]ACK[facility] 1940 [id number] Exam Date/Time: 08/06/2022 12:08 Procedure: MR LUMBAR SPINE W AND WO CONTRAST Ordering Provider: COPE THOMAS Reason For Exam: low back pain worsening and radiating down the bilateral legs , hx of surgery 2 weeks ago sent in by [id number] [facility] for MRI Examination: MRI lumbar spine Clinical Indication: low back pain worsening and radiating down the bilateral legs , hx of surgery 2 weeks ago sent in by [id number] [facility] for MRI Comparison: X-ray 08/05/2022 Findings: Multiplanar multisequence high field MRI images were obtained through the lumbar spine prior to and after 9 mL Gadavist intravenous gadolinium contrast. Five lumbar type vertebra are assumed for purposes of numbering on this examination. Transpedical screws and posterior fusion rods L4-L5 with laminectomy/laminotomy defect. There is some paraspinal muscular edema related (more content not included)... [facility] 08-08-2022 History of Present illness Narrative Occupational Therapy Facility/Department: Occupational Therapy Treatment NAME: Jackson Hurt : 1940 Date of Service: 08/08/2022 Discharge Recommendations: Home with Home health OT, Home with assist PRN Assessment Assessment: Fatigued today but progressing toward goals. Appears with good safety awareness. Per Secure Chat message, [facility] will order FWW for delivery to room. Suggest home with PRN assist and [facility] OT. Subjective Subjective Subjective: Pt in chair, awaiting discharge home today and eager for same. c/o incisional pain not too bad at this point. Patient Stated Goal: none stated Objective Grooming/Oral Hygiene Assistance Level: Supervision Skilled Clinical Factors: wash hands at sink LE Dressing Skilled Clinical Factors: don pants and slip on shoes with supv., pt declines donning socks, states likely will not wear at home and friend would be able to help with socks if needed, Toileting Assistance Level: Supervision Balance Standing Balance: Supervision (during dynamic tasks) Functional Mobility Functional Mobility Comments: Funct amb a few steps with CGA, no device. Then with FWW, CGA. To/from bathroom. Toilet Transfers Equipment Used: Grab bars Toilet Transfer: Supervision Shower Transfers Shower Transfers Comments: Reviewed shower transfer technique; pt has walk in shower with bench which he has never used. Suggest seated shower initially for purposes of energy conservation, as well as have someone present for initial shower transfers. Pt verbalizes understanding. Transfers Sit to stand: Modified independent (good technique and reports has been getting up on his own) Stand to sit: Supervision Plan Plan Comment: Cont OT per POC Safety Type of devices: Left in chair, Call light within reach AM-PAC Score AM-PAC Inpatient Daily Activity Raw Score: 23 ADL Inpatient CMS G-Code Modifier: CI Goals Encounter Problems Encounter Problems (Active) Balance Patient will maintain dynamic standing balance for 5-10 minutes with modified independence in order to demonstrate decreased risk of falling. (Progressing) Start: 08/07/22 Expected End: 09/04/22 Bathing Patient will utilize adaptive techniques to bathe body NH. (Not Addressed) Start: 08/07/22 Expected End: 09/04/22 Dressing Upper Extremities Patient will complete upper body dressing NH. (Not Addressed) Start: 08/07/22 Expected End: 09/04/22 Dressings Lower Extremities Patient will dress lower body NH. (Progressing) Start: 08/07/22 Expected End: 09/04/22 Toileting Patient will complete toileting tasks at standard toilet with modified independence. (Progressing) Start: 08/07/22 Expected End: 09/04/22 Education Therapy Time Individual Co-treatment Time In 1315 Time Out 1340 Minutes 25 Timed Code Treatment Minutes: (Funct--1; Self--1) KATE Orourke Orthopaedic Surgery Brief Progress note: Orthopaedic surgery to bedside to pull drain due to minimal output for previous shifts. Dressing over the drain site was removed. Drain was taken off of suction. If there was a stitch holding the drain in, the stitch for the drain was cut. The drain was then pulled without difficulty or resistant and came out in its entirety. There was no drainage from the site. The drain site was then dressed with 4x4 gauze and a tegaderm. The patient tolerated the procedure well and was left in stable condition with all concerns and questions addressed. Orthopaedic surgery to sign off. Patient OK for discharge from ortho perspective. Steven Glover MD PGY-1 Orthopaedic Surgery 08/08/2022 9:52 AM Hospitalist Progress Note - [facility] ([facility]) 08/08/2022 8:18 AM Subjective and Objective: Admit Date: 08/05/2022 PCP: Tres Esquivel MD Chief Complaint Patient presents with Leg Pain Patient c/o bilateral leg pain that radiates with movement. States pain starts in upper legs and radiates down lower legs. States had back operation 2 weeks ago and has had pain since then. States he does not have pain in the incision site. Was seen at [facility] and was told to come to the ED for evaluation. Adult diet Regular I/O last 3 completed shifts: In: 336 (3.6 mL/kg) [P.O.:320; I.V.:16 (0.2 mL/kg)] Out: 680 (7.3 mL/kg) [Urine:600 (0.2 mL/kg/hr); Drains:80] Weight: 93 kg @IODETAILS@ @[id number]@ Medications: acetaminophen, 650 mg, Oral, 3 times per day atenolol, 25 mg, Oral, Nightly buPROPion XL, 300 mg, Oral, Daily docusate sodium, 100 mg, Oral, BID losartan, 25 mg, Oral, Nightly Recent Labs 08/05/22 1450 08/07/22 0037 08/08/22 0013 WBC 7.0 5.7 8.9 HGB 12.9* 11.2* 10.7* PLT 204 191 183 Recent Labs 08/05/22 1450 08/07/22 0037 08/08/22 0013 NA 137 135 135 K 4.8 4.7 4.0 CL 103 103 104 CO2 29 29 25 BUN 25* 24* 31* CREATININE 1.05 1.18 1.26* GLUCOSE 93 152* 105* Recent Labs 08/05/22 1450 AST 111* ALT 119* BILITOT 0.7 ALKPHOS 118 No results found for: TRIG, HDL, LDLCALC, CHOL No results found for: PHART, PO2ART, [id number] Recent Labs 08/06/22 1345 INR 1.1 No results for input(s): CKTOTAL, CKMB, TROPONINI in the last 72 hours. No results for input(s): DDIMER in the last 72 hours. No results found for: HGBA1C No results found for: TSH Urine Culture: No results found for this or any previous visit. Objective: Vitals: BP 125/66 (BP Location: Left arm, Patient Position: Lying) Pulse 67 Temp 37.1 C (98.8 F) (Temporal) Resp 18 Ht 5' 10.98 (1.803 m) Wt 205 lb 0.4 oz (93 kg) SpO2 96% BMI 28.61 kg/m Pulse Ox: SpO2 Av % Min: 96 % Max: 96 % Supplemental O2: O2 Flow Rate (L/min): 2 L/min Internal Course: pt agreeable to dc today GENERAL: calm, no complaints CARDIOVASCULAR: no palpitations, regular RESPIRATORY: no rhonchi or crackles ABDOMEN: non-distended EXTREMITIES: moving spontaneously CHRONIC ANATOMY/TUBES/LINES: N/A Running Summary, Assessment, and Plan Jackson is an 81 year old male with PMH of CAD s/p CABG 2005, CKD3A, HTN, and HLD who presented with post-op radicular pain. Pt Hx significant for recent L4-5 PSF + L3-S1 decompression on July 21. Lumbar MRI showed a compressive hematoma versus seroma with mass effect on the cauda equina at L3-L5. He was evaluated by Ortho and taken to the OR on 08/06/2022 for I&D. Drains removed 08/08. Re-started home Aspirin and Plavix #Post-op radicular pain #CKD 3A -Baseline Cr ~ 1.3 #CAD [facility] has been seen by Dr. Roper in past -Continue home Atenolol, Losartan #DVT Prophylaxis -SCDs #Disposition: PT/OT, from home, TBD #Barriers to discharge: drains removed, pain controlled, likely DC next 24 hours Advance Directive: Full Code Emma Munoz DO Rounding Hospitalist Time Spent: 42 minutes Has at least of one of these; Number and Complexity of Problems Addressed at the Encounter: -1 or more chronic illnesses with exacerbation, progression, or side effects of treatment -2 or more stable, chronic illnesses -1 acute illness with systemic symptoms -1 acute, complicated injury Risk of Complications and/or Morbidity or Mortality of Patient Management: -Prescription drug management Orthopaedic Spine Progress Note Name: Jackson Hurt Date of : 1940 Age: 81 y.o. Admission Date/Time: 08/05/2022 5:58 PM Assessment: Jackson Hurt is a 81 y.o. male s/p L4-5 lami/PSF 07/21, I&D+rev lami 08/06 Plan: -No plan for return to OR at this time -Deep and superficial Hemovac drains. Pull when each less than 10 cc per shift Both drains have limited output this AM, will reach out to Dr. Garcia about pulling drains and dispo. Will drop updated progress note when drains are pulled. -Hold Plavix and any other anticoagulant until drains out -Weight-bear as tolerated, no spine precautions -PT/OT -Pain control, medical management per primary -Okay for regular diet from orthopedic standpoint -Follow-up with Dr. Garcia in 2 weeks -Ortho to follow for drain pull Subjective: Patient worked well with PT/OT yesterday, Feels his pain is almost entirely resolved. Able to be controlled with tylenol alone. Is hoping to go home today or tomorrow. Grateful for the care he has received. Tolerating diet, had a BM yesterday Objective Most Recent Vitals: Vitals: 08/06/22 1730 08/06/22 1758 08/07/22 0537 08/08/22 0524 BP: 132/70 (!) 157/80 122/62 125/66 BP Location: Left arm Left arm Left arm Patient Position: Lying Lying Lying Pulse: 72 83 66 67 Resp: 10 18 18 Temp: 36.1 C (96.9 F) 36.7 C (98 F) 37.1 C (98.8 F) TempSrc: Temporal Temporal Temporal SpO2: 97% 94% 96% 96% Weight: Height: Intake/Output last 24 hours: I/O last 3 completed shifts: In: 1680 (18.1 mL/kg) [P.O.:680; I.V.:1000 (10.8 mL/kg)] Out: 1380 (14.8 mL/kg) [Urine:1250 (0.4 mL/kg/hr); Drains:80; Blood:50] Weight: 93 kg No intake/output data recorded. Recent Labs 08/08/22 0013 WBC 8.9 HGB 10.7* HCT 31.6* MCV 98.1* Recent Labs 08/08/22 0013 NA 135 K 4.0 CL 104 CO2 25 Gen: No acute distress. Alert and oriented Neck: supple Chest: Normal respiratory effort. Unlabored breathing Heart:: Regular rate Abd: Soft, non-tender, non-distended Extremity: Lower Extremity Motor: HF Q TA EHL Peroneals GSC Right 5 5 5 5 5 5 Left 5 5 5 5 5 5 Lower extremity sensation to light touch: L2 L3 L4 L5 S1 Right Intact Intact Intact Intact Intact Left Intact Intact Intact Intact Intact Lower extremity pulses: DP PT Right 2+ 2+ Left 2+ 2+ Wound: Dressing with strikethrough on the Left side of bandage. Drains intact with scan SS output, too high to be pulled Physical Therapy Facility/Department: Physical Therapy Initial Evaluation NAME: Jackson Hurt : 1940 Date of Service: 08/07/2022 Discharge Recommendations: Home with assist PRN, Outpatient PT PT Equipment Recommendations Equipment Needed: Yes Mobility Devices: Walker Walker: Rolling Assessment Requires PT Follow-Up: Yes Assessment: PT eval completed and the pt presents with generalized weakness and limited endurance. POD #1 L4-L5 laminectomy revision. SBA with bed mobility, transfers, and ambulation using FWW. Overall good mobility and likely close to functional baseline. Anticipated home with outpt therapy upon disch Performance Deficits/Impairments: Decreased functional mobility , Decreased body mechanics, Decreased strength, Decreased endurance, Decreased balance, Increased pain Decision Making: Medium Complexity Activity Tolerance Activity Tolerance: Patient limited by fatigue, Patient limited by endurance Patient Diagnosis(es): The primary encounter diagnosis was Post-op pain. Diagnoses of Debility and Postoperative hematoma involving nervous system following nervous system procedure were also pertinent to this visit. has a past medical history of CAD (coronary artery disease) and Heart disease. has a past surgical history that includes Cardiac surgery; Coronary artery bypass graft; Appendectomy; Coronary angioplasty with stent; Cholecystectomy; and Tonsillectomy. Restrictions Restrictions/Precautions Restrictions/Precautions: Weight Bearing, Up as Tolerated (general diet) Required Braces or Orthoses?: Yes (LS corset when OOB) Lower Extremity Weight Bearing Restrictions Right Lower Extremity Weight Bearing: Weight Bearing As Tolerated Left Lower Extremity Weight Bearing: Weight Bearing As Tolerated Required Braces or Orthoses Spinal: Lumbar Corset Position Activity Restriction Other position/activity restrictions: per notes, no spine precautions. Vision/Hearing Vision: Impaired Vision Exceptions: Wears glasses for reading Hearing: Functional/adequate for paticipation in therapy Cognition/Orientation Overall Orientation Status: Within Normal Limits Subjective General Chart Reviewed: Yes Patient Assessed for Rehabilitation Services: Yes Family / Caregiver Present: No Diagnosis: debility, pain, s/p L4-L5 laminectomy 07/21 at [facility]. POD #1 revison sx due to excessive bleeding. Follows Commands: Within Functional Limits Subjective Subjective: Pt lying upright in bed. Pleasant and agreeable to therapy. Stated he feels his SWATHI drains were pulled too soon after first surgery, causing high level of bleeding at home Patient Stated Goal: go home Pain Assessment Pain Assessment: (mild LBP with mobility. No number provided) Social/Functional History Social/Functional History Lives With: Other (comment) (partner) Type of Home: House Home Layout: One level, Able to Live on Main level with bedroom/bathroom Home Access: Stairs to enter with rails Entrance Stairs - Number of Steps: 4 Entrance Stairs - Rails: Right Bathroom Accessibility: Accessible Home Equipment: (standard walker, shower seat) Receives Help From: Family ADL Assistance: Independent Homemaking Assistance: Independent Homemaking Responsibilities: Yes Ambulation Assistance: Independent Transfer Assistance: Independent Active Design Draftsman: Yes Mode of Transportation: Car Occupation: Retired Additional Comments: per pt, still mostly independent with ADLs. Has standard walker at home, but typically does not use. Recent spine surgery with persistent bleeding post op, causing revison /. Did fall in ER due to high level of pain medication and attempting to get up to bathroom alone. Objective Observation/Palpation Posture: Fair Observation: 1L O2 via NC, well healing surgical incision sight, +SWATHI drains x2, +IV, +telesitter AROM RLE (degrees) RLE AROM: WFL AROM LLE (degrees) LLE AROM : WFL Strength RLE Strength RLE: (grossly 4-/5 throughout) Strength LLE Strength LLE: (grossly 4-/5 throughout) Sensation Overall Sensation Status: Intact Bed mobility Supine to Sit: Stand by assistance Scooting: Stand by assistance Comment: use of bedrail to help scoot to EOB. Transfers Sit to Stand: Stand by assistance Stand to sit: Stand by assistance Comment: x2 trials. Once from EOB, second off toilet in bathroom. Ambulation Ambulation: Yes Ambulation 1 Surface 1: Level tile Device 1: Rolling walker Assistance 1: Close supervision Quality of Gait 1: step to pattern, slow sandor Distance (ft) 1: 65' Comments 1: able to walk and hold conversation without issues. Brief cues for FWW use vs previous standard walker use Balance Posture: Fair Sitting - Static: Good Sitting - Dynamic: Good Standing - Static: Fair, + Standing - Dynamic: Fair Comments: static standing to wash hands at sink with no LOB noted. RN also re-adjusting SWATHI drain while pt seated on toilet Plan Times per Week: 3-5x/wk Plan Weeks: 4 wks Current Treatment Recommendations: Strengthening, ROM, Balance Training, Functional Mobility Training, Transfer Training, Endurance Training, Gait Training, Home Exercise Program, Stair training, Positioning Safety Safety Devices Safety Devices in Place: Yes Type of Devices: All fall risk precautions in place, Call light within reach, Gait belt, Left in chair, Nurse notified, Video Monitor Restraints Restraints Initially in Place: No AM-PAC Score AM-PAC Inpatient Mobility Raw Score (No Stairs) : 15 Goals Encounter Problems Encounter Problems (Active) Mobility Patient will ambulate 125 feet with supervision and least restrictive device in order to improve safety and independence with mobility. Start: 08/07/22 Expected End: 09/04/22 Patient will ascend and descend 4 stairs with supervision in order to safely negotiate home. Start: 08/07/22 Expected End: 09/04/22 Pain - Adult Transfers Patient will perform bed mobility with supervision in order to improve independence and prepare for out of bed mobility. Start: 08/07/22 Expected End: 09/04/22 Patient will complete functional transfer with supervision in order to prepare for ambulation. Start: 08/07/22 Expected End: 09/04/22 Education Education Given To: Patient Education Provided: Goals, PT Role, Plan of Care Education Method: Verbal Barriers to Learning: None Therapy Time Individual Co-treatment Time In 1032 Time Out 1041 Minutes 9 Patient s Physical Therapy Plan of Care supervision is transferred to [facility] Rehab Department Physical Therapist. Lilly Arroyo PT Nutrition rescreen completed. Chart reviewed. Patient to be monitored and followed by the diet restorative care technician. Occupational Therapy Facility/Department: Occupational Therapy Initial Evaluation NAME: Jackson Hurt : 1940 Date of Service: 08/07/2022 Discharge Recommendations: Home with Home health OT, Home with assist PRN OT Equipment Recommendations Equipment Needed: No Assessment REQUIRES OT FOLLOW-UP: Yes Performance deficits / Impairments: Decreased functional mobility , Decreased safe awareness, Decreased balance, Decreased posture, Decreased ADL status, Decreased endurance, Decreased strength Assessment: Patient is an 81-year-old s/p L4-5 lami/PSF on 07/21 with I&D and revision lami on 08/06. Patient is functionally independent at baseline with self-care tasks and functional mobility. Patient is limited by the above noted deficits. Patient is SBA for UB ADLs, min A for LB ADLs and CGA for toileting. Patient is SBA for ambulation. Recommending home with assist PRN and HHC OT. Prognosis: Good Decision Making: Medium Complexity Activity Tolerance Activity Tolerance: Patient Tolerated treatment well Patient Diagnosis(es): The primary encounter diagnosis was Post-op pain. Diagnoses of Debility and Postoperative hematoma involving nervous system following nervous system procedure were also pertinent to this visit. has a past medical history of CAD (coronary artery disease) and Heart disease. has a past surgical history that includes Cardiac surgery; Coronary artery bypass graft; Appendectomy; Coronary angioplasty with stent; Cholecystectomy; and Tonsillectomy. Restrictions Restrictions/Precautions Restrictions/Precautions: Weight Bearing, Up as Tolerated, Fall Risk, General Precautions Required Braces or Orthoses?: Yes Lower Extremity Weight Bearing Restrictions Right Lower Extremity Weight Bearing: Weight Bearing As Tolerated Left Lower Extremity Weight Bearing: Weight Bearing As Tolerated Required Braces or Orthoses Spinal: Lumbar Corset Position Activity Restriction Other position/activity restrictions: PIV, SWATHI drains x 2, no spinal precautions per chart Vision/Hearing Vision: Impaired Vision Exceptions: Wears glasses for reading Hearing: Functional/adequate for paticipation in therapy Cognition/Orientation Overall Cognitive Status: WFL Overall Orientation Status: Within Functional Limits Subjective General Chart Reviewed: Yes Patient Assessed for Rehabilitation Services: Yes Family / Caregiver Present: No Diagnosis: post-op pain Subjective Subjective: Patient is supine in bed; patient agreeable to therapy evaluation. RN ok'd for participation. Patient Stated Goal: to get stronger Social/Functional History Social/Functional History Lives With: (partner) Type of Home: House Home Layout: One level, Able to Live on Main level with bedroom/bathroom Home Access: Stairs to enter with rails Entrance Stairs - Number of Steps: 4 Entrance Stairs - Rails: Right Bathroom Accessibility: Accessible Home Equipment: (standard walker, shower seat) Receives Help From: Family ADL Assistance: Independent Homemaking Assistance: Independent Homemaking Responsibilities: Yes Ambulation Assistance: Independent Transfer Assistance: Independent Active Design Draftsman: Yes Mode of Transportation: Car Occupation: Retired Additional Comments: Patient is independent with ADLs mostly s/p recent spine surgery. Has a felting machine operator helper at home. Patient also has a standard walker that he doesn't regularly use. Objective Gross Assessment: Yes AROM: Within functional limits Strength: Generally decreased, functional (BUE strength: 3+/5) Coordination: Within functional limits Tone: Normal Sensation: Intact Observation/Palpation Posture: Fair Balance Sitting Balance: Supervision Standing Balance: Stand by assistance Functional Mobility Functional - Mobility Device: Rolling Walker Activity: To/from bathroom Assist Level: Stand by assistance Toilet Transfers Toilet - Technique: Ambulating Toilet Transfer: Stand by assistance ADL Feeding: Independent Grooming: Supervision (washing hands standing at sink) UE Bathing: Stand by assistance LE Bathing: Minimal assistance UE Dressing: Stand by assistance LE Dressing: Minimal assistance Toileting: Contact guard assistance Tone RUE RUE Tone: Normotonic Tone LUE LUE Tone: Normotonic Coordination Movements Are Fluid And Coordinated: Yes Bed mobility Supine to Sit: Stand by assistance Scooting: Stand by assistance Comment: HOB elevated; use of bed rail. Increased time for completion. Patient with FAIR+ sitting balance. Transfers Sit to stand: Stand by assistance Stand to sit: Stand by assistance Transfer Comments: Patient is SBA for transfers from EOB with FWW; cueing for safety at times. Patient with FAIR standing balance. Perception Overall Perceptual Status: WFL Sensation Overall Sensation Status: Intact LUE AROM (degrees) LUE AROM : WFL LUE General AROM: grossly intact in all available planes RUE AROM (degrees) RUE AROM : WFL RUE General AROM: grossly intact in all available planes LUE Strength Gross LUE Strength: WNL (3+/5) RUE Strength Gross RUE Strength: WNL (3+/5) Plan Times per Week: 5-7 Plan Weeks: 4 weeks Current Treatment Recommendations: Strengthening, Pain Management, Positioning, Safety Education & Training, Gait Training, Balance Training, Patient/Caregiver Education & Training, Self-Care / ADL, Home Management Training, Equipment Evaluation, Education, & procurement, Functional Mobility Training, Endurance Training Safety Safety Devices in place: Yes Type of devices: Nurse notified, Gait belt, Call light within reach, Left in chair Restraints Initially in place: No AM-PAC Score AM-PAC Inpatient Daily Activity Raw Score: 21 ADL Inpatient CMS G-Code Modifier: CJ Goals Encounter Problems Encounter Problems (Active) Balance Patient will maintain dynamic standing balance for 5-10 minutes with modified independence in order to demonstrate decreased risk of falling. Start: 08/07/22 Expected End: 09/04/22 Bathing Patient will utilize adaptive techniques to bathe body NH. Start: 08/07/22 Expected End: 09/04/22 Dressing Upper Extremities Patient will complete upper body dressing NH. Start: 08/07/22 Expected End: 09/04/22 Dressings Lower Extremities Patient will dress lower body NH. Start: 08/07/22 Expected End: 09/04/22 Toileting Patient will complete toileting tasks at standard toilet with modified independence. Start: 08/07/22 Expected End: 09/04/22 Education Education Given To: Patient Education Provided: OT role, Plan of care Education Method: Verbal Barriers to Learning: None Education Outcome: Verbalized understanding Therapy Time Individual Co-treatment Time In 1023 Time Out 1032 Minutes 9 Goals and/or treatment plan was established in collaboration with patient/family/other representatives. Patient's Occupational Therapy Plan of Care supervision is transferred to [facility] Occupational Therapist. This provider wore surgical mask and gloves during entire treatment session. María Carrasco MS, OTR/L Hospitalist Progress Note - [facility] ([facility]) 08/07/2022 7:29 AM Subjective and Objective: Admit Date: 08/05/2022 PCP: Tres Esquivel MD Chief Complaint Patient presents with Leg Pain Patient c/o bilateral leg pain that radiates with movement. States pain starts in upper legs and radiates down lower legs. States had back operation 2 weeks ago and has had pain since then. States he does not have pain in the incision site. Was seen at [facility] and was told to come to the ED for evaluation. Adult diet Regular I/O last 3 completed shifts: In: 1360 (14.6 mL/kg) [P.O.:360; I.V.:1000 (10.8 mL/kg)] Out: 980 (10.5 mL/kg) [Urine:850 (0.3 mL/kg/hr); Drains:80; Blood:50] Weight: 93 kg @IODETAILS@ @[email or web address]@ Medications: acetaminophen, 650 mg, Oral, 3 times per day atenolol, 25 mg, Oral, Daily bisacodyl, 5 mg, Oral, Once buPROPion XL, 300 mg, Oral, Daily ceFAZolin, 2,000 mg, IntraVENous, q8h docusate sodium, 100 mg, Oral, BID losartan, 25 mg, Oral, Daily Recent Labs 08/05/22 1450 08/07/22 0037 WBC 7.0 5.7 HGB 12.9* 11.2* PLT 204 191 Recent Labs 08/05/22 1450 08/07/22 0037 NA 137 135 K 4.8 4.7 CL 103 103 CO2 29 29 BUN 25* 24* CREATININE 1.05 1.18 GLUCOSE 93 152* Recent Labs 08/05/22 1450 AST 111* ALT 119* BILITOT 0.7 ALKPHOS 118 No results found for: TRIG, HDL, LDLCALC, CHOL No results found for: PHART, PO2ART, DYH9ATS Recent Labs 08/06/22 1345 INR 1.1 No results for input(s): CKTOTAL, CKMB, TROPONINI in the last 72 hours. No results for input(s): DDIMER in the last 72 hours. No results found for: HGBA1C No results found for: TSH Urine Culture: No results found for this or any previous visit. Objective: Vitals: BP 122/62 (BP Location: Left arm, Patient Position: Lying) Pulse 66 Temp 36.7 C (98 F) (Temporal) Resp 18 Ht 5' 10.98 (1.803 m) Wt 205 lb 0.4 oz (93 kg) SpO2 96% BMI 28.61 kg/m Pulse Ox: SpO2 Av.4 % Min: 90 % Max: 98 % Supplemental O2: O2 Flow Rate (L/min): 2 L/min Internal Course: no complaints, feeling well, drains in place GENERAL: alert and oriented, no acute distress CARDIOVASCULAR: RRR, no murmurs RESPIRATORY: clear without wheezes ABDOMEN: soft, non tender EXTREMITIES: no edema CHRONIC ANATOMY/TUBES/LINES: N/A Running Summary, Assessment, and Plan Jackson is an 81 year old male with PMH of CAD s/p CABG 2005, HTN, and HLD who presented with post-op radicular pain. Pt Hx significant for recent L4-5 PSF + L3-S1 decompression on July 21. Lumbar MRI showed a compressive hematoma versus seroma with mass effect on the cauda equina at L3-L5. He was evaluated by Ortho and taken to the OR on 08/06/2022 for I&D. Plavix is being help until drains are removed. #Post-op radicular pain -Ortho following -Ancef x 24 hours only #CAD s/p CABG -Holding Plavix until drains are out [facility] Dr. Roper in past -Continue home Losartan, Atenolol #DVT Prophylaxis -SCDs #Disposition: PT/OT, from home, TBD #Barriers to discharge: drains removed, pain controlled Advance Directive: Full Code Emma Munoz DO Rounding Hospitalist Time Spent: 39 minutes Has at least of one of these; Number and Complexity of Problems Addressed at the Encounter: -1 or more chronic illnesses with exacerbation, progression, or side effects of treatment -2 or more stable, chronic illnesses -1 acute illness with systemic symptoms -1 acute, complicated injury Risk of Complications and/or Morbidity or Mortality of Patient Management: -Prescription drug management Orthopaedic Spine Progress Note Name: Jackson Hurt Date of : 1940 Age: 81 y.o. Admission Date/Time: 08/05/2022 5:58 PM Assessment: Jackson Hurt is a 81 y.o. male s/p L4-5 lami/PSF 07/21, I&D+rev lami 08/06 Plan: -No plan for return to OR at this time -Deep and superficial Hemovac drains. Pull when each less than 10 cc per shift -Hold Plavix and any other anticoagulant until drains out -Weight-bear as tolerated, no spine precautions -PT/OT -Ancef x24 hours -Pain control, medical management per primary -Okay for regular diet from orthopedic standpoint -Follow-up with Dr. Garcia in 2 weeks -Ortho to follow Subjective: Patient is feeling 80% better overall and is thrilled to be feeling more normal. No new issues with bowel or bladder. Has almost zero of the pain he was feeling pre-op, but has not gotten up to stand yet. No new numbness/tingling/shooting pains Objective Most Recent Vitals: Vitals: 08/06/22 1715 08/06/22 1730 08/06/22 1758 08/07/22 0537 BP: 124/69 132/70 (!) 157/80 122/62 BP Location: Left arm Left arm Patient Position: Lying Lying Pulse: 75 72 83 66 Resp: 12 10 14 18 Temp: 36.1 C (96.9 F) 36.7 C (98 F) TempSrc: Temporal Temporal SpO2: 96% 97% 94% 96% Weight: Height: Intake/Output last 24 hours: I/O last 3 completed shifts: In: 1360 (14.6 mL/kg) [P.O.:360; I.V.:1000 (10.8 mL/kg)] Out: 980 (10.5 mL/kg) [Urine:850 (0.3 mL/kg/hr); Drains:80; Blood:50] Weight: 93 kg No intake/output data recorded. Recent Labs 08/07/2236 WBC 5.7 HGB 11.2* HCT 33.4* MCV 100.7* Recent Labs 08/07/2236 NA 135 K 4.7 CL 103 CO2 29 Gen: No acute distress. Alert and oriented Neck: supple Chest: Normal respiratory effort. Unlabored breathing Heart:: Regular rate Abd: Soft, non-tender, non-distended Extremity: Lower Extremity Motor: HF Q TA EHL Peroneals GSC Right 5 5 5 5 5 5 Left 5 5 5 5 5 5 Lower extremity sensation to light touch: L2 L3 L4 L5 S1 Right Intact Intact Intact Intact Intact Left Intact Intact Intact Intact Intact Lower extremity pulses: DP PT Right 2+ 2+ Left 2+ 2+ Wound: Dressing CDI. No evidence of hematoma. Drains intact with SS output, too high to be pulled Orthospine plan of care update: MRI lumbar spine reviewed and discussed with Dr. Garcia. Patient has a compressive hematoma versus seroma with mass effect on the cauda equina at L3-L5. We will plan for lumbar spine I&D today. Keep patient n.p.o. and hold anticoagulants. We will discuss findings with patient and consent for the above procedure. Ortho to follow Jase Stanley MD Orthopaedic Surgery, PGY3 [facility] [phone] Hospitalist Progress Note 08/06/2022 11:30 AM Subjective: Admit Date: 08/05/2022 PCP: rTes Esquivel MD Jackson is a 81 y.o. male with past medical history below who presents with chief complaint listed above. Pt Hx significant for recent L4-5 PSF + L3-S1 decompression on July 21. Since returning home Pt has had worsening sharp, burning pain in lower back, glutes and thighs, Denies saddle anesthesia or bowel/bladder incontinence. Pt evaluated by Orthopedic specialty in ED - plan is for further MRI to determine further management. Will admit for further evaluation. - XR Lumbar spine Posterolateral fusion L4-L5. Right upper quadrant surgical clips noted. Posterior skin clips from recent lumbar surgery. 2. Mild degenerative changes involving the SI joints. 3. Mild disc space narrowing no three four. No acute fracture seen. Interval History: pt awake Still with pain when ambulating No overnight issues. Denies chest pain, NPO diet NPO except: Sips of Water with Meds @[email or web address]@ @[email or web address]@ Medications: Recent Labs 08/05/22 1450 WBC 7.0 HGB 12.9* PLT 204 Recent Labs 08/05/22 1450 NA 137 K 4.8 CL 103 CO2 29 BUN 25* CREATININE 1.05 GLUCOSE 93 Recent Labs 08/05/22 1450 AST 111* ALT 119* BILITOT 0.7 ALKPHOS 118 No results found for: TRIG, HDL, LDLCALC, CHOL No results for input(s): INR in the last 72 hours. No results for input(s): CKTOTAL, CKMB, TROPONINI in the last 72 hours. Objective: Vitals: BP 132/78 (BP Location: Right arm, Patient Position: Lying) Pulse 73 Temp 36.1 C (97 F) (Temporal) Resp 14 Ht 5' 10.98 (1.803 m) Wt 205 lb 0.4 oz (93 kg) SpO2 94% BMI 28.61 kg/m Pulse Ox: SpO2 Av.3 % Min: 94 % Max: 100 % Supplemental O2: O2 Flow Rate (L/min): 2 L/min General appearance: Alert and cooperative with exam Lungs: clear to auscultation bilaterally Heart: regular rate and rhythm, S1, S2 normal, no murmur, click, rub or gallop Abdomen: soft, non-tender; bowel sounds normal; no masses, no organomegaly Extremities: extremities normal, atraumatic, no cyanosis or edema Incision noted on spine Neurologic: No obvious focal neurologic deficits. Assessment Principal Problem: Post-op pain Active Problems: History of coronary artery bypass surgery Plan MRI if pt can tolerate Following with spine service PT/OT Cont supportive care and pain control See orders, continue POC Advance Directive: Full Code David Miller MD, Rounding Hospitalist Please screen this patient for MRI ty documented in this encounter [facility] 08-08-2022 Note Start PACC Note Home Health Referral Educated patient on Home Care and services available. Patient offered choice of available HHC and agreeable to PT services with [facility] at Home - Home Care. Care Types: None Isolation Precautions: No active isolations Social Determinates of Health: Tobacco Use: Medium Risk (08/07/2022) Patient History Smoking Tobacco Use: Former Smokeless Tobacco Use: Unknown Passive Exposure: Not on file Social History Substance and Sexual Activity Alcohol Use Yes Alcohol/week: 1.0 standard drink of alcohol Social History Substance and Sexual Activity Drug Use No Does the patient have any financial resource strain? No Does the patient have any food insecurities? No Does the patient have any housing instabilities? No If any of the above is noted as yes - consider a BIOLOGY SPECIMEN TECHNICIAN evaluation once the patient returns home. START PATIENT REGISTRATION INFORMATION Order Information Order Signing Physician: Emma Munoz, DO Service Ordered RN ?: No Service Ordered PT ?: Yes Service Ordered OT ?: No Service Ordered ST ?: No Service Ordered BIOLOGY SPECIMEN TECHNICIAN?:No Service Ordered CRYSTAL EVALUATOR?: No Following Physician: Tres Esquivel MD Following Physician Overseeing Physician: Tres Esquivel MD (Required for Residents only) Agreeable to Follow? Yes Date/Time of Call 08/09/2022 at 1351, Spoke with: Evelia Care Coordination Same Day SOC?: No Primary Care Physician: Tres Esquivel MD Primary Care Physician Primary Care Physician Address: [address] [facility] [id number] Visit Instructions: N/A Service Discharge Location Type: Home with Home Health Care Service Facility Name: N/A Service Floor Facility: N/A Service Room No: N/A Demographics Patient Last Name: Billy Patient First Name: Jackson Language/Communication Barrier: None Service Address: [address] [place] [address] City: [place] Service ST: [place] Service ZIP: [address] Service (home) Other phone numbers: No relevant phone numbers on file. Emergency Contact: Extended Emergency Contact Information Primary Emergency Contact: Juan Diego Dominguez Mobile Relation: Friend Admission Information Admit Date: 08/05/2022 Patient status at discharge: Inpatient Admitting Diagnosis Debility [R53.81] Post-op pain [G89.18] Caregiver Information Caregiver First Name: Juan Diego Caregiver Last Name: Alberto Caregiver Relationship to Patient Friend Caregiver Caregiver Notes: N/A HITECH [employer] List HIGHTECH: HI TECH - WOUND CARE Orders: Incision Midline Lower Back: If wound is leaking reapply dressing. If wound is dry leave open to air. Wound following physician: Dr. Dusty Waite Last time wound care completed?: 08/08/2022 Supplies sent home?: Yes How many days are covered with supplies?: 7 Days Teachable Caregiver Teachable Caregiver First Name: Juan Diego Teachable Caregiver Last Name: Alberto Teachable Caregiver Relationship to Patient: Friend/Neighbor Teachable Caregiver Teachable Caregiver Notes: N/A Teachable Caregiver available for SOC visit?: Yes Teachable Caregiver agreeable to provide skilled HITECH care per physician's orders?: Yes END PATIENT REGISTRATION INFORMATION Pt Home Health goal Get home and get stronger. COVID Status 1. Do you have any upper respiratory symptoms (cough, SOB, Fever)? No 2. Have you been exposed to anyone with COVID-19 Virus? No Answer only if pending or positive for COVID-19? 1. Agreeable to wear PPE at each visit? Yes 2. Is the hospital supplying them with PPE upon Discharge? No Start PACC Summary General Report/ Additional Comments The patient was admitted on 08/06 for lumbar surgery. During the hospitalization the patient received a lumbar decompression L3-5, fusion with instrumentation L4-5 07-21-22. PT evaluated the patient and noted generalized weakness and limited endurance and recommended therapy once he leaves. Patient preferred home care and it was arranged at [place]. Discharge Date: 08/08/2022 Referral Source-PACC: (Hospital/Unit): [facility] / [id number] A End PACC Note [facility] 08-08-2022 Note Care Management Prog ress Note SPOKE WITH PT THIS MORNING, TIRED, DID NOT SLEEP MUCH LAST NIGHT. ORTHO REMOVED DRAINS THIS MORNING, HAVE SIGNED OFF. DISCUSSED PT RECOMMENDATIONS WITH HIM, HE IS AGREEABLE TO HOMECARE. WILL DW WITH HOMECARE LIAISON, ALSO NEEDS FWW. Discharge Milestones and Delays Expected Date/Time: 08/08/[address] discharge order Complete med reconciliation Case mgmt discharge readiness Clinical Stability Diagnsotic Workup Expected Discharge History Expected Date/Time Set By Reviewed At 08/08/2022 Greta Uriarte RN 08/08/2022 7:57 AM 08/08/2022 Greta Uriarte RN 08/07/2022 8:02 AM 08/07/2022 Sophie Menjivar MD 08/06/2022 5:00 AM 08/07/2022 Sophie Menjivar MD 08/05/2022 11:48 PM Length of Stay (Days): 3 GMLOS: 2.3 [facility] 08-08-2022 Hospital course Narrative Hospitalist Discharge Summary - [facility] - [facility] ([facility]) Jackson Hurt : 1940 Admit date: 08/05/2022 Discharge date: 08/08/2022 Admitting Physician: Shawna Cope MD Primary Care Physician: Tres Esquivel MD Hospital Course: Improved. Jackson is an 81 year old male with PMH of CAD s/p CABG 2005, CKD3A, HTN, and HLD who presented with post-op radicular pain. Pt Hx significant for recent L4-5 PSF + L3-S1 decompression on July 21. Lumbar MRI showed a compressive hematoma versus seroma with mass effect on the cauda equina at L3-L5. He was evaluated by Ortho and taken to the OR on 08/06/2022 for I&D. Drains removed 08/08/2022 and medically stable for discharge. Upon day of DC, his Cr was noted to be 1.26, however his baseline is 1.2-1.3. Stated he has had increasing nocturia and weak stream. Nursing bladder scanned him showing 200 ml. Will trial Flomax and he is to follow up with his PCP for further workup/refills. Ordered repeat BMP in 1 week Continue all home medications. Ortho stated he can re-start all anticoagulants when drain is removed. Discussed benefits vs. Risks with patient about re-starting and he accepts and agrees to start them. Discussed symptoms that he should return to ED for. All questions answered Discharge Diagnoses: #Post-op radicular pain -Ortho following, removed drains 08/08, ok for dc #CKD 3A -Baseline Cr ~ 1.3 -Trend -Outpatient follow up #CAD s[facility]p CABG [facility] has been seen by Dr. Roper in past -Continue home Atenolol, Losartan #DVT Prophylaxis -SCDs Adult diet Regular Vitals: BP 125/66 (BP Location: Left arm, Patient Position: Lying) Pulse 67 Temp 37.1 C (98.8 F) (Temporal) Resp 18 Ht 5' 10.98 (1.803 m) Wt 205 lb 0.4 oz (93 kg) SpO2 96% BMI 28.61 kg/m Pulse Ox: SpO2 Av % Min: 96 % Max: 96 % Supplemental O2: O2 Flow Rate (L/min): 2 L/min GENERAL: calm, no complaints CARDIOVASCULAR: no palpitations, regular RESPIRATORY: no rhonchi or crackles ABDOMEN: non-distended EXTREMITIES: moving spontaneously Recent Labs 08/05/22 1450 08/07/22 0037 08/08/22 0013 WBC 7.0 5.7 8.9 HGB 12.9* 11.2* 10.7* PLT 204 191 183 Recent Labs 08/05/22 1450 08/07/22 0037 08/08/22 0013 NA 137 135 135 K 4.8 4.7 4.0 CL 103 103 104 CO2 29 29 25 BUN 25* 24* 31* CREATININE 1.05 1.18 1.26* GLUCOSE 93 152* 105* Recent Labs 08/05/22 1450 AST 111* ALT 119* BILITOT 0.7 ALKPHOS 118 No results found for: TRIG, HDL, LDLCALC, CHOL No results found for: PHART, PO2ART, [id number] Recent Labs 08/06/22 1345 INR 1.1 No results for input(s): DDIMER in the last 72 hours. No results found for: HGBA1C No results found for: TSH Urine Culture: No results found for this or any previous visit. Imaging: ECG 12 lead Result Date: 08/07/2022 Sinus rhythm Prolonged NC interval Nonspecific IVCD with LAD Electronically Signed On 08-07-2022 11:11:38 EDT by Fausto Wellington XR chest 1 view Result Date: 08/06/2022 Patient Name: JACKSON HURT : 1940 Exam Date/Time: 08/06/2022 13:56 Procedure: XR CHEST 1 VIEW Ordering Provider: MILLER STEVEN Reason For Exam: preprocedure Clinical History: preprocedure Comparison: None Technique: Single AP radiograph of the chest. Findings: Cardiomediastinal silhouette and pulmonary vasculature are within normal limits given limited inspiration. Calcified right mediastinal and hilar lymph nodes seen. Mild patchy opacity in the left costophrenic angle. The lungs and pleural spaces are otherwise clear. No sizable pneumothorax. Impression: Left basilar atelectasis or possible mild infiltrates. Report Dictated on Electronically Signed By: Philip Carvalho Electronically Signed Date/Time: 08/06/2022 1:44 PM EDT MR lumbar spine w and wo contrast Result Date: 08/06/2022 Patient Name: JACKSON HURT : 1940 Exam Date/Time: 08/06/2022 12:08 Procedure: MR LUMBAR SPINE W AND WO CONTRAST Ordering Provider: COPE THOMAS Reason For Exam: low back pain worsening and radiating down the bilateral legs , hx of surgery 2 weeks ago sent in by [facility] for MRI Examination: MRI lumbar spine Clinical Indication: low back pain worsening and radiating down the bilateral legs , hx of surgery 2 weeks ago sent in by [id number] [facility] for MRI Comparison: X-ray 08/05/2022 Findings: Multiplanar multisequence high field MRI images were obtained through the lumbar spine prior to and after 9 mL Gadavist intravenous gadolinium contrast. Five lumbar type vertebra are assumed for purposes of numbering on this examination. Transpedical screws and posterior fusion rods L4-L5 with laminectomy/laminotomy defect. There is some paraspinal muscular edema related to recent surgery. There is a small right-sided intracanalicular fluid collection at the L3-L4 level. This measures 1.2 cm anterior to posterior, 0.6 cm medial lateral and up to 1.7 cm cranial caudal. Finding could represent postoperative seroma or hematoma. A larger fluid collection is seen posterior to the thecal sac and measures up to 1.9 cm medial lateral, 4.0 cm anterior to posterior and 4.8 cm cranial caudal and is best seen on the postcontrast images series 18 image 10. This does cause some mass effect on the posterior thecal sac L4-L5. A third fluid collection seen superficial to the thoracolumbar fascia measures 4.0 cm cranial caudal, 1.0 cm anterior to posterior and 1.4 cm medial lateral. The sterility of these collections cannot be confirmed by MRI although there are no osseous changes to suggest this represents infection. The thoracolumbar spine demonstrates minimal scoliosis apex leftward at T12-L1. The lumbar spine demonstrates otherwise grossly normal signal intensity. No paraspinal inflammation at the vertebral bodies or evidence of discitis osteomyelitis. No inflammation seen along the transpedical screws. The conus terminates at a normal L1 level. Cord demonstrates no abnormal signal intensity. T12-L1: Tiny right paracentral disc bulge. Minimal facet degenerative hypertrophy. Minimal right-sided spinal canal stenosis. No significant foraminal narrowing. Minimal amount of annular gadolinium contrast enhancement. L1-L2: Small broad-based posterior disc bulge with endplate osteophytes. Mild spinal canal stenosis. Moderate bilateral neuroforaminal narrowing. Minimal amount of annular gadolinium contrast enhancement. L2-L3: Small broad-based posterior disc bulge with endplate osteophytes. Moderate facet and ligamentum flavum hypertrophy. Moderate spinal canal stenosis with lateral recess narrowing. Moderate neuroforaminal narrowing on the right, [id number] on the left. L3-L4: Moderate-sized broad-based posterior disc bulge. Minimal amount of annular gadolinium contrast enhancement. There is moderate to severe spinal canal stenosis with some hypertrophic facet and some prominent soft tissue at the left lateral recess and the small fluid collection on the right causing displacement of nerve roots leftward. A small 0.3 cm herniated disc fragment, nonenhancing at the left lateral recess is also suspected series 17 image 31. There is moderate to severe bilateral neuroforaminal narrowing from foraminal disc osteophytes. L4-L5: Small broad-based posterior disc bulge. Posterior osseous decompression however the fluid collection causes mass effect on the thecal sac and there is moderate spinal canal narrowing with some lateral recess narrowing appreciated. There is moderate right and moderate to severe left neuroforaminal narrowing with foraminal disc osteophytes. L5-S1: Small broad-based posterior disc bulge. Mild facet degenerative hypertrophy. Minimal spinal canal stenosis, trace lateral recess narrowing. Moderate neuroforaminal narrowing. Impression: 1. Recent postsurgical changes, posterior decompression and posterior hardware fusion L4-L5. There is a fluid collection posterior to the thecal sac in the region of surgery with intracanalicular extension on the right at the L3-L4 level and causing significant mass effect on the spinal canal when combined with facet hypertrophy and disc bulge. A small left-sided lateral recess herniated disc fragment may also be present on the left at this level. Finding cause a moderate to severe L3-L4 spinal canal stenosis. Moderate to severe neuroforaminal narrowing at this level. The fluid collection likely represents postoperative hematoma or seroma. Dural leak is felt a less likely consideration. Additional nonspecific fluid collection superficial to the thoracolumbar fascia. The sterility of these collections cannot be confirmed by MRI however there is no significant surrounding osseous or soft tissue inflammation to suggest abscess. If there is concern for abscess, recommend aspiration and culture or I&D. No MRI evidence of discitis osteomyelitis or gross evidence of pedicle screw infection. 2. Mild discogenic and mild to moderate facet degenerative changes, spondylosis with multilevel disc bulge. Moderate spinal canal stenosis also at L2-L3, L4-L5. Significant moderate to severe neuroforaminal narrowing also on the left at L4-L5. Other moderate [id number] foraminal stenoses as above level by level. Report Dictated on Electronically Signed By: Hermilo Muñoz Electronically Signed Date/Time: 08/06/2022 12:[address] head wo IV contrast Result Date: 08/06/2022 Patient Name: JACKSON HURT : 1940 Exam Date/Time: 08/06/2022 03:24 Procedure: CT HEAD WO IV CONTRAST Ordering Provider: COPE THOMAS Reason For Exam: S/P mech fall w/ headstrike on floor. (+) Plavix CT HEAD WITHOUT CONTRAST: CLINICAL INDICATION: Fall. Struck head on floor. COMPARISON: 07/30/2015 TECHNIQUE: [address] images through the brain. Sagittal and coronal reformatted images provided. Dose reduction was employed with automated exposure control. FINDINGS: Ventricles and extra-axial spaces: Mild prominence of cerebral ventricles, cisterns and sulci for age, compatible with mild cerebral atrophy. No extra-axial fluid collection. Cerebral and cerebellar parenchyma: No abnormal areas of decreased or increased parenchymal density. No mass, mass effect or acute cortical infarct. Hemorrhage: None. Brainstem: Normal. Visualized paranasal sinuses: Normal. Mastoid air cells: Normal. Visualized orbits: Normal. Calvarium and skull base: Congenital unfused posterior ring of C1 is noted.. Other: None. No acute intracranial process. Mild global cerebral atrophy. Report Dictated on Electronically Signed By: Ernie Hurley Electronically Signed Date/Time: 08/06/2022 4:26 AM EDT XR lumbar spine 2 or 3 views Result Date: 08/05/2022 Patient Name: JACKSON HURT : 1940 Exam Date/Time: 08/05/2022 21:41 Procedure: XR LUMBAR SPINE 2-3 VIEWS Ordering Provider: MENJIVAR PRISCA Reason For Exam: eval for post op changes LUMBAR SPINE 3 VIEWS CLINICAL INDICATION: eval for post op changes TECHNIQUE: Three views of the lumbar spine. COMPARISON: None FINDINGS: Posterolateral fusion L4-L5. Right upper quadrant surgical clips noted. Posterior skin clips from recent lumbar surgery. Mild degenerative changes involving the SI joints. Mild disc space narrowing no three four. No acute fracture seen. 1. Postoperative changes of recent L4-L5 posterolateral fusion. Report Dictated on Electronically Signed By: Rajesh Torres Electronically Signed Date/Time: 08/05/2022 9:39 PM EDT Consults: None Discharge Medications: Medication List START taking these medications tamsulosin 0.4 MG 24 hr capsule Commonly known as: Flomax Take 1 capsule (0.4 mg) by mouth daily. CONTINUE taking these medications Ambien 10 MG tablet Generic drug: zolpidem aspirin 81 MG EC tablet atenolol 25 MG tablet Commonly known as: Tenormin buPROPion XL 300 MG 24 hr tablet Commonly known as: Wellbutrin XL clopidogrel 75 MG tablet Commonly known as: Plavix losartan 25 MG tablet Commonly known as: Cozaar nitroglycerin 0.4 MG SL tablet Commonly known as: Nitrostat oxyCODONE 5 MG immediate release capsule Commonly known as: Oxy-IR rosuvastatin 20 MG tablet Commonly known as: Crestor Tylenol 325 MG capsule Generic drug: acetaminophen Where to Get Your Medications These medications were sent to [id number] [place], [place] - [address] [facility] [address] [facility] [address] [facility] [facility] [id number] tamsulosin 0.4 MG 24 hr capsule Recommended Follow-up: Lee Garcia DO [address] [id number] Schedule an appointment as soon as possible for a visit in 2 week(s) For wound re-check, For staple removal Complexity of Follow up: [] Moderate Complexity: follow up within 7-14 calendar days (32941) [x] Severe Complexity: follow up within 7 calendar days (37843) Disposition: Patient discharged in stable condition. Greater than 30 minutes spent discharging the patient and coming up with patient discharge plan. Follow up with Tres Esquivel MD in 1-2 weeks. Signed: Emma Munoz DO 08/08/2022, 1:45 PM documented in this encounter [facility] 08-08-2022 Note Orthopaedic Surgery Brief Progress note: Orthopaedic surgery to bedside to pull drain due to minimal output for previous shifts. Dressing over the drain site was removed. Drain was taken off of suction. If there was a stitch holding the drain in, the stitch for the drain was cut. The drain was then pulled without difficulty or resistant and came out in its entirety. There was no drainage from the site. The drain site was then dressed with 4x4 gauze and a tegaderm. The patient tolerated the procedure well and was left in stable condition with all concerns and questions addressed. Orthopaedic surgery to sign off. Patient OK for discharge from ortho perspective. Steven Glover MD PGY-1 Orthopaedic Surgery 08/08/2022 9:52 AM [facility] 08-08-2022 Note Formatting of this n ote is different from the original. Images from the original note were not included. Care Management Progress Note SPOKE WITH PT THIS MORNING, TIRED, DID NOT SLEEP MUCH LAST NIGHT. ORTHO REMOVED DRAINS THIS MORNING, HAVE SIGNED OFF. DISCUSSED PT RECOMMENDATIONS WITH HIM, HE IS AGREEABLE TO [facility]. WILL DW WITH [facility] LIA[facility], ALSO NEEDS FWW. Discharge Milestones and Delays Expected Date/Time: 08/08/[address] discharge order Complete med reconciliation Case mgmt discharge readiness Clinical Stability Diagnsotic Workup Expected Discharge History Expected Date/Time Set By Reviewed At 08/08/2022 Greta Uriarte RN 08/08/2022 7:57 AM 08/08/2022 Greta Uriarte RN 08/07/2022 8:02 AM 08/07/2022 Sophie Menjivar MD 08/06/2022 5:00 AM 08/07/2022 Sophie Menjivar MD 08/05/2022 11:48 PM Length of Stay (Days): 3 GMLOS: 2.3 [facility] 08-08-2022 Note Formatting of this n ote is different from the original. Images from the original note were not included. Care Management Progress Note SPOKE WITH PT THIS MORNING, TIRED, DID NOT SLEEP MUCH LAST NIGHT. ORTHO REMOVED DRAINS THIS MORNING, HAVE SIGNED OFF. DISCUSSED PT RECOMMENDATIONS WITH HIM, HE IS AGREEABLE TO [facility]. WILL DW WITH [facility] LIA[facility], ALSO NEEDS FWW. Discharge Milestones and Delays Expected Date/Time: 08/08/[address] discharge order Complete med reconciliation Case mgmt discharge readiness Clinical Stability Diagnsotic Workup Expected Discharge History Expected Date/Time Set By Reviewed At 08/08/2022 Greta Uriarte RN 08/08/2022 7:57 AM 08/08/2022 Greta Uriarte RN 08/07/2022 8:02 AM 08/07/2022 Sophie Menjivar MD 08/06/2022 5:00 AM 08/07/2022 Sophie Menjivar MD 08/05/2022 11:48 PM Length of Stay (Days): 3 GMLOS: 2.3 T [facility] 08-08-2022 Note Hospitalist Progress Note - [facility] Acute Care [facility] ([facility] 08/08/2022 8:18 AM Subjective and Objective: Admit Date: 08/05/2022 PCP: Tres Esquivel MD Chief Complaint Patient presents with Leg Pain Patient c/o bilateral leg pain that radiates with movement. States pain starts in upper legs and radiates down lower legs. States had back operation 2 weeks ago and has had pain since then. States he does not have pain in the incision site. Was seen at [facility] and was told to come to the ED for evaluation. Adult diet Regular I/O last 3 completed shifts: In: 336 (3.6 mL/kg) [P.O.:320; I.V.:16 (0.2 mL/kg)] Out: 680 (7.3 mL/kg) [Urine:600 (0.2 mL/kg/hr); Drains:80] Weight: 93 kg @IODETAILS@ @[id number]@ Medications: acetaminophen, 650 mg, Oral, 3 times per day atenolol, 25 mg, Oral, Nightly buPROPion XL, 300 mg, Oral, Daily docusate sodium, 100 mg, Oral, BID losartan, 25 mg, Oral, Nightly Recent Labs 08/05/22 1450 08/07/22 0037 08/08/22 0013 WBC 7.0 5.7 8.9 HGB 12.9* 11.2* 10.7* PLT 204 191 183 Recent Labs 08/05/22 1450 08/07/22 0037 08/08/22 0013 NA 137 135 135 K 4.8 4.7 4.0 CL 103 103 104 CO2 29 29 25 BUN 25* 24* 31* CREATININE 1.05 1.18 1.26* GLUCOSE 93 152* 105* Recent Labs 08/05/22 1450 AST 111* ALT 119* BILITOT 0.7 ALKPHOS 118 No results found for: TRIG, HDL, LDLCALC, CHOL No results found for: PHART, PO2ART, LLP4SDT Recent Labs 08/06/22 1345 INR 1.1 No results for input(s): CKTOTAL, CKMB, TROPONINI in the last 72 hours. No results for input(s): DDIMER in the last 72 hours. No results found for: HGBA1C No results found for: TSH Urine Culture: No results found for this or any previous visit. Objective: Vitals: BP 125/66 (BP Location: Left arm, Patient Position: Lying) Pulse 67 Temp 37.1 ?C (98.8 ?F) (Temporal) Resp 18 Ht 5' 10.98 (1.803 m) Wt 205 lb 0.4 oz (93 kg) SpO2 96% BMI 28.61 kg/m? Pulse Ox: SpO2 Av % Min: 96 % Max: 96 % Supplemental O2: O2 Flow Rate (L/min): 2 L/min Internal Course: pt agreeable to dc today GENERAL: calm, no complaints CARDIOVASCULAR: no palpitations, regular RESPIRATORY: no rhonchi or crackles ABDOMEN: non-distended EXTREMITIES: moving spontaneously CHRONIC ANATOMY/TUBES/LINES: N/A Running Summary, Assessment, and Plan Jackson is an 81 year old male with PMH of CAD s/p CABG 2005, CKD3A, HTN, and HLD who presented with post-op radicular pain. Pt Hx significant for recent L4-5 PSF + L3-S1 decompression on July 21. Lumbar MRI showed a compressive hematoma versus seroma with mass effect on the cauda equina at L3-L5. He was evaluated by Ortho and taken to the OR on 08/06/2022 for I&D. Drains removed 08/08. Re-started home Aspirin and Plavix #Post-op radicular pain #CKD 3A -Baseline Cr ~ 1.3 #CAD s/p CABG -From the OR, has been seen by Dr. Roper in past -Continue home Atenolol, Losartan #DVT Prophylaxis -SCDs #Disposition: PT/OT, from home, TBD #Barriers to discharge: drains removed, pain controlled, likely DC next 24 hours Advance Directive: Full Code Emma Munoz, Rounding Hospitalist Time Spent: 42 minutes Has at least of one of these; Number and Complexity of Problems Addressed at the Encounter: -1 or more chronic illnesses with exacerbation, progression, or side effects of treatment -2 or more stable, chronic illnesses -1 acute illness with systemic symptoms -1 acute, complicated injury Risk of Complications and/or Morbidity or Mortality of Patient Management: -Prescription drug management [facility] 08-08-2022 Note Orthopaedic Spine Progress Note Name: Jackson Hurt Date of : 1940 Age: 81 y.o. Admission Date/Time: 08/05/2022 5:58 PM Assessment: Jackson Hurt is a 81 y.o. male s/p L4-5 lami/PSF 07/21, I&D+rev lami 08/06 Plan: -No plan for return to OR at this time -Deep and superficial Hemovac drains. Pull when each less than 10 cc per shift Both drains have limited output this AM, will reach out to Dr. Garcia about pulling drains and dispo. Will drop updated progress note when drains are pulled. -Hold Plavix and any other anticoagulant until drains out -Weight-bear as tolerated, no spine precautions -PT/OT -Pain control, medical management per primary -Okay for regular diet from orthopedic standpoint -Follow-up with Dr. Garcia in 2 weeks -Ortho to follow for drain pull Subjective: Patient worked well with PT/OT yesterday, Feels his pain is almost entirely resolved. Able to be controlled with tylenol alone. Is hoping to go home today or tomorrow. Grateful for the care he has received. Tolerating diet, had a BM yesterday Objective Most Recent Vitals: Vitals: 08/06/22 1730 08/06/22 1758 08/07/22 0537 08/08/22 0524 BP: 132/70 (!) 157/80 122/62 125/66 BP Location: Left arm Left arm Left arm Patient Position: Lying Lying Lying Pulse: 72 83 66 67 Resp: 10 Temp: 36.1 ?C (96.9 ?F) 36.7 ?C (98 ?F) 37.1 ?C (98.8 ?F) TempSrc: Temporal Temporal Temporal SpO2: 97% 94% 96% 96% Weight: Height: Intake/Output last 24 hours: I/O last 3 completed shifts: In: 1680 (18.1 mL/kg) [P.O.:680; I.V.:1000 (10.8 mL/kg)] Out: 1380 (14.8 mL/kg) [Urine:1250 (0.4 mL/kg/hr); Drains:80; Blood:50] Weight: 93 kg No intake/output data recorded. Recent Labs 08/08/22 0013 WBC 8.9 HGB 10.7* HCT 31.6* MCV 98.1* Recent Labs 08/08/22 0013 NA 135 K 4.0 CL 104 CO2 25 Gen: No acute distress. Alert and oriented Neck: supple Chest: Normal respiratory effort. Unlabored breathing Heart:: Regular rate Abd: Soft, non-tender, non-distended Extremity: Lower Extremity Motor: HF Q TA EHL Peroneals GSC Right 5 5 5 5 5 5 Left 5 5 5 5 5 5 Lower extremity sensation to light touch: L2 L3 L4 L5 S1 Right Intact Intact Intact Intact Intact Left Intact Intact Intact Intact Intact Lower extremity pulses: DP PT Right 2+ 2+ Left 2+ 2+ Wound: Dressing with strikethrough on the Left side of bandage. Drains intact with scan SS output, too high to be pulled [facility] 08-08-2022 Plan of care note Problem: Knowledge Deficit Goal: Patient/family/caregiver demonstrates understanding of disease process, treatment plan, medications, and discharge instructions 08/08/2022430 by Mamadou Downs RN Outcome: Progressing 08/08/2022430 by Mamadou Downs RN Outcome: Progressing Problem: Potential for Compromised Skin Integrity Goal: Skin Integrity is Maintained or Improved 08/08/2022430 by Mamadou Downs RN Outcome: Progressing 08/08/2022430 by Mamadou Downs RN Outcome: Progressing Goal: Nutritional status is improving 08/08/2022430 by Mamadou Downs RN Outcome: Progressing 08/08/2022430 by Mamadou Downs RN Outcome: Progressing Problem: Urinary Incontinence Goal: Perineal skin integrity is maintained or improved 08/08/2022430 by Mamadou Downs RN Outcome: Progressing 08/08/2022430 by Mamadou Downs RN Outcome: Progressing Problem: Pain - Adult Goal: Verbalizes/displays adequate comfort level or baseline comfort level 08/08/2022430 by Mamadou Downs RN Outcome: Progressing 08/08/2022430 by Mamadou Downs RN Outcome: Progressing Problem: Safety - Adult Goal: Free from fall injury 08/08/2022430 by Mamadou Downs RN Outcome: Progressing 08/08/2022430 by Mamadou Downs RN Outcome: Progressing Problem: Discharge Planning Goal: Discharge to home or other facility with appropriate resources 08/08/2022430 by Mamadou Downs RN Outcome: Progressing 08/08/2022430 by Mamadou Downs RN Outcome: Progressing Problem: Chronic Conditions and Co-morbidities Goal: Patient's chronic conditions and co-morbidity symptoms are monitored and maintained or improved 08/08/2022430 by Mamadou Downs RN Outcome: Progressing 08/08/2022430 by Mamadou Downs RN Outcome: Progressing The patient is The patient's goals for the shift include Pain Management The clinical goals for the shift include Patient will remain safe and free from injury Over the shift, the patient did not make progress toward the following goals. Barriers to progression include . Recommendations to address these barriers include . [facility] 08-08-2022 Plan of care note The patient is The patient's goals for the shift include Pain Management The clinical goals for the shift include Patient will remain safe and free from injury Over the shift, the patient did not make progress toward the following goals. Barriers to progression include . Recommendations to address these barriers include . [facility] 08-07-2022 Nurse Note During rounds pt was found in bed in a high fowlers position with friend at bedside. Pt has clear speech and facial symmetry and denies pin 0/10. Pt has no other concerns at this time. Call light and essentials wnr of pt. Pt had on c/o ordering his dinner at 1800 and it had not came. [facility] 08-07-2022 Nurse Note During rounds pt was found in bed in a high fowlers position with friend at bedside. Pt has clear speech and facial symmetry and denies pin 0/10. Pt has no other concerns at this time. Call light and essentials wnr of pt. Pt had on c/o ordering his dinner at 1800 and it had not came. Pt refuses straight cath at this time. Pt is voiding. Bladder scan and PVR normal. . documented in this encounter [facility] 08-07-2022 Note Formatting of this n ote might be different from the original. Care Managment Initial Assessment Date: 08/07/2022 Patient Name: Jackson Hurt : 1940 Patient Information Source of Information: Patient Cognition/Language: WFL - Within Functional Limits Permission given to speak with patient patient admitting representative/caregiver as indicated: No Confirmation of Payer with patient/family: Yes Payer Name: [facility]/OR [place]: Yes Confirmation of Primary Care Physician: Confirmed PCP Name: DR ESQUIVEL Seen in last 2 years?: Yes Primary Caregiver: Self If assistance needed, confirmed caregiver ready, willing and able to care for patient at discharge: Confirmed with: Living Arrangements Current Residence: [facility] Number of Floors 1 Number of Entry Steps: 4 Bed/Bath Levels: Facility: Facility Name: Plan to Return: Lives with: Friends Support Systems: Friends/neighbors Activities of Daily Living Ambulation: Independent Bathing/Dressing: Independent Elimination/Continence/Toileting : Independent Feeding: Independent Who Assists with Activities of Daily Living: Instrumental Activities of Daily Living Prescription Coverage: Yes Pharmacy Used: Medication Management: Independent Transportation/Shopping: Independent Transportation Mode: Car Needs Assistance with Transportation at Discharge: No Meal Preparation: Independent Laundry/Cleaning: Independent Finances/Bill Paying: Independent Communication: Independent Types of Care Services/Equipment Utilized Care Services: (NA) Dialysis Type: NA Durable Medical Equipment: (NA) Patient's Goal/Discharge Plan Patient expects to be discharged to: HOME Discharge Planning Actions: Continue to follow Patient's Choice Rights and [employer] and Collaborative Relationships Disclosed as Indicated for Post-Acute Care: Interdisciplinary Team Engagement: Social Work Referral for: Additional Information: SPOKE WITH PT, INTRODUCED SELF AND EXPLAINED ROLE. PT HERE WITH WEAKNESS, S/P BACK SURGERY LAST MONTH. CURRENTLY ON IV ANCEF Q 8 HR, HAS 2 DRAINS TO BULB SUCTION. PT/OT EVAL PENDING. ANTICIPATE DISCHARGE TO HOME. Greta Uriarte RN T [facility] 08-07-2022 Note Formatting of this n ote might be different from the original. Care Managment Initial Assessment Date: 08/07/2022 Patient Name: Jackson Hurt : 1940 Patient Information Source of Information: Patient Cognition/Language: WFL - Within Functional Limits Permission given to speak with patient patient admitting representative/caregiver as indicated: No Confirmation of Payer with patient/family: Yes Payer Name: [facility]/OR : Yes Confirmation of Primary Care Physician: Confirmed PCP Name: DR ESQUIVEL Seen in last 2 years?: Yes Primary Caregiver: Self If assistance needed, confirmed caregiver ready, willing and able to care for patient at discharge: Confirmed with: Living Arrangements Current Residence: Condo Number of Floors 1 Number of Entry Steps: 4 Bed/Bath Levels: Facility: Facility Name: Plan to Return: Lives with: Friends Support Systems: Friends/neighbors Activities of Daily Living Ambulation: Independent Bathing/Dressing: Independent Elimination/Continence/Toileting : Independent Feeding: Independent Who Assists with Activities of Daily Living: Instrumental Activities of Daily Living Prescription Coverage: Yes Pharmacy Used: Medication Management: Independent Transportation/Shopping: Independent Transportation Mode: Car Needs Assistance with Transportation at Discharge: No Meal Preparation: Independent Laundry/Cleaning: Independent Finances/Bill Paying: Independent Communication: Independent Types of Care Services/Equipment Utilized Care Services: (NA) Dialysis Type: NA Durable Medical Equipment: (NA) Patient's Goal/Discharge Plan Patient expects to be discharged to: HOME Discharge Planning Actions: Continue to follow Patient's Choice Rights and [employer] and Collaborative Relationships Disclosed as Indicated for Post-Acute Care: Interdisciplinary Team Engagement: Social Work Referral for: Additional Information: SPOKE WITH PT, INTRODUCED SELF AND EXPLAINED ROLE. PT HERE WITH WEAKNESS, S/P BACK SURGERY LAST MONTH. CURRENTLY ON IV ANCEF Q 8 HR, HAS 2 DRAINS TO BULB SUCTION. PT/OT EVAL PENDING. ANTICIPATE DISCHARGE TO HOME. Greta Uriarte RN [facility] 08-07-2022 Note Hospitalist Progress Note - [facility] Acute Care [facility] ([facility]) 08/07/2022 7:29 AM Subjective and Objective: Admit Date: 08/05/2022 PCP: Tres Esquivel MD Chief Complaint Patient presents with Leg Pain Patient c/o bilateral leg pain that radiates with movement. States pain starts in upper legs and radiates down lower legs. States had back operation 2 weeks ago and has had pain since then. States he does not have pain in the incision site. Was seen at [facility] and was told to come to the ED for evaluation. Adult diet Regular I/O last 3 completed shifts: In: 1360 (14.6 mL/kg) [P.O.:360; I.V.:1000 (10.8 mL/kg)] Out: 980 (10.5 mL/kg) [Urine:850 (0.3 mL/kg/hr); Drains:80; Blood:50] Weight: 93 kg @IODETAILS@ @[id number]@ Medications: acetaminophen, 650 mg, Oral, 3 times per day atenolol, 25 mg, Oral, Daily bisacodyl, 5 mg, Oral, Once buPROPion XL, 300 mg, Oral, Daily ceFAZolin, 2,000 mg, IntraVENous, q8h docusate sodium, 100 mg, Oral, BID losartan, 25 mg, Oral, Daily Recent Labs 08/05/22 1450 08/07/22 0037 WBC 7.0 5.7 HGB 12.9* 11.2* PLT 204 191 Recent Labs 08/05/22 1450 08/07/22 0037 NA 137 135 K 4.8 4.7 CL 103 103 CO2 29 29 BUN 25* 24* CREATININE 1.05 1.18 GLUCOSE 93 152* Recent Labs 08/05/22 1450 AST 111* ALT 119* BILITOT 0.7 ALKPHOS 118 No results found for: TRIG, HDL, LDLCALC, CHOL No results found for: PHART, PO2ART, BKI0SUC Recent Labs 08/06/22 1345 INR 1.1 No results for input(s): CKTOTAL, CKMB, TROPONINI in the last 72 hours. No results for input(s): DDIMER in the last 72 hours. No results found for: HGBA1C No results found for: TSH Urine Culture: No results found for this or any previous visit. Objective: Vitals: BP 122/62 (BP Location: Left arm, Patient Position: Lying) Pulse 66 Temp 36.7 ?C (98 ?F) (Temporal) Resp 18 Ht 5' 10.98 (1.803 m) Wt 205 lb 0.4 oz (93 kg) SpO2 96% BMI 28.61 kg/m? Pulse Ox: SpO2 Av.4 % Min: 90 % Max: 98 % Supplemental O2: O2 Flow Rate (L/min): 2 L/min Internal Course: no complaints, feeling well, drains in place GENERAL: alert and oriented, no acute distress CARDIOVASCULAR: RRR, no murmurs RESPIRATORY: clear without wheezes ABDOMEN: soft, non tender EXTREMITIES: no edema CHRONIC ANATOMY/TUBES/LINES: N/A Running Summary, Assessment, and Plan Jackson is an 81 year old male with PMH of CAD s/p CABG 2005, HTN, and HLD who presented with post-op radicular pain. Pt Hx significant for recent L4-5 PSF + L3-S1 decompression on July 21. Lumbar MRI showed a compressive hematoma versus seroma with mass effect on the cauda equina at L3-L5. He was evaluated by Ortho and taken to the OR on 08/06/2022 for I&D. Plavix is being help until drains are removed. #Post-op radicular pain -Ortho following -Ancef x 24 hours only #CAD s/p CABG -Holding Plavix until drains are out -[facility] has been [facility] by Dr. Roper in past -Continue home Losartan, Atenolol #DVT Prophylaxis -SCDs #Disposition: PT/OT, from home, TBD #Barriers to discharge: drains removed, pain controlled Advance Directive: Full Code Emma Munoz DO Rounding Hospitalist Time Spent: 39 minutes Has at least of one of these; Number and Complexity of Problems Addressed at the Encounter: -1 or more chronic illnesses with exacerbation, progression, or side effects of treatment -2 or more stable, chronic illnesses -1 acute illness with systemic symptoms -1 acute, complicated injury Risk of Complications and/or Morbidity or Mortality of Patient Management: -Prescription drug management [facility] 08-07-2022 Note Orthopaedic Spine Progress Note Name: Jackson Hurt Date of : 1940 Age: 81 y.o. Admission Date/Time: 08/05/2022 5:58 PM Assessment: Jackson Hurt is a 81 y.o. male s/p L4-5 lami/PSF 07/21, I&D+rev lami 08/06 Plan: -No plan for return to OR at this time -Deep and superficial Hemovac drains. Pull when each less than 10 cc per shift -Hold Plavix and any other anticoagulant until drains out -Weight-bear as tolerated, no spine precautions -PT/OT -Ancef x24 hours -Pain control, medical management per primary -Okay for regular diet from orthopedic standpoint -Follow-up with Dr. Garcia in 2 weeks -Ortho to follow Subjective: Patient is feeling 80% better overall and is thrilled to be feeling more normal. No new issues with bowel or bladder. Has almost zero of the pain he was feeling pre-op, but has not gotten up to stand yet. No new numbness/tingling/shooting pains Objective Most Recent Vitals: Vitals: 08/06/22 1715 08/06/22 1730 08/06/22 1758 08/07/22 0537 BP: 124/69 132/70 (!) 157/80 122/62 BP Location: Left arm Left arm Patient Position: Lying Lying Pulse: 75 72 83 66 Resp: 02 11 14 18 Temp: 36.1 ?C (96.9 ?F) 36.7 ?C (98 ?F) TempSrc: Temporal Temporal SpO2: 96% 97% 94% 96% Weight: Height: Intake/Output last 24 hours: I/O last 3 completed shifts: In: 1360 (14.6 mL/kg) [P.O.:360; I.V.:1000 (10.8 mL/kg)] Out: 980 (10.5 mL/kg) [Urine:850 (0.3 mL/kg/hr); Drains:80; Blood:50] Weight: 93 kg No intake/output data recorded. Recent Labs 08/07/22 003 WBC 5.7 HGB 11.2* HCT 33.4* MCV 100.7* Recent Labs 08/07/22 0037 NA 135 K 4.7 CL 103 CO2 29 Gen: No acute distress. Alert and oriented Neck: supple Chest: Normal respiratory effort. Unlabored breathing Heart:: Regular rate Abd: Soft, non-tender, non-distended Extremity: Lower Extremity Motor: HF Q TA EHL Peroneals GSC Right 5 5 5 5 5 5 Left 5 5 5 5 5 5 Lower extremity sensation to light touch: L2 L3 L4 L5 S1 Right Intact Intact Intact Intact Intact Left Intact Intact Intact Intact Intact Lower extremity pulses: DP PT Right 2+ 2+ Left 2+ 2+ Wound: Dressing CDI. No evidence of hematoma. Drains intact with SS output, too high to be pulled [facility] 08-07-2022 Plan of care note Problem: Knowledge Deficit Goal: Patient/family/caregiver demonstrates understanding of disease process, treatment plan, medications, and discharge instructions Outcome: Progressing Problem: Potential for Compromised Skin Integrity Goal: Skin Integrity is Maintained or Improved Outcome: Progressing Goal: Nutritional status is improving Outcome: Progressing Problem: Urinary Incontinence Goal: Perineal skin integrity is maintained or improved Outcome: Progressing Problem: Pain - Adult Goal: Verbalizes/displays adequate comfort level or baseline comfort level Outcome: Progressing Problem: Safety - Adult Goal: Free from fall injury Outcome: Progressing Problem: Discharge Planning Goal: Discharge to home or other facility with appropriate resources Outcome: Progressing Problem: Chronic Conditions and Co-morbidities Goal: Patient's chronic conditions and co-morbidity symptoms are monitored and maintained or improved Outcome: Progressing The patient is The patient's goals for the shift include Pain control The clinical goals for the shift include Pain decrease Over the shift, the patient did not make progress toward the following goals. Barriers to progression include . Recommendations to address these barriers include . [facility] 08-06-2022 Note Patient: Jackson menon Procedure Summary Date: 08/06/22 Room / Location: [address] Operating Room Anesthesia Start: 1453 Anesthesia Stop: 1644 Procedure: INCISION AND DRAINAGE DEEP ABSCESS POSTERIOR SPINE LUMBAR, SACRAL, OR LUMBOSACRAL (Back) Diagnosis: Postoperative hematoma involving nervous system following nervous system procedure (Postoperative hematoma involving nervous system following nervous system procedure [G97.61]) Surgeons: Lee Garcia DO Responsible Provider: Philip Cutler MD Anesthesia Type: general ASA Status: 3 - Emergent Anesthesia Type: general Vitals Value Taken Time BP 110/65 08/06/22 1645 Temp 36.1 ?C (97 ?F) 08/06/22 1639 Pulse 73 08/06/22 1647 Resp 10 08/06/22 1647 SpO2 99 % 08/06/22 1647 Vitals shown include unvalidated device data. Anesthesia Post Evaluation Patient location during evaluation: PACU Patient participation: complete - patient participated Level of consciousness: awake and alert Pain management: satisfactory to patient Airway patency: patent Dental Injury: no Cardiovascular status: acceptable, blood pressure returned to baseline and hemodynamically stable Respiratory status: acceptable and spontaneous ventilation Hydration status: euvolemic Nausea/Vomiting: controlled No notable events documented. Patient can be discharged once all PACU criteria has been met. [facility] 08-06-2022 Note Patient: Jackson Harrison ert Procedure Summary Date: 08/06/22 Room / Location: [address] Operating Room Anesthesia Start: 1453 Anesthesia Stop: 1644 Procedure: INCISION AND DRAINAGE DEEP ABSCESS POSTERIOR SPINE LUMBAR, SACRAL, OR LUMBOSACRAL (Back) Diagnosis: Postoperative hematoma involving nervous system following nervous system procedure (Postoperative hematoma involving nervous system following nervous system procedure [G97.61]) Surgeons: Lee Garcia DO Responsible Provider: Philip Cutler MD Anesthesia Type: general ASA Status: 3 - Emergent Anesthesia Type: general Vitals Value Taken Time BP 110/65 08/06/22 1645 Temp 36.1 ?C (97 ?F) 08/06/22 1639 Pulse 73 08/06/22 1647 Resp 10 08/06/22 1647 SpO2 99 % 08/06/22 1647 Vitals shown include unvalidated device data. Anesthesia Post Evaluation Patient location during evaluation: PACU Patient participation: complete - patient participated Level of consciousness: awake and alert Pain management: satisfactory to patient Multimodal analgesia pain management approach Airway patency: patent Two or more strategies used to mitigate risk of obstructive sleep apnea Cardiovascular status: acceptable and hemodynamically stable Respiratory status: acceptable Hydration status: acceptable Comments: Patient was administered multimodal pain management (two or more drugs and/or interventions excluding systemic opioids) in the periopeartive period occurring at some time between 6 hours prior to anesthesia start time until discharged from PACU Patient exhibits three or more risk factors for PONV Patient received at leaset 2 prophylactic Rx PONV anti-emetic agents of different classes preop and/or intraop No notable events documented. MIPS #430 PONV Patient received an inhalational anesthetic (4554F) MIPS # 424 Perioperative Temperature Management Anesthesia time was 60 minutes or longer (4255F) MIPS #477 Multimodal Pain Management Not emergent case MIPS #404 Anesthesiology Smoking Abstinence The patient is not a current smoker (e.g. cigarette, cigar, pipe, e-cigarette/vaping/marijuana) If no stop here (XX404) I completed my handoff to the receiving clinician during which we: 1. Identified the patient 2. Identified the responsible provider 3. Reviewed the pertinent medical history 4. Discussed the surgical course 5. Reviewed intra-op anesthesia management and issues during anesthesia 6. Set expectations for post-procedure period 7. Allowed opportunity for questions and acknowledgement of understanding. [facility] 08-06-2022 Note Formatting of this n ote might be different from the original. Placed watch back on wrist from OR. T [facility] 08-06-2022 Note Formatting of this n ote might be different from the original. Placed watch back on wrist from OR. [facility] 08-06-2022 Note Formatting of this n ote might be different from the original. Pt restful in pacu, wakes up and answers questions appropriately, pain tolerable, VSS, no apparent distress. Report called and in for transport. T [facility] 08-06-2022 Note Formatting of this n ote might be different from the original. Pt restful in pacu, wakes up and answers questions appropriately, pain tolerable, VSS, no apparent distress. Report called and in for transport. T [facility] 08-06-2022 Note Airway Date/Time: 08/06/2022 3:18 PM Urgency: scheduled General Information and Staff Patient location during procedure: Procedural Resident/LABORATORY EQUIPMENT CLEANER: Ernie Vaz APRN - LABORATORY EQUIPMENT CLEANER Performed: LABORATORY EQUIPMENT CLEANER Indications and Patient Condition Indications for airway management: anesthesia Sedation level: Asleep Preoxygenated: yes Patient position: sniffing Mask difficulty assessment: 1 - vent by mask Final Airway Details Final airway type: endotracheal airway Successful airway: ETT Cuffed: yes Successful intubation technique: direct laryngoscopy Facilitating devices/methods: intubating stylet Endotracheal tube insertion site: oral Blade: Garcia Blade size: #2 ETT size (mm): 8.0 Cormack-Lehane Classification: grade IIa - partial view of glottis Placement verified by: chest auscultation and capnometry Measured from: lips ETT to lips (cm): 23 Number of attempts at approach: 1 Additional Comments Atraumatic placement of ETT, dentition intact [facility] 08-06-2022 Hospital Discharge instructions Jase Stanley MD - 08/06/2022 4:53 PM EDT Images from the original note were not included. General Orthopedic Discharge Instructions The following instructions have been prepared to help you when you leave the hospital. These guidelines are for the post-surgery period. Activity: Ease into normal activity as tolerated. Medications: see medication instructions. Please be sure to read and understand the information provided by your pharmacy. Ask your Pharmacist if any questions. Wound Care and Hygiene: -Wash hands before touching or changing dressings -Do Not touch incision -Leave dressing till post-op day 2 and reapply dressing if wound is leaking. If wound is dry, you may leave dressing off -May shower starting post-op day 3 -You have skin nava that will need removed by your surgeon at your postop appointment. Do not attempt to remove these on your own. Call Your Doctor for: -Excessive bleeding/swelling of incision -Fever with temperature above 100 oF Anesthesia Precautions: -Do Not operate any vehicle (automobile, bicycle, motorcycle) or power tools for 24 hours -Do Not drink alcoholic beverages for 24 hours -As precaution to prevent post-operative nausea and vomiting, start your diet with liquids, then progress to light foods. If tolerated, resume normal diet. Additional Instructions: -Weight-bear as tolerated -Activity as tolerated, no heavy lifting -Take your pain medications as prescribed, weaning off of them as tolerated -Follow-up with Dr. Garcia in 2 to 3 weeks for skin staple removal Emma Munoz DO - 08/08/2022 12:09 PM EDT Your creatinine was 1.26 today. Your baseline is 1.2 to 1.3. Please obtain blood work in 1 week to re-assess. You have been started on Tamsulosin (AKA Flomax). Follow up with your PCP for further workup. Follow up with PCP within 1 week. Thank you for letting me take part of your care. Wish you a speedy recovery. Call your PCP or go to ED if symptoms return. documented in this encounter [facility] 08-06-2022 Note Patient: Jackson Harrison ert Procedure Information Date/Time: 08/06/22 1440 Procedure: INCISION AND DRAINAGE DEEP ABSCESS POSTERIOR SPINE LUMBAR, SACRAL, OR LUMBOSACRAL (Back) Location: [facility] OR [address] [place] [address] Operating Room Surgeons: Lee Garcia DO Relevant Problems Cardio (+) History of coronary artery bypass surgery Past Medical History: Past Medical History: No date: CAD (coronary artery disease) No date: Heart disease Past Surgical History: Past Surgical History: No date: APPENDECTOMY No date: CARDIAC SURGERY No date: CHOLECYSTECTOMY No date: CORONARY ANGIOPLASTY WITH STENT PLACEMENT No date: CORONARY ARTERY BYPASS GRAFT No date: TONSILLECTOMY (HISTORICAL) Social History: TOBACCO: reports that he has quit smoking. He does not have any smokeless tobacco history on file. ETOH: reports current alcohol use of about 1.0 standard drink per week. Social History Substance and Sexual Activity Drug Use No Family History: No family history on file. Screening: unknown Clinical information reviewed: Tobacco Allergies Meds Problems Med Hx Surg Hx Fam Hx Physical Exam Airway Mallampati: III TM distance: >3 FB Neck ROM: full Mouth Open: normal Cardiovascular Dental Pulmonary Abdominal Anesthesia Plan ASA 3 - emergent general The patient is not a current smoker. patient is NPO LANE Screening Labs: Lab Results Component Value Date WBC 7.0 08/05/2022 HGB 12.9 (L) 08/05/2022 HCT 39.1 (L) 08/05/2022 MCV 100.6 (H) 08/05/2022 PLT 204 08/05/2022 Lab Results Component Value Date NA 137 08/05/2022 K 4.8 08/05/2022 CL 103 08/05/2022 CO2 29 08/05/2022 BUN 25 (H) 08/05/2022 CREATININE 1.05 08/05/2022 GLUCOSE 93 08/05/2022 CALCIUM 9.3 08/05/2022 PROT 8.0 08/05/2022 ALKPHOS 118 08/05/2022 AST 111 (H) 08/05/2022 ALT 119 (H) 08/05/2022 EGFR 71.8 08/05/2022 Pain Score: 7 No echocardiogram results found for the past 14 days 08/05/22 ECG 12-LEAD (Preliminary) This result has not been signed. Information might be incomplete. Impression Sinus rhythm Prolonged NC interval Nonspecific IVCD with LAD [facility] 08-06-2022 Note Orthospine plan of c are update: MRI lumbar spine reviewed and discussed with Dr. Garcia. Patient has a compressive hematoma versus seroma with mass effect on the cauda equina at L3-L5. We will plan for lumbar spine I&D today. Keep patient n.p.o. and hold anticoagulants. We will discuss findings with patient and consent for the above procedure. Ortho to follow Jase Stanley MD Orthopaedic Surgery, PGY3 [facility] [phone] [facility] 08-06-2022 Note Formatting of this n ote might be different from the original. OPERATIVE NOTE Patient Name: Jackson Hurt : 1940 DATE OF PROCEDURE: 08-06-22 SURGEON: Lee Garcia DO PREOPERATIVE DIAGNOSES: status post lumbar decompression L3-5, fusion with instrumentation L4-5 07-21-22. Postoperative seroma vs hematoma with neural compression. POSTOPERATIVE DIAGNOSES: same PROCEDURE: exploration lumbar fusion, revision laminectomies L3, L4, L5, removal epidural hematoma and seroma, itrrigation and debridement lumbar spine wound, lumbar medium hemovac drain placement x2. INDICATION FOR PROCEDURE: postoperative pain, weakness, MRI positive epidural hematoma. DESCRIPTION OF PROCEDURE:: see detailed op note. This patient is an 81-year-old gentleman seen and evaluated at [facility] by the ER physicians and orthopedic resident staff. This patient describes postoperative relief of symptoms from surgical treatment for stenosis and spondylolisthesis 07/21/2022. However, over the last 48 hours she noted progressive pain and lower extremity sciatica with weakness of both lower extremities below the knees. His symptoms were progressive. MRI scanning demonstrated postoperative seroma versus hematoma with neural compression primarily L3-4 L4-5 at the levels of decompression. Operative plans were then undertaken based on symptoms and findings. Patient was informed of his condition as well as options for treatment. Surgical treatment was urged at this time. The patient's MRI scan was completed approximately 12:30 PM 08/06/2022. The patient was prepared for surgical treatment 2:30 PM 08/06/2022. Risk benefits alternatives potential complications of both operative and nonoperative treatment were discussed. The patient wishes to proceed accordingly. The patient was taken the operating room room 19 in [facility]. A satisfactory general anesthesia was established and oral endotracheal tube was placed by the anesthesia team. Bilateral lower extremity meta compression stockings were applied. A Hilliard catheter was inserted. The patient was then carefully turned into the prone position on standard Steve frame making sure to pad and protect the upper and lower extremities abdomen face cervical spine and axilla bilaterally. The patient was satisfactorily positioned and IV antibiotics were instituted. The patient then had his nava removed. The wound was completely healed approximated without any signs of infection irritation and inflammation or swelling. The lumbar wound was then prepped and draped in the normal sterile fashion utilizing Betadine prep. Verbal timeout was performed per [facility] protocol and all of which was agreed upon. The lumbar wound was then incised and the sutures removed. Subcutaneous and deeper fascial seroma was noted and evacuated. There is no sign of infection. Congealed hematoma was noted over the exposed lumbar epidural spaces and removed. The remaining lamina of L4 was completely excised with revision laminectomy. Revision laminectomies of L3 and L5 were subsequently performed therefore L3-L4-L5 revision laminectomies were performed. Revision partial facetectomy and direct nerve decompression L3-L4-L5 bilaterally were performed. The common dural sac and nerve roots were expanded and, dural sac was pulsatile. Minimal bleeding was noted. We then irrigated and debridement of the lumbar wound from subcutaneous tissue to deeper fascial layers muscular muscle and down to bone. The lumbar wound and fusion was then explored. The instrumentation at L4-5 was totally intact. Bone graft was noted laterally and intact. No sign of loosening hardware issues or inflammation was noted. The wound was then copiously irrigated with 6000 cc of antibiotic solution delivered through the pulse lavage. The wound was again inspected complete hemostasis was achieved. We placed a light covering of Surgiflo around the margins of the decompression. The wound was then inspected thoroughly. Valsalva maneuver was performed and there was no evidence of CSF drainage or leakage. The wound was then closed over a medium epidural Hemovac drain placed in the epidural space. Deeper Vicryl sutures #1 Vicryl were utilized to reapproximate the fascial tissues. A second medium Hemovac drain was placed in the subcutaneous region above the fascia. Oh and then 2-0 Vicryl sutures were utilized to reapproximate the more superficial tissues over 1 g of vancomycin powder placed into the wound in this region. Nava were then placed in the skin for closure following reapproximation with 2-0 Vicryl in the subcutaneous region. Xeroform and sterile dressings were then applied followed by Tegaderm dressing. 1 small suture was placed to anchor the drains in place. The patient was then returned back into the supine position having tolerated procedure well. Final diagnosis was epidural seroma versus hematoma. No complications were noted. The final needle sponge and instrument count was correct and verified by the nursing personnel at time of closure and at the conclusion of the procedures. The patient tolerated the procedure very well was transported to recovery room in stable condition without incident. The final estimate blood loss was less than 50 cc total. The patient was examined awake and alert in the recovery room found to be neurologically intact in upper and lower extremities. [place] Work Phone: 08-06-2022 Note Formatting of this n ote is different from the original. Date: 08/06/2022 Location: [facility] OR Name: Jackson Hurt : 1940, Diagnosis Pre-op Diagnosis * Postoperative hematoma involving nervous system following nervous system procedure [G97.61] Post-op Diagnosis * Postoperative hematoma involving nervous system following nervous system procedure [G97.61] Procedures INCISION AND DRAINAGE DEEP ABSCESS POSTERIOR SPINE LUMBAR, SACRAL, OR LUMBOSACRAL [id number] - NC I&D DEEP ABSCESS PST SPINE LUMBAR SAC/LUMBOSAC Surgeons * Lee Garica - Primary Procedure Summary Anesthesia: General ASA: III Estimated Blood Loss: 50 mL Drains: Closed/Suction Drain Inferior;Midline Back 10 Fr. (Active) Closed/Suction Drain Inferior;Right Back 10 Fr. (Active) Staff: Operations Systems Specialist: Susie Dale RN; Ernie Joyce RN Scrub Person: Melinda Alonzo Findings: hematoma in the deep epidural space, no evidence of infection. Complications: None; patient tolerated the procedure well. Specimens Collected: No specimens collected during this procedure. Wound Class: Class I: Clean Blood Products: None Prophylactic Antibiotics: Procedure appropriate prophylactic antibiotic(s) given within 1 hour of surgical incision (two hours if receiving Vancomycin or flouroquinolone) Postop plan: -No plan for return to OR at this time -Deep and superficial Hemovac drains. Pull when each less than 10 cc per shift -Hold Plavix and any other anticoagulant until drains out -Weight-bear as tolerated, no spine precautions -PT/OT -Ancef x24 hours -Pain control, medical management per primary -Okay for regular diet from orthopedic standpoint -Follow-up with Dr. Garcia in 2 weeks -Ortho to follow [facility] 08-06-2022 Note Formatting of this n ote might be different from the original. OPERATIVE NOTE Patient Name: Jackson Hurt : 1940 DATE OF PROCEDURE: 08-06-22 SURGEON: Lee Garcia DO PREOPERATIVE DIAGNOSES: status post lumbar decompression L3-5, fusion with instrumentation L4-5 07-21-22. Postoperative seroma vs hematoma with neural compression. POSTOPERATIVE DIAGNOSES: same PROCEDURE: exploration lumbar fusion, revision laminectomies L3, L4, L5, removal epidural hematoma and seroma, itrrigation and debridement lumbar spine wound, lumbar medium hemovac drain placement x2. INDICATION FOR PROCEDURE: postoperative pain, weakness, MRI positive epidural hematoma. DESCRIPTION OF PROCEDURE:: see detailed op note. This patient is an 81-year-old gentleman seen and evaluated at [facility] by the ER physicians and orthopedic resident staff. This patient describes postoperative relief of symptoms from surgical treatment for stenosis and spondylolisthesis 07/21/2022. However, over the last 48 hours she noted progressive pain and lower extremity sciatica with weakness of both lower extremities below the knees. His symptoms were progressive. MRI scanning demonstrated postoperative seroma versus hematoma with neural compression primarily L3-4 L4-5 at the levels of decompression. Operative plans were then undertaken based on symptoms and findings. Patient was informed of his condition as well as options for treatment. Surgical treatment was urged at this time. The patient's MRI scan was completed approximately 12:30 PM 08/06/2022. The patient was prepared for surgical treatment 2:30 PM 08/06/2022. Risk benefits alternatives potential complications of both operative and nonoperative treatment were discussed. The patient wishes to proceed accordingly. The patient was taken the operating room room 19 in [facility]. A satisfactory general anesthesia was established and oral endotracheal tube was placed by the anesthesia team. Bilateral lower extremity meta compression stockings were applied. A Hilliard catheter was inserted. The patient was then carefully turned into the prone position on standard Steve frame making sure to pad and protect the upper and lower extremities abdomen face cervical spine and axilla bilaterally. The patient was satisfactorily positioned and IV antibiotics were instituted. The patient then had his nava removed. The wound was completely healed approximated without any signs of infection irritation and inflammation or swelling. The lumbar wound was then prepped and draped in the normal sterile fashion utilizing Betadine prep. Verbal timeout was performed per [facility] protocol and all of which was agreed upon. The lumbar wound was then incised and the sutures removed. Subcutaneous and deeper fascial seroma was noted and evacuated. There is no sign of infection. Congealed hematoma was noted over the exposed lumbar epidural spaces and removed. The remaining lamina of L4 was completely excised with revision laminectomy. Revision laminectomies of L3 and L5 were subsequently performed therefore L3-L4-L5 revision laminectomies were performed. Revision partial facetectomy and direct nerve decompression L3-L4-L5 bilaterally were performed. The common dural sac and nerve roots were expanded and, dural sac was pulsatile. Minimal bleeding was noted. We then irrigated and debridement of the lumbar wound from subcutaneous tissue to deeper fascial layers muscular muscle and down to bone. The lumbar wound and fusion was then explored. The instrumentation at L4-5 was totally intact. Bone graft was noted laterally and intact. No sign of loosening hardware issues or inflammation was noted. The wound was then copiously irrigated with 6000 cc of antibiotic solution delivered through the pulse lavage. The wound was again inspected complete hemostasis was achieved. We placed a light covering of Surgiflo around the margins of the decompression. The wound was then inspected thoroughly. Valsalva maneuver was performed and there was no evidence of CSF drainage or leakage. The wound was then closed over a medium epidural Hemovac drain placed in the epidural space. Deeper Vicryl sutures #1 Vicryl were utilized to reapproximate the fascial tissues. A second medium Hemovac drain was placed in the subcutaneous region above the fascia. Oh and then 2-0 Vicryl sutures were utilized to reapproximate the more superficial tissues over 1 g of vancomycin powder placed into the wound in this region. Nava were then placed in the skin for closure following reapproximation with 2-0 Vicryl in the subcutaneous region. Xeroform and sterile dressings were then applied followed by Tegaderm dressing. 1 small suture was placed to anchor the drains in place. The patient was then returned back into the supine position having tolerated procedure well. Final diagnosis was epidural seroma versus hematoma. No complications were noted. The final needle sponge and instrument count was correct and verified by the nursing personnel at time of closure and at the conclusion of the procedures. The patient tolerated the procedure very well was transported to recovery room in stable condition without incident. The final estimate blood loss was less than 50 cc total. The patient was examined awake and alert in the recovery room found to be neurologically intact in upper and lower extremities. [place] Work Phone: 08-06-2022 Note Formatting of this n ote is different from the original. Date: 08/06/2022 Location: [facility] OR Name: Jackson Hurt DOB: 1940, Diagnosis Pre-op Diagnosis * Postoperative hematoma involving nervous system following nervous system procedure [G97.61] Post-op Diagnosis * Postoperative hematoma involving nervous system following nervous system procedure [G97.61] Procedures INCISION AND DRAINAGE DEEP ABSCESS POSTERIOR SPINE LUMBAR, SACRAL, OR LUMBOSACRAL [id number] - NC I&D DEEP ABSCESS PST SPINE LUMBAR SAC/LUMBOSAC Surgeons * Lee Garcia - Primary Procedure Summary Anesthesia: General ASA: III Estimated Blood Loss: 50 mL Drains: Closed/Suction Drain Inferior;Midline Back 10 Fr. (Active) Closed/Suction Drain Inferior;Right Back 10 Fr. (Active) Staff: Operations Systems Specialist: Susie Dale RN; Ernie Joyce RN Scrub Person: Melinda Alonzo Findings: hematoma in the deep epidural space, no evidence of infection. Complications: None; patient tolerated the procedure well. Specimens Collected: No specimens collected during this procedure. Wound Class: Class I: Clean Blood Products: None Prophylactic Antibiotics: Procedure appropriate prophylactic antibiotic(s) given within 1 hour of surgical incision (two hours if receiving Vancomycin or flouroquinolone) Postop plan: -No plan for return to OR at this time -Deep and superficial Hemovac drains. Pull when each less than 10 cc per shift -Hold Plavix and any other anticoagulant until drains out -Weight-bear as tolerated, no spine precautions -PT/OT -Ancef x24 hours -Pain control, medical management per primary -Okay for regular diet from orthopedic standpoint -Follow-up with Dr. Garcia in 2 weeks -Ortho to follow [facility] 08-06-2022 Note Hospitalist Progress Note 08/06/2022 11:30 AM Subjective: Admit Date: 08/05/2022 PCP: Tres Esquivel MD Jackson is a 81 y.o. male with past medical history below who presents with chief complaint listed above. Pt Hx significant for recent L4-5 PSF + L3-S1 decompression on July 21. Since returning home Pt has had worsening sharp, burning pain in lower back, glutes and thighs, Denies saddle anesthesia or bowel/bladder incontinence. Pt evaluated by Orthopedic specialty in ED - plan is for further MRI to determine further management. Will admit for further evaluation. - XR Lumbar spine Posterolateral fusion L4-L5. Right upper quadrant surgical clips noted. Posterior skin clips from recent lumbar surgery. 2. Mild degenerative changes involving the SI joints. 3. Mild disc space narrowing no three four. No acute fracture seen. Interval History: pt awake Still with pain when ambulating No overnight issues. Denies chest pain, NPO diet NPO except: Sips of Water with Meds @[email or web address]@ @[email or web address]@ Medications: Recent Labs 08/05/22 1450 WBC 7.0 HGB 12.9* PLT 204 Recent Labs 08/05/22 1450 NA 137 K 4.8 CL 103 CO2 29 BUN 25* CREATININE 1.05 GLUCOSE 93 Recent Labs 08/05/22 1450 AST 111* ALT 119* BILITOT 0.7 ALKPHOS 118 No results found for: TRIG, HDL, LDLCALC, CHOL No results for input(s): INR in the last 72 hours. No results for input(s): CKTOTAL, CKMB, TROPONINI in the last 72 hours. Objective: Vitals: BP 132/78 (BP Location: Right arm, Patient Position: Lying) Pulse 73 Temp 36.1 ?C (97 ?F) (Temporal) Resp 14 Ht 5' 10.98 (1.803 m) Wt 205 lb 0.4 oz (93 kg) SpO2 94% BMI 28.61 kg/m? Pulse Ox: SpO2 Av.3 % Min: 94 % Max: 100 % Supplemental O2: O2 Flow Rate (L/min): 2 L/min General appearance: Alert and cooperative with exam Lungs: clear to auscultation bilaterally Heart: regular rate and rhythm, S1, S2 normal, no murmur, click, rub or gallop Abdomen: soft, non-tender; bowel sounds normal; no masses, no organomegaly Extremities: extremities normal, atraumatic, no cyanosis or edema Incision noted on spine Neurologic: No obvious focal neurologic deficits. Assessment Principal Problem: Post-op pain Active Problems: History of coronary artery bypass surgery Plan MRI if pt can tolerate Following with spine service PT/OT Cont supportive care and pain control See orders, continue POC Advance Directive: Full Code David Miller MD, [facility] 08-06-2022 Plan of care note Problem: Pain - Adult Goal: Verbalizes/displays adequate comfort level or baseline comfort level Outcome: Progressing Flowsheets (Taken 08/06/2022 1054) Verbalizes/displays adequate comfort level or baseline comfort level: Encourage patient to monitor pain and request assistance Assess pain using appropriate pain scale Administer analgesics based on type and severity of pain and evaluate response Implement non-pharmacological measures as appropriate and evaluate response Problem: Safety - Adult Goal: Free from fall injury Outcome: Progressing Flowsheets (Taken 08/06/2022 1054) Free from fall injury: Instruct family/caregiver on patient safety Note: Side rails upx2, bed low, brakes on, call light in reach. The patient is Moderately Unstable - Medium risk of patient condition declining or worsening The patient's goals for the shift include pain control The clinical goals for the shift include pain control [facility] 08-06-2022 Nurse Note Pt refuses straight cath at this time. Pt is voiding. Bladder scan and PVR normal. . [facility] 08-06-2022 Emergency department Note Pt to floor with transport at this time. Belongings with patient. Pt clean and dry, respirations even and unlabored. Jacklyn Smith RN 08/06/22 0450 [facility] 08-06-2022 Emergency department Note Pt to floor with transport at this time. Belongings with patient. Pt clean and dry, respirations even and unlabored. Jacklyn Smith RN 08/06/22 [address], resting in bed. Bed alarm on, safety measures maintained. Jacklyn Smith RN 08/06/[address] Jacklyn Smith RN 08/06/22 0315 Called to check on ct again , other patient still on the table. Stated about 5-10 more min Anita Baltazar RN 08/06/22 0254 I call to notify ct that patient had a fall on thinners and needs his scan venu. They currently have another urgent patient on the table and said he will go next. Patient still alert and oriented X3 Anita Baltazar RN 08/06/22 0230 Anita Baltazar RN 08/06/[address] Anita Baltazar RN 08/06/[address] Cope at bedside Anita Baltazar RN 08/06/22 0158 Patient remains alert and oriented, back in bed resting with curtains open and call light in reach. I spoke with dr. Cope on the phone about the incident and he will be down to see the patient Anita Baltazar RN 08/06/22 0142 Patient woke up confused and climbed out of bed, he fell hitting his lower lip and right cheek. He is on blood thinner. I am notifying dr. Cope. Anita Baltazar RN 08/06/22 0135 Patient is sleeping in bed resting comfortably, respirations even and unlabored. No sx of distress noted. Call light within reach and safety measures maintained. Lilly Saravia RN 08/05/[address] Menjivar at bedside. Lilly Saravia RN 08/05/22 5458 The patients son Juan Diego Dominguez, , left his phone number for any updates. Lilly Saravia RN 08/05/22 2218 Ortho at bedside. Lilly Saravia RN 08/05/222099 Patient is sleeping in bed resting comfortably, respirations even and unlabored. No sx of distress noted. Call light within reach and safety measures maintained. Lilly Saravia RN 08/05/22[address] Menjivar, family member wants to know updated plan of care. Benito Rincon RN 08/05/221958 Patient asleep in bed, respirations easy and non-labored, call light within reach, will continue to monitor. Benito Rincon RN 08/05/221958 Pt came back from MRI and was NOT able to tolerate MRI. Dr. Menjivar aware. No further orders given. Pt is drowsy, but a/o x 3 upon verbal stimuli. Pt assisted back into bed and seems comfortable. Report given to Hair Oliver. Tin Jaimes RN 08/05/221924 MRI called and stated that pt cannot tolerate laying flat due to pain. Dr. Menjivar aware and new orders placed. This Rn and Ihsan Trauma RN at MRI and pt is medicated. See EMAR. [place] given to pt's visitor for when pt gets back to room. Tin Jaimes RN 08/05/221857 Pt to MRI in MRI safe wheelchair. Tin Jaimes RN 08/05/[address] Menjivar at bedside. Tin Jaimes RN 08/05/[address] Menjivar aware that pt cannot lay flat due to pain and will place new orders. Tin Jaimes RN 08/05/22 181 MRI screening complete and MRI aware and sending for pt now. Tin Jaimes RN 08/05/22 181 Call light answered upon pt entering room 23. Pt unable to lay in bed due to pain and wants to sit in wheelchair. Pt assisted back into wheelchair by this RN and Hair Oliver. Rounding completed. Pt is updated on plan of care. All comfort needs attended to at this time. Call light within reach. Safety maintained. Will continue to monitor. Tin Jaimes RN 08/05/221812 Assumed care of pt at this time. Tin Jaimes RN 08/05/22 175 Emergency Department Encounter [facility] EMERGENCY DEPT Patient: Jackson Hurt : 1940 Date of Evaluation: 08/05/2022 ED Provider: Gretchen Ling PA-C I saw the patient as the Clinician in Triage and performed a brief history and physical exam, established acuity, and ordered appropriate tests to develop basic plan of care. I wore appropriate PPE for the entirety of this encounter. Brief HPI: In brief, Jackson Hurt is a 81 y.o. male that presents for for evaluation of lumbar back pain with pain radiating down the posterior aspect of the bilateral legs. Patient states that he has no pain over the incision site, but over the past 1 week he has been having ambulation is radiating all the way down into the calves. He states that they had to increase his oxycodone dose secondary to this pain increasing and it still not controlling his pain. Rates the pain a 9 out of 10. No fevers no body aches no chills no significant swelling or redness overlying the incision site at this time. He states that he had surgery with Dr. Garcia over at the [facility] 2 weeks ago. States that he went to the urgent care today, they told him he needed to come in for further evaluation. Called summa with a blue slip, recommending MRI and possible admissions and patient states that he is not able to ambulate. Denies any saddle anesthesias. There is no significant bowel or bladder incontinence. DVT scans negative today per triage note. Focused Physical exam: Uncomfortable appearing 81-year-old male. He is able to fully extend at the knee, can plantarflex, dorsiflex the ankle, can wiggle of his toes. Extremities feel warm, no significant skin discoloration. DP pulses are intact. Difficult to truly assess strength secondary to patient being in wheelchair here in triage, this will be further assessed in the back by provider and orthopedics. No saddle anesthesias. He states that when I touch the posterior aspect of his legs it feels different than when we touch the anterior aspect. The incision site does not appear to be acutely infected, no fluctuance around it, no redness or warmth. GENERAL: The patient appears well developed and well nourished, in no apparent distress. Vital signs as documented. EYES: PERRLA. EOMI. Conjunctiva clear bilaterally. No scleral icterus noted. HEENT: Head exam is unremarkable. Mucous membranes moist. Tolerates saliva. Neck supple and with normal range of motion. LUNGS: Lungs are clear to auscultation, without any respiratory distress. No hypoxia. No wheezing, rales or rhonchi. Non labored breathing. CARDIAC: Regular rate and rhythm. No obvious perfusion deficits. Radial pulses 2+ and symmetric bilaterally. ABDOMEN: Soft, non distended, nontender with no obvious masses, and no peritoneal signs. No CVA tenderness bilaterally. No surgical abdomen. EXTREMITIES: Non edematous, with no obvious deformities. Moves all 4 extremities without difficulty. There is no tenderness to popliteal or calf in bilateral LE. There is no pitting edema in bilateral LE. SKIN: Good color, with no significant rashes. No pallor. NEURO: Alert and oriented x 3. No obvious neurological deficits, normal sensation and strength bilaterally. Patient able to ambulate with steady gait. PSYCH: Normal mood and behavior. Plan/MDM: Patient is afebrile, has no saddle anesthesias, or no bowel or bladder incontinence. We will evaluate with MRI, CBC CMP sed rate C-reactive protein we will consult orthopedics for further evaluation as needed. If patient is unable to ambulate may require admission. We will treat patient's pain. Please see subsequent provider note for further details and disposition (Comment: Please note this report has been produced using speech recognition software and may contain errors related to that system including errors in grammar, punctuation, and spelling as well as words and phrases that may be inappropriate. If there are any questions or concerns please feel free to contact the dictating provider for clarification) Gretchen Ling PA-C [facility] Gretchen iLng PA-C 08/05/22 1426 EMERGENCY DEPARTMENT ENCOUNTER Pt Name: Jackson Hurt Birthdate 1940 Date of evaluation: 08/05/2022 ED Provider: Sophie Menjivar MD CHIEF COMPLAINT Chief Complaint Patient presents with Leg Pain Patient c/o bilateral leg pain that radiates with movement. States pain starts in upper legs and radiates down lower legs. States had back operation 2 weeks ago and has had pain since then. States he does not have pain in the incision site. Was seen at [facility] and was told to come to the ED for evaluation. HISTORY OF PRESENT ILLNESS (Location/Symptom, Timing/Onset, Context/Setting, Quality, Duration, Modifying Factors, Severity) Note limiting factors. I wore appropriate PPE for the entirety of this encounter. HPI Jackson Hurt is a 81 y.o. male with a past medical history significant for coronary artery disease s/p stents and bypass surgery who presents to the emergency department for evaluation for back pain. Patient states has been having back pain for the last few days. He states he had lumbar spine surgery 2 weeks ago at the [facility]. He states since then his symptoms are progressively gotten worse. He states that he is having pain in the backs of his legs bilaterally. He states he cannot lay flat due to pain. Patient notes that he is also having weak urinary stream and has not had a bowel movement in 3 days. He notes that he is unable to ambulate because of pain but not due to weakness. He denies numbness and tingling to his groin area. He also denies any bowel or bladder incontinence. Patient denies fevers, chills Nursing Notes were reviewed. Limitations to history: None Outside historians: None REVIEW OF SYSTEMS Review of Systems Constitutional: Negative for chills and fever. HENT: Negative for ear pain and sore throat. Eyes: Negative for pain and visual disturbance. Respiratory: Negative for cough and shortness of breath. Cardiovascular: Negative for chest pain and palpitations. Gastrointestinal: Negative for abdominal pain and vomiting. Genitourinary: Negative for dysuria and hematuria. Musculoskeletal: Positive for arthralgias (Bilateral lower extremities) and back pain. Skin: Positive for wound. Negative for color change and rash. Neurological: Negative for seizures and syncope. All other systems reviewed and are negative. PAST MEDICAL HISTORY Past Medical History: Diagnosis Date CAD (coronary artery disease) Heart disease SURGICAL HISTORY Past Surgical History: Procedure Laterality Date APPENDECTOMY CARDIAC SURGERY CHOLECYSTECTOMY CORONARY ANGIOPLASTY WITH STENT PLACEMENT CORONARY ARTERY BYPASS GRAFT TONSILLECTOMY (HISTORICAL) CURRENT MEDICATIONS Previous Medications No medications on file ALLERGIES Patient has no known allergies. FAMILY HISTORY No family history on file. SOCIAL HISTORY Social History Socioeconomic History Marital status: Tobacco Use Smoking status: Former Substance and Sexual Activity Alcohol use: Yes Alcohol/week: 1.0 standard drink Drug use: No SCREENINGS [place] Coma Scale Best Eye Response: Spontaneous Best Verbal Response: Oriented Best Motor Response: Follows commands [place] Coma Scale Score: 15 PHYSICAL EXAM ED Triage Vitals [08/05/22 1406] Temp Heart Rate Resp BP 36.8 C (98.2 F) 67 16 (!) 143/80 SpO2 Temp Source Heart Rate Source Patient Position 94 % Temporal -- -- BP Location FiO2 (%) -- -- Physical Exam Vitals and nursing note reviewed. Constitutional: General: He is not in acute distress. Appearance: He is well-developed. HENT: Head: Normocephalic and atraumatic. Nose: No congestion or rhinorrhea. Mouth/Throat: Pharynx: No oropharyngeal exudate or posterior oropharyngeal erythema. Eyes: Conjunctiva/sclera: Conjunctivae normal. Cardiovascular: Rate and Rhythm: Normal rate and regular rhythm. Heart sounds: No murmur heard. Pulmonary: Effort: Pulmonary effort is normal. No respiratory distress. Breath sounds: Normal breath sounds. Abdominal: Palpations: Abdomen is soft. Tenderness: There is no abdominal tenderness. Musculoskeletal: General: Tenderness (Tenderness palpation along the incision line. Incision line in the lower back with nava in place. Redness appreciated bilaterally besides the intake that warmth to touch at the incision site. Sensation intact. Strength present.) present. No swelling. Cervical back: Neck supple. Skin: General: Skin is warm and dry. Capillary Refill: Capillary refill takes less than 2 seconds. Neurological: Mental Status: He is alert. Psychiatric: Mood and Affect: Mood normal. DIAGNOSTIC RESULTS RADIOLOGY (Per Emergency Physician): Interpretation per the Radiologist below, if available at the time of this note: XR lumbar spine 2 or 3 views Final Result 1. Postoperative changes of recent L4-L5 posterolateral fusion. Report Dictated on Electronically Signed By: Rajesh Torres Electronically Signed Date/Time: 08/05/2022 9:39 PM EDT MR lumbar spine w and wo contrast LABS: Labs Reviewed CBC WITH AUTO DIFFERENTIAL - Abnormal Result Value Auto WBC 7.0 RBC 3.89 (*) Hemoglobin 12.9 (*) Hematocrit 39.1 (*) MCV 100.6 (*) MCH 33.0 MCHC 32.8 RDW 13.6 Platelets 204 MPV 8.1 nRBC 0.0 Neutrophils Relative 68.5 Lymphocytes Relative 22.3 Monocytes Relative 6.4 Eosinophils Relative 1.7 Basophils Relative 1.1 Neutrophils Absolute 4.8 Lymphocytes Absolute 1.6 Monocytes Absolute 0.4 Eosinophils Absolute 0.1 Basophils Absolute 0.1 COMPREHENSIVE METABOLIC PANEL - Abnormal SODIUM 137 POTASSIUM 4.8 CHLORIDE 103 CARBON DIOXIDE 29 ANION GAP 5 UREA NITROGEN 25 (*) CREATININE 1.05 GLUCOSE 93 CALCIUM 9.3 AST (SGOT) 111 (*) ALT 119 (*) ALKALINE PHOSPHATASE 118 ALBUMIN 4.4 BILIRUBIN, TOTAL 0.7 TOTAL PROTEIN 8.0 eGFR 71.8 Narrative: Slightly Hemolyzed. Interpret with caution for the following analytes: Potassium, Alkaline Phosphatase, and AST SEDIMENTATION RATE, AUTOMATED - Abnormal Sed Rate 72 (*) C-REACTIVE PROTEIN - Normal C REACTIVE PROTEIN 7.3 All other labs were within normal range or not returned as of this dictation. EMERGENCY DEPARTMENT COURSE and DIFFERENTIAL DIAGNOSIS/MDM: Vitals: Vitals: 08/05/22 1829 08/05/22 1925 08/05/22 1950 08/05/22 2328 BP: 125/85 (!) 148/73 117/69 134/70 Pulse: 70 75 73 88 Resp: 16 16 16 18 Temp: TempSrc: SpO2: 99% 98% 97% 99% Weight: Height: Medications gadobutrol (Gadavist) injection 9 mL (has no administration in time range) HYDROmorphone (Dilaudid) injection 1 mg (1 mg IntraVENous Given 08/05/221822) ondansetron (Zofran) injection 4 mg (4 mg IntraVENous Given 08/05/221822) LORazepam (Ativan) injection 2 mg (2 mg IntraVENous Given 08/05/221849) sodium chloride 0.9 % bolus 1,000 mL (0 mL IntraVENous Stopped 08/05/222039) Diagnoses as of 08/06/22 0019 Post-op pain Debility Presenting for evaluation follow-up back pain. Presentation is concerning for infection versus postop pain. Patient unlikely with cauda equina or cord compression given exam findings. Work-up in the department with no electrolyte abnormalities, no renal function impairment, no transaminitis, slightly elevated ESR with normal CRP. Patient with no leukocytosis with stable anemia. Given patient is 2 weeks postop MRI of the lumbar spine ordered. MRI not obtained given patient could not tolerate laying flat. Patients x-rays of the lumbar spine revealed no acute findings with postsurgical changes. I reviewed this images. While in the department patient received Dilaudid 1 mg for pain with Zofran 4 mg IV. Patient also received 2 mg of lorazepam as could not lay flat for MRI. IV fluids given in the department. Patient was discussed with orthopedic surgery. They recommended admitting the patient for MRI in the morning and further work-up and possible placement. They however recommended a medical admission. Discussed lab and imaging results with the patient. Discussed with the patient plan for admission for further evaluation and management. Patient verbalized understanding of information given and agreed to plan. Patient was discussed with inpatient admitting provider who accepted patient for admission to their service. Patient was admitted in stable condition. PROCEDURES: Unless otherwise noted below, none Procedures FINAL IMPRESSION 1. Post-op pain 2. Debility DISPOSITION Admit 08/05/2022 11:48:15 PM PATIENT REFERRED TO: No follow-up provider specified. DISCHARGE MEDICATIONS: New Prescriptions No medications on file (Comment: Please note this report has been produced using speech recognition software and may contain errors related to that system including errors in grammar, punctuation, and spelling, as well as words and phrases that may be inappropriate. If there are any questions or concerns please feel free to contact the dictating provider for clarification.) Sophie Menjivar MD (electronically signed) Emergency Medicine Provider Sophie Menjivar MD 08/06/22 0019 documented in this encounter [facility] 08-06-2022 Note Attending History an d Physical Admit Date: 08/05/2022 PCP: Tres Esquivel MD CHIEF COMPLAINT: B/L lower back pain Reason for Admission: Post-operative radicular pain History Obtained From: patient, EMR HISTORY OF PRESENT ILLNESS: Jackson is a 81 y.o. male with past medical history below who presents with chief complaint listed above. Pt Hx significant for recent L4-5 PSF + L3-S1 decompression on July 21. Since returning home Pt has had worsening sharp, burning pain in lower back, glutes and thighs, Denies saddle anesthesia or bowel/bladder incontinence. Pt evaluated by Orthopedic specialty in ED - plan is for further MRI to determine further management. Will admit for further evaluation. - XR Lumbar spine Posterolateral fusion L4-L5. Right upper quadrant surgical clips noted. Posterior skin clips from recent lumbar surgery. 2. Mild degenerative changes involving the SI joints. 3. Mild disc space narrowing no three four. No acute fracture seen. - Shortly after initial admission, Paged to ED Rm for concern of Pt fall. Per Pt, RN Pt woke confused from Dilaudid/Ativan used to help him tolerate initial imaging. Pt states he thought he was still at home and got off the stretcher to use the bathroom. Lost balance, fell to floor striking right side of his face. Denies loss of consciousness. Pt to stand independently, hit call button. Reassessment notes slight bruise forming over right zygomatic process. Midline lower lip laceration, shallow. Pt is awake, a/o x3. As Pt had an uncontrolled fall to hard floor and on Plavix, out of caution will obtain CT Head w/o Contrast. Bed alarm placed by [facility] - CT Head w/o Contrast No acute intracranial process. 2. Mild global cerebral atrophy. Past Medical History: Past Medical History: Diagnosis Date CAD (coronary artery disease) Heart disease Past Surgical History: Past Surgical History: Procedure Laterality Date APPENDECTOMY CARDIAC SURGERY CHOLECYSTECTOMY CORONARY ANGIOPLASTY WITH STENT PLACEMENT CORONARY ARTERY BYPASS GRAFT TONSILLECTOMY (HISTORICAL) Social History: Social History Socioeconomic History Marital status: Spouse name: Not on file Number of children: Not on file Years of education: Not on file Highest education level: Not on file Occupational History Not on file Tobacco Use Smoking status: Former Smokeless tobacco: Not on file Substance and Sexual Activity Alcohol use: Yes Alcohol/week: 1.0 standard drink Drug use: No Sexual activity: Not on file Other Topics Concern Not on file Social History Narrative Not on file Social Determinants of Health Financial Resource Strain: Not on file Food Insecurity: Not on file Transportation Needs: Not on file Physical Activity: Not on file Stress: Not on file Social Connections: Not on file Intimate Partner Violence: Not on file Housing Stability: Not on file Family History: No family history on file. Medications Prior to Admission: No current facility-administered medications on file prior to encounter. No current outpatient medications on file prior to encounter. Allergies: No Known Allergies REVIEW OF SYSTEMS: As documented in HPI Vitals: BP 128/68 Pulse 80 Temp 36.8 ?C (98.2 ?F) (Temporal) Resp 16 Ht 5' 11 (1.803 m) Wt 205 lb (93 kg) SpO2 96% BMI 28.59 kg/m? BMI Classification: Overweight (BMI 25.0-29.9) Pulse Ox: SpO2 Av.6 % Min: 94 % Max: 100 % Supplemental O2: O2 Flow Rate (L/min): 2 L/min PHYSICAL EXAM: Physical Exam Constitutional: General: He is awake. HENT: Head: Normocephalic and atraumatic. Eyes: General: Vision grossly intact. Gaze aligned appropriately. Extraocular Movements: Extraocular movements intact. Pupils: Pupils are equal, round, and reactive to light. Cardiovascular: Rate and Rhythm: Normal rate and regular rhythm. Pulmonary: Breath sounds: Normal breath sounds. No wheezing, rhonchi or rales. Abdominal: General: Bowel sounds are normal. Palpations: Abdomen is soft. Tenderness: There is no abdominal tenderness. Musculoskeletal: Right lower leg: No edema. Left lower leg: No edema. Comments: Lumbar tenderness - Winces w/ positional movement Skin: Comments: (+) Bruising to right cheek, lip laceration on post-fall assessment Neurological: General: No focal deficit present. Mental Status: He is alert and oriented to person, place, and time. Cranial Nerves: Cranial nerves 2-12 are intact. Psychiatric: Behavior: Behavior is cooperative. DATA: CBC: Recent Labs 08/05/22 1450 WBC 7.0 RBC 3.89* HGB 12.9* HCT 39.1* MCV 100.6* RDW 13.6 PLT 204 BMP: Recent Labs 08/05/22 1450 NA 137 K 4.8 CL 103 CO2 29 BUN 25* CREATININE 1.05 GLUCOSE 93 CALCIUM 9.3 ANIONGAP 5 LIVER PROFILE: Recent Labs 08/05/22 1450 AST 111* ALT 119* BILITOT 0.7 ALKPHOS 118 PROT 8.0 PT/INR: No results for input(s): PROTI (more content not included)... [facility] 08-06-2022 Emergency department Note Pt back from CT, resting in bed. Bed alarm on, safety measures maintained. Jacklyn Smith RN 08/06/22 0356 [facility] 08-06-2022 Emergency department Note Pt to CT Jacklyn Smith RN 08/06/22 0315 [facility] 08-06-2022 Emergency department Note Called to check on ct again , other patient still on the table. Stated about 5-10 more min Anita Baltazar RN 08/06/22 0254 [facility] 08-06-2022 Emergency department Note I call to notify ct that patient had a fall on thinners and needs his scan venu. They currently have another urgent patient on the table and said he will go next. Patient still alert and oriented X3 Anita Baltazar RN 08/06/22 0230 Anita Baltazar RN 08/06/22 0231 [facility] 08-06-2022 History and physical note Images from the original note were not included. Attending History and Physical Admit Date: 08/05/2022 PCP: Tres Esquivel MD CHIEF COMPLAINT: B/L lower back pain Reason for Admission: Post-operative radicular pain History Obtained From: patient, EMR HISTORY OF PRESENT ILLNESS: Jackson is a 81 y.o. male with past medical history below who presents with chief complaint listed above. Pt Hx significant for recent L4-5 PSF + L3-S1 decompression on July 21. Since returning home Pt has had worsening sharp, burning pain in lower back, glutes and thighs, Denies saddle anesthesia or bowel/bladder incontinence. Pt evaluated by Orthopedic specialty in ED - plan is for further MRI to determine further management. Will admit for further evaluation. - XR Lumbar spine Posterolateral fusion L4-L5. Right upper quadrant surgical clips noted. Posterior skin clips from recent lumbar surgery. 2. Mild degenerative changes involving the SI joints. 3. Mild disc space narrowing no three four. No acute fracture seen. - Shortly after initial admission, Paged to ED Rm for concern of Pt fall. Per Pt, RN Pt woke confused from Dilaudid/Ativan used to help him tolerate initial imaging. Pt states he thought he was still at home and got off the stretcher to use the bathroom. Lost balance, fell to floor striking right side of his face. Denies loss of consciousness. Pt to stand independently, hit call button. Reassessment notes slight bruise forming over right zygomatic process. Midline lower lip laceration, shallow. Pt is awake, a/o x3. As Pt had an uncontrolled fall to hard floor and on Plavix, out of caution will obtain CT Head w/o Contrast. Bed alarm placed by [facility] - CT Head w/o Contrast No acute intracranial process. 2. Mild global cerebral atrophy. Past Medical History: Past Medical History: Diagnosis Date CAD (coronary artery disease) Heart disease Past Surgical History: Past Surgical History: Procedure Laterality Date APPENDECTOMY CARDIAC SURGERY CHOLECYSTECTOMY CORONARY ANGIOPLASTY WITH STENT PLACEMENT CORONARY ARTERY BYPASS GRAFT TONSILLECTOMY (HISTORICAL) Social History: Social History Socioeconomic History Marital status: Spouse name: Not on file Number of children: Not on file Years of education: Not on file Highest education level: Not on file Occupational History Not on file Tobacco Use Smoking status: Former Smokeless tobacco: Not on file Substance and Sexual Activity Alcohol use: Yes Alcohol/week: 1.0 standard drink Drug use: No Sexual activity: Not on file Other Topics Concern Not on file Social History Narrative Not on file Social Determinants of Health Financial Resource Strain: Not on file Food Insecurity: Not on file Transportation Needs: Not on file Physical Activity: Not on file Stress: Not on file Social Connections: Not on file Intimate Partner Violence: Not on file Housing Stability: Not on file Family History: No family history on file. Medications Prior to Admission: No current facility-administered medications on file prior to encounter. No current outpatient medications on file prior to encounter. Allergies: No Known Allergies REVIEW OF SYSTEMS: As documented in HPI Vitals: BP 128/68 Pulse 80 Temp 36.8 C (98.2 F) (Temporal) Resp 16 Ht 5' 11 (1.803 m) Wt 205 lb (93 kg) SpO2 96% BMI 28.59 kg/m BMI Classification: Overweight (BMI 25.0-29.9) Pulse Ox: SpO2 Av.6 % Min: 94 % Max: 100 % Supplemental O2: O2 Flow Rate (L/min): 2 L/min PHYSICAL EXAM: Physical Exam Constitutional: General: He is awake. HENT: Head: Normocephalic and atraumatic. Eyes: General: Vision grossly intact. Gaze aligned appropriately. Extraocular Movements: Extraocular movements intact. Pupils: Pupils are equal, round, and reactive to light. Cardiovascular: Rate and Rhythm: Normal rate and regular rhythm. Pulmonary: Breath sounds: Normal breath sounds. No wheezing, rhonchi or rales. Abdominal: General: Bowel sounds are normal. Palpations: Abdomen is soft. Tenderness: There is no abdominal tenderness. Musculoskeletal: Right lower leg: No edema. Left lower leg: No edema. Comments: Lumbar tenderness - Winces w/ positional movement Skin: Comments: (+) Bruising to right cheek, lip laceration on post-fall assessment Neurological: General: No focal deficit present. Mental Status: He is alert and oriented to person, place, and time. Cranial Nerves: Cranial nerves 2-12 are intact. Psychiatric: Behavior: Behavior is cooperative. DATA: CBC: Recent Labs 08/05/22 1450 WBC 7.0 RBC 3.89* HGB 12.9* HCT 39.1* MCV 100.6* RDW 13.6 PLT 204 BMP: Recent Labs 08/05/22 1450 NA 137 K 4.8 CL 103 CO2 29 BUN 25* CREATININE 1.05 GLUCOSE 93 CALCIUM 9.3 ANIONGAP 5 LIVER PROFILE: Recent Labs 08/05/22 1450 AST 111* ALT 119* BILITOT 0.7 ALKPHOS 118 PROT 8.0 PT/INR: No results for input(s): PROTIME, INR in the last 72 hours. CARDIAC ENZYMES: No results for input(s): TROPONINI in the last 72 hours. Procalcitonin: No results found for: PROCAL Urine Culture: No results found for this or any previous visit. COVID-19 PCR: No results for input(s): COVID19 in the last 72 hours. I reviewed: [x] laboratory results [x] radiographic results At the time of today's encounter. Pt was advised of the results. Data: (LOW: 2x CAT1 or independent historian MOD: 3x CAT1 or 1x CAT3 EXTENSIVE: 3x CAT1 and 1x CAT3) Assessment Discussed management with the ED provider and agree with hospitalization. - Currently pending confirmation of Pt home medications Acute, acute on chronic, unstable/uncontrolled chronic problems/diagnoses: Post-operative radicular pain - Orthopedic specialty to manage - PRN analgesia - MRI completed, pending interpretation for next steps in management Stable chronic problems affecting care, new non-acute diagnoses: CAD - Hold Plavix - Continue rest of home med regimen Plan As a result of the above findings & factors, the following mgmt was pursued: - am labs, replace lytes prn - PT/OT/CM/SW - delirium precautions: increase activity and limit nighttime disturbances - DVT prophylaxis: SCDs and encourage ambulation Complexity: Acute, complicated injury (MOD). Multiple stable chronic illnesses (MOD). Risk: Decision to admit to hospital-level care (HIGH). Use of parenteral controlled substances (HIGH). Prescription drug management (MOD). Low risk diagnostic testing or treatment (LOW). Advance Directive: FULL CODE Anticipated Discharge - Date - TBD - Location - TBD Total time spent (which include face to face and non face to face encounters) : greater than 60 minutes. Extended Emergency Contact Information Primary Emergency Contact: Juan Diego Dominguez Mobile Relation: Friend Shawna Cope MD Division of Hospitalist Medicine Inpatient Medical Services/[place] Phone: 08-06-2022 History and physical note Images from the original note were not included. Attending History and Physical Admit Date: 08/05/2022 PCP: Tres Esquivel MD CHIEF COMPLAINT: B/L lower back pain Reason for Admission: Post-operative radicular pain History Obtained From: patient, EMR HISTORY OF PRESENT ILLNESS: Jackson is a 81 y.o. male with past medical history below who presents with chief complaint listed above. Pt Hx significant for recent L4-5 PSF + L3-S1 decompression on July 21. Since returning home Pt has had worsening sharp, burning pain in lower back, glutes and thighs, Denies saddle anesthesia or bowel/bladder incontinence. Pt evaluated by Orthopedic specialty in ED - plan is for further MRI to determine further management. Will admit for further evaluation. - XR Lumbar spine Posterolateral fusion L4-L5. Right upper quadrant surgical clips noted. Posterior skin clips from recent lumbar surgery. 2. Mild degenerative changes involving the SI joints. 3. Mild disc space narrowing no three four. No acute fracture seen. - Shortly after initial admission, Paged to ED Rm for concern of Pt fall. Per Pt, RN Pt woke confused from Dilaudid/Ativan used to help him tolerate initial imaging. Pt states he thought he was still at home and got off the stretcher to use the bathroom. Lost balance, fell to floor striking right side of his face. Denies loss of consciousness. Pt to stand independently, hit call button. Reassessment notes slight bruise forming over right zygomatic process. Midline lower lip laceration, shallow. Pt is awake, a/o x3. As Pt had an uncontrolled fall to hard floor and on Plavix, out of caution will obtain CT Head w/o Contrast. Bed alarm placed by [facility] - CT Head w/o Contrast No acute intracranial process. 2. Mild global cerebral atrophy. Past Medical History: Past Medical History: Diagnosis Date CAD (coronary artery disease) Heart disease Past Surgical History: Past Surgical History: Procedure Laterality Date APPENDECTOMY CARDIAC SURGERY CHOLECYSTECTOMY CORONARY ANGIOPLASTY WITH STENT PLACEMENT CORONARY ARTERY BYPASS GRAFT TONSILLECTOMY (HISTORICAL) Social History: Social History Socioeconomic History Marital status: Spouse name: Not on file Number of children: Not on file Years of education: Not on file Highest education level: Not on file Occupational History Not on file Tobacco Use Smoking status: Former Smokeless tobacco: Not on file Substance and Sexual Activity Alcohol use: Yes Alcohol/week: 1.0 standard drink Drug use: No Sexual activity: Not on file Other Topics Concern Not on file Social History Narrative Not on file Social Determinants of Health Financial Resource Strain: Not on file Food Insecurity: Not on file Transportation Needs: Not on file Physical Activity: Not on file Stress: Not on file Social Connections: Not on file Intimate Partner Violence: Not on file Housing Stability: Not on file Family History: No family history on file. Medications Prior to Admission: No current facility-administered medications on file prior to encounter. No current outpatient medications on file prior to encounter. Allergies: No Known Allergies REVIEW OF SYSTEMS: As documented in HPI Vitals: BP 128/68 Pulse 80 Temp 36.8 C (98.2 F) (Temporal) Resp 16 Ht 5' 11 (1.803 m) Wt 205 lb (93 kg) SpO2 96% BMI 28.59 kg/m BMI Classification: Overweight (BMI 25.0-29.9) Pulse Ox: SpO2 Av.6 % Min: 94 % Max: 100 % Supplemental O2: O2 Flow Rate (L/min): 2 L/min PHYSICAL EXAM: Physical Exam Constitutional: General: He is awake. HENT: Head: Normocephalic and atraumatic. Eyes: General: Vision grossly intact. Gaze aligned appropriately. Extraocular Movements: Extraocular movements intact. Pupils: Pupils are equal, round, and reactive to light. Cardiovascular: Rate and Rhythm: Normal rate and regular rhythm. Pulmonary: Breath sounds: Normal breath sounds. No wheezing, rhonchi or rales. Abdominal: General: Bowel sounds are normal. Palpations: Abdomen is soft. Tenderness: There is no abdominal tenderness. Musculoskeletal: Right lower leg: No edema. Left lower leg: No edema. Comments: Lumbar tenderness - Winces w/ positional movement Skin: Comments: (+) Bruising to right cheek, lip laceration on post-fall assessment Neurological: General: No focal deficit present. Mental Status: He is alert and oriented to person, place, and time. Cranial Nerves: Cranial nerves 2-12 are intact. Psychiatric: Behavior: Behavior is cooperative. DATA: CBC: Recent Labs 08/05/22 1450 WBC 7.0 RBC 3.89* HGB 12.9* HCT 39.1* MCV 100.6* RDW 13.6 PLT 204 BMP: Recent Labs 08/05/22 1450 NA 137 K 4.8 CL 103 CO2 29 BUN 25* CREATININE 1.05 GLUCOSE 93 CALCIUM 9.3 ANIONGAP 5 LIVER PROFILE: Recent Labs 08/05/22 1450 AST 111* ALT 119* BILITOT 0.7 ALKPHOS 118 PROT 8.0 PT/INR: No results for input(s): PROTIME, INR in the last 72 hours. CARDIAC ENZYMES: No results for input(s): TROPONINI in the last 72 hours. Procalcitonin: No results found for: PROCAL Urine Culture: No results found for this or any previous visit. COVID-19 PCR: No results for input(s): COVID19 in the last 72 hours. I reviewed: [x] laboratory results [x] radiographic results At the time of today's encounter. Pt was advised of the results. Data: (LOW: 2x CAT1 or independent historian MOD: 3x CAT1 or 1x CAT3 EXTENSIVE: 3x CAT1 and 1x CAT3) Assessment Discussed management with the ED provider and agree with hospitalization. - Currently pending confirmation of Pt home medications Acute, acute on chronic, unstable/uncontrolled chronic problems/diagnoses: Post-operative radicular pain - Orthopedic specialty to manage - PRN analgesia - MRI completed, pending interpretation for next steps in management Stable chronic problems affecting care, new non-acute diagnoses: CAD - Hold Plavix - Continue rest of home med regimen Plan As a result of the above findings & factors, the following mgmt was pursued: - am labs, replace lytes prn - PT/OT/CM/SW - delirium precautions: increase activity and limit nighttime disturbances - DVT prophylaxis: SCDs and encourage ambulation Complexity: Acute, complicated injury (MOD). Multiple stable chronic illnesses (MOD). Risk: Decision to admit to hospital-level care (HIGH). Use of parenteral controlled substances (HIGH). Prescription drug management (MOD). Low risk diagnostic testing or treatment (LOW). Advance Directive: FULL CODE Anticipated Discharge - Date - TBD - Location - TBD Total time spent (which include face to face and non face to face encounters) : greater than 60 minutes. Extended Emergency Contact Information Primary Emergency Contact: Juan Diego Dominguez Mobile Relation: Friend Shawna Cope MD Division of Hospitalist Medicine Inpatient Medical Services/[facility] documented in this encounter [facility] 08-06-2022 Emergency department Note Bed alarm in place Anita Baltazar RN 08/06/22 0158 [facility] 08-06-[address] Cope at bedside Anita Baltazar RN 08/06/22 0158 [facility] 08-06-2022 Emergency department Note Patient remains alert and oriented, back in bed resting with curtains open and call light in reach. I spoke with dr. Cope on the phone about the incident and he will be down to see the patient Anita Baltazar RN 08/06/22 0142 [facility] 08-06-2022 Emergency department Note Patient woke up confused and climbed out of bed, he fell hitting his lower lip and right cheek. He is on blood thinner. I am notifying dr. Cope. Anita Baltazar RN 08/06/22 0135 [facility] 08-05-2022 Emergency department Note Patient is sleeping in bed resting comfortably, respirations even and unlabored. No sx of distress noted. Call light within reach and safety measures maintained. Lilly Saravia RN 08/05/22 1781 [facility] 08-05-[address] Menjivar at bedside. Lilly Saravia RN 08/05/22 0369 [facility] 08-05-2022 Emergency department Note The patients son Juan Diego Dominguez, , left his phone number for any updates. Lilly Saravia RN 08/05/22 1084 [facility] 08-05-2022 Consult note Formatting of th is note is different from the original. Images from the original note were not included. Ortho Spine Consult Patient: Jackson Hurt Date of : 1940 Acct: [id number] PCP: Tres Esquivel MD Date of Admission: 08/05/2022 Date of Service: Pt seen/examined on 08/05/2022 Chief Complaint: B/L Lumbar radicular pain s/p L3-S1 decompression and L4-5 PSF History Of Present Illness: 81 y.o. male who presents with B/L lumbar radicular pain s/p L4-5 PSF + L3-S1 decompression on 07/[address] Angus Garcia at [facility]. States he has had progressive pain since surgery that has really prevented him from walking and taking care of himself. Pain in his posterior thighs and buttock got so severe that he presented to [facility] for eval. Denies any specific inciting falls/trauma, but does remember twisting his back approximately 1 week after surgery. Denies Saddle anesthesia, endorses some constipation but otherwise no episodes of incontinence of bowel or bladder. Spoke with his son over the phone who states Jackson was walking fine before surgery and had different radicular pain before surgery on the anterior thigh, but now Jackson' pain seems to be posterior leg. Patient former smoker, occasional drinking, denies illicit drugs. Hx from chart and/or Pt. Patient ambulation status: mild difficulty. Antiplatelets/Anticoagulation includes: Plavix. Past Medical History: Past Medical History: Diagnosis Date CAD (coronary artery disease) Heart disease Past Surgical History: Recent Surgeries in Orthopedic Surgery No cases to display Home Medications: Prior to Admission medications Not on File Current Hospital Medications: Current Facility-Administered Medications: gadobutrol (Gadavist) injection 9 mL, 9 mL, IntraVENous, Once PRN, Gretchen Ling PA-C No current outpatient medications on file. Allergies: Patient has no known allergies. Social History: Social History Socioeconomic History Marital status: Spouse name: Not on file Number of children: Not on file Years of education: Not on file Highest education level: Not on file Occupational History Not on file Tobacco Use Smoking status: Former Smokeless tobacco: Not on file Substance and Sexual Activity Alcohol use: Yes Alcohol/week: 1.0 standard drink Drug use: No Sexual activity: Not on file Other Topics Concern Not on file Social History Narrative Not on file Social Determinants of Health Financial Resource Strain: Not on file Food Insecurity: Not on file Transportation Needs: Not on file Physical Activity: Not on file Stress: Not on file Social Connections: Not on file Intimate Partner Violence: Not on file Housing Stability: Not on file Family History: No family history on file. Further Family History is noncontributory to this injury. REVIEW OF SYSTEMS: Review of Systems - General ROS: negative for - chills, fatigue, fever, malaise or night sweats Psychological ROS: negative Ophthalmic ROS: negative ENT ROS: negative for - headaches or sore throat Hematological and Lymphatic ROS: negative for - bleeding problems or blood clots Respiratory ROS: no cough, shortness of breath, or wheezing Cardiovascular ROS: no chest pain or dyspnea on exertion Gastrointestinal ROS: negative Musculoskeletal ROS: See HPI Neurological ROS: See HPI All other systems reviewed and are negative PHYSICAL EXAM: BP 117/69 Pulse 73 Temp 36.8 C (98.2 F) (Temporal) Resp 16 Ht 1.803 m (5' 11) Wt 93 kg (205 lb) SpO2 97% BMI 28.59 kg/m GENERAL APPEARANCE: Awake and oriented x3. No acute distress, except appropriate to injury. MOOD AND AFFECT: Appropriate to situation GAIT AND STATION: Patient is in bed and unable to ambulate secondary to known injury. COORDINATION and BALANCE: Patient is grossly coordinated unable to ambulate secondary to known injury. Spine Exam: * Exam was limited due to pain: No Direct Spine Inspection: TTP was present in the area of the incision/dressing. The incision/dressing appeared c/d/I without signs of infection SA EF WE EE WF GS HI RUE 5 5 5 5 5 5 5 Sensation: Intact C3-T1 with normal sensation in all distributions Radial pulse: Palpable TTP in the following areas: nontender throughout extremity. Nontender throughout remainder of extremity SA EF WE EE WF GS HI LUE 5 5 5 5 5 5 5 Sensation: Intact C3-T1 with normal sensation in all distributions Radial pulse: Palpable TTP in the following areas: nontender throughout extremity. Nontender throughout remainder of extremity HF KE DF EHL PF RLE 5 5 4+ 5 5 Sensation: Intact L2-S1 with normal sensation Pulses: DP Palpable TTP in the following areas: Nontender throughout remainder of extremity Pain w Straight leg raise: No HF KE DF EHL PF LLE 5 5 4+ 5 5 Sensation: Intact L2-S1 with normal sensation Pulses: DP Palpable TTP in the following areas: Nontender throughout extremity Pain w Straight leg raise: No Deep Tendon Reflexes: Right Bicep: 2+ Left Bicep: 2+ Right Brachioradialis: 2+ Left Brachioradialis: 2+ Ortega: absent Right Knee: 2+ Left Knee: 2+ Right Ankle: 2+ Left Ankle: 2+ Right Ankle Clonus: absent Left Ankle Clonus: absent Babinski: downgoing Rectal Exam: Tone: na Sensation na Able to differentiate sharp/dull: na Bulbocavernous reflex: na Labs: Recent Labs 08/05/22 1450 WBC 7.0 HGB 12.9* HCT 39.1* PLT 204 Recent Labs 08/05/22 1450 NA 137 K 4.8 CL 103 CO2 29 BUN 25* CREATININE 1.05 CALCIUM 9.3 No results for input(s): INR in the last 72 hours. Recent Labs 08/05/22 1450 SEDRATE 72* CRP 7.3 No results for input(s): HCG in the last 72 hours. The above labs were reviewed by me. Radiology: The following images were independently reviewed and interpreted XR: Lumbar: displays stable posterior spinal fusion hardware without signs of failure or loosening. No adjacent segment disease. No new fractures MRI: Lumbar: pending, patient unable to sit still for MRI Radiology report reviewed. ASSESSMENT: 81 y.o. male with bilateral lower extremity radicular pain and failure to thrive s/p L3-S1 Lami and L4-5 PSF 07/21 PLAN: -wD/W Dr. Angus Garcia -plan for Lumbar MRI with contrast in the morning of 08/06 -Full plan pending MRI, though this has been ongoing for 2 weeks and symptoms have not significantly worsened acutely. -WB AT -Activity as tolerated AT -Neurovascular checks -Skin checks -NPO pending discussion with Dr. Garcia -Plan for medical admit for pain control/placement -Orthopaedic surgery will follow for MRI results. Please page senior information security analyst orthopaedic resident for questions or concerns. Dusty Waite MD Orthopaedic Surgery PGY2 08/06/2022 1:44 AM [facility] 08-05-2022 Consult note Formatting of th is note is different from the original. Images from the original note were not included. Ortho Spine Consult Patient: Jackson Hurt Date of : 1940 Acct: [id number] PCP: Tres Esquivel MD Date of Admission: 08/05/2022 Date of Service: Pt seen/examined on 08/05/2022 Chief Complaint: B/L Lumbar radicular pain s/p L3-S1 decompression and L4-5 PSF History Of Present Illness: 81 y.o. male who presents with B/L lumbar radicular pain s/p L4-5 PSF + L3-S1 decompression on 07/[address] Angus Garcia at [facility]. States he has had progressive pain since surgery that has really prevented him from walking and taking care of himself. Pain in his posterior thighs and buttock got so severe that he presented to [facility] for eval. Denies any specific inciting falls/trauma, but does remember twisting his back approximately 1 week after surgery. Denies Saddle anesthesia, endorses some constipation but otherwise no episodes of incontinence of bowel or bladder. Spoke with his son over the phone who states Jackson was walking fine before surgery and had different radicular pain before surgery on the anterior thigh, but now Jackson' pain seems to be posterior leg. Patient former smoker, occasional drinking, denies illicit drugs. Hx from chart and/or Pt. Patient ambulation status: mild difficulty. Antiplatelets/Anticoagulation includes: Plavix. Past Medical History: Past Medical History: Diagnosis Date CAD (coronary artery disease) Heart disease Past Surgical History: Recent Surgeries in Orthopedic Surgery No cases to display Home Medications: Prior to Admission medications Not on File Current Hospital Medications: Current Facility-Administered Medications: gadobutrol (Gadavist) injection 9 mL, 9 mL, IntraVENous, Once PRN, Gretchen Ling PA-C No current outpatient medications on file. Allergies: Patient has no known allergies. Social History: Social History Socioeconomic History Marital status: Spouse name: Not on file Number of children: Not on file Years of education: Not on file Highest education level: Not on file Occupational History Not on file Tobacco Use Smoking status: Former Smokeless tobacco: Not on file Substance and Sexual Activity Alcohol use: Yes Alcohol/week: 1.0 standard drink Drug use: No Sexual activity: Not on file Other Topics Concern Not on file Social History Narrative Not on file Social Determinants of Health Financial Resource Strain: Not on file Food Insecurity: Not on file Transportation Needs: Not on file Physical Activity: Not on file Stress: Not on file Social Connections: Not on file Intimate Partner Violence: Not on file Housing Stability: Not on file Family History: No family history on file. Further Family History is noncontributory to this injury. REVIEW OF SYSTEMS: Review of Systems - General ROS: negative for - chills, fatigue, fever, malaise or night sweats Psychological ROS: negative Ophthalmic ROS: negative ENT ROS: negative for - headaches or sore throat Hematological and Lymphatic ROS: negative for - bleeding problems or blood clots Respiratory ROS: no cough, shortness of breath, or wheezing Cardiovascular ROS: no chest pain or dyspnea on exertion Gastrointestinal ROS: negative Musculoskeletal ROS: See HPI Neurological ROS: See HPI All other systems reviewed and are negative PHYSICAL EXAM: BP 117/69 Pulse 73 Temp 36.8 C (98.2 F) (Temporal) Resp 16 Ht 1.803 m (5' 11) Wt 93 kg (205 lb) SpO2 97% BMI 28.59 kg/m GENERAL APPEARANCE: Awake and oriented x3. No acute distress, except appropriate to injury. MOOD AND AFFECT: Appropriate to situation GAIT AND STATION: Patient is in bed and unable to ambulate secondary to known injury. COORDINATION and BALANCE: Patient is grossly coordinated unable to ambulate secondary to known injury. Spine Exam: * Exam was limited due to pain: No Direct Spine Inspection: TTP was present in the area of the incision/dressing. The incision/dressing appeared c/d/I without signs of infection SA EF WE EE WF GS HI RUE 5 5 5 5 5 5 5 Sensation: Intact C3-T1 with normal sensation in all distributions Radial pulse: Palpable TTP in the following areas: nontender throughout extremity. Nontender throughout remainder of extremity SA EF WE EE WF GS HI LUE 5 5 5 5 5 5 5 Sensation: Intact C3-T1 with normal sensation in all distributions Radial pulse: Palpable TTP in the following areas: nontender throughout extremity. Nontender throughout remainder of extremity HF KE DF EHL PF RLE 5 5 4+ 5 5 Sensation: Intact L2-S1 with normal sensation Pulses: DP Palpable TTP in the following areas: Nontender throughout remainder of extremity Pain w Straight leg raise: No HF KE DF EHL PF LLE 5 5 4+ 5 5 Sensation: Intact L2-S1 with normal sensation Pulses: DP Palpable TTP in the following areas: Nontender throughout extremity Pain w Straight leg raise: No Deep Tendon Reflexes: Right Bicep: 2+ Left Bicep: 2+ Right Brachioradialis: 2+ Left Brachioradialis: 2+ Ortega: absent Right Knee: 2+ Left Knee: 2+ Right Ankle: 2+ Left Ankle: 2+ Right Ankle Clonus: absent Left Ankle Clonus: absent Babinski: downgoing Rectal Exam: Tone: na Sensation na Able to differentiate sharp/dull: na Bulbocavernous reflex: na Labs: Recent Labs 08/05/22 1450 WBC 7.0 HGB 12.9* HCT 39.1* PLT 204 Recent Labs 08/05/22 1450 NA 137 K 4.8 CL 103 CO2 29 BUN 25* CREATININE 1.05 CALCIUM 9.3 No results for input(s): INR in the last 72 hours. Recent Labs 08/05/22 1450 SEDRATE 72* CRP 7.3 No results for input(s): HCG in the last 72 hours. The above labs were reviewed by me. Radiology: The following images were independently reviewed and interpreted XR: Lumbar: displays stable posterior spinal fusion hardware without signs of failure or loosening. No adjacent segment disease. No new fractures MRI: Lumbar: pending, patient unable to sit still for MRI Radiology report reviewed. ASSESSMENT: 81 y.o. male with bilateral lower extremity radicular pain and failure to thrive s/p L3-S1 Lami and L4-5 PSF 07/21 PLAN: -wD/W Dr. Angus Garcia -plan for Lumbar MRI with contrast in the morning of 08/06 -Full plan pending MRI, though this has been ongoing for 2 weeks and symptoms have not significantly worsened acutely. -WB AT -Activity as tolerated AT -Neurovascular checks -Skin checks -NPO pending discussion with Dr. Garcia -Plan for medical admit for pain control/placement -Orthopaedic surgery will follow for MRI results. Please page senior information security analyst orthopaedic resident for questions or concerns. Dusty Waite MD Orthopaedic Surgery PGY2 08/06/2022 1:44 AM documented in this encounter [facility] 08-05-[address] Menjivar, imer [facility] member wants to know updated plan of care. Benito Rnicon RN 08/05/221958 [facility] 08-05-2022 Emergency department Note Ortho at bedside. Lilly Saravia RN 08/05/222099 [facility] 08-05-2022 Emergency department Note Patient is sleeping in bed resting comfortably, respirations even and unlabored. No sx of distress noted. Call light within reach and safety measures maintained. Lilly Saravia RN 08/05/222039 [facility] 08-05-2022 Emergency department Note Messaged Dr. Menjivar, family member wants to know updated plan of care. Benito Rincon RN 08/05/221958 [facility] 08-05-2022 Emergency department Note Patient asleep in bed, respirations easy and non-labored, call light within reach, will continue to monitor. Benito Rincon RN 08/05/221958 [facility] 08-05-2022 Emergency department Note Pt came back from [facility] and was NOT able to tolerate MRI. Dr. Menjivar aware. No further orders given. Pt is drowsy, but a/o x 3 upon verbal stimuli. Pt assisted back into bed and seems comfortable. Report given to Hair Oliver. Tin Jaimes RN 08/05/221924 [facility] 08-05-2022 Emergency department Note MRI called and stated that pt cannot tolerate laying flat due to pain. Dr. Menjivar aware and new orders placed. This Rn and Ihsan, Trauma RN at [facility] and pt is medicated. See EMAR. [place]ton given to pt's visitor for when pt gets back to room. Tin Jaiems RN 08/05/22 076 [facility] 08-05-2022 Emergency department Note Pt to MRI in MRI safe wheelchair. Tin Jaimes RN 08/05/22 1832 [facility] 08-05-[address] Menjivar at bedside. Tin Jaimes RN 08/05/22 1821 [facility] 08-05-[address] Menjivar aware that pt cannot lay flat due to pain and will place new orders. Tin Jaimes RN 08/05/22 1817 [facility] 08-05-2022 Emergency department Note MRI screening complete and MRI aware and sending for pt now. Tin Jaimes RN 08/05/22 1815 [facility] 08-05-2022 Emergency department Note Call light answered upon pt entering room 23. Pt unable to lay in bed due to pain and wants to sit in wheelchair. Pt assisted back into wheelchair by this RN and Hair Oliver. Rounding completed. Pt is updated on plan of care. All comfort needs attended to at this time. Call light within reach. Safety maintained. Will continue to monitor. Tin Jaimes RN 08/05/22 181 [facility] 08-05-2022 Emergency department Note Assumed care of pt at this time. Tin Jaimes RN 08/05/22 7384 [facility] 08-05-2022 Physician Emergency department Note Emergency Department Encounter [facility] EMERGENCY DEPT Patient: Jackson Hurt : 1940 Date of Evaluation: 08/05/2022 ED Provider: Gretchen Ling PA-C I saw the patient as the Clinician in Triage and performed a brief history and physical exam, established acuity, and ordered appropriate tests to develop basic plan of care. I wore appropriate PPE for the entirety of this encounter. Brief HPI: In brief, Jackson Hurt is a 81 y.o. male that presents for for evaluation of lumbar back pain with pain radiating down the posterior aspect of the bilateral legs. Patient states that he has no pain over the incision site, but over the past 1 week he has been having ambulation is radiating all the way down into the calves. He states that they had to increase his oxycodone dose secondary to this pain increasing and it still not controlling his pain. Rates the pain a 9 out of 10. No fevers no body aches no chills no significant swelling or redness overlying the incision site at this time. He states that he had surgery with Dr. Garcia over at the [facility] 2 weeks ago. States that he went to the urgent care today, they told him he needed to come in for further evaluation. Called [facility] with a blue slip, recommending MRI and possible admissions and patient states that he is not able to ambulate. Denies any saddle anesthesias. There is no significant bowel or bladder incontinence. DVT scans negative today per triage note. Focused Physical exam: Uncomfortable appearing 81-year-old male. He is able to fully extend at the knee, can plantarflex, dorsiflex the ankle, can wiggle of his toes. Extremities feel warm, no significant skin discoloration. DP pulses are intact. Difficult to truly assess strength secondary to patient being in wheelchair here in triage, this will be further assessed in the back by provider and orthopedics. No saddle anesthesias. He states that when I touch the posterior aspect of his legs it feels different than when we touch the anterior aspect. The incision site does not appear to be acutely infected, no fluctuance around it, no redness or warmth. GENERAL: The patient appears well developed and well nourished, in no apparent distress. Vital signs as documented. EYES: PERRLA. EOMI. Conjunctiva clear bilaterally. No scleral icterus noted. HEENT: Head exam is unremarkable. Mucous membranes moist. Tolerates saliva. Neck supple and with normal range of motion. LUNGS: Lungs are clear to auscultation, without any respiratory distress. No hypoxia. No wheezing, rales or rhonchi. Non labored breathing. CARDIAC: Regular rate and rhythm. No obvious perfusion deficits. Radial pulses 2+ and symmetric bilaterally. ABDOMEN: Soft, non distended, nontender with no obvious masses, and no peritoneal signs. No CVA tenderness bilaterally. No surgical abdomen. EXTREMITIES: Non edematous, with no obvious deformities. Moves all 4 extremities without difficulty. There is no tenderness to popliteal or calf in bilateral LE. There is no pitting edema in bilateral LE. SKIN: Good color, with no significant rashes. No pallor. NEURO: Alert and oriented x 3. No obvious neurological deficits, normal sensation and strength bilaterally. Patient able to ambulate with steady gait. PSYCH: Normal mood and behavior. Plan/MDM: Patient is afebrile, has no saddle anesthesias, or no bowel or bladder incontinence. We will evaluate with MRI, CBC CMP sed rate C-reactive protein we will consult orthopedics for further evaluation as needed. If patient is unable to ambulate may require admission. We will treat patient's pain. Please see subsequent provider note for further details and disposition (Comment: Please note this report has been produced using speech recognition software and may contain errors related to that system including errors in grammar, punctuation, and spelling as well as words and phrases that may be inappropriate. If there are any questions or concerns please feel free to contact the dictating provider for clarification) Gretchen Ling PA-C [employer] Gretchen Ling PA-C 08/05/22 [id number] [employer] Phone: 08-05-2022 Physician Emergency department Note EMERGENCY DEPARTMENT ENCOUNTER Pt Name: Jackson Hurt Birthdate 1940 Date of evaluation: 08/05/2022 ED Provider: Sophie Menjivar MD CHIEF COMPLAINT Chief Complaint Patient presents with Leg Pain Patient c/o bilateral leg pain that radiates with movement. States pain starts in upper legs and radiates down lower legs. States had back operation 2 weeks ago and has had pain since then. States he does not have pain in the incision site. Was seen at [facility] and was told to come to the ED for evaluation. HISTORY OF PRESENT ILLNESS (Location/Symptom, Timing/Onset, Context/Setting, Quality, Duration, Modifying Factors, Severity) Note limiting factors. I wore appropriate PPE for the entirety of this encounter. HPI Jackson Hurt is a 81 y.o. male with a past medical history significant for coronary artery disease s/p stents and bypass surgery who presents to the emergency department for evaluation for back pain. Patient states has been having back pain for the last few days. He states he had lumbar spine surgery 2 weeks ago at the [facility]. He states since then his symptoms are progressively gotten worse. He states that he is having pain in the backs of his legs bilaterally. He states he cannot lay flat due to pain. Patient notes that he is also having weak urinary stream and has not had a bowel movement in 3 days. He notes that he is unable to ambulate because of pain but not due to weakness. He denies numbness and tingling to his groin area. He also denies any bowel or bladder incontinence. Patient denies fevers, chills Nursing Notes were reviewed. Limitations to history: None Outside historians: None REVIEW OF SYSTEMS Review of Systems Constitutional: Negative for chills and fever. HENT: Negative for ear pain and sore throat. Eyes: Negative for pain and visual disturbance. Respiratory: Negative for cough and shortness of breath. Cardiovascular: Negative for chest pain and palpitations. Gastrointestinal: Negative for abdominal pain and vomiting. Genitourinary: Negative for dysuria and hematuria. Musculoskeletal: Positive for arthralgias (Bilateral lower extremities) and back pain. Skin: Positive for wound. Negative for color change and rash. Neurological: Negative for seizures and syncope. All other systems reviewed and are negative. PAST MEDICAL HISTORY Past Medical History: Diagnosis Date CAD (coronary artery disease) Heart disease SURGICAL HISTORY Past Surgical History: Procedure Laterality Date APPENDECTOMY CARDIAC SURGERY CHOLECYSTECTOMY CORONARY ANGIOPLASTY WITH STENT PLACEMENT CORONARY ARTERY BYPASS GRAFT TONSILLECTOMY (HISTORICAL) CURRENT MEDICATIONS Previous Medications No medications on file ALLERGIES Patient has no known allergies. FAMILY HISTORY No family history on file. SOCIAL HISTORY Social History Socioeconomic History Marital status: Tobacco Use Smoking status: Former Substance and Sexual Activity Alcohol use: Yes Alcohol/week: 1.0 standard drink Drug use: No SCREENINGS Ildefonso Coma Scale Best Eye Response: Spontaneous Best Verbal Response: Oriented Best Motor Response: Follows commands Ildefonso Coma Scale Score: 15 PHYSICAL EXAM ED Triage Vitals [08/05/22 1406] Temp Heart Rate Resp BP 36.8 C (98.2 F) 67 16 (!) 143/80 SpO2 Temp Source Heart Rate Source Patient Position 94 % Temporal -- -- BP Location FiO2 (%) -- -- Physical Exam Vitals and nursing note reviewed. Constitutional: General: He is not in acute distress. Appearance: He is well-developed. HENT: Head: Normocephalic and atraumatic. Nose: No congestion or rhinorrhea. Mouth/Throat: Pharynx: No oropharyngeal exudate or posterior oropharyngeal erythema. Eyes: Conjunctiva/sclera: Conjunctivae normal. Cardiovascular: Rate and Rhythm: Normal rate and regular rhythm. Heart sounds: No murmur heard. Pulmonary: Effort: Pulmonary effort is normal. No respiratory distress. Breath sounds: Normal breath sounds. Abdominal: Palpations: Abdomen is soft. Tenderness: There is no abdominal tenderness. Musculoskeletal: General: Tenderness (Tenderness palpation along the incision line. Incision line in the lower back with nava in place. Redness appreciated bilaterally besides the intake that warmth to touch at the incision site. Sensation intact. Strength present.) present. No swelling. Cervical back: Neck supple. Skin: General: Skin is warm and dry. Capillary Refill: Capillary refill takes less than 2 seconds. Neurological: Mental Status: He is alert. Psychiatric: Mood and Affect: Mood normal. DIAGNOSTIC RESULTS RADIOLOGY (Per Emergency Physician): Interpretation per the Radiologist below, if available at the time of this note: XR lumbar spine 2 or 3 views Final Result 1. Postoperative changes of recent L4-L5 posterolateral fusion. Report Dictated on Electronically Signed By: Rajesh Torres Electronically Signed Date/Time: 08/05/2022 9:39 PM EDT MR lumbar spine w and wo contrast LABS: Labs Reviewed CBC WITH AUTO DIFFERENTIAL - Abnormal Result Value Auto WBC 7.0 RBC 3.89 (*) Hemoglobin 12.9 (*) Hematocrit 39.1 (*) MCV 100.6 (*) MCH 33.0 MCHC 32.8 RDW 13.6 Platelets 204 MPV 8.1 nRBC 0.0 Neutrophils Relative 68.5 Lymphocytes Relative 22.3 Monocytes Relative 6.4 Eosinophils Relative 1.7 Basophils Relative 1.1 Neutrophils Absolute 4.8 Lymphocytes Absolute 1.6 Monocytes Absolute 0.4 Eosinophils Absolute 0.1 Basophils Absolute 0.1 COMPREHENSIVE METABOLIC PANEL - Abnormal SODIUM 137 POTASSIUM 4.8 CHLORIDE 103 CARBON DIOXIDE 29 ANION GAP 5 UREA NITROGEN 25 (*) CREATININE 1.05 GLUCOSE 93 CALCIUM 9.3 AST (SGOT) 111 (*) ALT 119 (*) ALKALINE PHOSPHATASE 118 ALBUMIN 4.4 BILIRUBIN, TOTAL 0.7 TOTAL PROTEIN 8.0 eGFR 71.8 Narrative: Slightly Hemolyzed. Interpret with caution for the following analytes: Potassium, Alkaline Phosphatase, and AST SEDIMENTATION RATE, AUTOMATED - Abnormal Sed Rate 72 (*) C-REACTIVE PROTEIN - Normal C REACTIVE PROTEIN 7.3 All other labs were within normal range or not returned as of this dictation. EMERGENCY DEPARTMENT COURSE and DIFFERENTIAL DIAGNOSIS/MDM: Vitals: Vitals: 08/05/22 1829 08/05/22 1925 08/05/22 1950 08/05/22 2328 BP: 125/85 (!) 148/73 117/69 134/70 Pulse: 70 75 73 88 Resp: 16 16 16 18 Temp: TempSrc: SpO2: 99% 98% 97% 99% Weight: Height: Medications gadobutrol (Gadavist) injection 9 mL (has no administration in time range) HYDROmorphone (Dilaudid) injection 1 mg (1 mg IntraVENous Given 08/05/221822) ondansetron (Zofran) injection 4 mg (4 mg IntraVENous Given 08/05/221822) LORazepam (Ativan) injection 2 mg (2 mg IntraVENous Given 08/05/221849) sodium chloride 0.9 % bolus 1,000 mL (0 mL IntraVENous Stopped 08/05/222039) Diagnoses as of 08/06/22 0019 Post-op pain Debility Presenting for evaluation follow-up back pain. Presentation is concerning for infection versus postop pain. Patient unlikely with cauda equina or cord compression given exam findings. Work-up in the department with no electrolyte abnormalities, no renal function impairment, no transaminitis, slightly elevated ESR with normal CRP. Patient with no leukocytosis with stable anemia. Given patient is 2 weeks postop MRI of the lumbar spine ordered. MRI not obtained given patient could not tolerate laying flat. Patients x-rays of the lumbar spine revealed no acute findings with postsurgical changes. I reviewed this images. While in the department patient received Dilaudid 1 mg for pain with Zofran 4 mg IV. Patient also received 2 mg of lorazepam as could not lay flat for MRI. IV fluids given in the department. Patient was discussed with orthopedic surgery. They recommended admitting the patient for MRI in the morning and further work-up and possible placement. They however recommended a medical admission. Discussed lab and imaging results with the patient. Discussed with the patient plan for admission for further evaluation and management. Patient verbalized understanding of information given and agreed to plan. Patient was discussed with inpatient admitting provider who accepted patient for admission to their service. Patient was admitted in stable condition. PROCEDURES: Unless otherwise noted below, none Procedures FINAL IMPRESSION 1. Post-op pain 2. Debility DISPOSITION Admit 08/05/2022 11:48:15 PM PATIENT REFERRED TO: No follow-up provider specified. DISCHARGE MEDICATIONS: New Prescriptions No medications on file (Comment: Please note this report has been produced using speech recognition software and may contain errors related to that system including errors in grammar, punctuation, and spelling, as well as words and phrases that may be inappropriate. If there are any questions or concerns please feel free to contact the dictating provider for clarification.) Sophie Menjivar MD (electronically signed) Emergency Medicine Provider Sophie Menjivar MD 08/06/22 0019 [facility] 08-05-2022 Telephone encounter Note S-Pt c/o severe back pain and had back surgery at [facility] B-See Previous Encounter A-states he cannot get out of bed and wants to know if he could go to [facility]. R-Advised to call senior information security analyst surgeon for [facility] for instructions, but if pain is that bad needs to go to ED. [facility] 08-05-2022 Miscellaneous Notes S-Pt c/o severe back pain and had back surgery at [facility] B-See Previous Encounter A-states he cannot get out of bed and wants to know if he could go to [facility]. R-Advised to call senior information security analyst surgeon for [facility] for instructions, but if pain is that bad needs to go to ED. Reason for Disposition [1] SEVERE post-op pain (e.g., excruciating, pain scale 8-10) AND [2] not controlled with pain medications Answer Assessment - Initial Assessment Questions . Protocols used: Post-Op Symptoms and Ajewohitd-[id number]-KH documented in this encounter [facility] 08-05-2022 Telephone encounter Note Reason for Disposition [1] SEVERE post-op pain (e.g., excruciating, pain scale 8-10) AND [2] not controlled with pain medications Answer Assessment - Initial Assessment Questions . Protocols used: Post-Op Symptoms and Pgbklrfnt-[id number] [facility] 08-04-2022 Telephone encounter Note Reason for Disposition [1] SEVERE post-op pain (e.g., excruciating, pain scale 8-10) AND [2] not controlled with pain medications Answer Assessment - Initial Assessment Questions . Protocols used: Post-Op Symptoms and [id number] S: Patient spoke with [facility] nurse regarding he had back surgery 2 weeks ago at [facility] and is having horrible back pain, just took Oxycodone B: Onset of symptoms/concern yesterday A: states he doesn't know if he should go to ED or where he should go. R: Advised that he needs to call his surgeon who should have answering service with [facility]. States he will do so.Patient understands care advice. No further needs at this time. Patient instructed to call back with new or worsening symptoms. [facility] 08-04-2022 Miscellaneous Notes Reason for Disposition [1] SEVERE post-op pain (e.g., excruciating, pain scale 8-10) AND [2] not controlled with pain medications Answer Assessment - Initial Assessment Questions . Protocols used: Post-Op Symptoms and Xapwwtybs-KSIWD-WE S: Patient spoke with [facility] nurse regarding he had back surgery 2 weeks ago at [facility] and is having horrible back pain, just took Oxycodone B: Onset of symptoms/concern yesterday A: states he doesn't know if he should go to ED or where he should go. R: Advised that he needs to call his surgeon who should have answering service with [facility]. States he will do so.Patient understands care advice. No further needs at this time. Patient instructed to call back with new or worsening symptoms. documented in this encounter [facility] 01-21-2021 Note Discharge Summary PHYSICAL THERAPY Referral/Discharge Information: Date of Discharge: 01/21/21 Date of Last Visit: 11/16/20 Date of Evaluation: 11/16/20 Number of Attended Visits: 1 Referred by: Dr. Medrano Referred for: LBP with radiculitis Problems/Issues Addressed: Patient was evaluated and given exercises to address c/o LBP and LLE pain. Reason for Discharge: Failed to schedule and/or to keep follow-up appointment(s). Patient did not return to PT following injection. Signatures Electronically signed by : Justin Hamm PT MS; Jan 21 2021 11:46AM EST (Author) [facility] 11-22-2020 Note Post Operative Note: Post-Procedure Diagnosis: Lumbar radiculitis Procedure: 1. 2. 3. 4. 5. Surgeon: Dejuan Resident/Fellow/Other Residential Real Estate Appraiser: Kurt Estimated Blood Loss (mL): none Specimen: no Findings: None Operative Report Dictated: Dictation: not applicable - note contains Operative Report Operative Report: Preoperative diagnosis: Lumbar radiculitis Postoperative diagnosis: Lumbar radiculitis Procedure: Bilateral L4 Lumbar transforaminal epidural steroid injection under fluoroscopic guidance Surgeon: Roly Medrano Residential Real Estate Appraiser: Fellow Anesthesia: Local, IV sedation Complications: Apparently none Clinical note: Mr Hurt is a 80 year old male with back and bilateral leg pain. Prior L4 transforaminal helped. Procedure note: The patient was met in the preoperative holding area after risks benefits and alternatives to procedure were discussed with the patient, informed consent was obtained. Patient brought back to the procedure room and placed in the prone position on the fluoroscopy table. Area over the back was exposed, prepped, draped, in the usual sterile fashion. Skin and subcutaneous tissues to the neuroforamen was anesthetized using 0.5% lidocaine. 22-gauge Sprotte needles were inserted in the skin and advanced into the foramen. Needle tip position was confirmed in AP oblique and lateral view. Contrast was injected which showed appropriate epidural spread on the left; the right needle was moved slightly medially to get appropriate spread, no intravascular or intrathecal uptake. A total of 2 mL of 0.5% lidocaine mixed with 10 mg dexamethasone was injected in divided doses among the 2 needles. [place] removed, bandage applied, patient tolerated the procedure well with no immediate complications. Attestation: Note Completion: Attending AttestationI was present for the entire procedure Electronic Signatures: Roly Medrano) (Signed 22-Nov-2020 10:41) Authored: Post Operative Note, Note Completion Last Updated: 22-Nov-2020 10:41 by Roly Medrano) [facility] 09-11-2020 History of Present illness Narrative 80 year old male presents with low back pain and leg pain rated 7/10 [facility] [id number] Work Phone: 08-04-2019 History of Present illness Narrative Mr. Hurt is a 80-year-old male with a known history of coronary disease status post CABG maintained on clopidogrel who is known to our clinic and last received a left L4 transforaminal epidural injection in August 2019 for a left lower leg calf and lateral leg pain. He states that he received nearly 7 months of complete pain relief.Today he presents with pain that he reports is being in a slightly different position in his left groin anterior and lateral thigh with occasional radiation into his calf. He describes it as a dull burning with intermittent shooting pains. It has occurred off and on since the spring and he has good days and bad days. He feels that it is worse with walking though some days he can go long distances while others he cannot. He feels relief once he sits down, and also thinks that it might feel better when he leans on something. He does not seem to notice a significant difference when he lies down. Current pain level is 6/10.He has had 4 prior caudal injections and transition to the transforaminal when those were working less effectively. He takes Tylenol and NSAIDs occasionally and reports relief. He has not had formal physical therapy, acupuncture, chiropractic adjustments.He denies any falls, tripping, loss of balance, bowel or bladder dysfunction. -[facility] [id number] Work Phone: 08-04-2019 History of Present illness Narrative Mr. Hurt is a 80-year-old male with a known history of coronary disease status post CABG maintained on clopidogrel who is known to our clinic and last received a left L4 transforaminal epidural injection in August 2019 for a left lower leg calf and lateral leg pain. He states that he received nearly 7 months of complete pain relief.Today he presents with pain that he reports is being in a slightly different position in his left groin anterior and lateral thigh with occasional radiation into his calf. He describes it as a dull burning with intermittent shooting pains. It has occurred off and on since the spring and he has good days and bad days. He feels that it is worse with walking though some days he can go long distances while others he cannot. He feels relief once he sits down, and also thinks that it might feel better when he leans on something. He does not seem to notice a significant difference when he lies down. Current pain level is 6/10.He has had 4 prior caudal injections and transition to the transforaminal when those were working less effectively. He takes Tylenol and NSAIDs occasionally and reports relief. He has not had formal physical therapy, acupuncture, chiropractic adjustments.He denies any falls, tripping, loss of balance, bowel or bladder dysfunction. 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, chronic Atherosclerotic heart diseas e of platinum coronary artery without angina pectoris chronic Hyperlipidemia chronic Presence of stent in coronar y artery November, [facility] Work Phone: [phone]) 109-737811-01-2006 Evaluation note* Diagnosis Onset Date Resolution Status Admit Date SAEED (dyspnea on exertion) acute July 16, 2024 12:54pm Aortocoronary bypass status 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, 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 July 16, 2024 12:54pm [facility] Work Phone: Evaluation note* Diagnosis Post-op pain- Primary Other acute postoperative pain Post-op pain Other acute postoperative pain Debility Unspecified debility Postoperative hematoma involving nervous system following nervous system procedure History of coronary artery bypass surgery Postsurgical aortocoronary bypass status Postoperative hematoma involving nervous system following nervous system procedure [facility] Diagnosis Near syncope- Primary COVID documented in this encounter [facility] Work Phone: Evaluation note* Diagnosis Bacteremia- Primary Bacteremia Chest congestion Other symptoms involving respiratory system and chest Flu-like symptoms documented in this encounter [facility] Work Phone: Evaluation note* Diagnosis Pain due to onychomycosis of toenails of both feet- Primary Toenail deformity Unspecified disease of nail [facility] Onset Date Resolution Status SAEED (dyspnea on exertion) ac poarch Fatigue acute Aortic root dilatation chron ic Atherosclerotic heart diseas e of platinum coronary artery without angina pectoris chronic First degree AV block chroni c Hyperlipidemia [facility] Work Phone: History of Present illness Narrative* Patient presents with signs consistent with left sided lumbar radiculitis, scheduled for injection on 11/22, will benefit from exercises to address deficits and improve function. * Clinical Presentation: Stable and/or uncomplicated characteristics. * Level of Complexity: [facility] Work Phone: History of Present illness Narrative* [place] notes reviewed * PMH reviewed * Social and family reviewed. No findings pertinent to the chief complaint * Allergies reviewed * Vital signs reviewed * CC: Flulike symptoms * Jackson is a 80-year-old male presenting for cold-like symptoms that started 2 to 3 days ago. Symptoms include a mild headache, runny nose, congestion, muscle ache. Patient also reports a dry cough that has been persistent for the past 3 to 4 weeks. Denies chest pain, shortness of breath, abdominal pain, nausea, vomiting, diarrhea, rash. Denies fever. Denies lower extremity erythema, edema. No other concerns or complaints * ROS: * After reviewing all body systems I have documented pertinent findings above. * All other Systems reviewed and are negative for complaint. Pertinent positive and negatives are listed in the above HPI. -[facility] Work Phone: Instructions* Instruction Text No instruction information i s available. [facility] Reason for referral (narrative)No reason for referral information [facility] Work [facility]: Reason for visit Narrative* Initial Evaluation . Left sided lumbar radiculopathy. * Referred by: Dr. Medrano [facility] Work Phone: Summary Purpose Family History No Family History Records Found Mother Name Dates Details Family history of dementia(V 17.2, Z81.8) Status:Active Family history of cardiac di sorder(V17.49, Z82.49) Status:Active Family history of malignant neoplasm of prostate(V16.42, Z80.42) Status:Active Father Name Dates Details Family history of malignant neoplasm of prostate(V16.42, Z80.42) Status:Active Mother Name Dates Details Family history of dementia(V 17.2, Z81.8) Status:Active Family history of cardiac di sorder(V17.49, Z82.49) Status:Active Family history of malignant neoplasm of prostate(V16.42, Z80.42) Status:Active Father Name Dates Details Family history of malignant neoplasm of prostate(V16.42, Z80.42) Status:Active Mother Name Dates Details Family history of dementia(V 17.2, Z81.8) Status:Active Family history of cardiac di sorder(V17.49, Z82.49) Status:Active Family history of malignant neoplasm of prostate(V16.42, Z80.42) Status:Active Father Name Dates Details Family history of malignant neoplasm of prostate(V16.42, Z80.42) Status:Active Mother Name Dates Details Family history of dementia(V 17.2, Z81.8) Status:Active Family history of cardiac di sorder(V17.49, Z82.49) Status:Active Family history of malignant neoplasm of prostate(V16.42, Z80.42) Status:Active Father Name Dates Details Family history of malignant neoplasm of prostate(V16.42, Z80.42) Status:Active Unknown Family Member Name Dates Details Family history of dementia: Mother(V17.2, Z81.8) Status:Active Family history of cardiac di sorder: Mother(V17.49, Z82.49) Status:Active Family history of malignant neoplasm of prostate: Mother, Father(V16.42, Z80.42) Status:Active Unknown Family Member Name Dates Details Family history of dementia: Mother(V17.2, Z81.8) Status:Active Family history of cardiac di sorder: Mother(V17.49, Z82.49) Status:Active Family history of malignant neoplasm of prostate: Mother, Father(V16.42, Z80.42) Status:Active Unknown Family Member Name Dates Details Family history of dementia: Mother(V17.2, Z81.8) Status:Active Family history of cardiac di sorder: Mother(V17.49, Z82.49) Status:Active Family history of malignant neoplasm of prostate: Mother, Father(V16.42, Z80.42) Status:Active Unknown Family Member Name Dates Details Family history of dementia: Mother(V17.2, Z81.8) Status:Active Family history of cardiac di sorder: Mother(V17.49, Z82.49) Status:Active Family history of malignant neoplasm of prostate: Mother, Father(V16.42, Z80.42) Status:Active Unknown Family Member Name Dates Details Family history of dementia: Mother(V17.2, Z81.8) Status:Active Family history of cardiac di sorder: Mother(V17.49, Z82.49) Status:Active Family history of malignant neoplasm of prostate: Mother, Father(V16.42, Z80.42) Status:Active Unknown Family Member Name Dates Details Family history of dementia: Mother(V17.2, Z81.8) Status:Active Family history of cardiac di sorder: Mother(V17.49, Z82.49) Status:Active Family history of malignant neoplasm of prostate: Mother, Father(V16.42, Z80.42) Status:Active Unknown Family Member Name Dates Details Family history of dementia: Mother(V17.2, Z81.8) Status:Active Family history of cardiac di sorder: Mother(V17.49, Z82.49) Status:Active Family history of malignant neoplasm of prostate: Mother, Father(V16.42, Z80.42) Status:Active Relationship Condition Age at Onset Recorded Date/T sis mother Coronary artery disease Unknown father Malignant neoplasm Unknown Advance Directives No Advanced Directives Records Found Advance Directive Response Recorded Date/ Time Living Will Yes January 19 9:24am Power of Rectifier Operator Yes January 19, 2017 9:24am Latest Code Status on File Code Status Date Activated Date Inactivated Comments Full Code 08/06/2022 7:42 AM 08/08/2022 6:25 PM Latest Code Status on File Code Status Date Activated Date Inactivated Comments Full Code 02/16/2023 6:39 PM Question Answer Comments Plan of Care: Code Status Discussion Completed Decision Maker: Patient Chief Complaint leg painleg painlow back and leg pain Chief Complaint and Reason for Visit Chief Complaint 10 MO F/U EORDERS Reason for Visit SAEED (dyspnea on exer tion) Fatigue 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 Hyperlipidemia Presence of stent in coronary artery Chief Complaint 10 MO F/U EORDERS FATIGUE/CAD FATIGUE/CAD Reason for Visit SAEED (dyspnea on exer tion) Fatigue 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 Hyperlipidemia Presence of stent in coronary artery Chief Complaint IRREGULAR HEART BEAT * JOSEFINA TO READ* F/U PER L.L (SEE NOTES) E ORDERS Reason for Visit SAEED (dyspnea on exer tion) Fatigue Aortic root dilatation 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 Hyperlipidemia Chief Complaint Admit Date 6 M FU July 16, 2024 12:54 pm Reason for Visit Admit Date SAEED (dyspnea on exertion) July 16, 2024 12:54pm Aortocoronary bypass status July 16 12:54pm Additional Source Comments (unrecognized sect ion and content) No Status Records FoundNo Status Records FoundNo Status Records FoundNo Status Records FoundNo Status Records FoundNo Status Records FoundNo Status Records FoundNo Status Records FoundNo Status Records Found INFORMATION SOURCE (unrecogn ized section and content) DATE CREATED AUTHOR 08/22/2017 [facility] DATE CREATED AUTHOR AUTHOR'S ORGANIZ ATION 12/28/2020 [facility] DATE CREATED AUTHOR AUTHOR'S ORGANIZ ATION 05/06/2021 [employer] DATE CREATED AUTHOR AUTHOR'S ORGANIZ ATION 06/28/2021 [facility] DATE CREATED AUTHOR AUTHOR'S ORGANIZ ATION 08/15/2022 [facility] DATE CREATED AUTHOR AUTHOR'S ORGANIZ ATION 09/29/2023 [facility] DATE CREATED AUTHOR AUTHOR'S ORGANIZ ATION 11/21/2023 [facility] DATE CREATED AUTHOR AUTHOR'S ORGANIZ ATION 03/26/2024 [facility] DATE CREATED AUTHOR AUTHOR'S ORGANIZ ATION 07/16/2024 [facility] Reason for Visit (unrecogniz ed section and content) Reason Onset Date Comments Post-op Problem 08/04/2022 Reason Onset Date Comments Back Pain 08/05/2022 Reason Comments Leg Pain Patient c/o bilatera l leg pain that radiates with movement. States pain starts in upper legs and radiates down lower legs. States had back operation 2 weeks ago and has had pain since then. States he does not have pain in the incision site. Was seen at [facility] and was told to come to the ED for evaluation. Specialty Diagnoses / Procedures Referred By Art t Referred To Contact Diagnoses Debility Post-op pain Procedures . Shawna Cope MD [address] [address] [facility] [address] [place] [id number] Referral ID Status Reason Start Date Expiration Date Visits Re quested Visits Authorized [id number] 1 1 Reason Comments Syncope Pt sick for several days. [place] like throwing up. Pt was going to the restroom and became dizzy. Pt states next thing he knows he was on the floor. Pt denies any injury. While being helped to the EMS cot Pt had another syncopal episode lasting a few seconds. Pt is on blood thinner. Reason Comments Blood Infection Reason Comments New Patient Pcp: Tres EsquivelLv: 04/30/23Ref:internetIns :summacareSs: 11 Nail Fungus Nirav hallux nailsDur: couple yearsPl: 0Tx: none Reason Comments Results Goals (unrecognized section and content) Goals may be documented in a n alternate sectionGoals may be documented in an alternate sectionGoals may be documented in an alternate sectionGoals may be documented in an alternate section <item> Privacy Markings (unrecogniz ed section and content) Section Author: Eliane Guerrero PROHIBITION ON REDISCLOSURE OF CONFIDENTIAL INFORMATION This notice accompanies a disclosure of information concerning a client made to you with the consent of such client. Care Teams (unrecognized sec tion and content) Manager Air Relationship Specialty Start Date End Date Tres Esquivel MD [address] [place] [address] PCP - General 11/03/14 Manager Air Relationship Specialty Start Date End Date Tres Esquivel MD [address] [place] [address] PCP - General 11/03/14 Manager Air Relationship Specialty Start Date End Date Tres Esquivel MD [address] [place] [address] PCP - General 11/03/14 Manager Air Relationship Specialty Start Date End Date Michael Lehman DO [address] [place] [address] PCP - [employer] PCP 03/05/21 Tres Esquivel MD [address] [place] [address] PCP - General Internal Medicine 02/15/23 Manager Air Relationship Specialty Start Date End Date Michael Lehman DO [address] [place] [address] PCP - [employer] PCP 03/05/21 Tres Esquivel MD [address] [place] [address] PCP - General Internal Medicine 02/15/23 Manager Air Relationship Specialty Start Date End Date Tres Esquivel [id number] [place] [id number] PCP - General 05/09/23 Manager Air Relationship Specialty Start Date End Date Tres Esquivel [id number] [place] [id number] PCP - General 05/09/23 Team Status: Active Member Role Status Dates [facility] Family Provider Active [facility] Primary Care Provider Active Team Status: Inactive Member Role Status Dates [facility] Primary Care Provider, Referring Provider Active Selam Mills PASTEURIZING MACHINE OPERATOR, PASTEURIZING MACHINE OPERATOR-C Attending Provider Active Team Status: Active Member Role Status Dates [facility] Primary Care Provider Active Rajesh Singh PASTEURIZING MACHINE OPERATOR, PASTEURIZING MACHINE OPERATOR-C Attending Provider, Referring Pro vider Active Team Status: Inactive Member Role Status Dates [facility] Primary Care Provider Active Selam Mills NP, PASTEURIZING MACHINE OPERATOR-C Attending Provider, Referring P jd Active Team Status: Active Member Role Status Dates [facility] Primary Care Provider Active Team Status: Inactive Member Role Status Dates [facility] Primary Care Provider Active Start: July 16, 2024 End: July 16, 2024 [facility] Referring Provider Active Start: Henry muhammad 2024 End: July 16, 2024 Dr. Jase Vo MD Attending Provider Active Start: July 16, 2024 End: July 16, 2024 Scheduled Active and Recently Administ ered Medications (unrecognized section and content) Medication Order 08/06/2022 08/07/2022 08/08/2022 acetaminophen (Tylenol) tablet 650 mg 650 mg, Oral, Every 8 hours scheduled (3 times per day), First dose (after last modification) on Sun08/06/22 at 1400, Maximum dose of acetaminophen is 4000 mg from all sources in 24 hours. 1400 (Not Given - Provider: Joanna Ambrocio RN - Reason: NPO)1453 (MAR Hold - Provider: Automatic Transfer Provider - Reason: Patient not available)1754 (MAR Unhold - Provider: Automatic Transfer Provider)202 (Given - Provider: Mamadou Downs, HAIR) 0625 (Given - Provider: Shayla Huang, HAIR)1521 (Given - Provider: Aneta Short RN)2330 (Not Given - Provider: Mamadou Downs RN - Reason: Patient/family refused) 0800 (Not Given - Provider: Aneta Short RN - Reason: Other)1400 (Not Given - Provider: Aneta Short RN - Reason: Patient/family refused) atenolol (Tenormin) tablet 25 mg (CANCELED) 25 mg, Oral, Daily, First dose on Sun08/06/22 at 1730 1839 (Given - Provider: Joanna Ambrocio RN) atenolol (Tenormin) tablet 25 mg 25 mg, Oral, NIGHTLY, First dose (after last modification) on Sun08/07/22 at 2100 2216 (Given - Provider: Mamadou Downs, HAIR) bisacodyl (Dulcolax) EC tablet 5 mg (COMPLETED) 5 mg, Oral, Once, On Sun08/07/22 at 0730, For 1 dose, Do not give within 1 hour of antacids, milk, or dairy products. Do not crush, chew, or split. 1014 (Given - Provider: Aneta Short RN) buPROPion XL (Wellbutrin XL) 24 hr tablet 300 mg 300 mg, Oral, Daily, First dose on 08/06/22 at 1730, Do not crush, chew, or split. 1839 (Given - Provider: Joanna Ambrocio, HAIR) 1013 (Given - Provider: Aenta Short, RN) 0855 (Given - Provider: Aneta Short, RN) ceFAZolin in dextrose 4% (Ancef) IVPB 2,000 mg (COMPLETED) 2,000 mg, IntraVENous, Administer over 30 Minutes, Every 8 hours, First dose on Sun08/06/22 at 2300, For 24 hours, Recovery & On Unit, premix bag, Suspected Indication (Select all that apply): Surgical Prophylaxis 2253 (New Bag - Provider: Mamadou Downs, RN)2323 (Stopped - Provider: Mamadou Downs, RN) 0626 (New Bag - Provider: Shayla Huang RN)0656 (Stopped - Provider: Aneta Short, RN)1521 (New Bag - Provider: Aneta Short, RN)1551 (Stopped - Provider: Aneta Short, RN) docusate sodium (Colace) capsule 100 mg 100 mg, Oral, 2 times daily, First dose on Sun08/07/22 at 0900, Do not crush or break. 1014 (Given - Provider: Aneta Short, RN)2216 (Given - Provider: Mamadou Downs, HAIR) 0855 (Given - Provider: Aneta Short RN) LORazepam (Ativan) injection 1 mg (COMPLETED) 1 mg, IntraVENous, Once, On Sun08/06/22 at 1045, For 1 dose, inbound call center representative to MRI For IV doses dilute dose with 1ml NS. 1047 (Given - Provider: Joanna Ambrocio RN) losartan (Cozaar) tablet 25 mg (CANCELED) 25 mg, Oral, Daily, First dose on Sun08/06/22 at 1730 1839 (Given - Provider: Joanna Ambrocio RN) losartan (Cozaar) tablet 25 mg 25 mg, Oral, NIGHTLY, First dose (after last modification) on Sun08/07/22 at 2100 2216 (Given - Provider: Mamadou Downs, HAIR) 0820 (Held by provider - Provider: Emma Munoz, - Reason: Other - Comment: Small increase in Cr)0822 (Unheld by provider - Provider: Emma Munoz, ) PRN Medication Order 08/06/2022 08/07/2022 08/08/2022 gadobutrol (Gadavist) injection 9 mL (COMPLETED) 9 mL, IntraVENous, IMG once PRN, contrast, Starting on 08/05/22 at 1822, For 1 dose 1148 (Given - Provider: AMOL SalcedoT) gelatin absorbable (Surgifoam) hemorrhoidectomy sponge (CANCELED) As needed, Starting on 08/06/22 at 1537, Intraprocedure 1537 (Given - Provider: Lee Garcia DO) hydrALAZINE (Apresoline) injection 10 mg 10 mg, IntraVENous, Every 4 hours PRN, high blood pressure, Administer for SBP >170 and/or DBP >100, Starting on 08/06/22 at 0742 1453 (MAY Hold - Provider: Automatic Transfer Provider - Reason: Patient not available)1754 (MAY Unhold - Provider: Automatic Transfer Provider) HYDROmorphone (Dilaudid) injection 0.5 mg (CANCELED) 0.5 mg, IntraVENous, Every 4 hours PRN, moderate pain (4-6), severe pain (7-10), Starting on 08/06/22 at 0811, If oral and IV narcotics ordered, use oral first and only use IV if oral is ineffective or cannot take oral. Do Not give oral and IV within 1 hour of each other unless specifically ordered. 1047 (Given - Provider: Joanna Ambrocio RN) HYDROmorphone (Dilaudid) injection 0.5 mg(Linked Group 1) 0.5 mg, IntraVENous, Every 4 hours PRN, moderate pain (4-6), Starting on 08/06/22 at 1258, If oral and IV narcotics ordered, use oral first and only use IV if oral is ineffective or cannot take oral. Do Not give oral and IV within 1 hour of each other unless specifically ordered. 1200 (Given - Provider: Joanna Ambrocio RN)1453 (MAY Hold - Provider: Automatic Transfer Provider - Reason: Patient not available)1754 (MAY Unhold - Provider: Automatic Transfer Provider) HYDROmorphone (Dilaudid) injection 1 mg(Linked Group 1) 1 mg, IntraVENous, Every 4 hours PRN, severe pain (7-10), Starting on 08/06/22 at 1258, If oral and IV narcotics ordered, use oral first and only use IV if oral is ineffective or cannot take oral. Do Not give oral and IV within 1 hour of each other unless specifically ordered. 1200 (See Alternative - Provider: Joanna Ambrocio, HAIR)1453 ([facility] Hold - Provider: Automatic Transfer Provider - Reason: Patient not available)1754 ([facility] Unhold - Provider: Automatic Transfer Provider) melatonin tablet 3 mg 3 mg, Oral, Nightly PRN, sleep, Starting on 08/06/22 at 0742 1453 ([facility] Hold - Provider: Automatic Transfer Provider - Reason: Patient not available)175 ([facility] Unhold - Provider: Automatic Transfer Provider)2028 (Given - Provider: Mamadou Downs, HAIR) 221 (Given - Provider: Mamadou Downs, RN) naloxone (Narcan) injection 0.4 mg 0.4 mg, IntraVENous, As needed, opioid reversal, pinpoint pupils, Starting on 08/06/22 at 1258, administer IV PRN for oversedation, RR LESS than 10 1453 ([facility] Hold - Provider: Automatic Transfer Provider - Reason: Patient not available)175 ([facility] Unhold - Provider: Automatic Transfer Provider) ondansetron (Zofran) injection 4 mg(Linked Group 2) 4 mg, IntraVENous, Every 6 hours PRN, nausea, vomiting, Starting on 08/06/22 at 0742, 1st Line. Give IV if patient is unable to take orally. If inadequate response within 60 minutes, proceed to next-line agent or contact provider if no further options ordered. 1453 ([facility] Hold - Provider: Automatic Transfer Provider - Reason: Patient not available)1754 ([facility] Unhold - Provider: Automatic Transfer Provider) ondansetron ODT (Zofran-ODT) disintegrating tablet 4 mg(Linked Group 2) 4 mg, Oral, Every 8 hours PRN, nausea, vomiting, Starting on 08/06/22 at 0742, 1st Line. If inadequate response within 60 minutes, proceed to next-line agent or contact provider if no further options ordered. Patient should allow tablet to dissolve on tongue. Do not remove from blister pack until just before administering. 1453 ([facility] Hold - Provider: Automatic Transfer Provider - Reason: Patient not available)1753 ([facility] Unhold - Provider: Automatic Transfer Provider) oxyCODONE (Roxicodone) immediate release tablet 10 mg(Linked Group 3) 10 mg, Oral, Every 6 hours PRN, severe pain (7-10), Starting on 08/06/22 at 0742 1000 (Given - Provider: Joanna Ambrocio, HAIR)1453 ([facility] Hold - Provider: Automatic Transfer Provider - Reason: Patient not available)175 ([facility] Unhold - Provider: Automatic Transfer Provider)2026 (See Alternative - Provider: Mamadou Downs, HAIR) oxyCODONE (Roxicodone) immediate release tablet 5 mg(Linked Group 3) 5 mg, Oral, Every 6 hours PRN, moderate pain (4-6), Starting on 08/06/22 at 0742 1000 (See Alternative - Provider: Joanna Ambrocio, HAIR)1453 ([facility] Hold - Provider: Automatic Transfer Provider - Reason: Patient not available)1753 ([facility] Unhold - Provider: Automatic Transfer Provider)2026 (Given - Provider: Mamadou Downs, HAIR) polyethylene glycol (PEG) 3350 (Miralax) packet 17 g 17 g, Oral, Daily PRN, constipation, Starting on 08/06/22 at 0742, 1st line for treatment of constipation - give scheduled if no bowel movement in past 24 hours. 1453 ([facility] Hold - Provider: Automatic Transfer Provider - Reason: Patient not available)1753 ([facility] Unhold - Provider: Automatic Transfer Provider) sodium chloride 0.9 % irrigation solution (CANCELED) As needed, Starting on 08/06/22 at 1450, Intraprocedure 1450 (Given - Provider: Lee Garcia DO)1517 (Given - Provider: Lee Garcia DO) sterile water irrigation solution (CANCELED) As needed, Starting on 08/06/22 at 1525, Intraprocedure 1525 (Given - Provider: Lee Garcia DO - Comment: BACK TABLE) SURGIFLO hemostatic matrix with thrombin kit (CANCELED) As needed, Starting on 08/06/22 at 1538, Intraprocedure 1538 (Given - Provider: Lee Garcia DO) thrombin spray (CANCELED) As needed, Starting on 08/06/22 at 1538, Intraprocedure 1538 (Given - Provider: Lee Garcia DO) tranexamic acid (Cyklokapron) injection (COMPLETED) Continuous PRN, Starting on 08/06/22 at 1555, Intraprocedure 1555 (New Bag - Provider: Lee Garcia DO - Comment: TOPICAL) vancomycin (Vancocin) vial for injection (CANCELED) As needed, Starting on 08/06/22 at 1517, Intraprocedure 1517 (Given - Provider: Lee Garcia DO) Xeroform Petrolat Gauze 1x8 pad (CANCELED) As needed, Starting on 08/06/22 at 1623, Intraprocedure 1623 (Given - Provider: Jase Stanley MD) Linked Groups Order Group 1: HYDROmorphone (Dilaudid) injection 0.5 mgJump to med 0.5 mg, IntraVENous, Every 4 hours PRN, moderate pain (4-6), Starting on 08/06/22 at 1258
If oral and IV narcotics ordered, use oral first and only use IV if oral is ineffective or cannot take oral. Do Not give oral and IV within 1 hour of each other unless specifically ordered.
Or HYDROmorphone (Dilaudid) injection 1 mgJump to med 1 mg, IntraVENous, Every 4 hours PRN, severe pain (7-10), Starting on 08/06/22 at 1258
If oral and IV narcotics ordered, use oral first and only use IV if oral is ineffective or cannot take oral. Do Not give oral and IV within 1 hour of each other unless specifically ordered.
Group 2: ondansetron ODT (Zofran-ODT) disintegrating tablet 4 mgJump to med 4 mg, Oral, Every 8 hours PRN, nausea, vomiting, Starting on 08/06/22 at 0742
1st Line. If inadequate response within 60 minutes, proceed to next-line agent or contact provider if no further options ordered. Patient should allow tablet to dissolve on tongue. Do not remove from blister pack until just before administering.
Or ondansetron (Zofran) injection 4 mgJump to med 4 mg, IntraVENous, Every 6 hours PRN, nausea, vomiting, Starting on 08/06/22 at 0742
1st Line. Give IV if patient is unable to take orally. If inadequate response within 60 minutes, proceed to next-line agent or contact provider if no further options ordered.
Group 3: oxyCODONE (Roxicodone) immediate release tablet 5 mgJump to med 5 mg, Oral, Every 6 hours PRN, moderate pain (4-6), Starting on 08/06/22 at 0742 Or oxyCODONE (Roxicodone) immediate release tablet 10 mgJump to med 10 mg, Oral, Every 6 hours PRN, severe pain (7-10), Starting on 08/06/22 at 0742 Scheduled Medication Order 02/13/2023 02/14/2023 02/15/2023 ondansetron (Zofran) injection 4 mg (COMPLETED) 4 mg, intravenous, Once, On Jacqui 02/15/23 at 0810, For 1 dose, When administering via IV Push, administer over 3-5 minutes. 0826 (Given - Provid er: Urmila Larkin RN) Scheduled Medication Order 02/16/2023 02/17/2023 02/18/2023 alfuzosin (Uroxatral) 24 hr tablet 10 mg 10 mg, oral, Daily, First dose on 02/17/23 at 1030, Do not crush, chew, or split. 1030 (Not Given - Provider: Griselda Smith RN - Reason: Medication not available) 0800 (Given - Provider: Griselda Smith RN) aspirin EC tablet 81 mg 81 mg, oral, Daily, First dose on 02/17/23 at 1030, Do not crush, chew, or split. 1149 (Given - Provider: Griselda Smith RN) 0800 (Given - Provider: Griselda Smith, HAIR) atenolol (Tenormin) tablet 25 mg 25 mg, oral, Daily RT, First dose on 02/17/23 at 1030 1149 (Given - Provider: Grisleda Smith RN) 0637 (Given - Provider: Audra Cervantes RN) buPROPion XL (Wellbutrin XL) 24 hr tablet 300 mg 300 mg, oral, Daily RT, First dose on 02/17/23 at 1030, Do not crush, chew, or split. 1150 (Given - Provider: Griselda Smith RN) 0638 (Given - Provider: Audra Cervantes RN) clopidogrel (Plavix) tablet 75 mg 75 mg, oral, Daily RT, First dose on Sun02/17/23 at 1030 1149 (Given - Provider: Griselda Smith RN) 0637 (Given - Provider: Audra Cervantes RN) enoxaparin (Lovenox) syringe 40 mg 40 mg, subcutaneous, Every 24 hours, First dose on Sun02/16/23 at 1840, Indications: venous thrombosis 2123 (Given - Provider: Audra Cervantes RN) 182 (Given - Provider: Shikha Styles RN) 1840 (Due) guaiFENesin (Mucinex) 12 hr tablet 1,200 mg 1,200 mg, oral, 2 times daily, First dose on 02/17/23 at 1115, Administer with plenty of fluids to ensure proper action. Do not crush, chew, or split. 1149 (Given - Provider: Griselda Smith RN)2027 (Given - Provider: Shikha Styles RN) 0800 (Given - Provider: Griselda Smith RN)2100 (Due) losartan (Cozaar) tablet 25 mg 25 mg, oral, Daily, First dose on 02/17/23 at 1030 1150 (Given - Provider: Griselda Smith RN) 0800 (Given - Provider: Griselda Smith RN) melatonin tablet 3 mg 3 mg, oral, Daily, First dose on Sun02/16/23 at 1900 2135 (Given - Provider: Audra Cervantes RN - Comment: nursing workload) 1859 (Given - Provider: Shikha Styles RN) 1900 (Due) piperacillin-tazobactam- dextrose (Zosyn) IV 3.375 g (COMPLETED) 3.375 g, intravenous, at 100 mL/hr, Administer over 0.5 Hours, Once, On Sun02/16/23 at 1815, For 1 dose, premix bag, Dosing of this medication varies based on severity of illness. Does this patient have sepsis or concern for sepsis (probable or documented infection plus systemic manifestations of infection)? Yes, Suspected Indication (Select all that apply): Other, Specify: bacteremia, Type of Therapy: Empiric 1832 (New Bag - Provider: Christina Wilson RN)1922 (Stopped - Provider: August Brown RN) polyethylene glycol (Glycolax, Miralax) packet 17 g 17 g, oral, Daily, First dose on Sun02/16/23 at 1840, Bowel Regimen - for prevention of constipation. 1840 (Not Given - Provider: Audra Cervantes RN - Reason: Resident/resident patient admitting representative refused - education provided)2227 (Given - Provider: Audra Cervantes RN - Comment: pt refused at first then wanted it.) 0821 (Given - Provider: Griselda Smith RN) 0900 (Not Given - Provider: Griselda Smith RN - Reason: Patient/family refused) rosuvastatin (Crestor) tablet 20 mg 20 mg, oral, Daily RT, First dose on Sun02/17/23 at 1030 1150 (Given - Provider: Griselda Smith RN) 0638 (Given - Provider: Audra Cervantes RN) vancomycin (Vancocin) in % 5 dextrose 500 mL IV 1,750 mg 1,750 mg, intravenous, Administer over 105 Minutes, Every 24 hours, First dose (after last modification) on Sun02/18/23 at 2000, Dosing of this medication varies based on severity of illness. Does this patient have sepsis or concern for sepsis (probable or documented infection plus systemic manifestations of infection)? No, Suspected Indication (Select all that apply): Endocarditis/Endovascula r infection, Type of Therapy: Empiric 1999 (Due) vancomycin (Vancocin) in dextrose 5 % water (D5W) 500 mL IV 1,500 mg (COMPLETED) 1,500 mg, intravenous, at 333.3 mL/hr, Administer over 90 Minutes, Once, On Sun02/16/23 at 1815, For 1 dose, Dosing of this medication varies based on severity of illness. Does this patient have sepsis or concern for sepsis (probable or documented infection plus systemic manifestations of infection)? Yes, Suspected Indication (Select all that apply): Other, Specify: bacteremia, Type of Therapy: Empiric 1918 (New Bag - Provider: August Brown RN)2048 (Stopped - Provider: Audra Cervantes RN) vancomycin (Vancocin) in dextrose 5 % water (D5W) 500 mL IV 1,500 mg (CANCELED) 1,500 mg, intravenous, at 333.3 mL/hr, Administer over 90 Minutes, Every 24 hours, First dose on Sun02/17/23 at 2000, Dosing of this medication varies based on severity of illness. Does this patient have sepsis or concern for sepsis (probable or documented infection plus systemic manifestations of infection)? No, Suspected Indication (Select all that apply): Endocarditis/Endovascula r infection, Type of Therapy: Empiric 1899 (New Bag - Provider: Shikha Styles RN)2029 (Stopped - Provider: Shikha Styles RN) Continuous Medication Order 02/16/2023 02/17/2023 02/18/2023 sodium chloride 0.9% infusion (CANCELED) 75 mL/hr, intravenous, Continuous, Starting on Sun02/16/23 at 1850 2125 (New Bag - Provider: Audra Cervantes RN) 1105 (Stopped - Provider: Griselda Smith RN) PRN Medication Order 02/16/2023 02/17/2023 02/18/2023 acetaminophen (Tylenol) oral liquid 650 mg(Linked Group 1) 650 mg, nasogastric tube, Every 4 hours PRN, fever (temp greater than 38.0 C), greater than or equal to 38 C, Starting on Sun02/16/23 at 1839 acetaminophen (Tylenol) suppository 650 mg(Linked Group 1) 650 mg, rectal, Every 4 hours PRN, fever (temp greater than 38.0 C), greater than or equal to 38 C, Starting on Sun02/16/23 at 1839, If ordered PRN for pain, nurse is permitted to administer this medication for higher pain scores based on patient preference? Yes acetaminophen (Tylenol) tablet 650 mg(Linked Group 1) 650 mg, oral, Every 4 hours PRN, fever (temp greater than 38.0 C), greater than or equal to 38 C, Starting on Sun02/16/23 at 1839, If ordered PRN for pain, nurse is permitted to administer this medication for higher pain scores based on patient preference? Yes benzocaine-menthol (Cepastat Sore Throat) 15-3.6 mg lozenge 1 lozenge 1 lozenge, Mouth/Throat, Every 2 hour PRN, sore throat, Starting on Sun02/16/23 at 1839 benzonatate (Tessalon) capsule 100 mg 100 mg, oral, 3 times daily PRN, cough, Starting on 02/17/23 at 1104, Do not crush or chew. 1150 (Given - Provider: Lillian Smith RN) zolpidem (Ambien) tablet 5 mg 5 mg, oral, Daily PRN, sleep, Starting on 02/17/23 at 1028 Linked Groups Order Group 1: acetaminophen (Tylenol) tablet 650 mgJump to med 650 mg, oral, Every 4 hours PRN, fever (temp greater than 38.0 C), greater than or equal to 38 C, Starting on Sun02/16/23 at 1839
If ordered PRN for pain, nurse is permitted to administer this medication for higher pain scores based on patient preference? Yes Or acetaminophen (Tylenol) oral liquid 650 mgJump to med 650 mg, nasogastric tube, Every 4 hours PRN, fever (temp greater than 38.0 C), greater than or equal to 38 C, Starting on Sun02/16/23 at 1839 Or acetaminophen (Tylenol) suppository 650 mgJump to med 650 mg, rectal, Every 4 hours PRN, fever (temp greater than 38.0 C), greater than or equal to 38 C, Starting on Sun02/16/23 at 1839
If ordered PRN for pain, nurse is permitted to administer this medication for higher pain scores based on patient preference? Yes Source Comments (unrecognize d section and content) In the event this informatio n is protected by the Federal Confidentiality of Alcohol and Drug Abuse Patient Records regulations: The Federal rules restrict any use of the information to criminally investigate or prosecute any alcohol or drug abuse patient.[facility] HospitalIn the event this information is protected by the Federal Confidentiality of Alcohol and Drug Abuse Patient Records regulations: The Federal rules restrict any use of the information to criminally investigate or prosecute any alcohol or drug abuse patient.[facility] FOR RECORDS PERTAINING TO PATIENTS WHO ARE OR HAVE BEEN ENROLLED IN A CHEMICAL DEPENDENCY/SUBSTANCEABUSE PROGRAM, SOME INFORMATION MAY BE OMITTED. This clinical summary was aggregated from multiple sources. Caution should be exercised in using it in the provision of clinical care. This summary normalizes information from multiple sources, and as a consequence, information in this document may materially change the coding, format and clinical context of patient data. In addition, data may be omitted in some cases. CLINICAL DECISIONS SHOULD BE BASED ON THE PRIMARY CLINICAL RECORDS. [facility]. provides no warranty or guarantee of the accuracy or completeness of information in this document.
--- NOTE | 2024-08-26 07:15 | ECHOD_ITS ---
Reason For Study Reason For Study: DYSPNEA Procedure This was a 2D Doppler, Color Flow transthoracic echocardiogram. Exam performed in department. Left Ventricle Normal LV size. The left ventricular ejection fraction is 55 %. No regional wall motion abnormalities noted. Right Ventricle Normal RV size. Normal systolic function. Atria Normal left atrium. Normal right atrium. Mitral Valve There is mild mitral annular calcification. Tricuspid Valve Normal tricuspid valve. Aortic Valve Trisinus/trileaflet aortic valve. Moderate focal aortic valve calcification. Pulmonic Valve Normal pulmonic valve. Great Vessels Mildly dilated aortic root. The pulmonary artery is normal size. Inferior vena cava collapse with respiration. Pericardium/Pleural No pericardial effusion. MMode/2D Measurements & Calculations LVIDd: 4.1 cm IVSd: 1.5 cm LVOT diam: 2.2 cm LVIDs: 2.9 cm LVPWd: 1.1 cm LVOT area: 3.7 cm2 RVDd: 4.5 cm FS: 30.7 % asc Aorta Diam: 4.0 cm LAV(MOD-bp): 38.4 ml LVAd ap4: 23.6 cm2 LAV(MOD-bp) Indexed: 17.8 ml/m2 LVLd ap4: 7.6 cm LAV(MOD-sp2): 34.8 ml EDV(MOD-sp4): 64.1 ml LAV(MOD-sp4): 40.7 ml EDV(sp4-el): 61.9 ml LVAs ap4: 15.0 cm2 LVLs ap4: 6.7 cm ESV(MOD-sp4): 28.3 ml ESV(sp4-el): 28.7 ml EF(MOD-sp4): 55.9 % EF(sp4-el): 53.6 % LVAd ap2: 24.6 cm2 SV(MOD-sp4): 35.8 ml SV(MOD-sp2): 35.2 ml LVLd ap2: 7.3 cm SI(MOD-sp4): 16.6 ml/m2 SI(MOD-sp2): 16.3 ml/m2 EDV(MOD-sp2): 69.2 ml EDV(sp2-el): 70.3 ml LVAs ap2: 16.1 cm2 LVLs ap2: 6.4 cm ESV(MOD-sp2): 33.9 ml ESV(sp2-el): 34.4 ml EF(MOD-sp2): 50.9 % SV(sp4-el): 33.2 ml Ao sinus diam: 4.[address] Junction: 3.6 cm LA dimension(2D): 4.3 cm LA A4 area: 16.3 cm2 RA A4 area: 8.3 cm2 TAPSE: 1.6 cm Time Measurements MV dec time: 0.19 sec Doppler Measurements & Calculations MV E max phani: 76.2 cm/sec Lat Peak E' Phani: 9.4 cm/sec Med Peak E' Phani: 7.5 cm/sec MV A max phani: 81.6 cm/sec E/E' lat: 8.1 E/E' med: 10.2 MV E/A: 0.93 MV dec slope: 392.4 cm/sec2 Ao V2 max: 130.5 cm/sec LV V1 max: 75.3 cm/sec Ao max P.8 mmHg LV V1 max P.3 mmHg Ao V2 mean: 93.8 cm/sec LV V1 mean P.0 mmHg Ao mean P.8 mmHg LV V1 mean: 47.0 cm/sec Ao V2 VTI: 29.7 cm LV V1 VTI: 16.5 cm AV (velocity ratio): 0.55 ANDRADE(I,D): 2.1 cm2 ANDRADE(V,D): 2.1 cm2 SV(LVOT): 61.3 ml PA V2 max: 121.9 cm/sec ECHO/Echo Complete Interpretation Summary The left ventricular ejection fraction is 55 %. Normal LV size. No regional wall motion abnormalities noted. Moderate focal aortic valve calcification. Ordering Physician: Shan Vo Referring Physician: Shan Vo MD Performed By: Kelin Resendiz RDCS and Student
[2024-08-26 09:41] LABS: AST(SGOT) 47 U/L (<=37); Alanine Aminotransfer ALT/SGPT 37 U/L (<=46); Albumin, Serum 4.2 g/dL (3.4-4.8); Alkaline Phosphatase 70 U/L (40-129); Bilirubin, Direct 0.25 mg/dL (0.00-0.30); Cholesterol 98 mg/dL (<=200); Globulin 2.9 g/dL (2.2-4.2); High Density Lipoprotein 51 mg/dL; Low Density Lipoprotein Calc. 17 mg/dL; Protein, Total 7.1 g/dL (5.9-8.4); Total Bilirubin 0.56 mg/dL (0.00-1.30); Triglycerides 150 mg/dL; Very Low Density Lipoprotein 30 mg/dL (5-40); cholesterol:hdl ratio screen 1.91
--- NOTE | 2024-08-27 07:40 | STRESSREP ---
Stress Test Report Pharmacologic myocardial perfusion stress test. 83-year-old male with a history of chest pain Resting EKG demonstrates sinus rhythm with a rate of 62 bpm. Resting blood pressure is 128/62 mmHg. 0.4 mg of regadenoson was infused per usual protocol followed by rapid intravenous saline flush injection. Continuous EKG monitoring was performed. The maximum heart rate was 75 bpm which was 54% of max impacted heart rate the maximum workload was 1 metabolic equivalent. At rest there were no ST or T wave changes noted to suggest ischemia and at peak infusion nonspecific ST changes were noted which did not meet the criteria for ischemia. No clinical angina is noted. The final blood pressure was 122/70 mmHg. Myocardial perfusion protocol. 14.1 mCi of technetium 99m sestamibi was injected at rest. 0.4 mg of regadenoson was infused per usual protocol. At peak infusion 44.4 mCi of technetium 99m sestamibi was injected stress images were obtained stress and rest images were reconstructed and compared in the short axis vertical long and horizontal long axis. Gated images were also obtained. Perfusion SPECT analysis: Review of the stress images demonstrate normal uptake of tracer noted in all areas of the myocardium. There is a small apical perfusion defect noted. The resting images similar demonstrated normal uptake of tracer noted in all areas of the myocardium. A small persistent apical defect is present. The above may be suggestive of a small apical infarct. No areas of reversibility are noted to suggest ischemia Gated SPECT analysis: The gated ejection fraction is 66%. Conclusion: Normal pharmacologic myocardial perfusion stress test. Preserved ejection fraction.
== END | disposition home or self-care (01) ==
PROVIDERS: Referring Provider Internal Medicine Cardiovascular Disease; Visit Provider Internal Medicine Cardiovascular Disease
DX: R06.09 Other forms of dyspnea (principal); Z95.1 Presence of aortocoronary bypass graft; I25.10 Atherosclerotic heart disease of native coronary artery without angina pectoris
CPT/HCPCS: 36415; 78452; 80061; 80076; 93017; 93306; A9500; A4216; J2785